=== PATIENT | female | born 1990 | race Caucasian/White ===

== ENCOUNTER → 2017-08-23 17:42 | Outpatient (CLI) | payer OTHER, SELFPAY | PROVIDERS: Visit Provider Obstetrics & Gynecology | DX: R30.0 Dysuria (principal) | CPT/HCPCS: 87086; 87088 ==

== ENCOUNTER → 2017-09-30 13:59 | Outpatient (CLI) | payer OTHER, SELFPAY ==
[2017-09-30 16:11] LABS: Group B Strep DNA By PCR Negative (Negative); Internal Control PASS; Probe Check PASS; Specimen Processing Control PASS
== END ==
PROVIDERS: Nurse Practitioner Women's Health; Visit Provider Obstetrics & Gynecology
DX: Z34.90 Encounter for supervision of normal pregnancy, unspecified, unspecified trimester (principal)
CPT/HCPCS: 87081; 87653

== ENCOUNTER 2017-10-22 12:10 | Inpatient (IN) | payer OTHER, SELFPAY ==
[2017-10-22] MEDS: Lactated Ringers 1,000 ML 50 ML IV (12:34)
[2017-10-22 12:35] VITALS: BMI 29.7
[2017-10-22 12:42] LABS: Hematocrit 36.5 % (37-47); Hemoglobin 12.5 g/dl (12.0-15.0); Mean Corp Hgb Conc 34.2 g/gl (32-36); Mean Corpuscular Hgb 30.5 pg (27.0-32.0); White Blood Count 15.2 K/mm3 (4.4-11.0)
[2017-10-22 12:43] LABS: Mean Platelet Vol. 11.5 fl (6.2-12.0); Platelet Count 270 K/mm3 (150-450); RBC Distribution Width CV 14.4 % (11.6-14.6); RBC Distribution Width SD 45.6 fl (35.1-43.9)
[2017-10-22 12:48] LABS: Scan Indicated on CBC? Y/N NO
[2017-10-22] MEDS: Ondansetron 4 MG/2 ML Vial IV (15:59)
[2017-10-22] MEDS: Oxytocin 30 units/NS 500 ml 30 UNITS/500 ML IV.SOLN 334 UNITS IV (17:50)
--- NOTE | 2017-10-22 18:08 | HP.PCM_ITS ---
- Problem List (1) Active labor at term Status: Acute (2) Supervision of normal Status: Acute Qualifiers: Comment: PRR DEWEY 10/27/17 girl Maricel Harry History Date of Admission: 10/22/17 Final DEWEY: 10/27/17 Gestational age: 39 Weeks and 2 Days History of this : 26 yo @ 39w2d presents IAL 4-5 cm Pertinent Past Medical History: Past Surgical History (Last Reviewed 10/22/17 @ 12:04 by Debbie Hoffman) History of wisdom tooth extraction, class II edentulism (Acute) Previous back surgery (Acute) ankle surgery (Acute) Mom's Labs & Results 10/22/17 10/22/17 12:30 12:30 WBC 15.2 H RBC 4.10 L Hgb 12.5 Hct 36.5 L MCV 89.0 MCH 30.5 MCHC 34.2 RDW 14.4 RDW Differential 45.6 H Plt Count 270 MPV 11.5 Blood Type A POSITIVE Antibody Screen NEGATIVE Course Did the patient receive Yes care? Labs Blood Type: A RH: POSITIVE RPR/VDRL/Syphilis Nonreactive Rubella status Immune HbSAg Negative Date Done: 04/09/17 Chlamydia Negative Gonorrhea Negative HIV/AIDS Non-Reactive Group B Strep: Negative Current Obstetrical History Gestational Diabetes No Incompetent Cervix No Infertility No IUGR No Macrosomia No Hypertension/Pre-eclampsia No Placenta Previa/Abruption No PTL/PROM No Uterine anomaly No Oligohydramnios No Polyhydramnios No Multiple gestation No Past Medical History Asthma Yes: childhood Diabetes No Hypertension No Heart disease No Mitral valve prolapse No Neurologic/Seizure disorder/ No Migraines Kidney disease No Liver disease No Varicosities No Clotting disorders/Hx of DVT No Thyroid Dysfunction No Other medical diseases No Psychiatric disorders No Major trauma No Abnormal PAP smear No Sleep apnea No Mammogram in the last 2 years No Enter DETAILS of medical left leg broken age 4 history Medications Taken During Dose/Freq.: [phenergan] 12.5 mg q6h prn Last Date/Time of Medication 22 weeks Taken: [phenergan] Social History Marital Status: Alleged father Harry [place] Hx Smoking No Smoking Status Never smoker Allergies codeine Adverse Reaction (Mild, Verified 10/22/17 13:34) Unknown nausea/vomiting oxycodone [From Percocet] Adverse Reaction (Mild, Verified 10/22/17 13:34) Unknown nausea/vomiting Current Medications Acetaminophen (Tylenol) 325 - 650 mg PO Q4H PRN PRN PRN Reason: PAIN OR FEVER >100.4F Al Hydroxide/Mg Hydroxide (Mylanta Ii) 15 - 30 ml PO Q4H PRN PRN PRN Reason: INDIGESTION Citric Acid/Sodium Citrate (Bicitra) 30 ml PO UD PRN Lactated Ringer's () 1,000 mls @ 50 mls/hr IV .Q20H MYRNA Last Admin: 10/22/17 12:34 Dose: 50 mls/hr Nalbuphine HCl (Nubain) 5 - 10 mg IV Q3H PRN PRN PRN Reason: PAIN (4-1010) Ondansetron HCl (Zofran) 4 mg IV Q8H PRN PRN PRN Reason: NAUSEA Last Admin: 10/22/17 15:59 Dose: 4 mg Promethazine HCl (Phenergan Iv) 6.25 - 12.5 mg IV Q4H PRN PRN; Protocol PRN Reason: IF NAUSEA PERSISTS Sodium Chloride () 5 - 15 ml IV UD [facility] Last Admin: 10/22/17 13:59 Dose: Not Given Smoking Status: Never smoker Alcohol: None Drug Use: none Number of Fetus(es): 1 - fht 140s Review of Systems Constitutional: Denies: Chills, Fever, Weight Change HEENT: Denies: Head Aches, Sinus Congestion, Sinus Drainage Cardiovascular: Denies: Chest Pain, Palpitations Respiratory: Denies: Cough, Shortness of breath at rest, Sputum production Gastrointestinal: Reports: Abdominal Pain, Nausea. Denies: Vomiting Genitourinary: Denies: Dysuria Gynecological: Reports: Vaginal bleeding, Vaginal discharge Musculoskeletal: Denies: Joint Pain, Joint Tenderness Skin: Denies: Rash, Wounds Neurological: Denies: Numbness, Tingling, Focal weakness Psychiatric: Denies: Anxiety, Depression, Homicidal Ideations, Suicidal Ideations Hematologic/ Lymphatic: Denies: Easy Bruising, Easy Bleeding Physical Exam General: Alert Cardiovascular: Regular rate Lungs: Normal air movement Abdomen: Soft, Non Tender, Gravid Extremities:: No edema Estimated gestational size: Appropriate for gestational size Presentation: Cephalic Cervix Dilation (cm): 4.5 Station: -2 Effacement (%): 70 Assessment/Plan Active and Suspected Problems (Last Reviewed 10/22/17 @ 12:04 by Debbie Hoffman) Active labor at term (Acute) 26 yo @ 39w2d presents IAL exp management
--- NOTE | 2017-10-22 18:09 | PCM.OB.VAG ---
- Problem List (1) Active labor at term Status: Acute (2) Supervision of normal Status: Acute Qualifiers: Comment: PRR DEWEY 10/27/17 girl Brennannlee Harry Vaginal Delivery Maternal Presentation: Active Labor 39w2d presents IAL Amniotic Membrane Rupture Type: Artificial Amniotic Fluid Description: Clear Final DEWEY: 10/27/17 Gestational age: 39 Weeks and 2 Days Date of Procedure: 10/22/17 Pre-Operative Diagnosis: ial Post-Operative Diagnosis: same Surgery/ Procedure Performed: Spontaneous Vaginal Delivery Type of Anesthesia: None Description of Procedure: Patient began pushing and delivered the head in the DAMIEN presentation. The head was delivered atraumatically and a loose nuchal cord ?1 was identified and easily reduced over the infant's head. The anterior and posterior shoulders delivered without complication followed by the rest of the infant and the was placed on the maternal abdomen. Delayed cord clamping was employed for approximately 60 seconds. Cord was clamped and cut and gentle traction was applied to the cord and the placenta delivered spontaneously immediately following it was noted to be intact with three-vessel cord. The perineum and vagina were inspected and noted to have a 1st degree perineal laceration that was repaired in the usual fashion. EBL was 200 cc. Patient and tolerated delivery well. Presentation: NAS Placental Delivery Description: Spontaneous Placenta Disposition: [facility] Cord Vessel Description: 3 Vessels Cord Entanglement: Around neck x 1, loose Estimated Blood Loss: 200 A gender: Female Episiotomy Description: None Laceration: Perineal Extension/lac, 1st degree Medications given after delivery: IV Pitocin Complications: None
[2017-10-22] MEDS: Oxytocin 30 units/NS 500 ml 30 UNITS/500 ML IV.SOLN 167 UNITS IV (18:20)
[2017-10-22] MEDS: 0.9% Saline Lock 10 ML Syringe IV (19:20)
[2017-10-22 23:45] VITALS: BP 117/69; PULSE 81; RESP 18; TEMP 37.3; O2SAT 98
[2017-10-22] MEDS: Naproxen 250 MG Tablet PO (23:49)
[2017-10-23 03:20] VITALS: BP 125/74; PULSE 92; RESP 18; TEMP 36.8; O2SAT 96
--- NOTE | 2017-10-23 08:16 | PCM.PN.OB ---
Patient Problems: Active and Suspected Problems (Last Reviewed 10/22/17 @ 12:04 by Debbie Hoffman) Active labor at term (Acute) Subjective: Doing well. Denies SOB, CP, NV. - Physical Exam General: Alert, Oriented x3 Abdomen: Soft, Non Tender, - - FF below U Vital Signs Temp Pulse Resp BP Pulse Ox 98.3 F 92 18 125/74 H 96 10/23/17 03:20 10/23/17 03:20 10/23/17 03:20 10/23/17 03:20 10/23/17 03:20 Oxygen Delivery Method Room Air Weight: 201 lb 11.567 oz Body Mass Index (BMI) 29.7 Intake and Output for Last 24 Hours 10/21/17 10/22/17 10/23/17 23:59 23:59 23:59 Output Total 400 / 400 Balance -400 / -400 Laboratory Tests Past 24 Hrs 10/22/17 10/22/17 12:30 12:30 WBC 15.2 H RBC 4.10 L Hgb 12.5 Hct 36.5 L MCV 89.0 MCH 30.5 MCHC 34.2 RDW 14.4 RDW Differential 45.6 H Plt Count 270 MPV 11.5 Blood Type A POSITIVE Antibody Screen NEGATIVE Medical Necessity - Tobacco Use Smoking Status: Never smoker Assessment/Plan Active and Suspected Problems (Last Reviewed 10/22/17 @ 12:04 by Debbie Hoffman) Active labor at term (Acute) PPD #1 Routine pp care. . Rh positive. Rubella immune.
[2017-10-23 08:50] VITALS: BP 120/70; PULSE 90; RESP 16; TEMP 37.1; O2SAT 97
[2017-10-23 12:55] VITALS: BP 128/84; PULSE 95; RESP 18; TEMP 36.8; O2SAT 97
[2017-10-23 16:40] VITALS: BP 114/78; PULSE 70; RESP 18; TEMP 37.1; O2SAT 95
[2017-10-23 19:50] VITALS: BP 114/77; PULSE 84; RESP 16; TEMP 37.1
[2017-10-23] MEDS: Senna/Docusate Sodium 1 Tablet PO (22:47)
[2017-10-24 01:45] VITALS: BP 114/68; PULSE 73; RESP 16; TEMP 36.5
--- NOTE | 2017-10-24 07:40 | PCM.PN.OB ---
Patient Problems: Active and Suspected Problems (Last Reviewed 10/22/17 @ 12:04 by Debbie Hoffman) Active labor at term (Acute) Subjective: Denies SOB, CP, NV. Pain controlled without meds. No issues with urination. - Physical Exam General: Alert, Oriented x3 Skin: - - FF below U. Normal lochia Vital Signs Temp Pulse Resp BP Pulse Ox 97.7 F L 73 16 114/68 95 10/24/17 01:45 10/24/17 01:45 10/24/17 01:45 10/24/17 01:45 10/23/17 16:40 Oxygen Delivery Method Room Air Weight: 201 lb 11.567 oz Body Mass Index (BMI) 29.7 Intake and Output for Last 24 Hours 10/22/17 10/23/17 10/24/17 23:59 23:59 23:59 Output Total 400 / 400 Balance -400 / -400 Medical Necessity - Tobacco Use Smoking Status: Never smoker Assessment/Plan Active and Suspected Problems (Last Reviewed 10/22/17 @ 12:04 by Debbie Hoffman) Active labor at term (Acute) PP #2 Doing well. Routine PP care. . Wants Rx micronor-start at 4 week pp. Rh positive. DC today.
--- NOTE | 2017-10-24 07:48 | PN.OBGYN_ITS ---
Patient Problems: Active and Suspected Problems (Last Reviewed 10/22/17 @ 12:04 by Debbie Hoffman) Active labor at term (Acute) Subjective: Denies SOB, CP, NV. Pain controlled without meds. No issues with urination. - Physical Exam General: Alert, Oriented x3 Skin: - - FF below U. Normal lochia Vital Signs Temp Pulse Resp BP Pulse Ox 97.7 F L 73 16 114/68 95 10/24/17 01:45 10/24/17 01:45 10/24/17 01:45 10/24/17 01:45 10/23/17 16:40 Oxygen Delivery Method Room Air Weight: 201 lb 11.567 oz Body Mass Index (BMI) 29.7 Intake and Output for Last 24 Hours 10/22/17 10/23/17 10/24/17 23:59 23:59 23:59 Output Total 400 / 400 Balance -400 / -400 Medical Necessity - Tobacco Use Smoking Status: Never smoker Assessment/Plan Active and Suspected Problems (Last Reviewed 10/22/17 @ 12:04 by Debbie Hoffman) Active labor at term (Acute) PP #2 Doing well. Routine PP care. . Wants Rx micronor- start at 4 week pp. Rh positive. DC today.
[2017-10-24 08:00] VITALS: BP 116/75; PULSE 73; RESP 16; TEMP 37
--- NOTE | 2017-10-24 08:07 | PCM.DC ---
- Discharge Diagnoses Current Active Problems: Current Active and Chronic Problems (Last Reviewed 10/22/17 @ 12:04 by Debbie Hoffman) Active labor at term (Acute) Allergies/Adverse Reactions: Allergies codeine Adverse Reaction (Mild, Verified 10/22/17 13:34) Unknown nausea/vomiting oxycodone [From Percocet] Adverse Reaction (Mild, Verified 10/22/17 13:34) Unknown nausea/vomiting Medications to take at Discharge vitamin,calcium,zdpkdilj-gdkx-etaia acid tablet 1 tab PO QDAY 07/11/17 Norethindrone [Edith] 0.35 mg PO DAILY #28 tab 10/24/17 The following prescriptions were given: Norethindrone [Edith] 0.35 mg PO DAILY #28 tab Orders to be completed after discharge: Electric breast pump Location: None Selected Primary Care Physician: Care Physician,No Primary [Primary Care Provider] -
--- NOTE | 2017-10-24 08:09 | DCINST_ITS ---
Discharge Diet: No Restrictions Discharge Activity: Return to Normal Activity, May not drive while taking narcotic pain medications., May Shower May resume sexual activity in: 4-6 weeks Additional Activity Instructions:: Nothing in the vagina for 4-6 weeks. You may return to work/school in 6 weeks. Call your doctor if your incision/area has: Continuous Slow Oozing, Sudden Increased Bleeding, Increased Pain/ Swelling, Increased Redness, Foul Smelling Discharge Additional Instructions: If you experience any of the following, contact your healthcare provider. * Bleeding that soaks a pad every hour for 2 hours * Fever 100.4 or higher * Unrelieved incision or abdominal pain * Swelling, redness, discharge or bleeding from your incision or episiotomy site * Your incision begins to separate * Problems urinating (including inability to urinate or burning while urinating) . * Visual changes * Severe headache * Flu-like symptoms * Pain or redness in one of both of your breasts * Pain, warmth, tenderness or swelling in your legs, especially the calf area * Frequent nausea and vomiting * Symptoms of depression or anxiety If you experience any of the following, call 911 or go to the nearest Emergency Room. * Chest pain * Problems breathing * Seizure activity * Partial or complete paralysis of a body part, slurred speech, weakness or drooping of the face, or a sudden inability to walk or hold your balance Allergies/Adverse Reactions: Allergies codeine Adverse Reaction (Mild, Verified 10/22/17 13:34) Unknown nausea/vomiting oxycodone [From Percocet] Adverse Reaction (Mild, Verified 10/22/17 13:34) Unknown nausea/vomiting Medications to take at Discharge vitamin,calcium,yrrnuhfm-jsxo-gfeya acid tablet 1 tab PO QDAY 07/11/17 Norethindrone [Edith] 0.35 mg PO DAILY #28 tab 10/24/17 The following prescriptions were given: Norethindrone [Edith] 0.35 mg PO DAILY #28 tab Orders to be completed after discharge: Electric breast pump Location: None Selected When: Call to make an appointment with your doctor in 6 weeks. If you had elevated Blood Pressure or 4th degree laceration you will need to be seen in 2 weeks. Primary Care Physician: Care Physician,No Primary [Primary Care Provider] -
[2017-10-24] MEDS: Senna/Docusate Sodium 1 Tablet PO (08:54)
== END 2017-10-24 11:00 | disposition home or self-care (01) | DRG 775 ==
PROVIDERS: Admitting Provider Obstetrics & Gynecology; Visit Provider Obstetrics & Gynecology
DX: O69.81X0 Labor and delivery complicated by cord around neck, without compression, not applicable or unspecified (principal); Z37.0 Single live birth; O70.0 First degree perineal laceration during delivery
CPT/HCPCS: 59050; 85027; 86850; 86900; 99218; J7120; A4216; G0378; J2405

== ENCOUNTER → 2017-12-05 11:17 | Outpatient (CLI) | payer OTHER, SELFPAY ==
[2017-12-05 12:47] LABS: Absolute Lymphocyte Count 1.59 X10^3/ul (0.83-4.51); Absolute Neutrophil Count 3.6 X10^3/uL (2.0-7.7); Basophil# 0.01 X10^3/uL; Basophil% 0.2 % (0-1); Eosinophil# 0.04 X10^3/uL; Eosinophils% 0.7 % (0-5); Hematocrit 37.5 % (37-47); Hemoglobin 11.9 g/dl (12.0-15.0); Lymphocyte # 1.59 X10^3/ul (4.0); Mean Corp Hgb Conc 31.7 g/gl (32-36); Mean Corpuscular Volume 88.2 fL (81-99); Monocyte# 0.41 X10^3/uL; Monocyte% 7.2 % (0-10); Neutrophil # 3.61 X10^3/uL (2.7-7.7); Neutrophil % 63.7 % (47-70); Platelet Count 299 K/mm3 (150-450); RBC Distribution Width CV 13.9 % (11.6-14.6); RBC Distribution Width SD 45.1 fl (35.1-43.9); Red Blood Count 4.25 M/mm3 (4.2-5.4); White Blood Count 5.7 K/mm3 (4.4-11.0)
[2017-12-05 12:51] LABS: POSITIVE COUNT NO; POSITIVE DIFFERENTIAL NO; POSITIVE MORPHOLOGY NO
[2017-12-05 13:16] LABS: Thyroid Stim Hormone (TSH) 1.76 uIU/mL (0.358-3.74)
[2017-12-05 13:18] LABS: hCG Titer Quant., Serum < 1 mIU/mL (<9 non-preg)
== END ==
PROVIDERS: Visit Provider Obstetrics & Gynecology
DX: N93.9 Abnormal uterine and vaginal bleeding, unspecified (principal)
CPT/HCPCS: 36415; 84443; 84702; 85025

== ENCOUNTER → 2018-08-18 18:18 | Outpatient (CLI) | payer OTHER, SELFPAY ==
[2018-08-18 17:01] VITALS: BMI 25.0
[2018-08-18 21:05] LABS: Chlamydia Trachomatis by PCR Negative (Negative); Neisserai gonorrhoeae by PCR Negative (Negative); Probe Check PASS; Sample Adequacy Control PASS; Specimen Processing Control PASS
[2018-08-21 13:29] LABS: HPV Reflexed? NOT INDICATED
== END ==
PROVIDERS: Referring Provider Obstetrics & Gynecology; Visit Provider Obstetrics & Gynecology
DX: Z34.90 Encounter for supervision of normal pregnancy, unspecified, unspecified trimester (principal); Z12.4 Encounter for screening for malignant neoplasm of cervix
CPT/HCPCS: 87086; 87088; 87491; 87591; 87624; 88175; G0145

== ENCOUNTER → 2018-08-28 11:15 | Outpatient (CLI) | payer OTHER, SELFPAY ==
[2018-08-22 10:40] VITALS: BMI 25.0
[2018-08-28 11:51] LABS: Absolute Lymphocyte Count 1.51 X10^3/ul (0.83-4.51); Absolute Neutrophil Count 4.6 X10^3/uL (2.0-7.7); Basophil# 0.01 X10^3/uL; Basophil% 0.1 % (0-1); Eosinophil# 0.02 X10^3/uL; Eosinophils% 0.3 % (0-5); Hematocrit 39.7 % (37-47); Hemoglobin 13.2 g/dl (12.0-15.0); Lymphocyte # 1.51 X10^3/ul (4.0); Lymphocyte % 21.8 % (19-41); Mean Corp Hgb Conc 33.2 g/gl (32-36); Mean Corpuscular Hgb 29.5 pg (27.0-32.0); Mean Corpuscular Volume 88.8 fL (81-99); Mean Platelet Vol. 10.3 fl (6.2-12.0); Monocyte# 0.81 X10^3/uL; Monocyte% 11.7 % (0-10); Neutrophil # 4.57 X10^3/uL (2.7-7.7); Platelet Count 273 K/mm3 (150-450); RBC Distribution Width CV 12.9 % (11.6-14.6); RBC Distribution Width SD 41.6 fl (35.1-43.9); Red Blood Count 4.47 M/mm3 (4.2-5.4); White Blood Count 6.9 K/mm3 (4.4-11.0)
[2018-08-28 11:55] LABS: POSITIVE COUNT NO; POSITIVE DIFFERENTIAL NO; POSITIVE MORPHOLOGY NO
[2018-08-28 14:13] LABS: HIV - WCH Non-Reactive (Nonreactive); Rubella IgG 154.7 IU/mL
[2018-08-28 22:04] LABS: Rapid Plasmin Reagin (RPR) NONREACTIVE (NONREACTIVE)
[2018-08-29 18:45] LABS: HEPATITIS B SURFACE AG Negative (Negative)
== END ==
PROVIDERS: Referring Provider Obstetrics & Gynecology; Visit Provider Obstetrics & Gynecology
DX: Z34.90 Encounter for supervision of normal pregnancy, unspecified, unspecified trimester (principal)
CPT/HCPCS: 36415; 85025; 86592; 86703; 86762; 86850; 86900; 87340

== ENCOUNTER → 2018-11-04 | Outpatient (CLI) | payer OTHER, SELFPAY ==
[2018-10-17 09:00] VITALS: BMI 25.0
--- NOTE | 2018-11-04 07:30 | US_ITS ---
STUDY: SECOND AND THIRD TRIMESTER OBSTETRICAL ULTRASOUND REASON FOR EXAM: Female, 27 years old. Anatomy screening. LMP: June 12, 2018 TECHNIQUE: Transabdominal TECHNICAL QUALITY: Adequate. PRIOR ULTRASOUND: None. FINDINGS: There is a single intrauterine fetus. The fetus is in a variable presentation during the course of the exam. There is demonstrated cardiac activity with a heart rate of 142 bpm. There is a subjectively normal amniotic fluid volume. The placenta is posterior in location and is not low lying. There are Grade 0 placental changes. Note is made of an approximately 1.15 cm placental venous chaparro. The cervix measures 4.3 in length. BIOMETRY: BPD: 4.66 cm: 20 weeks, 1 days HC: 17.63 cm: 20 weeks, 1 days AC: 16.37 cm: 21 weeks, 4 days FL: 3.58 cm: 21 weeks, 3 days CI: 77% FL/BPD: 77% FL/AC: 22% HC/AC: 1.08 age by current US: 20 weeks, 6 days. DEWEY by current US: March 19, 2019.. Estimated weight: 407 grams, +/- 60 grams, 72 %. Age by LMP: 20 weeks, 5 days. DEWEY by LMP: March 18, 2019. ANATOMY: Cranium: Normal lateral ventricles. Normal choroid plexus. Normal cerebellum. Normal cisterna magna. Normal face, nose and lips. Chest: Normal 4-chamber heart. Abdomen/Pelvis: Normal diaphragm. Normal stomach. Normal abdominal wall. Normal cord insertion. Normal 3 vessel cord. Normal kidneys. Normal bladder. Spine: Normal cervical spine. Normal thoracic spine. Normal lumbar spine. Normal sacrum. Extremities: Normal bilateral upper extremities. Normal bilateral lower extremities. US/OB Anatomy Scan IMPRESSION: Viable, cardoso, variable presentation intrauterine . Please see text above. Electronically Signed: Jhony Summers MD at 7:36 EDT , Service support ,
== END | disposition home or self-care (01) ==
LOC: OPUS 07:29
PROVIDERS: Referring Provider Obstetrics & Gynecology; Visit Provider Obstetrics & Gynecology
DX: Z34.90 Encounter for supervision of normal pregnancy, unspecified, unspecified trimester (principal)
CPT/HCPCS: 76805

== ENCOUNTER → 2018-12-23 | Outpatient (CLI) | payer OTHER, SELFPAY ==
[2018-12-09 08:20] VITALS: BMI 27.4
[2018-12-23 11:32] LABS: Absolute Lymphocyte Count 1.91 X10^3/ul (0.83-4.51); Basophil# 0.01 X10^3/uL; Basophil% 0.1 % (0-1); Eosinophil# 0.06 X10^3/uL; Eosinophils% 0.6 % (0-5); Hematocrit 36.6 % (37-47); Hemoglobin 12.2 g/dl (12.0-15.0); Lymphocyte # 1.91 X10^3/ul (4.0); Lymphocyte % 19.4 % (19-41); Mean Corp Hgb Conc 33.3 g/gl (32-36); Mean Corpuscular Hgb 29.9 pg (27.0-32.0); Mean Corpuscular Volume 89.7 fL (81-99); Mean Platelet Vol. 10.4 fl (6.2-12.0); Monocyte# 0.81 X10^3/uL; Monocyte% 8.2 % (0-10); Neutrophil # 7.03 X10^3/uL (2.7-7.7); Neutrophil % 71.4 % (47-70); POSITIVE COUNT NO; POSITIVE DIFFERENTIAL NO; POSITIVE MORPHOLOGY NO; Platelet Count 271 K/mm3 (150-450); RBC Distribution Width CV 13.8 % (11.6-14.6); RBC Distribution Width SD 44.9 fl (35.1-43.9); Red Blood Count 4.08 M/mm3 (4.2-5.4); White Blood Count 9.9 K/mm3 (4.4-11.0)
[2018-12-23 11:51] LABS: Glucose Challenge Gest 1H 50g 102 mg/dL (70-140)
== END | disposition home or self-care (01) ==
LOC: LAB 10:19
PROVIDERS: Referring Provider Obstetrics & Gynecology; Visit Provider Obstetrics & Gynecology
DX: Z34.90 Encounter for supervision of normal pregnancy, unspecified, unspecified trimester (principal)
CPT/HCPCS: 36415; 82950; 85025

== ENCOUNTER → 2019-02-13 | Outpatient (CLI) | payer OTHER, SELFPAY ==
[2019-02-02 09:33] VITALS: BMI 27.4
--- NOTE | 2019-02-13 10:22 | US_ITS ---
STUDY: SECOND AND THIRD TRIMESTER OBSTETRICAL ULTRASOUND - LIMITED REASON FOR EXAM: Female, 28 years old. Routine survey. LMP: June 12, 2018. PRIOR ULTRASOUND: Comparison is made with prior study dated November 04, 2018. TECHNIQUE: Transabdominal TECHNICAL QUALITY: Adequate. FINDINGS: There is a single intrauterine fetus. The fetus is in a cephalic presentation. There is demonstrated cardiac activity with a heart rate of 132 bpm. There is a normal amniotic fluid volume. The largest amniotic fluid pocket measures 5.9 cm. The amniotic fluid index (LETICIA) is 19.2 cm. The placenta is 1 There are Grade 1 placental changes. The cervix measures 4 cm in length. BIOMETRY: BPD: 9.11 cm: 37 weeks, 0 days HC: 32.66 cm: 37 weeks, 1 days AC: 31.74 cm: 35 weeks, 5 days FL: 6.93 cm: 35 weeks, 4 days Age by LMP: 35 weeks, 1 days. DEWEY by LMP: March 19, 2019. age by prior US: 35 weeks, 2 days. DEWEY by prior US: March 18, 2019. age by current US: 36 weeks, 3 days. DEWEY by current US: March 10, 2019. Estimated weight: 2803 grams, +/- 409 grams, 70 percentile. US/OB Limited With Biometrics IMPRESSION: Single live intrauterine gestation with a mean gestational age of 35 weeks and 2 days. The measurements obtained today fall within the normal expected range. Electronically Signed: Niranjan Yi, at 14:14 EDT , Service support ,
== END | disposition home or self-care (01) ==
LOC: OPUS 10:21
PROVIDERS: Referring Provider Obstetrics & Gynecology; Visit Provider Obstetrics & Gynecology
DX: Z34.90 Encounter for supervision of normal pregnancy, unspecified, unspecified trimester (principal)
CPT/HCPCS: 76816

== ENCOUNTER → 2019-02-23 | Outpatient (CLI) | payer OTHER, SELFPAY ==
[2019-02-23 11:32] VITALS: BMI 27.4
== END | disposition home or self-care (01) ==
LOC: LABSPEC 12:06
PROVIDERS: Referring Provider Obstetrics & Gynecology; Visit Provider Obstetrics & Gynecology
DX: Z34.90 Encounter for supervision of normal pregnancy, unspecified, unspecified trimester (principal); Z3A.36 36 weeks gestation of pregnancy
CPT/HCPCS: 87081

== ENCOUNTER 2019-03-20 05:30 | Inpatient (IN) | payer OTHER, SELFPAY ==
[2019-03-18 11:28] VITALS: BMI 30.7
[2019-03-20] MEDS: Lactated Ringers 1,000 ML 50 ML IV (06:02)
[2019-03-20 06:08] VITALS: BMI 30.8
[2019-03-20 06:40] LABS: Absolute Lymphocyte Count 2.54 X10^3/uL (0.83-4.51); Absolute Neutrophil Count 9.3 X10^3/uL (2.0-7.7); Basophil# 0.03 X10^3/uL; Basophil% 0.2 % (0-1); Eosinophil# 0.05 X10^3/uL; Eosinophils% 0.4 % (0-5); Hematocrit 37.6 % (37-47); Hemoglobin 12.3 g/dL (12.0-15.0); Lymphocyte # 2.54 X10^3/ul (4.0); Lymphocyte % 19.2 % (19-41); Mean Corp Hgb Conc 32.7 g/dL (32-36); Mean Corpuscular Hgb 28.8 pg (27.0-32.0); Mean Corpuscular Volume 88.1 fL (81-99); Mean Platelet Vol. 11.9 fl (6.2-12.0); Monocyte% 9.8 % (0-10); NRBC Flagged by Analyzer 0 % (0-5); Neutrophil # 9.25 X10^3/uL (2.7-7.7); Neutrophil % 69.9 % (47-70); Platelet Count 244 K/mm3 (150-450); RBC Distribution Width CV 14.2 % (11.6-14.6); RBC Distribution Width SD 44.9 fl (35.1-43.9); Red Blood Count 4.27 M/mm3 (4.2-5.4); White Blood Count 13.2 K/mm3 (4.4-11.0)
[2019-03-20] MEDS: Ondansetron 4 MG/2 ML Vial IV (07:10)
--- NOTE | 2019-03-20 07:31 | PCM.HP.OB ---
- Problem List (1) Status: Acute Qualifiers: Weeks of gestation: 37 weeks Qualified Code(s): Z3A.37 - 37 weeks gestation of Comment: genetic, NTD and carrier screening declined. nl anatomy. (2) Supervision of normal Status: Acute Qualifiers: Normal : other normal Trimester: third trimester Qualified Code(s): Z34.83 - Encounter for supervision of other normal , third trimester Comment: PRR Dewey 03/19/19 girl PC Maricel Dima History Date of Admission: 10/22/17 Final DEWEY: 03/19/19 Gestational age: 40 Weeks and 2 Days History of this : This is a 28 year-old, at 40 weeks gestational age presents in active labor. Patient has had regular contractions for the last several hours denies any loss of fluid or vaginal bleeding. Admits good movement.. Surgical History: Surgical History (Last Reviewed 03/18/19 @ 11:28 by Shayla Burkett) History of ankle surgery Z98.890 History of wisdom tooth extraction, class II edentulism K08.492 Previous back surgery Z98.890 Allergies codeine Adverse Reaction (Mild, Verified 03/18/19 11:28) Unknown nausea/vomiting oxycodone [From Percocet] Adverse Reaction (Mild, Verified 03/18/19 11:28) Unknown nausea/vomiting Home Medications: Home Medications vitamin,calcium,mylfqmcn-ewin-dguuh acid tablet 1 tab PO QDAY 07/11/17 Ranitidine HCl [Acid Medical Radiation Dosimetrist] 150 mg PO BID 03/20/19 Smoking Status: Never smoker Alcohol: None Number of Fetus(es): 1 NST - FHR Rate Baby A Baseline: 130 Variability:: Moderate Accelerations:: 15 x 15 Decelerations:: None NST Reactive:: Yes FHR Category:: Category I Uterine Activity:: Q. 3 to 4 minutes History Past Pregnancies: Past Pregnancies Previous term vaginal delivery uncomplicated Labs: Mom's Labs & Results 03/20/19 03/20/19 06:02 06:02 WBC 13.2 H RBC 4.27 Hgb 12.3 Hct 37.6 MCV 88.1 MCH 28.8 MCHC 32.7 RDW Std Deviation 44.9 H RDW Coeff of Salena 14.2 Plt Count 244 MPV 11.9 Immature Gran % (Auto) 0.500 Neut % (Auto) 69.9 Lymph % (Auto) 19.2 Johnson % (Auto) 9.8 Eos % (Auto) 0.4 Baso % (Auto) 0.2 Absolute Neuts (auto) 9.3 H Absolute Lymphs (auto) 2.54 Nucleated RBC % 0 Blood Type A POSITIVE Antibody Screen NEGATIVE Course Did the patient receive Yes care? Labs Blood Type: A RH: POSITIVE RPR/VDRL/Syphilis Nonreactive Rubella status Immune HbSAg Negative Date Done: 08/28/18 Chlamydia Negative Gonorrhea Negative HIV/AIDS Not done Group B Strep: Negative Current Obstetrical History Gestational Diabetes No Incompetent Cervix No Infertility No IUGR No Macrosomia No Hypertension/Pre-eclampsia No Placenta Previa/Abruption No PTL/PROM No Uterine anomaly No Oligohydramnios No Polyhydramnios No Multiple gestation No Past Medical History Asthma Yes Diabetes No Hypertension No Heart disease No Mitral valve prolapse No Neurologic/Seizure disorder/ No Migraines Kidney disease No Liver disease No Varicosities No Clotting disorders/Hx of DVT No Thyroid Dysfunction No Other medical diseases No Psychiatric disorders No Major trauma No Abnormal PAP smear No Sleep apnea No Mammogram in the last 2 years No Social History Marital Status: Alleged father dima cobb Hx Smoking No Smoking Status Never smoker Expected Infant Delivery Method: Spontaneous Vaginal Review of Systems Constitutional: Denies: Fever, Malaise Eyes: Denies: Blurred vision, Vision Change HEENT: Denies: Head Aches, Visual Changes Cardiovascular: Denies: Chest Pain, Palpitations Respiratory: Denies: Cough, Shortness of Breath, Wheezing Gastrointestinal: Denies: Abdominal Pain, Diarrhea, Nausea, Vomiting Genitourinary: Denies: Dysuria, Hematuria Musculoskeletal: Denies: Joint Pain, Muscle pain Skin: Denies: Lesions, Rash Neurological: Denies: Blurred vision, Focal weakness, Headaches Psychiatric: Denies: Anxiety, Depression Endocrine: Denies: Heat/ Cold Intolerance Hematologic/ Lymphatic: Denies: Easy Bruising, Easy Bleeding Physical Exam General: Alert, Cooperative, No apparent distress HEENT: Atraumatic, Normocephalic. Negative for: Thyromegaly, Lymphadenopathy Cardiovascular: Regular rate Lungs: Normal air movement Abdomen: Soft, Non Tender, Gravid Neurological: Deep Tendon Reflexes 2+/4 and Symmetrical, Neuro grossly intact. Negative for: Clonus CLAIMS ADJUSTER CROP: Normal external genitalia. Negative for: Vulvar lesions Estimated gestational size: Appropriate for gestational size Presentation: Cephalic Assessment/Plan All Active Problems (Last Reviewed 03/18/19 @ 11:28 by Shayla Burkett) (Acute) Supervision of normal (Acute) Active labor at term (Resolved) Supervision of normal (Resolved) This is a 28 year-old, G 2P1, at 40 weeks gestational age and is in active labor Patient prefers minimal intervention declines epidural GBS negative
[2019-03-20] MEDS: Oxytocin 30 units/NS 500 ml 30 UNITS/500 ML IV.SOLN 334 UNITS IV (10:51)
--- NOTE | 2019-03-20 10:56 | OP.PCM_ITS ---
Problem List (1) Status: Acute Qualifiers: Weeks of gestation: 37 weeks Qualified Code(s): Z3A.37 - 37 weeks gestation of Comment: genetic, NTD and carrier screening declined. nl anatomy. (2) Supervision of normal Status: Acute Qualifiers: Normal : other normal Trimester: third trimester Qualified Code(s): Z34.83 - Encounter for supervision of other normal , third trimester Comment: PRR Dewey 03/19/19 girl PC Maricel Harry (3) Vaginal delivery Status: Acute (4) Active labor at term Status: Acute Vaginal Delivery Maternal Presentation: Active Labor 28-year-old G2, P1 at 40 weeks 1 day presents in active labor Amniotic Membrane Rupture Type: Artificial Amniotic Fluid Description: Clear Final DEWEY: 03/19/19 Gestational age: 40 Weeks and 2 Days Date of Procedure: 03/20/19 Pre-Operative Diagnosis: In active labor Post-Operative Diagnosis: Same Surgery/ Procedure Performed: Spontaneous Vaginal Delivery Type of Anesthesia: Epidural Description of Procedure: Patient began pushing and delivered the head in the NAS presentation. The head was delivered atraumatically . The anterior and posterior shoulders delivered without complication followed by the rest of the and the was placed on the maternal abdomen. Delayed cord clamping was employed for approximately 60 seconds. Cord was clamped and cut and gentle traction was applied to the cord and the placenta delivered spontaneously immediately following it was noted to be intact with three-vessel cord. The perineum and vagina were inspected and noted to have no laceration. Patient and infant tolerated delivery well. Presentation: NAS Placental Delivery Description: Spontaneous Placenta Disposition: [facility] Cord Vessel Description: 3 Vessels Cord Entanglement: None Estimated Blood Loss: nurse note Infant A gender: Female Episiotomy Description: None Laceration: None Medications given after delivery: IV Pitocin Complications: None Multi Select Codes - Urinary/Genital Urinary/Genital CPT Codes: 58601 Vaginal Delivery [facility]
[2019-03-20] MEDS: Naproxen 250 MG Tablet 500 MG PO ×2 (11:10→23:04)
[2019-03-20] MEDS: Methylergonovine 0.2 MG/ML Ampul IM (11:40)
[2019-03-20 15:44] VITALS: BP 120/60; PULSE 89; RESP 16; TEMP 36.7; O2SAT 99
[2019-03-20 20:00] VITALS: BP 111/58; PULSE 80; RESP 16; TEMP 36.4
[2019-03-20 23:15] VITALS: BP 117/72; PULSE 80; RESP 14; TEMP 36.7
--- NOTE | 2019-03-21 01:49 | DCINST_ITS ---
Discharge Diet: No Restrictions Discharge Activity: Return to Normal Activity, May not drive while taking narcotic pain medications., May Shower May resume sexual activity in: 4-6 weeks Call your doctor if your incision/area has: Continuous Slow Oozing, Sudden Increased Bleeding, Increased Pain/ Swelling, Increased Redness, Foul Smelling Discharge Additional Instructions: If you experience any of the following, contact your healthcare provider. * Bleeding that soaks a pad every hour for 2 hours * Fever 100.4 or higher * Unrelieved incision or abdominal pain * Swelling, redness, discharge or bleeding from your incision or episiotomy site * Your incision begins to separate * Problems urinating (including inability to urinate or burning while urinating). * Visual changes * Severe headache * Flu-like symptoms * Pain or redness in one of both of your breasts * Pain, warmth, tenderness or swelling in your legs, especially the calf area * Frequent nausea and vomiting * Symptoms of depression or anxiety If you experience any of the following, call 911 or go to the nearest Emergency Room. * Chest pain * Problems breathing * Seizure activity * Partial or complete paralysis of a body part, slurred speech, weakness or drooping of the face, or a sudden inability to walk or hold your balance Allergies/Adverse Reactions: Allergies codeine Adverse Reaction (Mild, Verified 03/18/19 11:28) Unknown nausea/vomiting oxycodone [From Percocet] Adverse Reaction (Mild, Verified 03/18/19 11:28) Unknown nausea/vomiting Medications to take at Discharge vitamin,calcium,nxiszndj-ypbc-btbjr acid tablet 1 tab PO QDAY 07/11/17 Ranitidine HCl [Acid Windchill Administrator] 150 mg PO BID 03/20/19 Please Follow Up With: Tia Arredondo MD - [phone] When: Call to make an appointment with your doctor in 6 weeks. If you had elevated Blood pressure or 4th degree laceration you will need to be seen in 2 weeks. Primary Care Physician: Care Physician,No Primary [Primary Care Provider] - Test Results: Test results from this visit will be discussed in further detail at your follow- up appointment, if applicable.
--- NOTE | 2019-03-21 01:49 | PCM.DCVAG ---
Discharge Diet: No Restrictions Discharge Activity: Return to Normal Activity, May not drive while taking narcotic pain medications., May Shower May resume sexual activity in: 4-6 weeks Call your doctor if your incision/area has: Continuous Slow Oozing, Sudden Increased Bleeding, Increased Pain/ Swelling, Increased Redness, Foul Smelling Discharge Additional Instructions: If you experience any of the following, contact your healthcare provider. Bleeding that soaks a pad every hour for 2 hours Fever 100.4 or higher Unrelieved incision or abdominal pain Swelling, redness, discharge or bleeding from your incision or episiotomy site Your incision begins to separate Problems urinating (including inability to urinate or burning while urinating). Visual changes Severe headache Flu-like symptoms Pain or redness in one of both of your breasts Pain, warmth, tenderness or swelling in your legs, especially the calf area Frequent nausea and vomiting Symptoms of depression or anxiety If you experience any of the following, call 911 or go to the nearest Emergency Room. Chest pain Problems breathing Seizure activity Partial or complete paralysis of a body part, slurred speech, weakness or drooping of the face, or a sudden inability to walk or hold your balance Allergies/Adverse Reactions: Allergies codeine Adverse Reaction (Mild, Verified 03/18/19 11:28) Unknown nausea/vomiting oxycodone [From Percocet] Adverse Reaction (Mild, Verified 03/18/19 11:28) Unknown nausea/vomiting Medications to take at Discharge vitamin,calcium,ulzctnxw-yucd-qagjk acid tablet 1 tab PO QDAY 07/11/17 Ranitidine HCl [Acid Clinical Case Manager] 150 mg PO BID 03/20/19 Please Follow Up With: Tia Arredondo MD - [phone] When: Call to make an appointment with your doctor in 6 weeks. If you had elevated Blood pressure or 4th degree laceration you will need to be seen in 2 weeks. Primary Care Physician: Care Physician,No Primary [Primary Care Provider] - Test Results: Test results from this visit will be discussed in further detail at your follow-up appointment, if applicable.
[2019-03-21 04:00] VITALS: BP 109/62; PULSE 75; RESP 16; TEMP 36.1
[2019-03-21 08:35] VITALS: BP 123/70; PULSE 69; RESP 16; TEMP 36.2; O2SAT 97
--- NOTE | 2019-03-21 09:31 | PCM.PN.OB ---
Patient Problems: Active and Suspected Problems (Last Reviewed 03/18/19 @ 11:28 by Shayla Burkett) Vaginal delivery (Acute) Active labor at term (Acute) Subjective: doing well no complaints pain controlled no CP SOB N V ambulating well tolerating po lochia moderate, going well - Physical Exam Vital Signs Temp Pulse Resp BP Pulse Ox 97.1 F L 69 16 123/70 H 97 03/21/19 08:35 03/21/19 08:35 03/21/19 08:35 03/21/19 08:35 03/21/19 08:35 Oxygen Delivery Method Room Air Weight: 202 lb 9.677 oz Body Mass Index (BMI) 30.8 Intake and Output for Last 24 Hours 03/19/19 03/20/19 03/21/19 23:59 23:59 23:59 Intake Total 730.0 / 730.0 Output Total 1275 / 1275 Balance -545.0 / -545.0 Medical Necessity - Tobacco Use Smoking Status: Never smoker Assessment/Plan All Active Problems (Last Reviewed 03/18/19 @ 11:28 by Shayla Burkett) Vaginal delivery (Acute) Active labor at term (Acute) (Acute) Supervision of normal (Acute) Active labor at term (Resolved) Supervision of normal (Resolved) s/p PPD # 1 1. routine post delivery care 2. breast feeding- support given 3. rh positive 4. rubella immune
[2019-03-21 14:00] VITALS: BP 119/74; PULSE 80; TEMP 36.4; O2SAT 98
== END 2019-03-21 17:10 | disposition home or self-care (01) | DRG 807 ==
PROVIDERS: Admitting Provider Obstetrics & Gynecology; Referring Provider Obstetrics & Gynecology; Visit Provider Obstetrics & Gynecology
DX: O80 Encounter for full-term uncomplicated delivery (principal); Z37.0 Single live birth; Z3A.40 40 weeks gestation of pregnancy
CPT/HCPCS: 59025; 59050; 85025; 86850; 86900; 86901; 99218; J7120; G0378; J2405

== ENCOUNTER 2019-03-29 04:22 | Emergency (ER) | payer OTHER, SELFPAY ==
[2019-03-29 04:24] VITALS: BP 116/91; PULSE 127; RESP 16; TEMP 36.5; O2SAT 98; BMI 28.3
--- NOTE | 2019-03-29 04:39 | ED.VIS.GEN ---
History of Present Illness Chief Complaint: Vag Bleeding Narrative: This patient is a 28-year-old female who presents with heavy vaginal bleeding. She is 9 days . She is G2, P2. She did go into spontaneous labor at term. She had a vaginal delivery. Afterwards it sounds like she had uterine atony and hemorrhage. She was treated with Pitocin and a another medication that was given as an injection. She has been having some cramping since then but nothing that she thought was abnormal. When she woke this morning she had heavy bleeding and passed a large clot. She describes this as golf ball diameter but several inches long. Past Medical History - Allergies and Home Meds Allergies/Adverse Reactions: Allergies codeine Adverse Reaction (Mild, Verified 03/29/19 04:24) Unknown nausea/vomiting oxycodone [From Percocet] Adverse Reaction (Mild, Verified 03/29/19 04:24) Unknown nausea/vomiting Primary Care Physician: Care Physician,No Primary [Primary Care Provider] - Past Medical History: - - Exercise-induced asthma Smoking Status: Never smoker Review of Systems All systems negative except as indicated Genitourinary: Reports: - - Vaginal bleeding Physical Exam Vital Signs/Narrative: Vital Signs Temp Pulse Resp BP Pulse Ox 03/29/19 04:24 97.7 F L 127 H 16 116/91 H 98 Inital Vital Signs reviewed: Yes General: Well nourished, Well developed Head: Normocephalic Eyes: EOMI ENT: Moist mucous membranes Neck: Supple Cardiovascular: - - Heart is regular tachycardia Respiratory: No distress, CTA bilaterally Abdomen: Soft Skin: Normal color Neurological: Alert Psychological: Normal affect Diagnostic/Tx/Re-eval Laboratory Tests 03/29/19 03/29/19 03/29/19 Range/Units 04:35 04:35 04:35 WBC 8.8 (4.4-11.0) K/mm3 RBC 4.67 (4.2-5.4) M/mm3 Hgb 13.5 (12.0-15.0) g/dL Hct 42.2 (37-47) % MCV 90.4 (81-99) fL MCH 28.9 (27.0-32.0) pg MCHC 32.0 (32-36) g/dL RDW Std Deviation 47.1 H (35.1-43.9) fl RDW Coeff of [place] 14.2 (11.6-14.6) % Plt Count 340 (150-450) K/mm3 MPV 10.2 (6.2-12.0) fl Immature Gran % (Auto) 0.200 (0.0-0.9) % Neut % (Auto) 43.3 L (47-70) % Lymph % (Auto) 44.3 H (19-41) % [place] % (Auto) 10.8 H (0-10) % Eos % (Auto) 1.1 (0-5) % Baso % (Auto) 0.3 (0-1) % Absolute Neuts (auto) 3.8 (2.0-7.7) X10^3/uL Absolute Lymphs (auto) 3.91 (0.83-4.51) X10^3/uL Nucleated RBC % 0 (0-5) % PT 12.9 (11.7-14.9) SECONDS INR 1.0 Sodium 143 (136-145) mmol/L Potassium 3.6 (3.5-5.1) mmol/L Chloride 111 H (98-107) mmol/L Carbon Dioxide 23.0 (21.0-32.0) mmol/L Anion Gap 9 (5-15) BUN 10 (7-18) mg/dL Creatinine 0.86 (0.55-1.02) mg/dL Estim Creat Clear Calc 100.00 ml/min Est GFR (MDRD) Af Amer 102 (>60) mL/min Est GFR (MDRD) Non-Af 84 (>60) mL/min BUN/Creatinine Ratio 11.6 (10-20) RATIO Glucose 96 (74-106) mg/dL Calcium 8.7 (8.5-10.1) mg/dL - Medical Decision Making IV fluids and laboratory studies were ordered. Initially pelvic ultrasound was ordered. However at the time of my pelvic exam while she was getting change she had a large gush of blood with multiple very large clots. On my exam she does have heavy bleeding and is unable to really visualize much due to multiple clots in the vault and ongoing bleeding. Therefore I immediately called obstetrics and gynecology. I spoke to Dr. Arredondo who asked that we give Methergine and Cytotec. She saw the patient here in the emergency department and was able to evacuate some clot but was still able to feel some clot the uterus. At the time of this dictation patient is going to have a pelvic ultrasound which obstetrics we will follow-up on to see if she needs any further intervention such as D&C. Pelvic ultrasound was reviewed by obstetrics. She believes that there is a clot but that the patient will likely not need further intervention. She asked that we ambulate the patient after her Pitocin infusion is completed and as long as her bleeding is not severe she can be discharged to follow-up as an outpatient and also asked that we prescribe Cytotec for the next 24 hours. Patient will be signed out to the oncoming emergency physician to ambulate after infusion is complete and reevaluate. ED Disposition - Plan for ED Patient: Disposition: [facility] Unit Diagnosis: hemorrhage Prescriptions: Misoprostol [Cytotec] 200 mcg PO 4X/DAY #4 tab Prescription Printed Referrals: Care Physician,No Primary [Primary Care Provider] - Additional Instructions: You were seen today for heavy vaginal bleeding after a vaginal . You were seen in the emergency department by her display screen fabricator. Medications were given to control the bleeding. You were given a prescription for further medications for the next 24 hours. If your bleeding becomes severe again or you develop any new or worsening symptoms including but not limited to chest pain shortness of breath dizziness or lightheadedness you should return to the emergency department or otherwise be reevaluated. Otherwise follow-up as an outpatient with your display screen fabricator.
[2019-03-29 04:50] LABS: Absolute Lymphocyte Count 3.91 X10^3/uL (0.83-4.51); Absolute Neutrophil Count 3.8 X10^3/uL (2.0-7.7); Basophil# 0.03 X10^3/uL; Basophil% 0.3 % (0-1); Eosinophils% 1.1 % (0-5); Hematocrit 42.2 % (37-47); Hemoglobin 13.5 g/dL (12.0-15.0); Lymphocyte # 3.91 X10^3/ul (4.0); Lymphocyte % 44.3 % (19-41); Mean Corpuscular Hgb 28.9 pg (27.0-32.0); Mean Corpuscular Volume 90.4 fL (81-99); Mean Platelet Vol. 10.2 fl (6.2-12.0); Monocyte# 0.95 X10^3/uL; Monocyte% 10.8 % (0-10); NRBC Flagged by Analyzer 0 % (0-5); Neutrophil # 3.82 X10^3/uL (2.7-7.7); Neutrophil % 43.3 % (47-70); Platelet Count 340 K/mm3 (150-450); RBC Distribution Width CV 14.2 % (11.6-14.6); RBC Distribution Width SD 47.1 fl (35.1-43.9); Red Blood Count 4.67 M/mm3 (4.2-5.4); White Blood Count 8.8 K/mm3 (4.4-11.0)
[2019-03-29 04:59] LABS: Prothrombin Time (Protime)PT. 12.9 SECONDS (11.7-14.9)
[2019-03-29 05:06] LABS: Anion Gap 9 (5-15); BUN 10 mg/dL (7-18); BUN/Creat Ratio 11.6 RATIO (10-20); Calcium,Total 8.7 mg/dL (8.5-10.1); Chloride 111 mmol/L (98-107); Creatinine, Serum 0.86 mg/dL (0.55-1.02); EST Glomerular Filtration Rate 84 mL/min (>60); Est Glom Filt Rate - Afr Amer 102 mL/min (>60); Glucose 96 mg/dL (74-106); Potassium 3.6 mmol/L (3.5-5.1); Sodium Level 143 mmol/L (136-145)
[2019-03-29] MEDS: 0.9% Normal Saline 1,000 ML 999 ML IV ×2 (05:07→05:39)
[2019-03-29] MEDS: miSOPROStol 200 MCG Tablet 1000 MCG PO (05:10)
[2019-03-29] MEDS: Methylergonovine 0.2 MG/ML Ampul IM (05:11)
[2019-03-29 05:14] VITALS: BP 107/79; PULSE 85; RESP 16; O2SAT 99
--- NOTE | 2019-03-29 05:25 | US_ITS ---
STUDY: ULTRASOUND TRANSVAGINAL CLINICAL: Female, 28 years old. Vaginal bleeding TECHNIQUE: Transvaginal COMPARISON: None. FINDINGS: Normal uterine size measuring 14 x 7.8 x 8.6 cm in maximal craniocaudal dimension. There are no myometrial masses. There is markedly increased endometrial thickness measuring 38.7 mm. The endometrium appears heterogeneous suggesting retained products of conception. Normal uterine cervix. The ovaries could not be visualized. US/Pelvic (Non ) IMPRESSION: Moderate thickening and heterogeneous appearance of the endometrium suggesting retained products of conception. Electronically Signed: Mauri Franklin, at 7:28 EDT Tel , Service support ,
[2019-03-29] MEDS: Oxytocin 30 units/NS 500 ml 30 UNITS/500 ML IV.SOLN 167 UNITS IV (05:36)
[2019-03-29] MEDS: Ondansetron 4 MG/2 ML Vial IV (05:37)
[2019-03-29] MEDS: Morphine 4 MG/ML Syringe IV (05:37)
[2019-03-29 05:41] VITALS: BP 88/73; PULSE 80; RESP 16; O2SAT 96
[2019-03-29 05:42] VITALS: BP 102/68; PULSE 86; RESP 16; O2SAT 99
[2019-03-29 07:05] VITALS: BP 84/72; PULSE 90; RESP 16; O2SAT 96
[2019-03-29] MEDS: Ketorolac 30 MG/ML Syringe IV (07:12)
[2019-03-29 09:07] VITALS: BP 107/47; PULSE 85; RESP 18; O2SAT 98
--- NOTE | 2019-03-29 09:07 | ED.RN ---
PT AMBULATED WITHOUT O2 OR ASSISTIVE DEVICE. PT TOLERATED WELL AND DENIES DIZZINESS, SOB, OR WEAKNESS. BP WNL UPON RETURN TO BED. PER PHONE CONVERSATION BETWEEN DR. SEPULVEDA AND DR. TREVIZO, PT TO BE DC HOME WITH MEDICATION AND INSTRUCTED TO RETURN TO ED IF BLEEDING BECOMES SEVERE AGAIN OR NEW ISSUES ARISE. PT CONVEYS UNDERSTANDING OF DC INSTRUCTIONS.
== END 2019-03-29 09:38 | disposition home or self-care (01) ==
PROVIDERS: Emergency Provider Emergency Medicine
DX: O72.2 Delayed and secondary postpartum hemorrhage (principal)
CPT/HCPCS: 76856; 80048; 85025; 85610; 86850; 86900; 86901; 96361; 96365; 96366; 96372; 96375; 99282; J7030; A4216; J2405

== ENCOUNTER → 2019-04-06 16:27 | Outpatient (CLI) | payer OTHER, SELFPAY ==
--- NOTE | 2019-04-06 | EMB_PTH ---
PATIENT: ZEE HERNANDEZ LOC: [facility] U#:[id number] AGE/SX: 34/F ROOM: RE04/06/[address]: Dr. Tia Arredondo MD : 1990 BED: DIS: SPEC #: [id number] RECD: 04/06/19 16:07 STATUS: BOB SANDIE #: [id number] ABDULKADIR: 04/06/19 00:[address]: Tia Arredondo DEPT: SURGICAL PATHOLOGY RECD BY: Igor Lund ENTERED: 04/07/19 09:15 SP TYPE: ENDOM BX/C JAYCEE DR: No Primary Care Phys Tissues: Endometrium, NOS Procedures: Surgery Specimen Level IV HEADER OPERATION: Endometrial biopsy PRE-OP DIAGNOSIS: bleeding TISSUE SUBMITTED: Endometrial lining MICROSCOPIC DIAGNOSIS Endometrial biopsy: Scant superficial fragment of benign endometrial tissue, decidual tissue and numerous blood clots. See comment. ANGELA:michelle 04/07/19 COMMENT Placental tissue is not identified in the submitted specimen. The specimen predominantly consists of blood clots. The results are reported to Dr. Arredondo's office on 04/07/19 at 10:20 a.m. MICROSCOPIC DESCRIPTION Slides are reviewed. GROSS DESCRIPTION Received is one container labeled with the patient's name and not further designated. The specimen consists of multiple fragments of hemorrhagic soft tissue mixed with blood clot that in aggregate measure 7.5 x 3 x 0.3 cm. The entire specimen is submitted in three cassettes. / SJ:rg 04/06/19 TC:5 CPT: 60467
[2019-04-06 15:00] VITALS: BMI 28.3
== END ==
PROVIDERS: Referring Provider Obstetrics & Gynecology; Visit Provider Obstetrics & Gynecology
DX: O72.2 Delayed and secondary postpartum hemorrhage (principal)
CPT/HCPCS: 88305

== ENCOUNTER 2019-04-07 18:05 | Day surgery (SDC) | payer OTHER, SELFPAY ==
[2019-04-06 15:00] VITALS: BMI 28.3
[2019-04-07] VITALS (7 sets, daily range): BP systolic 112–162; BP diastolic 67–98; PULSE 84–119; RESP 16–18; TEMP 36.8–37.5; O2SAT 96–100; BMI 27.9
[2019-04-07] MEDS: 0.9% Normal Saline 1,000 ML 125 ML IV (18:30)
[2019-04-07 18:47] LABS: Absolute Lymphocyte Count 2.95 X10^3/uL (0.83-4.51); Absolute Neutrophil Count 3.3 X10^3/uL (2.0-7.7); Basophil# 0.02 X10^3/uL; Basophil% 0.3 % (0-1); Eosinophil# 0.07 X10^3/uL; Hematocrit 31.8 % (37-47); Hemoglobin 10.2 g/dL (12.0-15.0); Lymphocyte # 2.95 X10^3/ul (4.0); Lymphocyte % 42.7 % (19-41); Mean Corp Hgb Conc 32.1 g/dL (32-36); Mean Corpuscular Hgb 28.7 pg (27.0-32.0); Mean Corpuscular Volume 89.6 fL (81-99); Monocyte# 0.59 X10^3/uL; Monocyte% 8.5 % (0-10); NRBC Flagged by Analyzer 0 % (0-5); Neutrophil # 3.27 X10^3/uL (2.7-7.7); Neutrophil % 47.4 % (47-70); Platelet Count 446 K/mm3 (150-450); RBC Distribution Width CV 14.2 % (11.6-14.6); RBC Distribution Width SD 46.8 fl (35.1-43.9); Red Blood Count 3.55 M/mm3 (4.2-5.4); White Blood Count 6.9 K/mm3 (4.4-11.0)
--- NOTE | 2019-04-07 20:45 | POC_PTH ---
PATIENT: ZEE HERNANDEZ [place] [facility] [place][id number] AGE/SX: 28/F ROOM: RE04/07/[address]: Dr. Tia Arredondo MD : 1990 BED: DIS: 04/07/2019 SPEC #: [id number] RECD: 04/08/19 08:12 STATUS: BOB SANDIE #: [id number] ABDULKADIR: 04/07/19 20:[address]: Tia Arredondo DEPT: SURGICAL PATHOLOGY RECD BY: Ellis Fuller ENTERED: 04/08/19 09:20 SP TYPE: PROD CONC OTHR DR: No Primary Care Phys Tissues: Product of conception, NOS Procedures: Surgery Specimen Level IV HEADER OPERATION: Dilation and curettage PRE-OP DIAGNOSIS: Retained contents of conception TISSUE SUBMITTED: Possible products of conception MICROSCOPIC DIAGNOSIS Possible products of conception: Fragments of inflamed endometrium and myometrium with focal decidual changes and changes consistent with placental site nodule. Fragments of benign endocervical mucosa and blood clots. See comment. ANGELA:michelle 04/09/19 COMMENT Placental tissue is not identified. Please make reference to previous specimen ([id number]) endometrial biopsy with diagnosis of scant superficial fragment of benign endometrial tissue, decidual tissue and numerous blood clots. This case has been reviewed in consultation with Dr. Garrison who concurs with the above diagnosis. MICROSCOPIC DESCRIPTION Slides are reviewed. GROSS DESCRIPTION Received in fixative is one container labeled with the patient's name and designated possible products of conception. The specimen consists of multiple fragments of blood clots mixed with hemorrhagic soft tissue that in aggregate measure 6 x 6 x 2 cm. Placental tissue is not identified. County Tax Assessor tissue is submitted in three cassettes. / ANGELA:michelle 04/08/19 TC:5 CPT: 35602
--- NOTE | 2019-04-07 21:01 | PCM.HP.OB ---
- Problem List (1) Irregular bleeding Status: Acute History Date of Admission: 10/22/17 History of this : This is a 28 year-old, 2 weeks after uncomplicated. she has had irregular bleeding- had an EMB in the office yesterday and us that showed a 2-3 cm lining filled with clot, and biopsy that didn't have any POC present. she is still having irregular persistent bleeding no fevers. Surgical History: Surgical History (Last Reviewed 04/06/19 @ 15:00 by Shayla Burkett) History of ankle surgery Z98.890 History of wisdom tooth extraction, class II edentulism K08.492 Previous back surgery Z98.890 Allergies codeine Adverse Reaction (Mild, Verified 04/07/19 18:06) Unknown nausea/vomiting oxycodone [From Percocet] Adverse Reaction (Mild, Verified 04/07/19 18:06) Unknown nausea/vomiting Home Medications: Home Medications vitamin,calcium,xbdihrst-xwzm-otyci acid tablet 1 tab PO QDAY 07/11/17 Smoking Status: Never smoker History Past Pregnancies: Past Pregnancies Delivery Date Name GA/Weeks Outcome Route Weight Infant Gender Labor Length Anesthesia Delivery Location Provider FOB Review of Systems Constitutional: Denies: Fever, Malaise Eyes: Denies: Blurred vision, Vision Change HEENT: Denies: Head Aches, Visual Changes Cardiovascular: Denies: Chest Pain, Palpitations Respiratory: Denies: Cough, Shortness of Breath, Wheezing Gastrointestinal: Denies: Abdominal Pain, Diarrhea, Nausea, Vomiting Genitourinary: Denies: Dysuria, Hematuria Gynecological: Reports: Vaginal bleeding Musculoskeletal: Denies: Joint Pain, Muscle pain Skin: Denies: Lesions, Rash Neurological: Denies: Blurred vision, Focal weakness, Headaches Psychiatric: Denies: Anxiety, Depression Endocrine: Denies: Heat/ Cold Intolerance Hematologic/ Lymphatic: Denies: Easy Bruising, Easy Bleeding Physical Exam Vitals: Vital Signs Temp Pulse Resp BP Pulse Ox 98.2 F 96 18 162/98 H 100 04/07/19 18:31 04/07/19 18:31 04/07/19 18:31 04/07/19 18:31 04/07/19 18:31 General: Alert, Cooperative, No apparent distress HEENT: Atraumatic, Normocephalic. Negative for: Thyromegaly, Lymphadenopathy Cardiovascular: Regular rate Lungs: Normal air movement Abdomen: Soft, Non Tender Neurological: Deep Tendon Reflexes 2+/4 and Symmetrical, Neuro grossly intact. Negative for: Clonus ELECTRICIAN APPRENTICE: Normal external genitalia. Negative for: Vulvar lesions Assessment/Plan All Active Problems (Last Reviewed 04/06/19 @ 15:00 by Shayla Burkett) Vaginal delivery (Acute) Active labor at term (Acute) Irregular bleeding (Acute) (Acute) Supervision of normal (Acute) Active labor at term (Resolved) Supervision of normal (Resolved) This is a 28 year-old, with irregula rbleeding recommend suction d and c for persistent bleeding.
[2019-04-07] MEDS: Cefazolin 2 GM in 0.9% Normal Saline 100 ML IV (21:02)
--- NOTE | 2019-04-07 21:05 | PCM.OPRPT ---
Problem List (1) Irregular bleeding Status: Acute Report of Operation Date of Procedure: 04/07/19 Pre-Operative Diagnosis: irregular bleeding Post-Operative Diagnosis: same Surgery/Procedure Performed:: suction d and c Description of Surgical Findings:: 10 cm uterus Type of Anesthesia:: MAC Special Medications: ancef toradol Specimen's removed: emc Drains: none Estimated Blood Loss (mL): 75 Fluids Replaced: crystalloid Description of Procedure: Patient was taken to the operating room and placed under MAC anesthesia. She was prepped and draped in the normal sterile fashion the dorsal lithotomy position. Bladder was drained of clear urine and anterior lip of the cervix was grasped and the uterus sounded to 10 cm. Cervix was progressively dilated to allow passage of a 10mm suction curette. Progressive passes were made removing lining and retained blood clots and possible retained products of conception. Sharp curettage confirmed complete removal. Pitocin and Cytotec were given. All instruments were removed from the vagina and excellent hemostasis was noted and the patient was taken to recovery in stable condition. Grafts/Implants Used: none - Complications none - Admit VTE 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 VTE Present on Admission: No Multi Select Codes - Urinary/Genital Urinary/Genital CPT Codes: 95487 Hysteroscopy, diagnostic, Other Procedure See Report - [id number] d and c
[2019-04-07] MEDS: miSOPROStol 200 MCG Tablet (21:15)
--- NOTE | 2019-04-07 21:21 | DCINST_ITS ---
Discharge Diet: No Restrictions Discharge Activity: Return to Normal Activity, May Shower, May Take a Tub Bath Allergies/Adverse Reactions: Allergies codeine Adverse Reaction (Mild, Verified 04/07/19 18:06) Unknown nausea/vomiting oxycodone [From Percocet] Adverse Reaction (Mild, Verified 04/07/19 18:06) Unknown nausea/vomiting Medications to take at Discharge vitamin,calcium,tbcrtdfq-udhv-rhbbq acid tablet 1 tab PO QDAY 07/11/17 Primary Care Physician: Care Physician,No Primary [Primary Care Provider] - Test Results: Test results from this visit will be discussed in further detail at your follow- up appointment, if applicable. Please Follow Up With: Tia Arredondo MD - [phone]
== END 2019-04-07 22:35 | disposition home or self-care (01) ==
LOC: ED 20:44 → SDC 20:45 → AC 20:46
PROVIDERS: Emergency Provider Obstetrics & Gynecology; Visit Provider Obstetrics & Gynecology
PROC: (CPT 58120; principal; 2019-04-07 20:45)
DX: O72.2 Delayed and secondary postpartum hemorrhage (principal)
CPT/HCPCS: 00940; 58120; 85025; 86850; 86900; 86901; 88305; 99284; J7030; J7120; J2405

== ENCOUNTER → 2020-01-29 15:50 | Outpatient (CLI) | payer OTHER, SELFPAY ==
[2019-05-04 09:33] VITALS: BMI 27.9
--- NOTE | 2020-01-29 16:00 | MRI_ITS ---
STUDY: MRI LUMBAR SPINE WITH AND WITHOUT CONTRAST REASON FOR EXAM: Female, 29 years old. Herniated disc, H/O PRIOR SX, NUMBNESS AND BURNING DOWN LEGS X 3 MONTHS TECHNIQUE: Standardized fat and water weighted pulse sequences were obtained in the sagittal and axial planes. DOTAREM 13 CC was administered for the contrast portion of the examination. COMPARISON: None FINDINGS: No fracture line or acute marrow edema or compression deformity. Normal lumbar lordosis. There is no substantial scoliosis. Normal conus medullaris that terminates at the T12-L1 level. L1-2: Normal endplates. Normal disc height, hydration and morphology. Normal bilateral facet joints. Normal central canal and bilateral lateral recesses. Normal bilateral intervertebral neural foramina. L2-3: Normal endplates. Normal disc height, hydration and morphology. Normal bilateral facet joints. Normal central canal and bilateral lateral recesses. Normal bilateral intervertebral neural foramina. L3-4: Normal endplates. Normal disc height, hydration and morphology. Normal bilateral facet joints. Normal central canal and bilateral lateral recesses. Normal bilateral intervertebral neural foramina. L4-5: Normal endplates. Mild disc space narrowing and diffuse disc desiccation noted. No posterior disc herniation or bulging. Normal bilateral facet joints. Normal central canal and bilateral lateral recesses. Normal bilateral intervertebral neural foramina. L5-S1: Moderate endplate degenerative signal is present. Mild to moderate disc space narrowing is present resulting in the diffuse disc spur complex. A superimposed right paracentral moderate-sized disc extrusion is present measuring 1.31 cm in the craniocaudal dimension. Right lateral recess stenosis with compression of descending nerve root is present. Mild central canal stenosis is also present. The left lateral recess is normal. Normal bilateral facet joints. Normal bilateral intervertebral neural foramina. Normal visualized sacral ala. Normal visualized paraspinous soft tissue structures. Mild reactive enhancement of the degenerative changes in the endplates of L5-S1 noted. Otherwise no focal or suspicious enhancement of the only structures or soft tissues. MRI/Spine Lumbar W/WO Contrast IMPRESSION: 1. Degenerative disc disease at L5-S1 with the right paracentral prominent disc extrusion causing right lateral recess stenosis with nerve root compression and mild central canal stenosis Electronically Signed: Jose Morgan MD at 17:55 EDT , Service support ,
== END ==
DX: M51.26 Other intervertebral disc displacement, lumbar region (principal)
CPT/HCPCS: 72158; A9575

== ENCOUNTER 2020-04-18 11:10 | Day surgery (SDC) | payer OTHER, SELFPAY ==
[2019-05-04 09:33] VITALS: BMI 27.9
[2020-04-18] VITALS (7 sets, daily range): BP systolic 104–117; BP diastolic 59–83; PULSE 61–75; RESP 16; TEMP 36.2–36.8; O2SAT 97–100; BMI 22.6
[2020-04-18 11:39] LABS: Internal QC Validated? YES +Cl - CLEAR BKGD; Pregnancy, Urine Negative Negative
--- NOTE | 2020-04-18 12:00 | RAD_ITS ---
CLINICAL HISTORY: Female, 29 years old. Lower back pain PROCEDURE: EPIDUROGRAM - Caudal block FLUOROSCOPY TIME (if supplied): (0:18) minutes. 2 Images. RADIATION DOSAGE (If Supplied By Facility): CTDIvol = ( ) mGy, DLP = ( ) mGycm TECHNIQUE: Under fluoroscopic guidance using sterile technique and after infiltration of the skin and subcutis soft tissues with 10 mL lidocaine 1% a 22-gauge needle is introduced in the lumbar epidural space at L4-5, 1 mL of air injected in the epidural space to ensure needle position then a mixture containing 80 mg of Depo-Medrol mixed with 3 mL lidocaine 0.25% were injected in the lumbar epidural space. RAD/Fluor Guidance for Spine Inj IMPRESSION: Successful lumbar epidural steroid injection under fluoroscopic guidance. Electronically Signed: Mauri Franklin, at 12:47 EDT Tel , Service support ,
[2020-04-18] MEDS: Lactated Ringers 1,000 ML 100 ML IV (12:10)
[2020-04-18] MEDS: MethylPREDNISolone Acetate 80 MG/ML Vial (12:27)
[2020-04-18] MEDS: 0.9% Normal Saline (Pres. free 10 ML Vial (12:28)
[2020-04-18] MEDS: Bupivacaine 0.25% 30 ML Vial (12:28)
--- NOTE | 2020-04-18 17:17 | OP.PCM_ITS ---
Report of Operation Date of Procedure: 04/18/20 Description of Surgical Findings:: PREOPERATIVE DIAGNOSIS: Lumbosacral radiculopathy, lumbosacral degenerative disc disease, lumbosacral spinal stenosis POSTOPERATIVE DIAGNOSIS: Lumbosacral radiculopathy, lumbosacral degenerative disc disease, lumbosacral spinal stenosis PROCEDURE PERFORMED: Diagnostic/therapeutic caudal epidural steroid injection. ANESTHESIA: MAC. BLOOD LOSS: Minimal. COMPLICATIONS: None. DESCRIPTION OF PROCEDURE: History and physical of today was reviewed. Risks and benefits of the procedure were explained. The patient understood and agreed to proceed. Informed consent was obtained. IV inserted per routine protocol. The patient was taken to the operating room and placed in the prone position with a pillow positioned underneath the abdomen. The lower back and tailbone area was prepped and draped in a sterile fashion using iodine x3. Under fluoroscopy guidance on a lateral view, the caudal space was identified. The skin and subcutaneous tissue was anesthetized with approximately 3 mL of 1% lidocaine using a 25-gauge regular needle. Under direct visualization with fluoroscopy, using a 22-gauge 3-1/2-inch spinal needle, the needle was advanced via the skin through the sacral hiatus. The tip of the needle was passed through the sacrococcygeal ligament and advanced to approximately S4 area. After negative aspiration of blood or CSF, a total of 3 mL of contrast was injected to confirm correct placement of the needle as well as cephalad spread. The spread was followed to approximately L5 area. After confirmation on AP as well as lateral view and repeated negative aspiration, a total of 15 mL of preservative-free 0.125% Marcaine with 80 mg of Depo-Medrol was injected easily. The needle was then removed intact. The patient experienced no sign or symptoms of intrathecal or intravascular injection. The patient experienced no paresthesia. The procedure was completed without any apparent difficulty or any complications. The patient appeared to tolerate it well. ASSESSMENT AND PLAN: This is a 29-year-old female with lumbosacral radiculopathy, lumbosacral degene rative disc disease, lumbosacral spinal stenosis status post diagnostic/therapeutic caudal epidural steroid injection, patient will continue her current medications, patient will follow approximately 2 weeks for reevaluation.
== END 2020-04-18 13:31 | disposition home or self-care (01) ==
LOC: SDC 11:12 → AC 11:26
PROVIDERS: Anesthesiology; Referring Provider Anesthesiology Pain Medicine; Visit Provider Anesthesiology Pain Medicine
PROC: 3E0S3BZ Introduction of Anesthetic Agent into Epidural Space, Percutaneous Approach (ICD-10-PCS; CPT 62282; principal; 2020-04-18 12:35)
DX: M51.17 Intervertebral disc disorders with radiculopathy, lumbosacral region (principal); M47.27 Other spondylosis with radiculopathy, lumbosacral region; M48.07 Spinal stenosis, lumbosacral region; J45.909 Unspecified asthma, uncomplicated; F32.9 Major depressive disorder, single episode, unspecified; Z79.899 Other long term (current) drug therapy
CPT/HCPCS: 01992; 62323; 64483; 77003; 81025; J7120; J3490

== ENCOUNTER 2020-05-16 07:36 | Day surgery (SDC) | payer OTHER, SELFPAY ==
[2020-04-18 11:33] VITALS: BMI 22.6
[2020-05-16] VITALS (7 sets, daily range): BP systolic 102–119; BP diastolic 61–83; PULSE 66–88; RESP 16–18; TEMP 36.4–37; O2SAT 96–100; BMI 21.9
[2020-05-16] MEDS: Lactated Ringers 1,000 ML 100 ML IV (08:22)
--- NOTE | 2020-05-16 09:20 | RAD_ITS ---
PROCEDURE: Right L4 S1 steroid injection. DATE OF EXAMINATION: 05/16/2020 INDICATION: Female, 29 years old. Chronic back pain. FLUOROSCOPY TIME (if supplied): (14.9 seconds) minutes/seconds. 3 intraoperative images were obtained. Intraoperative imaging provided for right L4-S1 transforaminal steroid injection. RAD/Lumbar Spine 2 or 3 Views IMPRESSION: Intraoperative imaging provided for right L4-S1 transforaminal steroid injection. Electronically Signed: Niranjan Yi, at 12:45 EST , Service support ,
[2020-05-16] MEDS: MethylPREDNISolone Acetate 40 MG/ML Vial IM (09:33)
[2020-05-16] MEDS: Bupivacaine 0.25% 30 ML Vial (09:33)
--- NOTE | 2020-05-16 15:07 | OP.PCM_ITS ---
Report of Operation Date of Procedure: 05/16/20 Description of Surgical Findings:: PREOPERATIVE DIAGNOSIS: Lumbosacral radiculopathy, lumbosacral degenerative disc disease, lumbosacral spinal stenosis POSTOPERATIVE DIAGNOSIS: Lumbosacral radiculopathy, lumbosacral degenerative disc disease, lumbosacral spinal stenosis PROCEDURE PERFORMED: right sided lumbar transforaminal epidural steroid in jection, L4-5 and L5-S1. ANESTHESIA: MAC BLOOD LOSS: Minimal COMPLICATIONS: None DESCRIPTION OF PROCEDURE: History and physical of today was reviewed. Risks and benefits of the procedure were explained. The patient understood and agreed to proceed. Informed consent was obtained. IV inserted per routine protocol. The patient was taken to the operating room and placed in the prone position with a pillow positioned underneath the abdomen. The right side of the lower back was prepped and draped in a sterile fashion using iodine x3. Under fluoroscopy guidance on oblique view, the L4 through S1 vertebral bodies were visualized. The skin and subcutaneous tissue was anesthetized with approximately 5 mL of 1% lidocaine using a 25-gauge regular needle. Under direct visualization with fluoroscopy at approximately 35-degree angle, starting on the right L4, ending on the right L5, using a 22-gauge 3-inch spinal needle, the needle was advanced via the skin. The tip of the needle was maneuvered and directed towards the inferior and medial gutter of the transverse process at the superiormost aspect of the neural foramen. Once the tip of the needle was at the vicinity of the foramen, after negative aspiration for blood or CSF, a total of 1 mL of contrast was injected in divided doses between both levels to confirm correct placement of the needle as well as medial spread. The confirmation was obtained on AP as well as lateral view. After repeated negative aspiration and confirmation on AP as well as lateral view, a total of 6 mL of preservative-free 0.25% Marcaine with 80 mg of Depo-Medrol was injected in divided doses between both levels. The needles were then removed intact. The patient experienced no sign or symptoms of intrathecal or intravascular injection. The patient experienced no paresthesia. The procedure was completed without any apparent difficulty or any complications. The patient appeared to tolerate it well. Assessment and plan : This is a 29-year-old female with lumbosacral radiculopathy, lumbosacral degenerative disc disease, lumbosacral spinal stenosis status post right-sided lumbar transforaminal epidural steroid injection L4-5, L5-S1, patient will continue her current medications, patient will follow in approximately 2 weeks for reevaluation
== END 2020-05-16 10:21 | disposition home or self-care (01) ==
LOC: SDC 07:36 → AC 07:37
PROVIDERS: Referring Provider Anesthesiology Pain Medicine; Visit Provider Anesthesiology Pain Medicine
PROC: 3E0S3BZ Introduction of Anesthetic Agent into Epidural Space, Percutaneous Approach (ICD-10-PCS; CPT 64483; principal; 2020-05-16 09:05)
DX: M51.17 Intervertebral disc disorders with radiculopathy, lumbosacral region (principal); M48.07 Spinal stenosis, lumbosacral region; M47.817 Spondylosis without myelopathy or radiculopathy, lumbosacral region; M51.26 Other intervertebral disc displacement, lumbar region; G89.29 Other chronic pain; J45.909 Unspecified asthma, uncomplicated; Z79.899 Other long term (current) drug therapy
CPT/HCPCS: 01935; 64483; 64484; 72100; J7120

== ENCOUNTER → 2020-09-02 | Outpatient (CLI) | payer OTHER, SELFPAY ==
[2020-06-16 08:18] VITALS: BMI 23.3
== END | disposition home or self-care (01) ==
LOC: LABSPEC 09-15 11:46
PROVIDERS: Referring Provider Nurse Practitioner; Visit Provider Nurse Practitioner
DX: Z11.59 Encounter for screening for other viral diseases (principal)
CPT/HCPCS: 87635; C9803; U0005; U0003

== ENCOUNTER → 2020-09-05 12:30 | Outpatient (CLI) | payer OTHER, SELFPAY ==
[2020-06-16 08:18] VITALS: BMI 23.3
== END ==
PROVIDERS: Referring Provider Nurse Practitioner; Visit Provider Nurse Practitioner
DX: Z11.59 Encounter for screening for other viral diseases (principal)
CPT/HCPCS: 87635; C9803; U0005; U0003

== ENCOUNTER 2020-11-03 08:30 | Outpatient (RCR) | payer OTHER, SELFPAY ==
[2020-06-16 08:18] VITALS: BMI 23.3
--- NOTE | 2020-10-13 09:13 | HP.PTEVAL ---
Patient's Visit Information ZEE HERNANDEZ is a 29 year old F referred to Physical Therapy by LAMAR Latham with a diagnosis of Revision of R L5/S1 laminectomies and microdisectomy DOS: 09/12/20. Date of Evaluation: 10/13/20 Physical Therapist: Jairo Valerio DPT - Visit Plan Frequency: 2-3x /Week Duration: 4-6 Weeks Plan: Start with netural spine core stability, progress as tolerated. Advance ROM as tolerated. Stretch B HS and hip flexors. Progress walking progression. - Subjective Pt. is here today for her initial evaluation with diagnosis of revision of L5/S1 unilaeral laminectomy with R L5/S revision microdiscectomy, revision of R L5/S1 partial facetectomy and foraminotomies. DOS: 09/12/20. Pt. arrives wearing her brace as prescribed. She reports no pain currently. She works in [employer] at [employer], working 12 hours shifting x3 days per week. She does have to do a lot of patient lifting at work as well. She is currently off work, but is hopeful to return when she goes back to doctor. No N/T in either LE. Pt. has been sleeping okay without issues and has started walking more. Pt. is hopeful to get back to all recreational activities and work activities without limitations. - Pain Lumbar spine Pain Intensity (Out of 10): 0 Pain Intensity Range: 0, 1 R LE Pain Intensity (Out of 10): 0 Pain Intensity Range: 0, 1 - Objective POSTURE: Pt. has good posture in stance. PT. has normal/equal iliac crest hieghts. Pt. has normal lumbar lordosis. PALPATION: Pt. has normal healing incision. Pt. has trightness in B erector spinea, but no pain. NEURO: Normal sensation of BLEs. Pt. has normal DTR of B achilles and patellar tendons. ROM: Lumbar spine: flexion min loss, ext min/mod loss, SB min loss B, did not test rotation. No over pressures tested. Pt. has tight B HS and hip flexors. MMT: RLE: 5/5 throughout knee/ankle; hip- flexion 4/5, abd 4/5, ext 4/5. LLE: 5/5 throughout knee/ankle; hip- flexion 4/5, abd 4/5, ext 4/5. Core strength poor+. GAIT: Pt. has normal gait pattern without increase in symptoms. Pt. has good erect posture and tolerating walking well. STAIRS: Normal pattern, 1 HR used. - Goals Goal 1:: LTG: Pt. to be I with HEP. Goal Time Frame: 4-6 Weeks Goal 2:: LTG: Pt. to have increased core strength to fair+. Goal Time Frame: 4-6 Weeks Goal 3:: LTG: Pt. to have restored lumbar ROM without increase in symptoms. Goal Time Frame: 4-6 Weeks Goal 4:: LTG: Pt. to be consistent with progressive walking program. Goal Time Frame: 4-6 Weeks Goal 5:: LTG: Pt. to have increased BLE strength increased to 5/5 throughout. Goal Time Frame: 4-6 Weeks Goal 6:: LTG: pt. to resume all work and recreational activities without limitations. Goal Time Frame: 8-12 Weeks - Rehabilitation Potential Physical Therapy Diagnosis: Pt. has signs and symptoms consistent with revision of L5/S1 unilaeral laminectomy with R L5/S revision microdiscectomy, revision of R L5/S1 partial facetectomy and foraminotomies. Pt. has subsequent lumbar hypomobility, BLE and core weakness and difficulty with work/recreational activities. Pt. would benefit from PT to address the above limitations. Rehabilitation Potential: Excellent - Anticipated Interventions Patient/Client Instruction: Educate patient on: Condition, Plan of Care, Risk Factors, Benefits of Fitness Program For the Purpose of:: To facilitate caregiver knowledge, To improve self management, To prevent re-injury, To improve ability to perform tasks related to life management, To improve tolerance to ADL's Therapeutic Exercise to Include: Strength training, Power training, Postural training, Flexibilty training, Passive ROM, Active ROM, Dynamic Lumbar Stabilization For the Purpose of:: To decrease pain, To decrease swelling/inflammation, To increase ROM, To improve nutrient delivery to tissue, To increase oxygenation perfusion, To improve muscle performance and motor function, To decrease level of supervision to perform tasks, To improve ability of physical actions for home/community/work/leisure, To improve gait and locomotor functions, To improve health of tissue, To decrease soft tissue restriction, To increase flexibility/ROM IF ES: Yes Cryotherapy (ice pack, ice massage): Yes For the Purpose of:: To decrease pain, To decrease swelling/inflammation, To increase ROM, To improve nutrient delivery to tissue Thank you for the opportunity to evaluate your patient. For Medicare and Medicare HMO plans, please review the plan of care and approve it. It will need to be FAXED BACK to us at [phone] for Medicare purposes. For Medicare only, by signing this I certify the plan of care. Please let me know if there are questions or concerns regarding this plan of care. Physician Signature: Date:
--- NOTE | 2020-11-03 11:17 | HP.PTDCSUM ---
It has been my pleasure to treat ZEE HERNANDEZ referred by LAMAR Latham, with the diagnosis of Revision of R L5/S1 laminectomies and microdisectomy DOS: 09/12/20 for a total of 5 visit(s). Discharge Date: 11/03/20 Please see the following information for a summary of their discharge status. Subjective: Pt. reports no pain. She did work yesterday without issues. No N/T. I feel great. Lumbar spine Pain Intensity (Out of 10): 0 R LE Pain Intensity (Out of 10): 0 % Improvement: 95 Objective/Function: Pt. has close to full ROM of lumbar without increase in symptoms. Pt. has good activation of TA and is able to maintain well with fair core strength. Pt. has 5/5 strength throughout BLEs. SHe did present good lifting mechanics with light wt's today to allow for increased stability/safety with work activities. She is back to work without increase in symptoms. She does have some lifting restrictions for the next few weeks. She is out of her brace without symptoms. I talked to her about continued core strengthening. Pt. consents with slow progression of resistance as long as she can maintain proper core stability. She is to focus on more plank like exercises rather than intense core flexion exercises. Goal 1:: LTG: Pt. to be I with HEP. Goal Progress: Goal Met Goal 2:: LTG: Pt. to have increased core strength to fair+. Goal Progress: Goal Met Goal 3:: LTG: Pt. to have restored lumbar ROM without increase in symptoms. Goal Progress: Goal Met Goal 4:: LTG: Pt. to be consistent with progressive walking program. Goal Progress: Goal Met Goal 5:: LTG: Pt. to have increased BLE strength increased to 5/5 throughout. Goal Progress: Goal Met Goal 6:: LTG: pt. to resume all work and recreational activities without limitations. Goal Progress: Progressing Plan: Pt. will be DC to HEP at this point in time. Discharge Comments: Pt. was treated with core strengthening exercises without issues. Pt. is now back to work with good tolerance without increase in symptoms. Pt. is able to demonstrate proper lifting mechanics. Pt. has demonstrated improved core stability and improved ROM. I urged to patient to continue with core strengthening exercises progressing in complexity and resistance, but to take it slow with her progress. Pt. consents. If there are questions or concerns regarding this patient's physical therapy, please feel free to call me at [phone]. Thank you for the referral of this patient. Sincerely, HANG MathewsT
== END 2020-11-03 19:00 | disposition home or self-care (01) ==
LOC: PT 08:30
PROVIDERS: PCP Family Medicine; Referring Provider Nurse Practitioner Acute Care; Visit Provider Nurse Practitioner Acute Care
DX: M51.36 Other intervertebral disc degeneration, lumbar region (principal)
CPT/HCPCS: 97110; 97161; 97164

== ENCOUNTER 2021-08-11 14:31 | Outpatient (CLI) | payer OTHER, SELFPAY ==
[2021-08-15 20:54] LABS: HPV Reflexed? NOT INDICATED
== END 2021-08-11 23:59 | disposition home or self-care (01) ==
LOC: LABSPEC 09-28 14:31
PROVIDERS: PCP Family Medicine; Visit Provider Obstetrics & Gynecology
DX: Z12.4 Encounter for screening for malignant neoplasm of cervix (principal)
CPT/HCPCS: 88175; G0145

== ENCOUNTER 2021-10-16 09:26 | Outpatient (CLI) | payer OTHER, SELFPAY ==
[2021-10-16] MEDS: 0.9% NaCl Peripheral Flush Adult/Peds IV (09:33)
[2021-10-16 09:47] VITALS: BP 115/61; PULSE 75; RESP 12; TEMP 36.6; O2SAT 100; BMI 24.9
[2021-10-16] MEDS: Dextrose 5%-Lactated Ringers 1,000 ML 999 ML IV (09:47)
[2021-10-16] MEDS: Ondansetron 4 MG/2 ML Vial IV (09:56)
[2021-10-16 11:04] VITALS: BP 114/55; PULSE 73; RESP 16
== END 2021-10-16 23:59 | disposition home or self-care (01) ==
LOC: MEDOUTP 09:26
PROVIDERS: PCP Family Medicine; Referring Provider Obstetrics & Gynecology; Visit Provider Obstetrics & Gynecology
DX: E86.0 Dehydration (principal)
CPT/HCPCS: 96374; 96361; A4216; J2405

== ENCOUNTER 2021-10-20 13:13 | Outpatient (CLI) | payer OTHER, SELFPAY ==
[2021-10-20] MEDS: Dextrose 5%-Lactated Ringers 1,000 ML 999 ML IV (13:35)
[2021-10-20 13:53] VITALS: BP 110/65; PULSE 78; RESP 16; TEMP 36.5; O2SAT 100; BMI 24.7
[2021-10-20] MEDS: Ondansetron 4 MG/2 ML Vial IV (13:57)
[2021-10-20 14:57] VITALS: BP 107/64; PULSE 85; RESP 18; O2SAT 99
== END 2021-10-20 23:59 | disposition home or self-care (01) ==
LOC: RAD 13:14
PROVIDERS: PCP Family Medicine; Referring Provider Obstetrics & Gynecology; Visit Provider Obstetrics & Gynecology
DX: E86.0 Dehydration (principal)
CPT/HCPCS: 96361; 96374; J2405

== ENCOUNTER 2021-10-26 11:04 | Outpatient (CLI) | payer OTHER, SELFPAY ==
[2021-10-26 11:29] LABS: Amphetamine Urine VISTA NEGATIVE (<1000 ng/mL); Barbiturate Urine VISTA NEGATIVE (< 200 ng/mL); Benzodiazepine Urine VISTA NEGATIVE (< 200 ng/mL); Cocaine Urine VISTA NEGATIVE (< 300 ng/mL); Ecstacy Urine VISTA NEGATIVE (< 500 ng/mL); Methadone Urine VISTA NEGATIVE (< 300 ng/mL); PCP Urine VISTA NEGATIVE (< 25 ng/mL); THC Urine VISTA NEGATIVE (< 50 ng/mL); Vista UDS pH Range 6
[2021-10-27 22:07] LABS: Chlamydia By Nucleic Acid AMP Negative (Negative)
[2021-10-27 22:40] LABS: Gonococcus By Nucleic Acid AMP Negative (Negative)
== END 2021-10-26 23:59 | disposition home or self-care (01) ==
PROVIDERS: PCP Family Medicine; Visit Provider Obstetrics & Gynecology
DX: Z34.90 Encounter for supervision of normal pregnancy, unspecified, unspecified trimester (principal)
CPT/HCPCS: 80307; 87086; 87491; 87591

== ENCOUNTER 2021-10-30 10:44 | Outpatient (CLI) | payer OTHER, SELFPAY ==
[2021-10-30 11:12] LABS: Absolute Lymphocyte Count 1.78 X10^3/uL (0.83-4.51); Basophil# 0.02 X10^3/uL; Basophil% 0.2 % (0-1); Eosinophil# 0.03 X10^3/uL; Eosinophils% 0.4 % (0-5); Hemoglobin 12.8 g/dL (12.0-15.0); Lymphocyte # 1.78 X10^3/ul (0.83-4.51); Lymphocyte % 20.8 % (19-41); Mean Corp Hgb Conc 33.7 g/dL (32-36); Mean Corpuscular Hgb 29.2 pg (27.0-32.0); Mean Corpuscular Volume 86.6 fL (81-99); Monocyte% 8.2 % (0-10); NRBC Flagged by Analyzer 0 % (0-5); Neutrophil # 6.03 X10^3/uL (2.7-7.7); Neutrophil % 70.3 % (47-70); Platelet Count 299 K/mm3 (150-450); RBC Distribution Width CV 12.7 % (11.6-14.6); RBC Distribution Width SD 40.2 fl (35.1-43.9); Red Blood Count 4.39 M/mm3 (4.2-5.4); White Blood Count 8.6 K/mm3 (4.4-11.0)
[2021-10-30 12:12] LABS: HIV - WCH Non-Reactive (Nonreactive); Hepatitis B Surface Antigen Non-Reactive (Nonreactive); Hepatitis C Antibody Non-Reactive (Nonreactive); Rubella IgG Reactive (Nonreactive); Syphilis Antibodies Non-reactive
== END 2021-10-30 23:59 | disposition home or self-care (01) ==
LOC: LAB 10:45
PROVIDERS: PCP Family Medicine; Referring Provider Obstetrics & Gynecology; Visit Provider Obstetrics & Gynecology
DX: Z34.90 Encounter for supervision of normal pregnancy, unspecified, unspecified trimester (principal)
CPT/HCPCS: 36415; 85025; 86703; 86762; 86780; 86803; 86850; 86900; 86901; 87340

== ENCOUNTER → 2021-11-13 | Outpatient (CLI) | payer OTHER, SELFPAY ==
--- NOTE | 2021-11-13 10:30 | US_ITS ---
STUDY: FIRST TRIMESTER OBSTETRICAL ULTRASOUND REASON FOR EXAM: Female, 30 years old well being LMP: 08/25/2021. TECHNIQUE: Transvaginal TECHNICAL QUALITY: Adequate. PRIOR ULTRASOUND: None. FINDINGS: There is visualization of a single gestational sac in a normal intrauterine position. The mean sac diameter (MSD) measures 5.24 cm, indicating an estimated gestational age (EGA) of 11 weeks, 0 days. The gestational sac shape is within normal limits. There is a visualized yolk sac. The yolk sac measures 6.3 mm. The placenta is non-visualized. There is visualization of a live embryo. The crown-rump length (CRL) measures 5.34 cm, indicating an estimated gestational age (EGA) of 11 weeks, 6 days. There is demonstrated cardiac activity with a heart rate of 168 bpm. The estimated gestation age (EGA) by LMP is 11 weeks, 3 days. The estimated date of delivery (DEWEY) by LMP is 06/01/2022. The estimated gestation age (EGA) by US is 11 weeks, 3 days. The estimated date of delivery (DEWEY) by US is 06/01/2022. The uterus measures 12.1 cm x 9.8 cm x 7.5 cm. There is no demonstrated uterine fibroid. The cervix is closed. The ovaries were not visualized. There is no fluid in the cul de sac. US/Transvaginal w/Preg US IMPRESSION: Single live uterine gestation with mean gestational age of 11 weeks and 3 days. Electronically Signed: Niranjan Yi MD at 11:55 EDT ,
== END | disposition home or self-care (01) ==
LOC: OPUS 10:29 → US 10:32
PROVIDERS: PCP Family Medicine; Visit Provider Obstetrics & Gynecology
DX: Z34.90 Encounter for supervision of normal pregnancy, unspecified, unspecified trimester (principal)
CPT/HCPCS: 76817

== ENCOUNTER 2021-11-14 17:06 | Emergency (ER) | payer OTHER, SELFPAY ==
[2021-11-14 17:07] VITALS: BP 146/90; PULSE 107; RESP 19; TEMP 36.7; O2SAT 99; BMI 25.8
--- NOTE | 2021-11-14 17:35 | US_ITS ---
STUDY: FIRST TRIMESTER OBSTETRICAL ULTRASOUND REASON FOR EXAM: Female, 30 years old vag bleeding and LMP: 08/25/2021 TECHNIQUE: Axial and sagittal ultrasound images of the pelvis were obtained transabdominally. TECHNICAL QUALITY: Adequate. PRIOR ULTRASOUND: None. FINDINGS: The uterus measures 11.5 x 9.2 x 7.2 cm. There is a single live intrauterine with heart rate of 167 bpm. [place]-rump length measures 5.29 cm, corresponding to sonographic gestational age of approximately 11 weeks and 5 days. DEWEY is on 06/03/2022 Amniotic fluid volume is grossly unremarkable. There is a 1.6 x 0.7 cm subchorionic hemorrhage adjacent to the gestational sac. The right ovary measures 2.3 x 1.8 x 1.4 center and the left ovary measures 3.3 x 2.4 x 2.1 cm. No focal ovarian lesion is identified on either side. Blood flow to the ovaries was documented. There is no adnexal mass. No free fluid is seen in the pelvis. US/Init OB < 14Wks US IMPRESSION: Single live IUP with gestational age of approximately 11 reason 5 days. FHR: 167 bpm. Small subchorionic hemorrhage. Unremarkable ovaries. No adnexal mass. Note: This study was not performed for anatomy survey. Electronically Signed: Zurdo Ramirez MD at 18:37 EDT ,
--- NOTE | 2021-11-14 17:37 | EDS_ITS ---
HPI HPI - Female History of Present Illness Chief Complaint: Vag Bld, Preg Informant: patient Pain Pain: Positive for Pelvic Pain Quality: Positive for Cramping Maximum Severity: Mild Bleeding Issue: Positive for Vaginal bleeding; Negative for Passing clots and Passing tissue Current Severity: Mild Maximum Severity: Mild Associated Symptoms Associated Symptoms: Negative for Dysuria, Frequency and Urgency Test: Positive Sexually: Positive for Active P: 2 Ab: 0 Narrative Narrative: 30-year-old female G3, P2 Ab 0. Currently about [address] Tia Arredondo of [facility]. Has had some spotting and small blood. Yesterday had dark blood and mild cramping and today some mild bright red blood. No obvious tissue. No dysuria. No fever. She had a ultrasound that was unremarkable yesterday. She denies any other complaints. Prior similar symptoms: Yes Recent Illness/Hospitalization: No PFSH PFSH Home Medications buspirone 5 mg tablet 10 mg PO BID tab 10/09/21 [History Last Taken Unknown] prenat.vits,ronak,ila-[id number] 1 tab PO DAILY 10/09/21 [History Last Taken Unknown] ondansetron HCl 4 mg tablet 4 mg PO Q4H #60 tab 10/20/21 [Rx Last Taken Unknown] Allergy/AdvReac Type Severity Reaction Status Date / Time codeine AdvReac Mild Unknown Verified 11/14/21 17:09 oxycodone [From Percocet] AdvReac Mild Unknown Verified 11/14/21 17:09 Family History Father Hypertension Grandmother No problems noted. 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 Review of Systems ROS Unobtainable: Denies due to encephalopathy Constitutional Constitutional ED: Denies fever(s) Eyes Eyes: Denies change in vision ENT ENT ED: Denies ear pain Cardiovascular Cardiovascular: Denies chest pain Respiratory/Chest Respiratory/Chest: Denies dyspnea Gastrointestinal Gastrointestinal: Denies abdominal pain, diarrhea, nausea or vomiting Genitourinary Genitourinary ED: Denies dysuria or hematuria Musculoskeletal Musculoskeletal: Denies myalgias Integumentary Denies rash Neurologic Neurologic: Denies headache(s) Psychiatric Psychiatric: Denies depression Endocrine Endocrinology: Denies polyuria Hematologic/Lymphatic Hematologic/Lymphatic: Denies easy bruising Allergic/Immunologic Allergic/Immunologic ED: Denies urticaria EXAM Physical Exam Narrative Exam Narrative: 30-year-old female Ab0. Vital signs stable. Exam normal. Abdomen nontender. Const Vital Signs: 11/14/21 17:07 Temperature 98.1 F Temperature Source Temporal Pulse Rate 107 H Respiratory Rate 19 H Blood Pressure 146/90 H Blood Pressure Mean 108 Pulse Ox 99 Oxygen Delivery Method Room Air Positive well nourished and well developed; Negative for obese, cachectic, contractures or unkempt General Appearance ED: well developed and NAD; Negative for unkempt, cachectic, contractures or pallor Nutritional Appearance: Negative for cachectic or obese HEENT Reports moist mucous membranes Negative for trauma or tenderness Eyes PERRL and EOMs intact bilaterally Neck no lymphadenopathy, supple and no JVD Thyroid: Negative for tender Chest Wall inspection of chest normal and palpation of chest normal Resp normal respiratory effort and clear to auscultation bilaterally Auscultation: Negative for rales, rhonchi or wheezes Cardio regular rate, regular rhythm, S1 normal heart sound, no murmurs and no JVD GI normal to inspection, nondistended, normoactive bowel sounds, soft to palpation, non-tender, non-distended and no masses Auscultation: normoactive bowel sounds Palpation: Negative for tender, guarding or rigid Back/Spine no CVA tenderness Extremity normal to inspection and full ROM General Extremety ED: Negative for edema or tenderness General Extremity: Negative for edema Neuro oriented x3 Sensorium / Orientation: alert, oriented to person, oriented to place and oriented to time Motor Exam: strength 5/5 throughout Psych mental status grossly normal Appearance: Negative for unkempt Mood & Affect: Negative for depressed or tearful Skin no rashes or lesions noted and no wounds General Skin Exam: Negative for jaundice or pallor MDM MDM MDM Narrative Medical decision making narrative: 30-year-old with Ab0 with vaginal bleeding ultrasound being obtained. Her blood type is Rh+. Ultrasound shows a single live any uterine at 11 weeks and 5 days. heart beat of 167. Gestational age of 11 weeks and 5 days. And due date 06/03/2022. Repeat exam she is doing well at 6:45 PM discharge to home. Radiography Diagnostic Testing: Clinical Impression(s) from Imaging Studies Obstetrics Ultrasound 11/14/21 17:35 IMPRESSION: Single live IUP with gestational age of approximately 11 reason 5 days. FHR: 167 bpm. Small subchorionic hemorrhage. Unremarkable ovaries. No adnexal mass. Note: This study was not performed for anatomy survey. Electronically Signed: Zurdo Ramirez MD at 18:37 EDT , Discharge Plan Triage Chief Complaint: Vag Bld, Preg ED Provider: Stephan Simons Dx/Rx/DC Orders Clinical Impression: , Vaginal bleeding, Threatened miscarriage Instructions: ED Possible Miscarriage ... Prescriptions: No Action buspirone 5 mg tablet 10 mg PO BID RF: 0 prenat.vits,ronak,aud-[id number]-qexrq Tablet 1 tab PO DAILY RF: 0 ondansetron HCl 4 mg tablet 4 mg PO Q4H Qty: 60 RF: 3 Primary Care Provider: Debbie Simons Referrals: Debbie Simons MD [Primary Care Provider] - Activity Restrictions/Additional Instructions: Call and follow-up with your [facility]. Anytime you have bleeding you are there is a risk of a threatened miscarriage. At this time there is nothing to do differently. Tylenol for any pain. Disposition Disposition: Home, Self Care
== END 2021-11-14 19:01 | disposition home or self-care (01) ==
PROVIDERS: Emergency Provider Emergency Medicine; PCP Family Medicine; Visit Provider Emergency Medicine
DX: O20.0 Threatened abortion (principal); Z3A.12 12 weeks gestation of pregnancy
CPT/HCPCS: 76801; 99282

== ENCOUNTER → 2022-01-09 | Outpatient (CLI) | payer OTHER, SELFPAY ==
--- NOTE | 2022-01-09 11:44 | US_ITS ---
STUDY: SECOND AND THIRD TRIMESTER OBSTETRICAL ULTRASOUND REASON FOR EXAM: Female, 31 years old anatomy LMP: 08/19/2021. TECHNIQUE: Transabdominal and Transvaginal TECHNICAL QUALITY: Adequate. PRIOR ULTRASOUND: Comparison is made with prior study 11/14/2021. FINDINGS: There is a single intrauterine fetus. The fetus is in a breech presentation. There is demonstrated cardiac activity with a heart rate of 148 bpm. There is a normal amniotic fluid volume. The largest amniotic fluid pocket measures 5.5 cm x 4.4 cm. The amniotic fluid index (LETICIA) is within normal limits cm. The placenta is anterior and low lying but not previa in location. There is a 5.8 cm x 3.3 cm x 1.2 cm anechoic area within the inferior aspect of the placenta suggestive of a small placental chaparro. There are Grade 0 placental changes. The cervix measures 3.7 cm in length. The bilateral adnexal regions are normal. BIOMETRY: BPD: 4.38 cm: 19 weeks, 1 days HC: 16.35 cm: 19 weeks, 0 days AC: 14.55 cm: 19 weeks, 6 days FL: 3.05 cm: 19 weeks, 3 days CI: 76% FL/BPD: 70% FL/HC: FL/AC: 21% HC/AC: 1.12 age by current US: 19 weeks, 1 days. DEWEY by current US: 06/04/2022. Estimated weight: 304 grams, +/- 406 grams, 80 %. age by prior US: 19 weeks, 2 days. DEWEY by prior US: 06/03/2022. Age by LMP: 19 weeks, 0 days. DEWEY by LMP: 06/05/2022. ANATOMY: Gender: Indeterminant Cranium: Normal lateral ventricles. Normal choroid plexus. Normal cerebellum. Normal cisterna magna. Normal face, nose and lips. Chest: Normal 4-chamber heart. Abdomen/Pelvis: Normal diaphragm. Normal stomach. Normal abdominal wall. Normal cord insertion. Normal 3 vessel cord. Normal kidneys. Normal bladder. Spine: Normal cervical spine. Normal thoracic spine. Normal lumbar spine. Normal sacrum. Extremities: Normal bilateral upper extremities. Normal bilateral lower extremities. IMPRESSION: Single live uterine gestation with mean gestational age of 19 weeks and 2 days. The measurements are obtained today fail with the normal expected range. Anterior low-lying placenta. Placental chaparro. Electronically Signed: Niranjan Yi MD at 10:09 EDT , STUDY: FIRST TRIMESTER OBSTETRICAL ULTRASOUND REASON FOR EXAM: Female, 31 years old . Cervical length measurement. LMP: 08/19/2021 TECHNIQUE: Transvaginal TECHNICAL QUALITY: Adequate. PRIOR ULTRASOUND: None. FINDINGS: Cervical length measures 3.7 cm. US/OB Anatomy Scan IMPRESSION: Cervical length measures 3.7 cm. Electronically Signed: Niranjan Yi MD at 10:09 EDT ,
== END | disposition home or self-care (01) ==
LOC: OPUS 11:42 → US 11:44
PROVIDERS: PCP Family Medicine; Referring Provider Obstetrics & Gynecology; Visit Provider Obstetrics & Gynecology
DX: Z34.90 Encounter for supervision of normal pregnancy, unspecified, unspecified trimester (principal)
CPT/HCPCS: 76805; 76817

== ENCOUNTER → 2022-01-12 | Outpatient (CLI) | payer OTHER, SELFPAY ==
[2022-01-12 11:12] LABS: Absolute Lymphocyte Count 1.71 X10^3/uL (0.83-4.51); Absolute Neutrophil Count 6.9 X10^3/uL (2.0-7.7); Basophil# 0.01 X10^3/uL; Basophil% 0.1 % (0-1); Eosinophil# 0.04 X10^3/uL; Eosinophils% 0.4 % (0-5); Hematocrit 34.5 % (37-47); Hemoglobin 11.5 g/dL (12.0-15.0); Lymphocyte # 1.71 X10^3/ul (0.83-4.51); Lymphocyte % 18.2 % (19-41); Mean Corp Hgb Conc 33.3 g/dL (32-36); Mean Corpuscular Hgb 29.9 pg (27.0-32.0); Mean Corpuscular Volume 89.8 fL (81-99); Mean Platelet Vol. 10.2 fl (6.2-12.0); Monocyte# 0.74 X10^3/uL; Monocyte% 7.9 % (0-10); NRBC Flagged by Analyzer 0 % (0-5); Neutrophil # 6.85 X10^3/uL (2.7-7.7); Platelet Count 296 K/mm3 (150-450); RBC Distribution Width CV 13.8 % (11.6-14.6); RBC Distribution Width SD 44.7 fl (35.1-43.9); Red Blood Count 3.84 M/mm3 (4.2-5.4); White Blood Count 9.4 K/mm3 (4.4-11.0)
[2022-01-12 11:54] LABS: Anion Gap 4 (5-15); BUN 6 mg/dL (7-18); BUN/Creat Ratio 11.8 RATIO (10-20); Calcium,Total 8.6 mg/dL (8.5-10.1); Chloride 108 mmol/L (98-107); Creatinine, Serum 0.51 mg/dL (0.55-1.02); EST Glomerular Filtration Rate 152 mL/min (>60); Est Glom Filt Rate - Afr Amer 184 mL/min (>60); Glucose 75 mg/dL (74-106); Magnesium 1.8 mg/dL (1.6-2.6); Potassium 3.4 mmol/L (3.5-5.1); Sodium Level 138 mmol/L (136-145); Thyroid Stim Hormone (TSH) 2.64 uIU/mL (0.358-3.74)
== END | disposition home or self-care (01) ==
LOC: LAB 10:46
PROVIDERS: PCP Family Medicine; Visit Provider Internal Medicine Cardiovascular Disease
DX: R00.2 Palpitations (principal); R00.0 Tachycardia, unspecified
CPT/HCPCS: 36415; 80048; 83735; 84443; 85025

== ENCOUNTER → 2022-01-16 | Outpatient (CLI) | payer OTHER, SELFPAY ==
--- NOTE | 2022-01-16 09:50 | ECHOD_ITS ---
Reason For Study: ARRYTHMIA Procedure This was a 2D Doppler, Color Flow transthoracic echocardiogram. Exam performed in department. Left Ventricle Normal LV size. Left ventricular systolic function is normal. The estimated ejection fraction is 60 %. Normal diastology for age. No regional wall motion abnormalities noted. Right Ventricle Normal RV size. Normal systolic function. Atria Normal left atrium. Normal right atrium. Mitral Valve Normal mitral valve. Tricuspid Valve Normal tricuspid valve. Aortic Valve Normal aortic valve. Pulmonic Valve Normal pulmonic valve. Great Vessels Normal aortic root. The pulmonary artery is normal size. Normal inferior vena cava. Pericardium/Pleural No pericardial effusion. MMode/2D Measurements & Calculations LVIDd: 4.5 cm IVSd: 0.92 cm Ao root diam: 2.7 cm LVIDs: 3.1 cm LVPWd: 1.0 cm RVDd: 2.9 cm FS: 30.7 % LAV(MOD-sp4): 49.0 ml LVAd ap2: 32.4 cm2 SV(MOD-sp2): 63.2 ml LVLd ap2: 8.2 cm EDV(MOD-sp2): 106.7 ml EDV(sp2-el): 108.8 ml LVAs ap2: 19.1 cm2 LVLs ap2: 7.1 cm ESV(MOD-sp2): 43.5 ml ESV(sp2-el): 43.8 ml EF(MOD-sp2): 59.2 % LA A4 area: 17.7 cm2 LA dimension(2D): 3.5 cm RA A4 area: 13.5 cm2 Doppler Measurements & Calculations MV E max ag: 97.4 cm/sec Lat Peak E' Ag: 16.1 cm/sec Med Peak E' Ag: 12.1 cm/sec MV A max ag: 84.5 cm/sec E/E' lat: 6.0 E/E' med: 8.0 MV E/A: 1.2 Ao V2 max: 173.3 cm/sec LV V1 max: 143.7 cm/sec PA V2 max: 126.2 cm/sec Ao max P.0 mmHg LV V1 max P.3 mmHg ECHO/Echo Complete Interpretation Summary Normal LV size. Left ventricular systolic function is normal. The estimated ejection fraction is 60 %. Normal diastology for age. Structurally normal valves. Ordering Physician: Ry Dale Performed By: Isis Villasenor RCS
== END | disposition home or self-care (01) ==
PROVIDERS: PCP Family Medicine; Visit Provider Internal Medicine Cardiovascular Disease
DX: R00.2 Palpitations (principal); R00.0 Tachycardia, unspecified
CPT/HCPCS: 93306

== ENCOUNTER → 2022-02-28 | Outpatient (CLI) | payer OTHER, SELFPAY ==
[2022-02-28 08:45] LABS: Absolute Neutrophil Count 7.1 X10^3/uL (2.0-7.7); Basophil# 0.02 X10^3/uL; Basophil% 0.2 % (0-1); Eosinophil# 0.08 X10^3/uL; Eosinophils% 0.8 % (0-5); Hemoglobin 11.2 g/dL (12.0-15.0); Lymphocyte % 22.2 % (19-41); Mean Corp Hgb Conc 32.9 g/dL (32-36); Mean Corpuscular Hgb 30.1 pg (27.0-32.0); Mean Corpuscular Volume 91.4 fL (81-99); Mean Platelet Vol. 10.3 fl (6.2-12.0); Monocyte# 0.79 X10^3/uL; Monocyte% 7.6 % (0-10); NRBC Flagged by Analyzer 0 % (0-5); Neutrophil # 7.12 X10^3/uL (2.7-7.7); Neutrophil % 68.6 % (47-70); Platelet Count 276 K/mm3 (150-450); RBC Distribution Width CV 13.4 % (11.6-14.6); RBC Distribution Width SD 45.3 fl (35.1-43.9); Red Blood Count 3.72 M/mm3 (4.2-5.4); White Blood Count 10.4 K/mm3 (4.4-11.0)
[2022-02-28 08:58] LABS: Glucose Challenge Gest 1H 50g 124 mg/dL (70-140)
== END | disposition home or self-care (01) ==
LOC: LAB 08:12
PROVIDERS: PCP Family Medicine; Visit Provider Obstetrics & Gynecology
DX: Z34.90 Encounter for supervision of normal pregnancy, unspecified, unspecified trimester (principal)
CPT/HCPCS: 36415; 82950; 85025

== ENCOUNTER → 2022-03-15 | Outpatient (CLI) | payer OTHER, SELFPAY ==
--- NOTE | 2022-03-15 09:37 | US_ITS ---
STUDY: SECOND AND THIRD TRIMESTER OBSTETRICAL ULTRASOUND - LIMITED REASON FOR EXAM: Female, 31 years old follow up placenta placement -- 28 weeks LMP: 08/29/2021 PRIOR ULTRASOUND: Comparison is made with prior study dated 01/09/2022 TECHNIQUE: Transabdominal and Transvaginal TECHNICAL QUALITY: Adequate. FINDINGS: There is a single intrauterine fetus. The fetus is in a transverse lie with the head on the maternal right side. There is demonstrated cardiac activity with a heart rate of 121 bpm. The placenta is anterior and low lying but not previa in location. The tip of the placenta is at 1.5 sinus from the cervical os. There are Grade 1 placental changes. The cervix measures 3.7 cm in length. BIOMETRY: Age by LMP: 28 weeks, 2 days. DEWEY by LMP: 06/05/2022. US/OB Limited (No Biometrics) IMPRESSION: Anterior low-lying placenta. The tip of the placenta is at 1.5 cm proximal to the cervical os. Electronically Signed: Niranjan Yi MD at 11:11 EDT ,
== END | disposition home or self-care (01) ==
LOC: US 09:36
PROVIDERS: PCP Family Medicine; Referring Provider Obstetrics & Gynecology; Visit Provider Obstetrics & Gynecology
DX: O44.43 Low lying placenta NOS or without hemorrhage, third trimester (principal); Z3A.28 28 weeks gestation of pregnancy
CPT/HCPCS: 76815

== ENCOUNTER → 2022-04-13 | Outpatient (CLI) | payer OTHER, SELFPAY ==
--- NOTE | 2022-04-13 08:33 | US_ITS ---
STUDY: SECOND AND THIRD TRIMESTER OBSTETRICAL ULTRASOUND REASON FOR EXAM: Female, 31 years old growth and placenta follow up LMP: 08/29/2021 TECHNIQUE: Transabdominal and Transvaginal TECHNICAL QUALITY: Adequate. PRIOR ULTRASOUND: None. FINDINGS: There is a single intrauterine fetus. The fetus is in a breech presentation. There is demonstrated cardiac activity with a heart rate of 132 bpm. There is a normal amniotic fluid volume. The largest amniotic fluid pocket measures 7.8 cm. The amniotic fluid index (LETICIA) is 21.5 cm. The placenta is anterior in location and is not low lying. The tip of the placenta is a 2.3 cm proximal to the cervical os. There are Grade 2 placental changes. The cervix measures 4.3 cm in length. The adnexal regions are not visualized. BIOMETRY: BPD: 8.4 cm: 33 weeks, 6 days HC: 31.1 cm: 34 weeks, 6 days AC: 30.7 cm: 34 weeks, 5 days FL: 6.1 cm: 31 weeks, 6 days CI: 77% FL/BPD: 73% FL/HC: FL/AC: 20% HC/AC: 1.01 age by current US: 34 weeks, 1 days. DEWEY by current US: 05/24/2022. Estimated weight: 2284 grams, +/- 343 grams, 81 %. age by prior US: 32 weeks, 5 days. DEWEY by prior US: 06/03/2022. Age by LMP: 34 weeks, 1 days. DEWEY by LMP: 05/24/2022. US/OB Limited With Biometrics IMPRESSION: Single live uterine gestation with a mean gestational age of 32 weeks and 5 days. The measurements obtained today following the normal expected range. Anterior placenta. No evidence of placenta previa or low-lying placenta. Electronically Signed: Niranjan Yi MD at 12:40 EDT ,
== END | disposition home or self-care (01) ==
LOC: OPUS 08:25
PROVIDERS: PCP Family Medicine; Visit Provider Obstetrics & Gynecology
DX: O44.43 Low lying placenta NOS or without hemorrhage, third trimester (principal); O43.103 Malformation of placenta, unspecified, third trimester; Z3A.34 34 weeks gestation of pregnancy
CPT/HCPCS: 76816; 76817

== ENCOUNTER → 2022-05-10 | Outpatient (CLI) | payer OTHER, SELFPAY ==
[2022-05-10 11:37] LABS: Absolute Lymphocyte Count 1.71 X10^3/uL (0.83-4.51); Absolute Neutrophil Count 7.8 X10^3/uL (2.0-7.7); Basophil# 0.02 X10^3/uL; Basophil% 0.2 % (0-1); Eosinophil# 0.04 X10^3/uL; Eosinophils% 0.4 % (0-5); Hemoglobin 11.1 g/dL (12.0-15.0); Lymphocyte # 1.71 X10^3/ul (0.83-4.51); Lymphocyte % 15.9 % (19-41); Mean Corp Hgb Conc 32.6 g/dL (32-36); Mean Corpuscular Hgb 27.7 pg (27.0-32.0); Mean Corpuscular Volume 84.8 fL (81-99); Mean Platelet Vol. 10.9 fl (6.2-12.0); Monocyte# 0.97 X10^3/uL; NRBC Flagged by Analyzer 0 % (0-5); Neutrophil # 7.83 X10^3/uL (2.7-7.7); Neutrophil % 72.9 % (47-70); Platelet Count 274 K/mm3 (150-450); RBC Distribution Width CV 14.6 % (11.6-14.6); RBC Distribution Width SD 44.8 fl (35.1-43.9); Red Blood Count 4.01 M/mm3 (4.2-5.4); White Blood Count 10.7 K/mm3 (4.4-11.0)
[2022-05-10 12:05] LABS: ALB/GLOB Ratio 0.6 RATIO (0.9-2.4); AST(SGOT) 17 U/L (15-37); Alanine Aminotransfer ALT/SGPT 16 U/L (13-56); Albumin, Serum 2.6 g/dL (3.2-5.0); Alkaline Phosphatase 217 U/L (45-117); Anion Gap 4 (5-15); BUN 7 mg/dL (7-18); BUN/Creat Ratio 12.5 RATIO (10-20); Calcium,Total 8.6 mg/dL (8.5-10.1); Chloride 108 mmol/L (98-107); Creatinine, Serum 0.56 mg/dL (0.55-1.02); EST Glomerular Filtration Rate 135 mL/min (>60); Est Glom Filt Rate - Afr Amer 164 mL/min (>60); Globulin 4.2 g/dL (2.2-4.2); Glucose 80 mg/dL (74-106); Potassium 3.7 mmol/L (3.5-5.1); Protein, Total 6.8 g/dL (6.4-8.2); Sodium Level 138 mmol/L (136-145)
== END | disposition home or self-care (01) ==
PROVIDERS: PCP Family Medicine; Referring Provider Nurse Practitioner Women's Health; Visit Provider Nurse Practitioner Women's Health
DX: O26.86 Pruritic urticarial papules and plaques of pregnancy (PUPPP) (principal); Z3A.00 Weeks of gestation of pregnancy not specified
CPT/HCPCS: 36415; 80053; 85025; 87081

== ENCOUNTER 2022-05-14 19:05 | Outpatient (CLI) | payer OTHER, SELFPAY ==
[2022-05-14 19:39] VITALS: BP 123/77; PULSE 83
[2022-05-14 19:40] VITALS: BMI 31.8
--- NOTE | 2022-05-14 19:52 | OB.TRI.PN ---
Progress Notes Progress Note: Patient presents for triage evaluation secondary to 12/20 bpp FHT: 130 Moderate variability reactive no decelerations category I tracing [place]: no rgular Contractions Assessment and plan: abnormal testing, now 02/21 overall reassuring Reactive NST, reassuring maternal and status patient discharged to home to follow-up as scheduled. See problem list details for additional plan information. Charges/Coding Procedures Urinary/Genital [id number]: 27641-36 non-stress test Interp Assessment & Plan (1) Abnormal test: COMMENT: 02/21 bpp 05/14 off for breathing. kick counts fu as scheduled, await bile acids. nl cbc cmp
--- NOTE | 2022-05-16 18:49 | OB.TRI.HP_ITS ---
HPI - General HPI Narrative ZEE HERNANDEZ, is a 31 F who presents to L&D for NST following 12/20 BPP. Maternal Data Information DEWEY Calculator Estimated Delivery Date Method Current WG Current Estimate 06/05/22 LMP (Certain) 37w 1d Other Estimates 06/01/22 Ultrasound #1 37w 5d [facility] Medical History Asthma, exercise induced Femur fracture, left Fracture of L4 vertebra Home Medications prenat.vits,ronak,ubh-axeu-prchb 1 tab PO DAILY 10/09/21 [History Last Taken 05/13/22] ursodiol 300 mg capsule 300 mg PO BID #60 caps 05/10/22 [Rx Last Taken 05/14/22 08:00] Allergy/AdvReac Type Severity Reaction Status Date / Time codeine AdvReac Mild Unknown Verified 05/14/22 19:44 oxycodone [From Percocet] AdvReac Mild Unknown Verified 05/14/22 19:44 Family History Father Hypertension Hyperlipidemia Grandfather Cancer skin Surgical History History of ankle surgery History of dilatation and curettage (2018) History of lumbar laminectomy (09/12/21) History of wisdom tooth extraction, class II edentulism Hx of lumbar discectomy (2009) Social History adopted: No household members: spouse and children number of children: 2 current occupational status: employed 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 Problem list reviewed and updated with the most current plan of care details and appropriate orders placed. Relevant counseling for the gestational age provided. Continue routine care and follow up unless otherwise noted in visit notes/problem list details OB Flowsheet Initial Weight: 170 lb Date -?-?-?-?-?-?-?-?-?-?-?-?- EGA Weight BP Urine Prot -?-?-?-?-?-?-?-?-?-?-?-?- Glucose FHR FuHt Pres Dilation -?-?-?-?-?-?-?-?-?-?-?-?- Effaced St Visit Note 10/26/21 -?-?-?-?-?-?-?-?-?-?-?-?- 8w 2d 170 lb 6 oz (+6 oz) 132/82 -?-?-?-?-?-?-?-?-?-?-?-?- 166 -?-?-?-?-?-?-?-?-?-?-?-?- SM- CRL 2 cm con s with LMP 11/15/21 -?-?-?-?-?-?-?-?-?-?-?-?- 11w 1d 171 lb (+16 oz) 112/82 Negative -?-?-?-?-?-?-?-?-?-?-?-?- Negative 157 -?-?-?-?-?-?-?-?-?-?-?-?- JV- pt in ER las t night for bleeding. has a small subchorionic hem. rpt ultrasound today looks reassuring. no cervical dialtion, only old blood in vagina 11/23/21 -?-?-?-?-?-?-?-?-?-?-?-?- 12w 2d 171 lb 8 oz (+1 lb 8 oz) 120/80 Negative -?-?-?-?-?-?-?-?-?-?-?-?- Negative 157 -?-?-?-?-?-?-?-?-?-?-?-?- JV- still bleedi ng some, subchorionic measures 1.7 cm but also there is an adjacent structure measuring about the same but within the placenta. this could be a chaparro. 12/08/21 -?-?-?-?-?-?-?-?-?-?-?-?- 14w 3d 175 lb 4 oz (+5 lb 4 oz) 102/82 Negative -?-?-?-?-?-?--?-?-?-?-?-?- Negative 147 -?-?-?-?-?-?-?-?-?-?-?-?- JV- continue pel yisel rest until anatomy scan. This is scheduled with [facility]. 01/03/22 -?-?-?-?-?--?-?-?-?-?-?-?- 18w 1d 180 lb (+10 lb) 114/78 Negative -?-?-?-?-?-?-?-?-?-?-?-?- Negative 154 -?-?-?-?-?-?-?-?-?-?-?-?- JV- no lof, vagi nal bleeding, or cramping. JV- no lof, vaginal bleeding , or cramping. she has moments where heart rate up to 170's. pt also works in [employer] and thinks she has a previa. will know more on Saturday official scan and pelvic rest in the meantime. sending to cardiology to work up tachycardia 02/02/22 -?-?-?-?-?-?-?-?-?-?-?-?- 22w 3d 187 lb (+17 lb) 106/70 Negative -?-?-?-?-?-?-?-?-?-?-?-?- Negative 150 23 -?-?-?-?-?-?-?-?-?-?-?-?- SM- no vb lof go od fm no regular ctx 02/28/22 -?-?-?-?-?-?-?-?-?-?-?-?- 26w 1d 193 lb 8 oz (+23 lb 8 oz) 132/80 Negative -?-?-?-?-?-?-?-?-?-?-?-?- Negative 144 26 -?-?-?-?-?-?-?-?-?-?-?-?- -No VB, LOF. G ood FM. 28 wk labs, [facility]. 03/15 to check placenta 03/15/22 -?-?-?-?-?-?-?-?-?-?-?-?- 28w 2d 197 lb (+27 lb) 96/62 -?-?-?-?-?-?-?-?-?-?-?-?- 140 29 -?-?-?-?-?-?-?-?-?-?-?-?- SM- no vb lof go od fm no regular ctx 03/30/22 -?-?-?-?-?--?-?-?-?-?-?-?- 30w 3d 201 lb (+31 lb) 123/77 Negative -?-?-?-?-?-?-?-?-?-?-?-?- Negative 140 30 -?-?-?-?-?-?-?-?-?-?-?-?- SM- no vb lof go od fm no regular ctx 04/13/22 -?-?-?-?-?-?-?-?-?-?-?-?- 32w 3d 204 lb (+34 lb) 114/77 -?-?-?-?-?-?-?-?-?-?-?-?- 145 32 [place] -?-?-?-?-?-?-?-?-?-?-?-?- SM- no vb lof go od fm no reuglar ctx placenta moved 04/24/22 -?-?-?-?-?-?-?-?-?-?-?-?- 34w 0d 206 lb (+36 lb) 116/82 Negative -?-?-?-?-?-?-?-?-?-?-?-?- Negative 138 34 -?-?-?-?-?-?-?-?-?-?-?-?- LC-no vb,lof,ctx . +FM. denies concerns. 05/02/22 -?-?-?-?-?-?-?-?-?-?-?-?- 35w 1d 178 lb 8 oz (+8 lb 8 oz) 118/80 Negative -?-?-?-?-?-?-?-?-?-?-?-?- Negative 144 Cephalic -?-?-?-?-?-?-?-?-?-?-?-?- LC- pt seen for itching. small red rash on abdomen, c/w PUPP. to start with topical antihistamine. +FM, no lof,vb,ctx. 05/10/22 -?-?-?-?-?-?-?-?-?-?-?-?- 36w 2d 208 lb 6 oz (+38 lb 6 oz) 124/80 Negative -?-?-?-?-?-?-?-?-?-?-?-?- Negative 154 36 Cephalic 1 -?-?-?-?-?-?-?-?-?-?-?-?- 30 -3 MH-No VB, LOF. Good FM -No VB, LOF. Good FM. Catrachito h on abdomen resolved with benadry. Itching persists now on bottom of feel. Labs ordered. GBS. Growth US ordered 10/31/22 -?-?-?-?-?-?-?-?-?-?-?-?- 36w 6d 211 lb (+41 lb) 112/74 Negative -?-?-?-?-?-?-?-?-?-?-?-?- Negative 135 37 Cephalic 1 -?-?-?-?-?-?-?-?-?-?-?-?- SM- no vb lof go od fm no regualr ctx NST FHR Rate Baby A Baseline: 120 Variability:: Moderate Accelerations:: 15 x 15 Decelerations:: None NST Reactive:: Yes FHR Category:: Category I Assessment & Plan (1) Abnormal test: COMMENT: 02/21 bpp 05/14 off for breathing. kick counts fu as scheduled, await bile acids. nl cbc cmp (2) Pruritus of : COMMENT: arms, abdomen, feet:labs ordered; Rx ursodial (3) PUPP (pruritic urticarial papules and plaques of ): COMMENT: rash resolved. Itching persists. (4) Supervision of normal : QUALIFIERS: Qualified Code(s): Z34.02 - Encounter for supervision of normal first , second trimester COMMENT: PRR DEWEY: 06/05/22 surprise PC:Myrna Connelly. Harry (5) : QUALIFIERS: Weeks of gestation: 36 weeks Qualified Code(s): Z 3A.36 - 36 weeks gestation of COMMENT: GBS neg, genetic, NTD and carrier screening declined. anatomy reviewed, nl growth (6) Anxiety: COMMENT: D/C'd buspar, counseling encouraged. been on zoloft, effexor, and lexapro in the past. PLAN: Plan Patient presents for triage evaluation secondary to [12/20 BPP -2 for breathing ] FHT: [120] Moderate variability reactive no decelerations category I tracing [place]: [no] Contractions Assessment and plan: Reactive NST, reassuring maternal and status patient discharged to home to follow-up [in office]. See problem list details for additional plan information. Charges/Coding Multi Select Codes Urinary/Genital Urinary/Genital CPT Codes: 59354-98 non-stress test Interp
--- NOTE | 2022-05-16 18:49 | OB.TRI.NOTE ---
HPI - General HPI Narrative ZEE HERNANDEZ, is a 31 F who presents to L&D for NST following 12/20 BPP. Maternal Data Information DEWEY Calculator Estimated Delivery Date Method Current WG Current Estimate 06/05/22 LMP (Certain) 37w 1d Other Estimates 06/01/22 Ultrasound #1 37w 5d [facility] Medical History Asthma, exercise induced Femur fracture, left Fracture of L4 vertebra Home Medications prenat.vits,ronak,ytr-vzok-brgob 1 tab PO DAILY 10/09/21 [History Last Taken 05/13/22] ursodiol 300 mg capsule 300 mg PO BID #60 caps 05/10/22 [Rx Last Taken 05/14/22 08:00] Allergy/AdvReac Type Severity Reaction Status Date / Time codeine AdvReac Mild Unknown Verified 05/14/22 19:44 oxycodone [From Percocet] AdvReac Mild Unknown Verified 05/14/22 19:44 Family History Father Hypertension Hyperlipidemia Grandfather Cancer skin Surgical History History of ankle surgery History of dilatation and curettage (2018) History of lumbar laminectomy (09/12/21) History of wisdom tooth extraction, class II edentulism Hx of lumbar discectomy (2009) Social History adopted: No household members: spouse and children number of children: 2 current occupational status: employed 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 Problem list reviewed and updated with the most current plan of care details and appropriate orders placed. Relevant counseling for the gestational age provided. Continue routine care and follow up unless otherwise noted in visit notes/problem list details OB Flowsheet Initial Weight: 170 lb Date <del>?</del> EGA Weight BP Urine Prot <del>?</del> Glucose FHR FuHt Pres Dilation <del>?</del> Effaced St Visit Note 10/26/21 <del>?</del> 8w 2d 170 lb 6 oz (+6 oz) 132/82 <del>?</del> 166 <del>?</del> SM- CRL 2 cm cons with LMP 11/15/21 <del>?</del> 11w 1d 171 lb (+16 oz) 112/82 Negative <del>?</del> Negative 157 <del>?</del> JV- pt in ER last night for bleeding. has a small subchorionic hem. rpt ultrasound today looks reassuring. no cervical dialtion, only old blood in vagina 11/23/21 <del>?</del> 12w 2d 171 lb 8 oz (+1 lb 8 oz) 120/80 Negative <del>?</del> Negative 157 <del>?</del> JV- still bleeding some, subchorionic measures 1.7 cm but also there is an adjacent structure measuring about the same but within the placenta. this could be a chaparro. 12/08/21 <del>?</del> 14w 3d 175 lb 4 oz (+5 lb 4 oz) 102/82 Negative <del>?</del> Negative 147 <del>?</del> JV- continue pelvic rest until anatomy scan. This is scheduled with [facility]. 01/03/22 <del>?</del> 18w 1d 180 lb (+10 lb) 114/78 Negative <del>?</del> Negative 154 <del>?</del> JV- no lof, vaginal bleeding, or cramping. JV- no lof, vaginal bleeding, or cramping. she has moments where heart rate up to 170's. pt also works in [place] and thinks she has a previa. will know more on Saturday official scan and pelvic rest in the meantime. sending to cardiology to work up tachycardia 02/02/22 <del>?</del> 22w 3d 187 lb (+17 lb) 106/70 Negative <del>?</del> Negative 150 23 <del>?</del> SM- no vb lof good fm no regular ctx 02/28/22 <del>?</del> 26w 1d 193 lb 8 oz (+23 lb 8 oz) 132/80 Negative <del>?</del> Negative 144 26 <del>?</del> MH-No VB, LOF. Good FM. 28 wk labs, larc. 03/15 to check placenta 03/15/22 <del>?</del> 28w 2d 197 lb (+27 lb) 96/62 <del>?</del> 140 29 <del>?</del> SM- no vb lof good fm no regular ctx 03/30/22 <del>?</del> 30w 3d 201 lb (+31 lb) 123/77 Negative <del>?</del> Negative 140 30 <del>?</del> SM- no vb lof good fm no regular ctx 04/13/22 <del>?</del> 32w 3d 204 lb (+34 lb) 114/77 <del>?</del> 145 32 Breech <del>?</del> SM- no vb lof good fm no reuglar ctx placenta moved 04/24/22 <del>?</del> 34w 0d 206 lb (+36 lb) 116/82 Negative <del>?</del> Negative 138 34 <del>?</del> LC-no vb,lof,ctx. +FM. denies concerns. 05/02/22 <del>?</del> 35w 1d 178 lb 8 oz (+8 lb 8 oz) 118/80 Negative <del>?</del> Negative 144 Cephalic <del>?</del> LC- pt seen for itching. small red rash on abdomen, c/w PUPP. to start with topical antihistamine. +FM, no lof,vb,ctx. 05/10/22 <del>?</del> 36w 2d 208 lb 6 oz (+38 lb 6 oz) 124/80 Negative <del>?</del> Negative 154 36 Cephalic 1 <del>?</del> 30 -3 -No VB, LOF. Good FM -No VB, LOF. Good FM. Rash on abdomen resolved with benadry. Itching persists now on bottom of feel. Labs ordered. GBS. Growth US ordered 05/14/22 <del>?</del> 36w 6d 211 lb (+41 lb) 112/74 Negative <del>?</del> Negative 135 37 Cephalic 1 <del>?</del> SM- no vb lof good fm no regualr ctx NST FHR Rate Baby A Baseline: 120 Variability:: Moderate Accelerations:: 15 x 15 Decelerations:: None NST Reactive:: Yes FHR Category:: Category I Assessment & Plan (1) Abnormal test: COMMENT: 02/21 bpp 05/14 off for breathing. kick counts fu as scheduled, await bile acids. nl cbc cmp (2) Pruritus of : COMMENT: arms, abdomen, feet:labs ordered; Rx ursodial (3) PUPP (pruritic urticarial papules and plaques of ): COMMENT: rash resolved. Itching persists. (4) Supervision of normal : QUALIFIERS: Qualified Code(s): Z34.02 - Encounter for supervision of normal first , second trimester COMMENT: PRR DEWEY: 06/05/22 surprise PC:Myrna Connelly. Harry (5) : QUALIFIERS: Weeks of gestation: 36 weeks Qualified Code(s): Z3A.36 - 36 weeks gestation of COMMENT: GBS neg, genetic, NTD and carrier screening declined. anatomy reviewed, nl growth (6) Anxiety: COMMENT: D/C'd buspar, counseling encouraged. been on zoloft, effexor, and lexapro in the past. PLAN: Plan Patient presents for triage evaluation secondary to [12/20 BPP -2 for breathing ] FHT: [120] Moderate variability reactive no decelerations category I tracing [place]: [no] Contractions Assessment and plan: Reactive NST, reassuring maternal and status patient discharged to home to follow-up [in office]. See problem list details for additional plan information. Charges/Coding Multi Select Codes Urinary/Genital Urinary/Genital CPT Codes: 39553-20 non-stress test Interp
== END 2022-05-14 20:02 | disposition home or self-care (01) ==
LOC: WPOUT 19:14 → WP 19:15
PROVIDERS: PCP Family Medicine; Visit Provider Registered Nurse
DX: O26.899 Other specified pregnancy related conditions, unspecified trimester (principal)
CPT/HCPCS: 59025; 59050; 99218; G0378

== ENCOUNTER → 2022-05-14 | Outpatient (CLI) | payer OTHER, SELFPAY ==
[2022-05-14 11:45] LABS: Absolute Lymphocyte Count 1.56 X10^3/uL (0.83-4.51); Absolute Neutrophil Count 6.4 X10^3/uL (2.0-7.7); Basophil# 0.01 X10^3/uL; Basophil% 0.1 % (0-1); Eosinophil# 0.03 X10^3/uL; Eosinophils% 0.3 % (0-5); Hematocrit 32.9 % (37-47); Hemoglobin 10.8 g/dL (12.0-15.0); Lymphocyte # 1.56 X10^3/ul (0.83-4.51); Lymphocyte % 17.6 % (19-41); Mean Corp Hgb Conc 32.8 g/dL (32-36); Mean Corpuscular Hgb 27.6 pg (27.0-32.0); Mean Corpuscular Volume 83.9 fL (81-99); Mean Platelet Vol. 11.6 fl (6.2-12.0); Monocyte# 0.78 X10^3/uL; Monocyte% 8.8 % (0-10); NRBC Flagged by Analyzer 0 % (0-5); Neutrophil % 72.2 % (47-70); Platelet Count 285 K/mm3 (150-450); RBC Distribution Width CV 14.7 % (11.6-14.6); RBC Distribution Width SD 44.8 fl (35.1-43.9); Red Blood Count 3.92 M/mm3 (4.2-5.4); White Blood Count 8.9 K/mm3 (4.4-11.0)
[2022-05-14 12:10] LABS: ALB/GLOB Ratio 0.6 RATIO (0.9-2.4); AST(SGOT) 21 U/L (15-37); Alanine Aminotransfer ALT/SGPT 17 U/L (13-56); Albumin, Serum 2.6 g/dL (3.2-5.0); Alkaline Phosphatase 223 U/L (45-117); Anion Gap 9 (5-15); BUN 8 mg/dL (7-18); BUN/Creat Ratio 14.4 RATIO (10-20); Calcium,Total 8.6 mg/dL (8.5-10.1); Chloride 106 mmol/L (98-107); Creatinine, Serum 0.56 mg/dL (0.55-1.02); EST Glomerular Filtration Rate 137 mL/min (>60); Est Glom Filt Rate - Afr Amer 166 mL/min (>60); Glucose 103 mg/dL (74-106); Potassium 3.3 mmol/L (3.5-5.1); Protein, Total 6.6 g/dL (6.4-8.2); Sodium Level 137 mmol/L (136-145)
--- NOTE | 2022-05-14 17:09 | US_ITS ---
EXAM: US BPP HISTORY: prurtitus FINDINGS: A single live intrauterine is identified in cephalic presentation. heart rate is 127 bpm. Amniotic fluid index is within normal limits at 13.5 cm. The grade 3 placenta is anterior. Breathing - 0 Movement - 2 Tone - 2 Fluid - 2 US/Biophysical Prof W/O Non Stres IMPRESSION: Biophysical profile score of 6 out of 8. Absent breathing. Electronically Signed: Marcelo Archuleta MD at 4:27 EDT ,
--- NOTE | 2022-05-14 17:09 | US_ITS ---
STUDY: SECOND AND THIRD TRIMESTER OBSTETRICAL ULTRASOUND - LIMITED REASON FOR EXAM: Female, 31 years old growth LMP: PRIOR ULTRASOUND: None. TECHNIQUE: Transabdominal TECHNICAL QUALITY: Adequate. FINDINGS: There is a single intrauterine fetus. The fetus is in a cephalic presentation. There is demonstrated cardiac activity with a heart rate of (133 bpm. There is a normal amniotic fluid volume. The largest amniotic fluid pocket measures .2 cm. The amniotic fluid index (LETICIA) is 13.7 cm. The placenta is anterior and not low-lying There are Grade 3 placental changes. The cervix was not well visualized. BIOMETRY: BPD: 8.63 cm: 34 weeks, 6 days HC: 34.33 cm s: 39 weeks, 4 days AC: 35.52 cm: 39 weeks, 3 days FL: 7.12 cm: 36 weeks, 3 days Age by LMP: 36 weeks, 6 days. DEWEY by LMP: 06/05/2022. age by current US: 37 weeks, 4 days. DEWEY by current US: 05/31/2022. Estimated weight: 3363 grams, +/- 504 grams, 82 percentile. US/OB Limited With Biometrics IMPRESSION: Viable intrauterine gestation approximately 37-38 weeks gestational age. Electronically Signed: Rigoberto Crespo MD at 20:53 EDT ,
== END | disposition home or self-care (01) ==
PROVIDERS: PCP Family Medicine; Referring Provider Obstetrics & Gynecology; Visit Provider Obstetrics & Gynecology
DX: O43.103 Malformation of placenta, unspecified, third trimester (principal); O99.713 Diseases of the skin and subcutaneous tissue complicating pregnancy, third trimester; L29.9 Pruritus, unspecified; Z3A.37 37 weeks gestation of pregnancy
CPT/HCPCS: 76816; 76819; 80053; 85025

== ENCOUNTER → 2022-05-30 | Outpatient (CLI) | payer OTHER, SELFPAY ==
--- NOTE | 2022-05-30 10:09 | US_ITS ---
STUDY: SECOND AND THIRD TRIMESTER OBSTETRICAL ULTRASOUND REASON FOR EXAM: Female, 31 years old growth LMP: 08/29/2021. TECHNIQUE: Transabdominal TECHNICAL QUALITY: Adequate. PRIOR ULTRASOUND: Comparison is made with prior study dated 05/14/2022. FINDINGS: There is a single intrauterine fetus. The fetus is in a cephalic presentation. There is demonstrated cardiac activity with a heart rate of 132 bpm. There is a normal amniotic fluid volume. The largest amniotic fluid pocket measures 2.6 x 2.6 cm. The amniotic fluid index (LETICIA) is 7.1 cm. The placenta is anterior in location and is not low lying. There are Grade 3 placental changes. . The adnexal regions are not visualized. BIOMETRY: BPD: 9.11 cm: 37 weeks, 0 days HC: 34.12 cm: 39 weeks, 2 days AC: 37.15 cm: 41 weeks, 1 days FL: 7.39 cm: 36 weeks, 6 days CI: 78% FL/BPD: 81% FL/HC: FL/AC: 20% HC/AC: 0.92 age by current US: 38 weeks, 4 days. DEWEY by current US: 06/09/2020. Estimated weight: 3858 grams, +/- 579 grams, 81 %. age by prior US: 39 weeks, 6 days. DEWEY by prior US: 05/31/2022. Age by LMP: 39 weeks, 1 days. DEWEY by LMP: 06/05/2022. US/OB Limited With Biometrics IMPRESSION: Single live intrauterine gestation with a mean gestational age of 39 weeks and 6 days. The measurements obtained today fall within the normal expected range. Electronically Signed: Niranjan Yi MD at 11:36 EST ,
== END | disposition home or self-care (01) ==
LOC: OPUS 10:08
PROVIDERS: PCP Family Medicine; Visit Provider Obstetrics & Gynecology
DX: O36.5990 Maternal care for other known or suspected poor fetal growth, unspecified trimester, not applicable or unspecified (principal); Z3A.39 39 weeks gestation of pregnancy
CPT/HCPCS: 76816

== ENCOUNTER 2022-06-06 11:00 | Inpatient (IN) | payer OTHER, SELFPAY ==
[2022-06-06] VITALS (15 sets, daily range): BP systolic 101–126; BP diastolic 57–75; PULSE 75–111; TEMP 36.2–37.2; O2SAT 98–99; BMI 32.1
[2022-06-06 12:25] LABS: Absolute Lymphocyte Count 1.88 X10^3/uL (0.83-4.51); Absolute Neutrophil Count 7.6 X10^3/uL (2.0-7.7); Basophil# 0.05 X10^3/uL; Basophil% 0.5 % (0-1); Eosinophil# 0.02 X10^3/uL; Eosinophils% 0.2 % (0-5); Hematocrit 34.9 % (37-47); Lymphocyte # 1.88 X10^3/ul (0.83-4.51); Lymphocyte % 17.4 % (19-41); Mean Corp Hgb Conc 31.5 g/dL (32-36); Mean Corpuscular Hgb 26.6 pg (27.0-32.0); Mean Corpuscular Volume 84.5 fL (81-99); Mean Platelet Vol. 10.7 fl (6.2-12.0); Monocyte% 9.3 % (0-10); NRBC Flagged by Analyzer 0.3 % (0-5); Neutrophil # 7.63 X10^3/uL (2.7-7.7); Neutrophil % 70.5 % (47-70); Platelet Count 263 K/mm3 (150-450); RBC Distribution Width CV 16.5 % (11.6-14.6); RBC Distribution Width SD 50.7 fl (35.1-43.9); Red Blood Count 4.13 M/mm3 (4.2-5.4); White Blood Count 10.8 K/mm3 (4.4-11.0)
--- NOTE | 2022-06-06 12:43 | HP.PCM.OB_ITS ---
HPI - General General Date of Admission: 06/06/22 HPI Narrative ZEE HERNANDEZ, is a 31 F who presents to L&D for IOL postdates following borderline low LETICIA. was complicated by PUPPs and anxiety Maternal Data Information DEWEY Calculator Estimated Delivery Date Method Current WG Current Estimate 06/05/22 LMP (Certain) 40w 1d Other Estimates 06/01/22 Ultrasound #1 40w 5d Final DEWEY Source: US >20 weeks [facility] Medical History Asthma, exercise induced Femur fracture, left Fracture of L4 vertebra Subchorionic bleed Home Medications prenat.vits,ronak,bsp-usts-tbedt 1 tab PO DAILY 10/09/21 [History Last Taken 05/13/22] Allergy/AdvReac Type Severity Reaction Status Date / Time codeine AdvReac Mild Unknown Verified 06/06/22 08:57 oxycodone [From Percocet] AdvReac Mild Unknown Verified 06/06/22 08:57 Family History Father Hypertension Hyperlipidemia Grandfather Cancer skin Surgical History History of ankle surgery History of dilatation and curettage (2018) History of lumbar laminectomy (09/12/21) History of wisdom tooth extraction, class II edentulism Hx of lumbar discectomy (2009) Social History adopted: No household members: spouse and children number of children: 2 current occupational status: employed 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 Problem list reviewed and updated with the most current plan of care details and appropriate orders placed. Relevant counseling for the gestational age provided. Continue routine care and follow up unless otherwise noted in visit notes/problem list details OB Flowsheet Initial Weight: 170 lb Date -?-?-?-?-?-?-?-?-?-?-?-?- EGA Weight BP Urine Prot -?-?-?-?-?-?-?-?-?-?-?-?- Glucose FHR FuHt Pres Dilation -?-?-?-?-?-?-?-?-?-?-?-?- Effaced St Visit Note 10/26/21 -?-?-?-?-?-?-?-?-?-?-?-?- 8w 2d 170 lb 6 oz (+6 oz) 132/82 -?-?-?-?-?-?-?-?-?-?-?-?- 166 -?-?-?-?-?-?-?-?-?-?-?-?- SM- CRL 2 cm con s with LMP 11/15/21 -?-?-?-?-?-?-?-?-?-?-?-?- 11w 1d 171 lb (+16 oz) 112/82 Negative -?-?-?-?-?-?-?-?-?-?-?-?- Negative 157 -?-?-?-?-?-?-?-?-?-?-?-?- JV- pt in ER las t night for bleeding. has a small subchorionic hem. rpt ultrasound today looks reassuring. no cervical dialtion, only old blood in v agina 11/23/21 -?-?-?-?-?-?-?-?-?-?-?-?- 12w 2d 171 lb 8 oz (+1 lb 8 oz) 120/80 Negative -?-?-?-?-?-?-?-?-?-?-?-?- Negative 157 -?-?-?-?-?-?-?-?-?-?-?-?- JV- still bleedi ng some, subchorionic measures 1.7 cm but also there is an adjacent structure measuring about the same but within the placenta. this could be a chaparro. 12/08/21 -?-?-?-?-?-?-?-?-?-?-?-?- 14w 3d 175 lb 4 oz (+5 lb 4 oz) 102/82 Negative -?-?-?-?-?-?-?-?-?-?-?-?- Negative 147 -?-?-?-?-?-?-?-?-?-?-?-?- JV- continue pel yisel rest until anatomy scan. This is scheduled with [facility]. 01/03/22 -?-?-?-?-?-?-?-?-?-?-?-?- 18w 1d 180 lb (+10 lb) 114/78 Negative -?-?-?-?-?-?-?-?-?-?-?-?- Negative 154 -?-?-?-?-?-?-?-?-?-?-?-?- JV- no lof, vagi nal bleeding, or cramping. JV- no lof, vaginal bleeding , or cramping. she has moments where heart rate up to 170's. pt also works in [employer] and thinks she has a previa. will know more on Saturday official scan and pelvic rest in the meantime. sending to cardiology to work up tachycardia 02/02/22 -?-?-?-?-?-?-?-?-?-?-?-?- 22w 3d 187 lb (+17 lb) 106/70 Negative -?-?-?-?-?-?-?-?-?-?-?-?- Negative 150 23 -?-?-?-?-?-?-?-?-?-?-?-?- SM- no vb lof go od fm no regular ctx 02/28/22 -?-?-?-?-?-?-?-?-?-?-?--?- 26w 1d 193 lb 8 oz (+23 lb 8 oz) 132/80 Negative -?-?-?-?-?-?-?-?-?-?-?-?- Negative 144 26 -?-?-?-?-?-?-?-?-?-?-?-?- MH-No VB, LOF. G ood FM. 28 wk labs, [facility], [place]. 03/15 to check placenta 03/15/22 -?-?-?-?-?-?-?-?-?-?-?-?- 28w 2d 197 lb (+27 lb) 96/62 -?-?-?-?-?-?-?-?-?-?-?-?- 140 29 -?-?-?-?-?-?-?-?-?-?-?-?- SM- no vb lof go od fm no regular ctx 03/30/22 -?-?-?-?-?-?-?-?-?-?-?-?- 30w 3d 201 lb (+31 lb) 123/77 Negative -?-?-?-?-?-?-?-?-?-?-?-?- Negative 140 30 -?-?-?-?-?-?-?-?-?-?-?-?- SM- no vb lof go od fm no regular ctx 04/13/22 -?-?-?-?-?-?-?-?-?-?-?-?- 32w 3d 204 lb (+34 lb) 114/77 -?-?-?-?-?-?-?-?-?-?-?-?- 145 32 Breech -?-?-?-?-?-?-?-?-?-?-?-?- SM- no vb lof go od fm no reuglar ctx placenta moved 04/24/22 -?-?-?-?-?-?-?-?-?-?-?-?- 34w 0d 206 lb (+36 lb) 116/82 Negative -?-?-?-?-?-?-?-?-?-?-?-?- Negative 138 34 -?-?-?-?-?-?-?-?-?-?-?-?- LC-no vb,lof,ctx . +FM. denies concerns. 05/02/22 -?-?-?-?-?-?-?-?-?-?-?-?- 35w 1d 178 lb 8 oz (+8 lb 8 oz) 118/80 Negative -?-?-?-?-?-?-?-?-?-?-?-?- Negative 144 Cephalic -?-?-?-?-?-?-?-?-?-?-?-?- LC- pt seen for itching. small red rash on abdomen, c/w PUPP. to start with topical antihistamine. +FM, no lof,vb,ctx. 05/10/22 -?-?-?-?-?-?-?-?-?-?-?--?- 36w 2d 208 lb 6 oz (+38 lb 6 oz) 124/80 Negative -?-?-?-?-?-?-?-?-?-?-?-?- Negative 154 36 Cephalic 1 -?-?-?-?-?-?-?-?-?--?-?-?- 30 -3 MH-No VB, LOF. Good FM -No VB, LOF. Good FM. Catrachito h on abdomen resolved with benadry. Itching persists now on bottom of feel. Labs ordered. GBS. Growth US ordered 05/14/22 -?-?-?-?-?-?-?-?-?-?-?-?- 36w 6d 211 lb (+41 lb) 112/74 Negative -?-?-?-?-?-?-?-?-?-?-?-?- Negative 135 37 Cephalic 1 -?-?-?-?-?-?-?-?-?-?-?-?- SM- no vb lof go od fm no regualr ctx 05/18/22 -?-?-?-?-?-?-?-?-?-?-?-?- 37w 3d 210 lb (+40 lb) 110/70 Negative -?-?-?-?-?-?-?-?-?-?-?-?- Negative 120 -?-?-?-?-?-?-?-?-?-?-?-?- JV- pt presents for dec FM. NST is reactive. 05/21/22 -?-?-?-?-?-?-?-?-?-?-?-?- 37w 6d 210 lb (+40 lb) 122/81 -?-?-?-?-?-?-?-?-?-?-?-?- 126 38 Cephalic 1 -?-?-?-?-?-?-?-?-?-?-?-?- 30 -3 LC- no lof ,vb,ctx. good FM. denies concerns. comfort techniques reviewed for lower back discomforts. 05/30/22 -?-?-?-?-?-?-?-?-?-?-?-?- 39w 1d 210 lb 6 oz (+40 lb 6 oz) 118/78 Trace -?-?-?-?-?-?-?-?-?-?-?-?- Negative 134 35 Cephalic 1 -?-?-?-?-?-?-?-?-?-?-?-?- 30 -2 JV- no lof , vaginal bleeding, or dec fm. measuring small. ordering growth scan and fluid check for today. 06/06/22 -?-?-?-?-?-?-?-?-?-?-?-?- 40w 1d 212 lb 8 oz (+42 lb 8 oz) 123/74 -?-?-?-?-?-?-?-?-?-?-?-?- 130 37 Cephalic 3 -?-?-?-?-?-?-?-?-?-?-?-?- 60 -2 LC- no lof ,vb,ctx. good fm. scanned in office by Dr. Restrepo. LETICIA=5. recommendation of IOL. will present to L&D this morning. L&D notified. 06/06/22 -?-?-?-?-?-?-?-?-?-?-?-?- 40w 1d 211 lb 3.245 oz (+41 lb 3.245 oz) 113/68 113/68 -?-?-?-?-?-?-?-?-?-?-?-?- -?-?-?-?-?-?-?-?-?-?-?-?- NST FHR Rate Baby A Baseline: 125 Variability:: Moderate Accelerations:: 15 x 15 Decelerations:: None NST Reactive:: Yes FHR Category:: Category I Uterine Activity:: [id number], irreg. ROS Cardiovascular Cardiovascular: Denies abdominal pain, chest pain, diaphoresis, dyspnea, edema or fatigue Respiratory/Chest Respiratory/Chest: Denies change in mental status, chest congestion, chest tightness, cough, shortness of breath at rest, shortness of breath with exertion, breast mass, breast pain, breast skin changes, breast swelling, change in breast shape or nipple discharge Gastrointestinal Gastrointestinal: Denies diarrhea, hemorrhoids, nausea, vomiting or weight changes Genitourinary Genitourinary: Denies abdominal discomfort, burning urination, change in libido, change in urinary stream, contractions, difficulty urinating, dysuria, movement, low back pain, urinary frequency, urinary hesitancy, urinary incontinence or urinary urgency Musculoskeletal Musculoskeletal: Reports none Integumentary Integumentary: Reports none Neurologic Neurologic: Reports none Psychiatric Psychiatric: Reports none Endocrine Endocrinology: Reports none Hematologic/Lymphatic Hematologic/Lymphatic: Reports none Allergic/Immunologic Allergic/Immunologic: Reports none Vital Signs Vital Signs Vital Signs: 06/06/22 11:18 06/06/22 11:18 06/06/22 11:39 Temperature Temperature Source Temporal Pulse Rate 97 Blood Pressure 113/68 BP Systolic 113 BP Diastolic 68 Pulse Ox 06/06/22 11:39 06/06/22 11:39 06/06/22 11:39 Temperature Temperature Source Pulse Rate 100 Blood Pressure 113/68 BP Systolic 113 BP Diastolic 68 Pulse Ox 98 06/06/22 11:39 Temperature 98.2 F Temperature Source Pulse Rate Blood Pressure BP Systolic BP Diastolic Pulse Ox Weight Weight: 211 lb 3.245 oz Body Mass Index (BMI) 32.1 Labs Labs Labs: Blood Type A POSITIVE Antibody Screen NEGATIVE Hct 34.9 % (37-47) L Hgb 11.0 g/dL (12.0-15.0) L Obstetrics US Syphilis Total Ab Non-reactive VZV IgG Antibody 1290 index (Immune >165) Rubella IgG Antibody Reactive (Nonreactive) Hep Bs Antigen Non-Reactive (Nonreactive) Chlamydia DNA (SAL) Negative (Negative) Neisseria gonorrhoeae DNA (SAL) Negative (Negative) HIV 1&2 Antibody Non-Reactive (Nonreactive) Glucose 1 Hr 50 gm 124 mg/dL (70-140) Group B Strep DNA Negative (Negative) Rhogam given: No Miscellaneous Test Assessment & Plan (1) Encounter for induction of labor: COMMENT: routine admission orders pitocin per protocol AROM PRN PLAN: Patient presents at 40+1, borderline oligohydramnios in office for IOL Pain management: [plans epidural]. GBS negative Management of any complications: none I have reviewed the [facility] and made any clinically relevant updates. (2) Supervision of normal : QUALIFIERS: Qualified Code(s): Z34.02 - Encounter for supervision of normal first , second trimester COMMENT: PRR DEWEY: 06/05/22 surprise PC:Myrna Connelly. Harry (3) : QUALIFIERS: Weeks of gestation: 39 weeks Qualified Code(s): Z3A.39 - 39 weeks gestation of COMMENT: GBS neg, genetic, NTD and carrier screening declined. anatomy reviewed, nl growth, 05/30 nl growth, EFW 3858gms,+/- 579gms. LETICIA borderline. IOL scheduled 06/06 (4) Anxiety: COMMENT: D/C'd buspar, counseling encouraged. been on zoloft, effexor, and lexapro in the past. (5) Small for dates fetus: PLAN: Plan Dr. Vera aware of admission and agrees with POC
--- NOTE | 2022-06-06 12:43 | PCM.HP.OB ---
HPI - General General Date of Admission: 06/06/22 HPI Narrative ZEE HERNANDEZ, is a 31 F who presents to L&D for IOL postdates following borderline low LETICIA. was complicated by PUPPs and anxiety Maternal Data Information DEWEY Calculator Estimated Delivery Date Method Current WG Current Estimate 06/05/22 LMP (Certain) 40w 1d Other Estimates 06/01/22 Ultrasound #1 40w 5d Final DEWEY Source: US >20 weeks [facility] Medical History Asthma, exercise induced Femur fracture, left Fracture of L4 vertebra Subchorionic bleed Home Medications prenat.vits,ronak,xog-dhkm-nibgz 1 tab PO DAILY 10/09/21 [History Last Taken 05/13/22] Allergy/AdvReac Type Severity Reaction Status Date / Time codeine AdvReac Mild Unknown Verified 06/06/22 08:57 oxycodone [From Percocet] AdvReac Mild Unknown Verified 06/06/22 08:57 Family History Father Hypertension Hyperlipidemia Grandfather Cancer skin Surgical History History of ankle surgery History of dilatation and curettage (2018) History of lumbar laminectomy (09/12/21) History of wisdom tooth extraction, class II edentulism Hx of lumbar discectomy (2009) Social History adopted: No household members: spouse and children number of children: 2 current occupational status: employed 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 Date Name GA/Weeks Outcome Route Bth Weight Infant Gen Labor Lgth Anesthesia Del Locatn Provider FOB 10/22/17 Maricel 39 live - full term 6 pounds 3oz Female none [employer] [facility] Ivan 03/20/19 Myrna 40 live - full term 7.3 Female none [employer] [facility] Delivery Date: 03/20/19 Last Updated by: Antonieta Ann [employer]ER, [employer]-C 9 days pp had hemorrhage/D&C Visit Details Expected Delivery Route/Plan Labor Preferences- CB/BF classes: no labor support person: Harry labor intervention preferences: [] pain management options preferred: limited intervention cut cord/dad catch: yes : yes PP control planned: discussed BS vs vasectomy discussed possible routes of delivery and associated risks: [] special requests: [] Plans Covid status: discussed Flu vaccine: discussed, given Tdap vaccine: given Rhogam: na LARC form signed: yes movement and labor precautions reviewed. Problem list reviewed and updated with the most current plan of care details and appropriate orders placed. Relevant counseling for the gestational age provided. Continue routine care and follow up unless otherwise noted in visit notes/problem list details OB Flowsheet Initial Weight: 170 lb Date <del>?</del> EGA Weight BP Urine Prot <del>?</del> Glucose FHR FuHt Pres Dilation <del>?</del> Effaced St Visit Note 10/26/21 <del>?</del> 8w 2d 170 lb 6 oz (+6 oz) 132/82 <del>?</del> 166 <del>?</del> SM- CRL 2 cm cons with LMP 11/15/21 <del>?</del> 11w 1d 171 lb (+16 oz) 112/82 Negative <del>?</del> Negative 157 <del>?</del> JV- pt in ER last night for bleeding. has a small subchorionic hem. rpt ultrasound today looks reassuring. no cervical dialtion, only old blood in vagina 11/23/21 <del>?</del> 12w 2d 171 lb 8 oz (+1 lb 8 oz) 120/80 Negative <del>?</del> Negative 157 <del>?</del> JV- still bleeding some, subchorionic measures 1.7 cm but also there is an adjacent structure measuring about the same but within the placenta. this could be a chaparro. 12/08/21 <del>?</del> 14w 3d 175 lb 4 oz (+5 lb 4 oz) 102/82 Negative <del>?</del> Negative 147 <del>?</del> JV- continue pelvic rest until anatomy scan. This is scheduled with [facility]. 01/03/22 <del>?</del> 18w 1d 180 lb (+10 lb) 114/78 Negative <del>?</del> Negative 154 <del>?</del> JV- no lof, vaginal bleeding, or cramping. JV- no lof, vaginal bleeding, or cramping. she has moments where heart rate up to 170's. pt also works in [place] and thinks she has a previa. will know more on Saturday official scan and pelvic rest in the meantime. sending to cardiology to work up tachycardia 02/02/22 <del>?</del> 22w 3d 187 lb (+17 lb) 106/70 Negative <del>?</del> Negative 150 23 <del>?</del> SM- no vb lof good fm no regular ctx 02/28/22 <del>?</del> 26w 1d 193 lb 8 oz (+23 lb 8 oz) 132/80 Negative <del>?</del> Negative 144 26 <del>?</del> MH-No VB, LOF. Good FM. 28 wk labs, larc. US 03/15 to check placenta 03/15/22 <del>?</del> 28w 2d 197 lb (+27 lb) 96/62 <del>?</del> 140 29 <del>?</del> SM- no vb lof good fm no regular ctx 03/30/22 <del>?</del> 30w 3d 201 lb (+31 lb) 123/77 Negative <del>?</del> Negative 140 30 <del>?</del> SM- no vb lof good fm no regular ctx 04/13/22 <del>?</del> 32w 3d 204 lb (+34 lb) 114/77 <del>?</del> 145 32 Breech <del>?</del> SM- no vb lof good fm no reuglar ctx placenta moved 04/24/22 <del>?</del> 34w 0d 206 lb (+36 lb) 116/82 Negative <del>?</del> Negative 138 34 <del>?</del> LC-no vb,lof,ctx. +FM. denies concerns. 05/02/22 <del>?</del> 35w 1d 178 lb 8 oz (+8 lb 8 oz) 118/80 Negative <del>?</del> Negative 144 Cephalic <del>?</del> LC- pt seen for itching. small red rash on abdomen, c/w PUPP. to start with topical antihistamine. +FM, no lof,vb,ctx. 05/10/22 <del>?</del> 36w 2d 208 lb 6 oz (+38 lb 6 oz) 124/80 Negative <del>?</del> Negative 154 36 Cephalic 1 <del>?</del> 30 MH-No VB, LOF. Good FM MH-No VB, LOF. Good FM. Rash on abdomen resolved with benadry. Itching persists now on bottom of feel. Labs ordered. GBS. Growth US ordered 05/14/22 <del>?</del> 36w 6d 211 lb (+41 lb) 112/74 Negative <del>?</del> Negative 135 37 Cephalic 1 <del>?</del> SM- no vb lof good fm no regualr ctx 05/18/22 <del>?</del> 37w 3d 210 lb (+40 lb) 110/70 Negative <del>?</del> Negative 120 <del>?</del> JV- pt presents for dec FM. NST is reactive. 05/21/22 <del>?</del> 37w 6d 210 lb (+40 lb) 122/81 <del>?</del> 126 38 Cephalic 1 <del>?</del> LC- no lof,vb,ctx. good FM. denies concerns. comfort techniques reviewed for lower back discomforts. 05/30/22 <del>?</del> 39w 1d 210 lb 6 oz (+40 lb 6 oz) 118/78 Trace <del>?</del> Negative 134 35 Cephalic 1 <del>?</del> 30 -2 JV- no lof, vaginal bleeding, or dec fm. measuring small. ordering growth scan and fluid check for today. 06/06/22 <del>?</del> 40w 1d 212 lb 8 oz (+42 lb 8 oz) 123/74 <del>?</del> 130 37 Cephalic 3 <del>?</del> 60 -2 LC- no lof,vb,ctx. good fm. scanned in office by Dr. Restrepo. LETICIA=5. recommendation of IOL. will present to L&D this morning. L&D notified. 06/06/22 <del>?</del> 40w 1d 211 lb 3.245 oz (+41 lb 3.245 oz) 113/68 113/68 <del>?</del> <del>?</del> NST FHR Rate Baby A Baseline: 125 Variability:: Moderate Accelerations:: 15 x 15 Decelerations:: None NST Reactive:: Yes FHR Category:: Category I Uterine Activity:: [id number], irreg. ROS Cardiovascular Cardiovascular: Denies abdominal pain, chest pain, diaphoresis, dyspnea, edema or fatigue Respiratory/Chest Respiratory/Chest: Denies change in mental status, chest congestion, chest tightness, cough, shortness of breath at rest, shortness of breath with exertion, breast mass, breast pain, breast skin changes, breast swelling, change in breast shape or nipple discharge Gastrointestinal Gastrointestinal: Denies diarrhea, hemorrhoids, nausea, vomiting or weight changes Genitourinary Genitourinary: Denies abdominal discomfort, burning urination, change in libido, change in urinary stream, contractions, difficulty urinating, dysuria, movement, low back pain, urinary frequency, urinary hesitancy, urinary incontinence or urinary urgency Musculoskeletal Musculoskeletal: Reports none Integumentary Integumentary: Reports none Neurologic Neurologic: Reports none Psychiatric Psychiatric: Reports none Endocrine Endocrinology: Reports none Hematologic/Lymphatic Hematologic/Lymphatic: Reports none Allergic/Immunologic Allergic/Immunologic: Reports none Vital Signs Vital Signs Vital Signs: 06/06/22 11:18 06/06/22 11:18 06/06/22 11:39 Temperature Temperature Source Temporal Pulse Rate 97 Blood Pressure 113/68 BP Systolic 113 BP Diastolic 68 Pulse Ox 06/06/22 11:39 06/06/22 11:39 06/06/22 11:39 Temperature Temperature Source Pulse Rate 100 Blood Pressure 113/68 BP Systolic 113 BP Diastolic 68 Pulse Ox 98 06/06/22 11:39 Temperature 98.2 F Temperature Source Pulse Rate Blood Pressure BP Systolic BP Diastolic Pulse Ox Weight Weight: 211 lb 3.245 oz Body Mass Index (BMI) 32.1 Labs Labs Labs: Blood Type A POSITIVE Antibody Screen NEGATIVE Hct 34.9 % (37-47) L Hgb 11.0 g/dL (12.0-15.0) L Obstetrics US Syphilis Total Ab Non-reactive VZV IgG Antibody 1290 index (Immune >165) Rubella IgG Antibody Reactive (Nonreactive) Hep Bs Antigen Non-Reactive (Nonreactive) Chlamydia DNA (SAL) Negative (Negative) Neisseria gonorrhoeae DNA (SAL) Negative (Negative) HIV 1&2 Antibody Non-Reactive (Nonreactive) Glucose 1 Hr 50 gm 124 mg/dL (70-140) Group B Strep DNA Negative (Negative) Rhogam given: No Miscellaneous Test Assessment & Plan (1) Encounter for induction of labor: COMMENT: routine admission orders pitocin per protocol AROM PRN PLAN: Patient presents at 40+1, borderline oligohydramnios in office for IOL Pain management: [plans epidural]. GBS negative Management of any complications: none I have reviewed the [facility] and made any clinically relevant updates. (2) Supervision of normal : QUALIFIERS: Qualified Code(s): Z34.02 - Encounter for supervision of normal first , second trimester COMMENT: PRR DEWEY: 06/05/22 surprise PC:Myrna Connelly. Harry (3) : QUALIFIERS: Weeks of gestation: 39 weeks Qualified Code(s): Z3A.39 - 39 weeks gestation of COMMENT: GBS neg, genetic, NTD and carrier screening declined. anatomy reviewed, nl growth, 05/30 nl growth, EFW 3858gms,+/- 579gms. LETICIA borderline. IOL scheduled 06/06 (4) Anxiety: COMMENT: D/C'd buspar, counseling encouraged. been on zoloft, effexor, and lexapro in the past. (5) Small for dates fetus: PLAN: Plan Dr. Vera aware of admission and agrees with POC
[2022-06-06] MEDS: Oxytocin 15 Units/NS 250ml 15 UNITS/250 ML IV.SOLN 2 UNITS IV (14:09)
[2022-06-06] MEDS: Lactated Ringers 1,000 ML 50 ML IV (14:09)
--- NOTE | 2022-06-06 17:10 | PN.OBGYN_ITS ---
Objective Data Objective Data Vital Signs: Vital Signs Temp Pulse BP Pulse Ox 97.8 F 78 121/64 H 98 06/06/22 15:55 06/06/22 15:54 06/06/22 15:54 06/06/22 13:50 Weight: 211 lb 3.245 oz Body Mass Index (BMI) 32.1 Intake & Output: Intake and Output for Last 24 Hours 06/04/22 06/05/22 06/06/22 23:59 23:59 23:59 Intake Total 1.1 / 1.1 Balance 1.1 / 1.1 Lab / Micro Data Result Diagrams: 06/06/22 12:00 Labs: Laboratory Results - last 24 hr 06/06/22 12:00: WBC 10.8, RBC 4.13 L, Hgb 11.0 L, Hct 34.9 L, MCV 84.5, MCH 26.6 L, MCHC 31.5 L, RDW Std Deviation 50.7 H, RDW Coeff of Salena 16.5 H, Plt Count 263, MPV 10.7, Immature Gran % (Auto) 2.100 H, Neut % (Auto) 70.5 H, Lymph % (Auto) 17.4 L, [place] % (Auto) 9.3, Eos % (Auto) 0.2, Baso % (Auto) 0.5, Absolute Neuts (auto) 7.6, Absolute Lymphs (auto) 1.88, Nucleated RBC % 0.3 06/06/22 12:00: Blood Type A POSITIVE, Antibody Screen NEGATIVE Assessment & Plan (1) Encounter for induction of labor: COMMENT: routine admission orders pitocin per protocol AROM PRN (2) Supervision of normal : QUALIFIERS: Qualified Code(s): Z34.02 - Encounter for supervision of normal first , second trimester COMMENT: PRR DEWEY: 06/05/22 surprise PC:Myrna Connelly. Harry (3) : QUALIFIERS: Weeks of gestation: 39 weeks Qualified Code(s): Z3A.39 - 39 weeks gestation of COMMENT: GBS neg, genetic, NTD and carrier screening declined. anatomy reviewed, nl growth, 05/30 nl growth, EFW 3858gms,+/- 579gms. LETICIA borderline. IOL scheduled 06/06 (4) Anxiety: COMMENT: D/C'd buspar, counseling encouraged. been on zoloft, effexor, and lexapro in the past. (5) Small for dates affecting management of mother: COMMENT: normal growth scan PLAN: Plan Junie is a 31 yo at 40+1 IOL for oligo. SVE 4/60/-2 pitocin at 8mu plans to go without epidural. current tracin FHT: [+] Moderate variability reactive no decelerations category I tracing [place]: q4 minutes Contractions, mild/mod to palpation reviewed tracing abnormalities since last note: x1 decel, cat 1 since. A/P: 31yo at 40+1 for IOL maternal and status reassuring plan: continue to increase pitocin per protocol recheck SVE in 4 hours and PRN
--- NOTE | 2022-06-06 21:41 | PCM.PN.OB ---
Objective Data Objective Data Vital Signs: Vital Signs Temp Pulse BP Pulse Ox 98.9 F 81 117/69 99 06/06/22 21:13 06/06/22 21:13 06/06/22 21:13 06/06/22 19:21 Weight: 211 lb 3.245 oz Body Mass Index (BMI) 32.1 Intake & Output: Intake and Output for Last 24 Hours 06/04/22 06/05/22 06/06/22 23:59 23:59 23:59 Intake Total 63.96 / 63.96 Balance 63.96 / 63.96 Lab / Micro Data Result Diagrams: 06/06/22 12:00 Labs: Laboratory Results - last 24 hr 06/06/22 12:00: WBC 10.8, RBC 4.13 L, Hgb 11.0 L, Hct 34.9 L, MCV 84.5, MCH 26.6 L, MCHC 31.5 L, RDW Std Deviation 50.7 H, RDW Coeff of Salena 16.5 H, Plt Count 263, MPV 10.7, Immature Gran % (Auto) 2.100 H, Neut % (Auto) 70.5 H, Lymph % (Auto) 17.4 L, [place] % (Auto) 9.3, Eos % (Auto) 0.2, Baso % (Auto) 0.5, Absolute Neuts (auto) 7.6, Absolute Lymphs (auto) 1.88, Nucleated RBC % 0.3 06/06/22 12:00: Blood Type A POSITIVE, Antibody Screen NEGATIVE NST FHR Rate Baby A Baseline: 140 Variability:: Moderate Accelerations:: 15 x 15 Decelerations:: None NST Reactive:: Yes FHR Category:: Category I Uterine Activity:: q3, mild/mod to palpation Assessment & Plan (1) Encounter for induction of labor: COMMENT: routine admission orders pitocin per protocol AROM PRN (2) Supervision of normal : QUALIFIERS: Qualified Code(s): Z34.02 - Encounter for supervision of normal first , second trimester COMMENT: PRR DEWEY: 06/05/22 surprise PC:Myrna Connelly. Harry (3) : QUALIFIERS: Weeks of gestation: 39 weeks Qualified Code(s): Z3A.39 - 39 weeks gestation of COMMENT: GBS neg, genetic, NTD and carrier screening declined. anatomy reviewed, nl growth, 05/30 nl growth, EFW 3858gms,+/- 579gms. LETICIA borderline. IOL scheduled 06/06 (4) Anxiety: COMMENT: D/C'd buspar, counseling encouraged. been on zoloft, effexor, and lexapro in the past. PLAN: Plan 31yo at 40.1 IOL for oligo, pitocin at 12mu. feeling tightening, not uncomfortable current tracing: FHT: [Moderate variability reactive no decelerations category I tracing [place]: q2-4min Contractions mild/mod to palp SVE: 5/60/-2 more midline, soft reviewed tracing abnormalities since last note: loss of tracing tile picker. overall reassuring, moderate variability. AROM'd for scant fluid, small amount of blood A/P: continue to advance pitocin per protocol encourage frequent repositioning comfort techniques
[2022-06-07] VITALS (17 sets, daily range): BP systolic 101–129; BP diastolic 64–77; PULSE 73–130; RESP 14–16; TEMP 36.1–37; O2SAT 97–98
[2022-06-07] MEDS: LACTATED RINGERS 500 ML 999 ML IV (00:18)
[2022-06-07] MEDS: Methylergonovine 0.2 MG/ML Ampul IM (00:34)
[2022-06-07] MEDS: Oxytocin 15 Units/NS 250ml 15 UNITS/250 ML IV.SOLN 999 UNITS IV (00:46)
[2022-06-07] MEDS: fentaNYL 100 MCG/2 ML Ampul IV ×2 (01:03→01:22)
[2022-06-07] MEDS: Ondansetron 4 MG/2 ML Vial IV (01:09)
[2022-06-07] MEDS: Oxytocin 15 Units/NS 250ml 15 UNITS/250 ML IV.SOLN 83 UNITS IV (01:30)
[2022-06-07] MEDS: Cefazolin 2 GM in 0.9% Normal Saline 100 ML IV (01:40)
--- NOTE | 2022-06-07 01:41 | EX.PCM.OBRPT ---
Maternal Data Information DEWEY Calculator Estimated Delivery Date Method Current WG Current Estimate 06/05/22 LMP (Certain) 40w 2d Other Estimates 06/01/22 Ultrasound #1 40w 6d Vaginal Delivery Maternal Presentation Maternal Presentation: Medically Indicated Induction Type of Induction: Pitocin Operative Information Date of Procedure: 06/07/22 Pre-Operative Diagnosis: IOL Post-Operative Diagnosis: Surgery / Procedure Performed: Spontaneous Vaginal Delivery Type of Anesthesia: None Estimated Blood Loss: 1400 Time of Delivery: 00:31 Findings Description of Procedure: Patient began pushing and delivered the head in the DAMIEN presentation. The head was delivered atraumatically. The anterior and posterior shoulders delivered without complication followed by the rest of the and the infant was placed on the maternal abdomen. Delayed cord clamping was employed. brisk vaginal bleeding was noted, Pitocin increased, Methergine provided. Cord was clamped and cut and gentle traction was applied to the cord. at 30minutes, placenta still retained, Dr. Vera called for manual extraction see note. The perineum and vagina were inspected and noted to have no laceration. EBL was 1400. pt tachycardiac following placenta removal. BP stable. Presentation: Vertex Amniotic Membrane Rupture Type: Artificial Amniotic Fluid Description: Clear Placental Delivery Description: Manual Removal (by Dr. Vera) Placenta Disposition: Routine to Lab Cord Vessel Description: 3 Vessels Cord Entanglement: None Infant A Gender: Female (1 minute): 8 (5 minute): 9 Delayed Cord Clamping: Yes Post Vaginal Delivery Medications Given After Delivery: IV Pitocin and IM Methergin Episiotomy Description: None Laceration: None
--- NOTE | 2022-06-07 01:41 | PCM.OP.BLANK ---
Problems Associated Problem List Diagnoses (1) Retained placenta: Operative Report Date of Procedure: 06/07/22 Pre-operative diagnosis: retained placenta and hemorrhage Post-operative diagnosis: retained placenta and hemorrhage Surgeon: Dr. Leonora Vera DO procedure: uterine curettage EBL: total EBL from delivery and after procedure was 1400cc Details: The patient was laying in bed with baby on chest and had some mild bleeding with umbilical cord dangling from vagina. After sterile attire was achieved, A gloved hand was used to unroof the edges of the placenta manually and the placenta was grasped and pulled out. Internal massage was performed. Next manual examination was performed and there was still as small amount of placental tissue felt at the lower anterior uterine segment. Using a banjo curettage, the uterus and lower segment/cervix was scraped and some scan tissue with endometrial tissue were removed. Four swipes with the Curette were performed until a gritty texture was noted. Next, a bedside ultrasound was performed showing a bright white stripe from the fundus to the cervix. At this point it was believed that all products of conception were removed and the bleeding stopped to a slow normal trickle. Procedures Urinary/Genital [id number]: [id number] Curettage,
--- NOTE | 2022-06-07 02:04 | DCINST_ITS ---
Discharge Instructions Diet Discharge Diet: No restrictions Activity Discharge Activity: May Not Drive and May Shower May resume sexual activity in: 6 weeks (after visit) Weight Bearing Status: Full weight bearing Dressing / Incision Call your doctor if your incision/area has: Sudden Increased Bleeding, Increased Pain/ Swelling and Foul Smelling Discharge Call your doctor if you observe: Fever of 101 or Higher, Numbness or Tingling, Change in Color, Inability to urinate, Inability to have a bowel movement, Using more than 1 pad per hour, Shortness of breath, Dizziness, Fainting spells, Chest pain, Calf discomfort and Uncontrolled pain Follow Up Care Please Follow Up With: Kellie Garcia CNM When: 6 weeks , please call office to make an appointment. Congratulations on the of your baby! Test Results: Test results from this visit will be discussed in further detail at your follow- up appointment, if applicable. Discharge Plan Admission Admit Date/Time: 06/06/22 11:00 Attending Provider: Kellie Garcia Primary Care Provider: Debbie Simons Discharge Orders/Prescriptions Prescriptions: No Action prenat.vits,ronak,ucn-siei-mzdix Tablet 1 tab PO DAILY Referrals / Follow Up: Debbie Simons MD [Primary Care Provider] -
[2022-06-07 02:17] LABS: Absolute Lymphocyte Count 1.48 X10^3/uL (0.83-4.51); Absolute Neutrophil Count 15.1 X10^3/uL (2.0-7.7); Basophil# 0.03 X10^3/uL; Basophil% 0.2 % (0-1); Hematocrit 33.4 % (37-47); Hemoglobin 10.3 g/dL (12.0-15.0); Lymphocyte # 1.48 X10^3/ul (0.83-4.51); Lymphocyte % 8.3 % (19-41); Mean Corp Hgb Conc 30.8 g/dL (32-36); Mean Corpuscular Hgb 26.5 pg (27.0-32.0); Mean Corpuscular Volume 86.1 fL (81-99); Mean Platelet Vol. 11.4 fl (6.2-12.0); Monocyte# 1.11 X10^3/uL; Monocyte% 6.2 % (0-10); NRBC Flagged by Analyzer 0 % (0-5); Neutrophil # 15.06 X10^3/uL (2.7-7.7); Neutrophil % 84.5 % (47-70); Platelet Count 263 K/mm3 (150-450); RBC Distribution Width CV 16.6 % (11.6-14.6); RBC Distribution Width SD 51.3 fl (35.1-43.9); Red Blood Count 3.88 M/mm3 (4.2-5.4); White Blood Count 17.8 K/mm3 (4.4-11.0)
[2022-06-07 05:47] LABS: Hematocrit 31.5 % (37-47); Hemoglobin 9.9 g/dL (12.0-15.0); Mean Corp Hgb Conc 31.4 g/dL (32-36); Mean Corpuscular Hgb 26.5 pg (27.0-32.0); Mean Corpuscular Volume 84.5 fL (81-99); Mean Platelet Vol. 10.6 fl (6.2-12.0); Platelet Count 263 K/mm3 (150-450); RBC Distribution Width CV 16.5 % (11.6-14.6); Red Blood Count 3.73 M/mm3 (4.2-5.4); White Blood Count 20.9 K/mm3 (4.4-11.0)
--- NOTE | 2022-06-07 09:55 | PCM.PN.OB ---
Subjective Subjective Pt is laying in bed comfortably. She reports some chest pressure when she stands up to use the restroom and some shortness of breath. Vital signs are stable with temp 97.0, bp 129/76 standing, pulse 88 bpm, and 02 saturation 98% on room air. Vitals were explained to patient and she states that this happened to her after her last delivery also. Objective Data Objective Data Vital Signs: Vital Signs Temp Pulse Resp BP Pulse Ox O2 Del Method 97.0 F L 88 14 129/76 H 98 Room Air 06/07/22 08:20 06/07/22 08:20 06/07/22 08:20 06/07/22 08:20 06/07/22 08:20 06/07/22 08:20 Oxygen Delivery Method Room Air Weight: 211 lb 3.245 oz Body Mass Index (BMI) 32.1 Intake & Output: Intake and Output for Last 24 Hours 06/05/22 06/06/22 06/07/22 23:59 23:59 23:59 Intake Total 97.33 / 97.33 1549.90 / 1549.90 Balance 97.33 / 97.33 1549.90 / 1549.90 Lab / Micro Data Result Diagrams: 06/07/22 05:40 Labs: Laboratory Results - last 24 hr 06/06/22 12:00: WBC 10.8, RBC 4.13 L, Hgb 11.0 L, Hct 34.9 L, MCV 84.5, MCH 26.6 L, MCHC 31.5 L, RDW Std Deviation 50.7 H, RDW Coeff of Salena 16.5 H, Plt Count 263, MPV 10.7, Immature Gran % (Auto) 2.100 H, Neut % (Auto) 70.5 H, Lymph % (Auto) 17.4 L, [place] % (Auto) 9.3, Eos % (Auto) 0.2, Baso % (Auto) 0.5, Absolute Neuts (auto) 7.6, Absolute Lymphs (auto) 1.88, Nucleated RBC % 0.3 06/06/22 12:00: Blood Type A POSITIVE, Antibody Screen NEGATIVE 06/07/22 01:50: WBC 17.8 H, RBC 3.88 L, Hgb 10.3 L, Hct 33.4 L, MCV 86.1, MCH 26.5 L, MCHC 30.8 L, RDW Std Deviation 51.3 H, RDW Coeff of [place] 16.6 H, Plt Count 263, MPV 11.4, Immature Gran % (Auto) 0.800, Neut % (Auto) 84.5 H, Lymph % (Auto) 8.3 L, [place] % (Auto) 6.2, Eos % (Auto) 0.0, Baso % (Auto) 0.2, Absolute Neuts (auto) 15.1 H, Absolute Lymphs (auto) 1.48, Nucleated RBC % 0 06/07/22 05:40: WBC 20.9 H, RBC 3.73 L, Hgb 9.9 L, Hct 31.5 L, MCV 84.5, MCH 26.5 L, MCHC 31.4 L, RDW Std Deviation 51.0 H, RDW Coeff of [place]ena 16.5 H, Plt Count 263, MPV 10.6 ROS Constitutional Constitutional: Denies chills, fatigue, fever(s), poor appetite or weakness Eyes Eyes: Denies blurry vision, change in vision, seeing flashes or spots in vision ENT HEENT: Denies dizziness, headache(s), loss taste/smell or sore throat Cardiovascular Cardiovascular: Denies chest pain, dizziness, dyspnea, irregular heart rhythm, palpitations or rapid heart rate Respiratory/Chest Respiratory/Chest: Denies chest tightness, cough, dyspnea or breast pain Gastrointestinal Gastrointestinal: Denies abdominal pain, constipation or vomiting Genitourinary Genitourinary: Denies dysuria or flank pain Musculoskeletal Musculoskeletal: Denies difficulty walking, joint pain, limited range of motion or numbness Neurologic Neurologic: Denies abnormal movements, abnormal speech, dizziness, numbness, seizure-like activity or syncope Psychiatric Psychiatric: Denies anxiety, behavioral changes, change in appetite, confusion, depression or suicidal thoughts Physical Exam Const alert, oriented x3 and no apparent distress General Appearance: cooperative and comfortable Resp normal respiratory effort Cardio regular rate GI normal to inspection, nondistended, normoactive bowel sounds GI Narrative: uterus is firm below umbilicus Palpation: soft Back/Spine no CVA tenderness and thoraco-lumbar ROM normal Extremity normal to inspection, no clubbing, cyanosis or edema, no calf tenderness and no pedal edema Psych mental status grossly normal, thought process normal, cooperative, affect normal, speech normal, activity/motor behavior normal, denies homicidal ideation and denies suicidal ideation Assessment & Plan (1) Retained placenta: (2) Status post vaginal delivery: COMMENT: TYLER boy 06/07/22- PLAN: hemorrhage but stable. if continues to have complaints of chest pressure and SOB will order CTA. vitals are stable however and physically looks well.
[2022-06-07] MEDS: Naproxen 500 MG Tablet PO (20:24)
[2022-06-07] MEDS: Hydrocortisone 2.5% Crm 1 APPLIC TOPICAL (21:18)
[2022-06-08 00:38] VITALS: BP 99/55; PULSE 74; RESP 16; TEMP 36.7; O2SAT 96
[2022-06-08 00:39] VITALS: PULSE 70; O2SAT 96
[2022-06-08 00:40] VITALS: BP 99/55; PULSE 78
[2022-06-08 04:42] VITALS: BP 98/53; PULSE 74; RESP 15; TEMP 36.7; O2SAT 96
[2022-06-08 04:44] VITALS: BP 98/53; PULSE 74
[2022-06-08] MEDS: Naproxen 500 MG Tablet PO (04:57)
[2022-06-08 08:23] VITALS: BP 110/63; PULSE 71; RESP 16; TEMP 36.2
--- NOTE | 2022-06-08 09:59 | DS.PCM_ITS ---
Providers Date of Admission: 06/06/22 Primary Care Physician: Dr. Debbie Simons MD Reason For Visit: VAGINAL DELIVERY Diagnosis Discharge Diagnosis (1) Retained placenta: Status: Acute Code(s): O73.0 - Retained placenta without hemorrhage (2) Status post vaginal delivery: Status: Acute Plan: hemorrhage but stable. if continues to have complaints of chest pressure and SOB will order CTA. vitals are stable however and physically looks well. Medications at Discharge Home Medications prenat.vits,ronak,zji-kibp-dhcjb 1 tab PO DAILY 10/09/21 Hospital Course Procedures - (Vaginal delivery and bedside curettage ) Summary of Care Provided Minutes Spent on Discharge: 15 Hospital Course: The patient was admitted to L&D for IOL due to oligohydramnios at term. She delivered a viable infant on the dentures lab technician of 06/07/22. She had a hemorrhage that was quickly resolved. She was found to be stable on ppd #1 and discharged to home. Physical Exam Const alert, oriented x3 and no apparent distress General Appearance: cooperative and comfortable Resp normal respiratory effort Cardio regular rate GI normal to inspection, nondistended, normoactive bowel sounds GI Narrative: uterus is firm below umbilicus Palpation: soft Back/Spine no CVA tenderness and thoraco-lumbar ROM normal Extremity normal to inspection, no clubbing, cyanosis or edema, no calf tenderness and no pedal edema Psych mental status grossly normal, thought process normal, cooperative, affect normal, speech normal, activity/motor behavior normal, denies homicidal ideation and denies suicidal ideation Weight / BMI Weight Weight: 211 lb 3.245 oz Body Mass Index (BMI) 32.1 ABG / Lab / Microbiology Data Result Diagrams: 06/07/22 05:40 D/C Instructions Discharge Diet: No restrictions May resume sexual activity in: 6 weeks (after visit) Weight Bearing Status: Full weight bearing Call your doctor if your incision/area has: Sudden Increased Bleeding, Increased Pain/ Swelling and Foul Smelling Discharge Call your doctor if you observe: Fever of 101 or Higher, Numbness or Tingling, Change in Color, Inability to urinate, Inability to have a bowel movement, Using more than 1 pad per hour, Shortness of breath, Dizziness, Fainting spells, Chest pain, Calf discomfort and Uncontrolled pain Please Follow Up With: Kellie Garcia CNM When: 6 weeks , please call office to make an appointment. Congratulations on the of your baby! Meaningful Use Info Meaningful Use Diagnoses (Choose all that apply): None applicable Discharge Plan Admission Admit Date/Time: 06/06/22 11:00 Primary Reason for Your Visit: vaginal delivery Attending Provider: Kellie Garcia Primary Care Provider: Debbie Simons Discharge Orders/Prescriptions Prescriptions: No Action prenat.vits,ronak,mqs-frmg-lnzfx Tablet 1 tab PO DAILY Referrals / Follow Up: Debbie Simons MD [Primary Care Provider] - Disposition Disposition (needs filled in before D/C Order can be placed): Home, Self Care
== END 2022-06-08 10:55 | disposition home or self-care (01) | DRG 806 ==
PROVIDERS: Obstetrics & Gynecology; Admitting Provider Registered Nurse; PCP Family Medicine; Visit Provider Registered Nurse
DX: O48.0 Post-term pregnancy (principal); Z37.0 Single live birth; O41.03X0 Oligohydramnios, third trimester, not applicable or unspecified; O72.1 Other immediate postpartum hemorrhage; O99.344 Other mental disorders complicating childbirth; O36.5930 Maternal care for other known or suspected poor fetal growth, third trimester, not applicable or unspecified; F41.9 Anxiety disorder, unspecified; Z3A.40 40 weeks gestation of pregnancy
CPT/HCPCS: 59025; 59050; 85025; 85027; 86850; 86900; 86901; 99218; J7120; G0378; J2405

== ENCOUNTER 2022-06-14 21:20 | Day surgery (SDC) | payer OTHER, SELFPAY ==
[2022-06-14 21:21] VITALS: BP 150/87; PULSE 118; RESP 18; TEMP 38.1; O2SAT 98; BMI 28.8
--- NOTE | 2022-06-14 22:01 | EX.ED.DYSGE1 ---
HPI History of Present Illness Chief Complaint: Abn Labs Narrative Narrative: 31-year-old female here with concern for abnormal labs. Status post vaginal delivery approximately 7 days ago. Patient states prior to arrival she had severe crampy lower abdominal pain. She notes ongoing vaginal bleeding states she lost approximately 1.4 L of blood and qualified for hemorrhage. Required no blood transfusions. Stated she had retained products of conception her last . She is a G3, P3. Denies any vaginal discharge does note fever denies any cough or other infectious symptoms. Old chart reviewed: Last hemoglobin level 8.9 downtrending from eleven 1 week ago [facility] Medical History Asthma, exercise induced Femur fracture, left Fracture of L4 vertebra Subchorionic bleed Home Medications prenat.vits,ronak,gsl-bvef-ipjhx 1 tab PO DAILY 10/09/21 [History Last Taken 05/13/22] ferrous gluconate 324 mg (37.5 mg iron) tablet 324 mg PO DAILY #30 tabs 06/08/22 [Rx Last Taken Unknown] Allergy/AdvReac Type Severity Reaction Status Date / Time codeine AdvReac Mild Unknown Verified 06/14/22 21:21 oxycodone [From Percocet] AdvReac Mild Unknown Verified 06/14/22 21:21 Family History Father Hypertension Hyperlipidemia Grandfather Cancer skin Surgical History History of ankle surgery History of dilatation and curettage (2018) History of lumbar laminectomy (09/12/21) History of wisdom tooth extraction, class II edentulism Hx of lumbar discectomy (2009) Social History adopted: No household members: spouse and children number of children: 2 current occupational status: employed 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 pets and animals: Yes pets and animals: dog(s) Smoking Status: Never smoker alcohol intake: never details: none with substance use type: does not use caffeine: No what type of physical activity do you participate in: none seatbelt use: always do you feel safe at home: Yes additional social history: [employer] Patient works at [employer] Radiology ROS ROS ED ROS Narrative Constitutional: Endorses fever, fatigue HEENT: Denies sore throat Neck: Denies neck pain Cardiovascular: Denies chest pain, syncope Respiratory: Denies shortness of breath GI: Endorses abdominal pain, denies nausea or vomiting : Endorses vaginal bleeding Musculoskeletal: Denies muscle or joint pain Neurologic: Denies numbness weakness or loss of sensation Skin denies rash EXAM Physical Exam Narrative Exam Narrative: Nursing triage notes reviewed, Vital signs reviewed Constitutional: please see mdm HENT: MMM Eyes: Pupils equal round and reactive to light, Extraocular muscles intact Neck: No stridor, no JVD, full neck ROM Lungs: Clear to auscultation, No wheezing or rales. No increased work of breathing, no conversational dyspnea, no accessory muscle use, no nasal flaring. No respiratory distress noted Heart: fast rate, regular rhythm, No murmurs, No rubs and No gallops, 2+ distal pulses (radial, femoral, posterior tibial) in all extremities Abdomen: Soft, mild lower abdominal tenderness but no rigidity, rebound or guarding, no obvious peritoneal signs, no palpable pulsatile abdominal masses, no auscultated abdominal bruit : No CVAT Extremities: No edema Neuro: No focal neurological deficits, cranial nerves II through XII intact, 5/5 strength in all extremities. Intact sensation to light touch in all extremities, 2+ reflexes bilateral patella dens. Normal gait. No ataxia. Skin: No rash or lesions noted Const Vital Signs: 06/14/22 21:21 06/15/22 00:21 06/15/22 00:21 Temperature 100.6 F H 98.4 F 98.4 F Temperature Source Temporal Temporal Temporal Pulse Rate 118 H 92 94 Pulse Strength Respiratory Rate 18 17 16 Respiratory Pattern Blood Pressure 150/87 H 132/74 H 132/74 H Blood Pressure Mean 108 93 93 Blood Pressure Source Blood Pressure Position Blood Pressure Location Baseline BP Pulse Ox 98 98 99 Oxygen Delivery Method Room Air Room Air Room Air 06/15/22 01:08 06/15/22 01:08 06/15/22 01:17 Temperature 97.2 F L 98.4 F 98.6 F Temperature Source Temporal Temporal Temporal Pulse Rate 72 88 84 Pulse Strength Respiratory Rate 16 17 17 Respiratory Pattern Blood Pressure 118/80 118/80 118/82 H Blood Pressure Mean 92 92 94 Blood Pressure Source Monitor Blood Pressure Position Semi-Fowlers Blood Pressure Location Left Arm Baseline BP Pulse Ox 99 99 99 Oxygen Delivery Method Room Air Room Air Room Air 06/15/22 02:26 06/15/22 02:26 Temperature 98.6 F Temperature Source Temporal Pulse Rate 109 H Pulse Strength Normal (2+) Respiratory Rate 16 Respiratory Pattern Normal Blood Pressure 107/69 Blood Pressure Mean 81 Blood Pressure Source Monitor Blood Pressure Position Semi-Fowlers Blood Pressure Location Left Arm Baseline BP 118/82 Pulse Ox 96 Oxygen Delivery Method Room Air MDM MDM MDM Narrative Medical decision making narrative: 31-year-old female here with lower abdominal pain concern for severe anemia after hemorrhage 7 days after vaginal delivery. She was initially tachycardic and febrile she appeared pale and uncomfortable but nontoxic-appearing. She is in no acute distress. Abdominal exam was not consistent with an acute surgical process. Concern for retained products of conception, anemia, other infectious etiologies including UTI, pneumonia and COVID. Obtained a broad lab and imaging work-up including blood cultures. Consulted RESEARCH TEST ENGINE EVALUATOR. The patient's lab and imaging studies were remarkable for worsening anemia, retained products of conception. Did consult RESEARCH TEST ENGINE EVALUATOR who recommended OR for emergent D&C. Lab Data Attestation: I reviewed the patient's lab results. Lab results narrative: CBC without leukocytosis, noted severe anemia (continuing to drop significantly by almost 1 g/dL) no thrombocytopenia. Lactate is wnl indicating no end-organ hypoperfusion and/or hypoxia. UA with evidence of mild inflammation no obvious UTI The patient is Rh+ no need for RhoGAM Labs: Laboratory Results - last 24 hr 06/14/22 06/14/22 06/14/22 18:55 22:00 22:00 WBC 7.8 RBC 3.05 L Hgb 8.1 L Hct 26.3 L MCV 86.2 MCH 26.6 L MCHC 30.8 L RDW Std Deviation 53.3 H RDW Coeff of [place] 17.2 H Plt Count 423 MPV 9.8 Immature Gran % (Auto) 0.600 Neut % (Auto) 76.0 H Lymph % (Auto) 14.8 L [place] % (Auto) 8.2 Eos % (Auto) 0.1 Baso % (Auto) 0.3 Absolute Neuts (auto) 5.9 Absolute Lymphs (auto) 1.15 Nucleated RBC % 0.3 Lactic Acid HCG, Quant Urine Color Urine Clarity Urine pH Ur Specific [place] Urine Protein Urine Glucose (UA) Urine Ketones Urine Occult Blood Urine Nitrite Urine Bilirubin Urine Urobilinogen Ur Leukocyte Esterase Blood Type Cancelled Cancelled Antibody Screen Cancelled 06/14/22 06/14/22 06/14/22 22:00 22:45 23:31 WBC RBC Hgb Hct MCV MCH MCHC RDW Std Deviation RDW Coeff of [place] Plt Count MPV Immature Gran % (Auto) Neut % (Auto) Lymph % (Auto) [place] % (Auto) Eos % (Auto) Baso % (Auto) Absolute Neuts (auto) Absolute Lymphs (auto) Nucleated RBC % Lactic Acid 0.6 HCG, Quant 30 H Urine Color Yellow Urine Clarity Clear Urine pH 7.0 Ur Specific [place] 1.015 Urine Protein 15 H Urine Glucose (UA) Normal Urine Ketones 5 H Urine Occult Blood 150 H Urine Nitrite Negative Urine Bilirubin Negative Urine Urobilinogen Normal Ur Leukocyte Esterase 25 H Blood Type Antibody Screen 06/15/22 06/15/22 00:30 02:32 WBC 5.4 RBC 2.87 L Hgb 7.5 L Hct 25.0 L MCV 87.1 MCH 26.1 L MCHC 30.0 L RDW Std Deviation 54.2 H RDW Coeff of [place] 17.2 H Plt Count 377 MPV 9.2 Immature Gran % (Auto) 0.400 Neut % (Auto) 66.0 Lymph % (Auto) 25.3 [place] % (Auto) 8.1 Eos % (Auto) 0.0 Baso % (Auto) 0.2 Absolute Neuts (auto) 3.6 Absolute Lymphs (auto) 1.37 Nucleated RBC % 0.4 Lactic Acid HCG, Quant Urine Color Urine Clarity Urine pH Ur Specific [place] Urine Protein Urine Glucose (UA) Urine Ketones Urine Occult Blood Urine Nitrite Urine Bilirubin Urine Urobilinogen Ur Leukocyte Esterase Blood Type A POSITIVE Antibody Screen NEGATIVE Radiography Chest X-Ray - ED: Read by ED Physician Diagnostic Testing: Clinical Impression(s) from Imaging Studies Pelvis Ultrasound 06/14/22 22:29 IMPRESSION: Retained products of conception most prominent in the lower uterine segment and cervix. Electronically Signed: Wei Basilio MD at 23:42 EST Reading Location ID and State: On license of [facility] / [place] Tel , Service support , Chest X-Ray 06/14/22 22:45 IMPRESSION: Negative chest radiograph. Electronically Signed: Wei Basilio MD at 23:27 EST Reading Location ID and State: [address] [place] [address] Tel , Service support , I have personally reviewed the patient's chest x-ray. Chest x-ray is unremarkable for pulmonary edema, pneumothorax, pneumonia or focal cardiopulmonary abnormality. OB ultrasound shows retained products of conception Treatment and Re-Evaluation Narrative: Patient remained hemodynamically stable, tachycardia resolved, fever resolved. She is appropriate for operating readmission under Dr. Arredondo. Discharge Plan Dx/Rx/DC Orders Clinical Impression: Retained products of conception, Fever, Anemia, hemorrhage Disposition Disposition: Acute Care Hospital [facility] Discharge Date/Time: 06/15/22 01:21
--- NOTE | 2022-06-14 22:29 | US_ITS ---
STUDY: ULTRASOUND TRANSVAGINAL CLINICAL: Female, 31 years old. 7 days with bleeding and fever. TECHNIQUE: Transvaginal COMPARISON: Obstetrical ultrasound 05/30/2022. FINDINGS: Uterus 13.5 x 9.8 x 7.4 cm, midline and anteverted. No myometrial masses are evident. The endometrial cavity is thickened, 3.8 cm, and distended with fluid particularly in the lower uterine segment, with nodular echogenic material and some vascularity. This extends into the cervical canal. Neither ovary is visible. Bowel gas partially obscures the adnexa. No free fluid or mass is evident in the pelvis. US/Pelvic (Non ) IMPRESSION: Retained products of conception most prominent in the lower uterine segment and cervix. Electronically Signed: Wei Basilio MD at 23:42 EST Reading Location ID and State: [facility] / [place] Tel , Service support ,
[2022-06-14 22:40] LABS: Color, Urine Yellow (Yellow); Glucose, Dipstick Normal (Normal); Ketone-Dipstick 5 mg/dl (Negative); Leukocyte Esterase-Dipstick 25 /ul (Negative); Nitrite-Dipstick Negative (Negative); Occult Blood-Urine 150 /ul (Negative); Protein-Dipstick 15 mg/dl (Negative); Specific Gravity, Urine 1.015 (1.002-1.030); Urine Bilirubin Dipstick Negative (Negative); Urine Clarity Clear (Clear); Urine Urobilinogen Normal (Normal)
--- NOTE | 2022-06-14 22:45 | RAD_ITS ---
STUDY: X-RAY CHEST REASON FOR EXAM: Female, 31 years old. Fever. TECHNIQUE: PA and lateral COMPARISON: None. FINDINGS: LUNGS: No apparent pneumothorax, pneumonia, pleural effusion, or edema. MEDIASTINUM, SHELLEY: Cardiac silhouette, shelley and mediastinal contours are within normal limits. BONES: No acute osseous abnormality. UPPER ABDOMEN: No evidence of free air under the diaphragm. RAD/Chest PA and Lateral IMPRESSION: Negative chest radiograph. Electronically Signed: Wei Basilio MD at 23:27 EST Reading Location ID and State: [facility] / [place] Tel , Service support ,
[2022-06-14] MEDS: 0.9% Normal Saline 1,000 ML 1000 ML IV (22:51)
[2022-06-14] MEDS: Acetaminophen 500 MG Tablet PO (23:21)
[2022-06-14 23:29] LABS: Lactic Acid 0.6 mmol/L (0.4-1.9)
[2022-06-14 23:31] LABS: Absolute Lymphocyte Count 1.15 X10^3/uL (0.83-4.51); Absolute Neutrophil Count 5.9 X10^3/uL (2.0-7.7); Basophil# 0.02 X10^3/uL; Basophil% 0.3 % (0-1); Eosinophil# 0.01 X10^3/uL; Eosinophils% 0.1 % (0-5); Hematocrit 26.3 % (37-47); Hemoglobin 8.1 g/dL (12.0-15.0); Lymphocyte # 1.15 X10^3/ul (0.83-4.51); Lymphocyte % 14.8 % (19-41); Mean Corp Hgb Conc 30.8 g/dL (32-36); Mean Corpuscular Hgb 26.6 pg (27.0-32.0); Mean Corpuscular Volume 86.2 fL (81-99); Mean Platelet Vol. 9.8 fl (6.2-12.0); Monocyte# 0.64 X10^3/uL; Monocyte% 8.2 % (0-10); NRBC Flagged by Analyzer 0.3 % (0-5); Neutrophil # 5.91 X10^3/uL (2.7-7.7); Platelet Count 423 K/mm3 (150-450); RBC Distribution Width CV 17.2 % (11.6-14.6); RBC Distribution Width SD 53.3 fl (35.1-43.9); Red Blood Count 3.05 M/mm3 (4.2-5.4); White Blood Count 7.8 K/mm3 (4.4-11.0)
[2022-06-15] VITALS (22 sets, daily range): BP systolic 107–133; BP diastolic 66–93; PULSE 72–122; RESP 16–17; TEMP 36.2–37; O2SAT 96–99; BMI 28.8
--- NOTE | 2022-06-15 | POC_PTH ---
PATIENT: ZEE HERNANDEZ LOC: [facility]#:[id number] AGE/SX: 31/F ROOM: RE06/15/[address]: Dr. Tia Arredondo MD : 1990 BED: DIS: 06/15/2022 SPEC #: [id number] RECD: 06/15/22 08:00 STATUS: BOB SANDIE #: [id number] ABDULKADIR: 06/15/22 00:[address]: Tia Arredondo DEPT: SURGICAL PATHOLOGY RECD BY: Nima Deng ENTERED: 06/15/22 09:00 SP TYPE: PROD CONC OTHR DR: Dr. Debbie Simons MD Tissues: Product of conception, NOS Procedures: Surgery Specimen Level IV HEADER OPERATION: D & C PRE-OP DIAGNOSIS: Retained products of conception most prominent in lower uterine segment TISSUE SUBMITTED: Products of conception MICROSCOPIC DIAGNOSIS Endometrium, curettage: Decidualized tissue with acute and chronic inflammation and fibrinopurulent material consistent with retained products of conception. AM:michelle 06/18/2022 MICROSCOPIC DESCRIPTION Slides are reviewed. GROSS DESCRIPTION Received in fixative is one container labeled with the patient's name and designated products of conception. The specimen consists of multiple irregular fragments of red-simmons soft tissue that in aggregate measure 10 x 7 x 1 cm. parts are not grossly recognized. Dragline Operator Helper portions are submitted in six cassette. / AM:michelle 06/15/2022 TC:2 CPT: 21670
[2022-06-15 00:23] LABS: hCG Titer Quant., Serum 30 mIU/mL (1-3)
[2022-06-15] MEDS: Lactated Ringers 1,000 ML 75 ML IV (01:34)
[2022-06-15] MEDS: miSOPROStol 200 MCG Tablet (02:08)
--- NOTE | 2022-06-15 02:17 | PCM.HP.OB ---
HPI - General HPI Narrative ZEE HERNANDEZ, is a 31 F who presents with elevated temp, uterine tenderness and anemia, suspected retained POC on ultrasound and endometritis. [facility] Medical History Asthma, exercise induced Femur fracture, left Fracture of L4 vertebra Subchorionic bleed Home Medications prenat.vits,ronak,kmz-gals-annot 1 tab PO DAILY 10/09/21 [History Last Taken 05/13/22] ferrous gluconate 324 mg (37.5 mg iron) tablet 324 mg PO DAILY #30 tabs 06/08/22 [Rx Last Taken Unknown] Allergy/AdvReac Type Severity Reaction Status Date / Time codeine AdvReac Mild Unknown Verified 06/14/22 21:21 oxycodone [From Percocet] AdvReac Mild Unknown Verified 06/14/22 21:21 Family History Father Hypertension Hyperlipidemia Grandfather Cancer skin Surgical History History of ankle surgery History of dilatation and curettage (2018) History of lumbar laminectomy (09/12/21) History of wisdom tooth extraction, class II edentulism Hx of lumbar discectomy (2009) Social History adopted: No household members: spouse and children number of children: 2 current occupational status: employed 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 Date Name GA/Weeks Outcome Route Bth Weight Infant Gen Labor Lgth Anesthesia Del Locatn Provider FOB 10/22/17 Brynlee 39 live - full term 6 pounds 3oz Female none [employer] [facility] Ivan 03/20/19 Myrna 40 live - full term 7.3 Female none [employer] [facility] 06/07/22 Linwood 41 live - full term Female [employer] Kellie Garcia Delivery Date: 03/20/19 Last Updated by: Antonieta Ann CHANNELER INSOLE, CHANNELER INSOLE-C 9 days pp had hemorrhage/D&C Delivery Date: 06/07/22 Last Updated by: Debbie Hoffman hemorrhage, manual extraction of placenta ROS Constitutional Constitutional: Reports systems reviewed and no addt'l complaints, except as documented; Denies as per HPI, change in weight, fatigue, fever(s), malaise, weakness or other Eyes Eyes: Reports systems reviewed and no addt'l complaints, except as documented; Denies as per HPI, change in vision or other ENT HEENT: Reports systems reviewed and no addt'l complaints, except as documented Respiratory/Chest Respiratory/Chest: Reports systems reviewed and no addt'l complaints, except as documented Gastrointestinal Gastrointestinal: Reports systems reviewed and no addt'l complaints, except as documented and as per HPI Genitourinary Genitourinary: Reports as per HPI Musculoskeletal Musculoskeletal: Reports systems reviewed and no addt'l complaints, except as documented Neurologic Neurologic: Reports systems reviewed and no addt'l complaints, except as documented Psychiatric Psychiatric: Reports systems reviewed and no addt'l complaints, except as documented Endocrine Endocrinology: Reports systems reviewed and no addt'l complaints, except as documented Hematologic/Lymphatic Hematologic/Lymphatic: Reports systems reviewed and no addt'l complaints, except as documented Vital Signs Vital Signs Vital Signs: 06/14/22 21:21 06/15/22 00:21 06/15/22 00:21 Temperature 100.6 F H 98.4 F 98.4 F Temperature Source Temporal Temporal Temporal Pulse Rate 118 H 92 94 Respiratory Rate 18 17 16 Blood Pressure 150/87 H 132/74 H 132/74 H Blood Pressure Mean 108 93 93 Blood Pressure Source Blood Pressure Position Blood Pressure Location Pulse Ox 98 98 99 Oxygen Delivery Method Room Air Room Air Room Air 06/15/22 01:08 06/15/22 01:08 06/15/22 01:17 Temperature 97.2 F L 98.4 F 98.6 F Temperature Source Temporal Temporal Temporal Pulse Rate 72 88 84 Respiratory Rate 16 17 17 Blood Pressure 118/80 118/80 118/82 H Blood Pressure Mean 92 92 94 Blood Pressure Source Monitor Blood Pressure Position Semi-Fowlers Blood Pressure Location Left Arm Pulse Ox 99 99 99 Oxygen Delivery Method Room Air Room Air Room Air Weight Weight: 190 lb Body Mass Index (BMI) 28.8 Physical Exam Const alert, oriented x3 and no apparent distress HEENT normocephalic Head and Scalp: atraumatic Eyes EOMs intact bilaterally and conjunctivae normal Neck full ROM, no lymphadenopathy, supple and thyroid normal General: trachea midline Lymph Lymphatic: no lymphadenopathy noted Resp normal respiratory effort, no retractions, no use of accessory muscles and clear to auscultation bilaterally Cardio regular rhythm GI normal to inspection, nondistended, normoactive bowel sounds, soft to palpation, non-distended and no masses Inspection: Negative for abdominal distention Back/Spine no CVA tenderness Extremity normal to inspection Skin no rashes or lesions noted Psych mental status grossly normal Labs Labs Labs: Blood Type A POSITIVE Antibody Screen NEGATIVE Hct 26.3 % (37-47) L Hgb 8.1 g/dL (12.0-15.0) L Obstetrics US Syphilis Total Ab Non-reactive VZV IgG Antibody 1290 index (Immune >165) Rubella IgG Antibody Reactive (Nonreactive) Hep Bs Antigen Non-Reactive (Nonreactive) Chlamydia DNA (SAL) Negative (Negative) Neisseria gonorrhoeae DNA (SAL) Negative (Negative) HIV 1&2 Antibody Non-Reactive (Nonreactive) Glucose 1 Hr 50 gm 124 mg/dL (70-140) Group B Strep DNA Negative (Negative) Rhogam given: No Miscellaneous Test Assessment & Plan (1) hemorrhage: (2) Retained products of conception: COMMENT: plan d and c (3) endometritis: COMMENT: WBC not elevated but had one elevated temp. clinically stable. admit for d and c and give IV antibiotics, monitor in recovery for possible admission versus OP management PLAN: Plan see a/p comments
--- NOTE | 2022-06-15 02:21 | OP.PCM_ITS ---
Problems Associated Problem List Diagnoses (1) endometritis: (2) Retained products of conception: (3) Anemia: (4) hemorrhage: Report of Operation Date of Procedure: 06/15/22 Pre-Operative Diagnosis: see problem list Post-Operative Diagnosis: same Surgery/Procedure Performed:: Suction dilation and curettage Description of Surgical Findings:: retained products endometritis mellowing machine operator: None Type of Anesthesia: Local MAC Special Medications: none Specimen's removed: POC Drains: none Estimated Blood Loss (mL): 50 Fluids Replaced: crystalloid Description of Procedure: Patient was taken to the operating room and placed under MAC local anesthesia. She was prepped and draped in the normal sterile fashion the dorsal lithotomy position. Bladder was drained of clear urine and anterior lip of the cervix was grasped and the uterus sounded to 14. Cervix was already 1cm dilated and so a 12mm suction curette was used. Progressive passes were made removing the retained products of conception without complication. Sharp curettage confirmed complete removal of the retained products. All instruments were removed from the vagina and excellent hemostasis was noted and the patient was taken to recovery in stable condition. cytotec given rectally, minimal bleeding noted Grafts/Implants Used: none Complications none Admit VTE 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 VTE Present on Admission: No VTE Mechan Device Prophylaxis: SCD's Procedures Urinary/Genital [id number]: [id number] Curettage,
--- NOTE | 2022-06-15 02:24 | DCINST_ITS ---
Discharge Instructions Procedure D&C Diet Discharge Diet: No restrictions Activity Discharge Activity: Return to Normal Activity, May Shower and May Take a Tub Bath (after 4 week) May resume sexual activity in: 4-6 weeks Weight Bearing Status: Weight bearing as tolerated Lifting Restrictions: none Dressing / Incision Call your doctor if you observe: Fever of 101 or Higher, Using more than 1 pad per hour, Shortness of breath and Uncontrolled pain Follow Up Care Please Follow Up With: Tia Arredondo MD When: Call [phone] to schedule appointment. Test Results: Test results from this visit will be discussed in further detail at your follow- up appointment, if applicable. Discharge Plan Admission Attending Provider: Tia Arredondo Primary Care Provider: Debbie Simons Discharge Orders/Prescriptions Prescriptions: No Action prenat.vits,ronak,mtm-mjos-hmukm Tablet 1 tab PO DAILY ferrous gluconate 324 mg (37.5 mg iron) tablet 324 mg PO DAILY Qty: 30 2RF Referrals / Follow Up: Debbie Simons MD [Primary Care Provider] -
[2022-06-15 02:39] LABS: Absolute Lymphocyte Count 1.37 X10^3/uL (0.83-4.51); Absolute Neutrophil Count 3.6 X10^3/uL (2.0-7.7); Basophil# 0.01 X10^3/uL; Basophil% 0.2 % (0-1); Hemoglobin 7.5 g/dL (12.0-15.0); Lymphocyte # 1.37 X10^3/ul (0.83-4.51); Lymphocyte % 25.3 % (19-41); Mean Corpuscular Hgb 26.1 pg (27.0-32.0); Mean Corpuscular Volume 87.1 fL (81-99); Mean Platelet Vol. 9.2 fl (6.2-12.0); Monocyte# 0.44 X10^3/uL; Monocyte% 8.1 % (0-10); NRBC Flagged by Analyzer 0.4 % (0-5); Neutrophil # 3.58 X10^3/uL (2.7-7.7); Platelet Count 377 K/mm3 (150-450); RBC Distribution Width CV 17.2 % (11.6-14.6); RBC Distribution Width SD 54.2 fl (35.1-43.9); Red Blood Count 2.87 M/mm3 (4.2-5.4); White Blood Count 5.4 K/mm3 (4.4-11.0)
[2022-06-15] MEDS: 0.9% Normal Saline 1,000 ML 15 ML IV (03:30)
== END 2022-06-15 04:39 | disposition home or self-care (01) ==
LOC: ED 06-15 01:07 → AC 06-15 01:12
PROVIDERS: Emergency Provider Emergency Medicine; PCP Family Medicine; Visit Provider Obstetrics & Gynecology
PROC: (CPT 58120; principal; 2022-06-15 01:15)
DX: O72.2 Delayed and secondary postpartum hemorrhage (principal); O90.81 Anemia of the puerperium
CPT/HCPCS: 59160; 00940; 71046; 76856; 81002; 83605; 84702; 85025; 86850; 86900; 86901; 87040; 87428; 88305; 99283; J1756; J7030; A4216; J2405

== ENCOUNTER → 2022-06-14 | Outpatient (CLI) | payer OTHER, SELFPAY ==
[2022-06-14 19:02] LABS: Absolute Lymphocyte Count 1.36 X10^3/uL (0.83-4.51); Absolute Neutrophil Count 7.4 X10^3/uL (2.0-7.7); Basophil# 0.03 X10^3/uL; Basophil% 0.3 % (0-1); Eosinophil# 0.01 X10^3/uL; Eosinophils% 0.1 % (0-5); Hematocrit 29.2 % (37-47); Hemoglobin 8.9 g/dL (12.0-15.0); Lymphocyte # 1.36 X10^3/ul (0.83-4.51); Lymphocyte % 14.3 % (19-41); Mean Corp Hgb Conc 30.5 g/dL (32-36); Mean Corpuscular Hgb 26.6 pg (27.0-32.0); Mean Corpuscular Volume 87.2 fL (81-99); Mean Platelet Vol. 9.2 fl (6.2-12.0); Monocyte# 0.67 X10^3/uL; NRBC Flagged by Analyzer 0 % (0-5); Neutrophil % 77.7 % (47-70); Platelet Count 461 K/mm3 (150-450); RBC Distribution Width CV 17.3 % (11.6-14.6); RBC Distribution Width SD 53.7 fl (35.1-43.9); Red Blood Count 3.35 M/mm3 (4.2-5.4); White Blood Count 9.5 K/mm3 (4.4-11.0)
== END | disposition home or self-care (01) ==
LOC: LAB 18:51
PROVIDERS: PCP Family Medicine; Visit Provider Obstetrics & Gynecology
DX: O73.0 Retained placenta without hemorrhage (principal)
CPT/HCPCS: 85025

== ENCOUNTER → 2023-04-18 | Outpatient (CLI) | payer OTHER, SELFPAY ==
[2023-04-18 14:23] LABS: Absolute Lymphocyte Count 2.24 X10^3/uL (0.83-4.51); Absolute Neutrophil Count 4.5 X10^3/uL (2.0-7.7); Basophil# 0.02 X10^3/uL; Basophil% 0.3 % (0-1); Eosinophil# 0.05 X10^3/uL; Eosinophils% 0.7 % (0-5); Hematocrit 38.5 % (37-47); Hemoglobin 12.5 g/dL (12.0-15.0); Lymphocyte # 2.24 X10^3/ul (0.83-4.51); Lymphocyte % 30.4 % (19-41); Mean Corp Hgb Conc 32.5 g/dL (32-36); Mean Corpuscular Hgb 29.2 pg (27.0-32.0); Mean Platelet Vol. 10.4 fl (6.2-12.0); Monocyte# 0.56 X10^3/uL; Monocyte% 7.6 % (0-10); NRBC Flagged by Analyzer 0 % (0-5); Neutrophil # 4.47 X10^3/uL (2.7-7.7); Neutrophil % 60.7 % (47-70); Platelet Count 287 K/mm3 (150-450); RBC Distribution Width CV 13.3 % (11.6-14.6); RBC Distribution Width SD 43.9 fl (35.1-43.9); Red Blood Count 4.28 M/mm3 (4.2-5.4); White Blood Count 7.4 K/mm3 (4.4-11.0)
[2023-04-18 14:45] LABS: Thyroid Stim Hormone (TSH) 1.57 uIU/mL (0.358-3.74)
--- NOTE | 2023-04-18 16:50 | US_ITS ---
STUDY: ULTRASOUND OF THE FEMALE PELVIS - COMPLETE REASON FOR EXAM: Female, 32 years old. BLEEDING-POST COITAL AND HEAVY MENSES LMP: Unknown. TECHNIQUE: Transabdominal and Transvaginal TECHNICAL QUALITY: Adequate. COMPARISON: June 14, 2022 FINDINGS: The uterus is anteverted and is in a midline position. The uterus measures 7.9 x 6.0 x 4.1 cm. There is a Nabothian cyst of the cervix. The endometrium measures 9 mm in thickness, and is hyperechoic. There is no demonstrated endometrial mass. There are small calcifications of the endometrium There is no demonstrated myometrial mass. I.U.D. - The patient does not have an I.U.D. The right ovary is visualized. The right ovary measures 3.3 x 2.0 x 1.7 cm. There is no right ovarian cyst or ovarian mass. There is no visualized right adnexal mass or complex lesion. There is normal arterial and normal venous vascularity. The left ovary is visualized transabdominally. The left ovary measures 3.4 x 3.0 x 2.1 cm. There is 2.6 cm cyst. There is no visualized left adnexal mass or complex lesion. There is normal arterial and normal venous vascularity. There is no fluid in the cul-de-sac. The pre void volume of the bladder was 60 ml. US/Pelvic w/ Transvaginal IMPRESSION: Left ovarian cyst. Electronically Signed: Holden Rogers MD at 20:55 EDT ,
== END | disposition home or self-care (01) ==
LOC: US 12:59
PROVIDERS: PCP Family Medicine; Referring Provider Obstetrics & Gynecology; Visit Provider Obstetrics & Gynecology
DX: N92.0 Excessive and frequent menstruation with regular cycle (principal)
CPT/HCPCS: 76830; 76856; 84443; 85025

== ENCOUNTER → 2023-08-07 | Outpatient (CLI) | payer OTHER, SELFPAY ==
--- NOTE | 2023-08-07 09:21 | US_ITS ---
STUDY: ULTRASOUND BREAST - RIGHT REASON FOR EXAM: Female, 32 years old. Right-sided breast pain and palpable lump. TECHNIQUE: Axial and longitudinal images of the RIGHT breast were performed with a high resolution ultrasound transducer. # OF IMAGES: 29 COMPARISON: None. FINDINGS: RIGHT Breast: The inferior medial aspect of the right breast was examined with ultrasound. The palpable lump corresponds to a 7.1 mm x 4.4 mm heterogeneous nodule just deep to the underlying subcutaneous tissue. A tract is seen heading towards the superficial aspect of the breast/skin. This most likely represents a sebaceous cyst. US/Breast Limited Unilateral IMPRESSION: The palpable lump in the inferior medial aspect of the right breast most likely corresponds to a sebaceous cyst. ASSESSMENT CATEGORY: BIRADS Category 2: Benign. A letter regarding these results will be sent to the patient by the facility within 30 days. Electronically Signed: Niranjan Yi MD at 15:34 EST ,
== END | disposition home or self-care (01) ==
LOC: OPBI 09:21
PROVIDERS: PCP Family Medicine; Referring Provider Advanced Practice Midwife; Visit Provider Advanced Practice Midwife
DX: N64.4 Mastodynia (principal)
CPT/HCPCS: 76642

== ENCOUNTER → 2023-08-12 | Outpatient (CLI) | payer OTHER, SELFPAY ==
--- OUTSIDE RECORDS SUMMARY | 2023-08-12 07:49 | XMS RPT_ITS | CCD ---
Author Name Unknown Address [address] [place] [address] Organization [facility] Care Team Providers Care Mercury Washer Name Role Phone Tia Arredondo MD Unavailable [phone] Shayla Burkett Unavailable Unavailable Tia Arredondo MD Unavailable [phone] Eddie Bejarano DO Unavailable REFERRING, SELF Referring Unavailable NO, PHYSICIAN Primary Care Unavailable PERI RASHEED Attending Unavail able No, Physician Primary Care Provider Unavailabl e Yonas Hunter A Primary Care Provider Unavail able Jeremiah Balderrama A Primary Care Provider Pcp, No Primary Care Provider Unavailabl e Pcp, No Primary Care Provider Unavailabl e Allergies Allergy Classification Reported Allergen(s) Allergy Type Date of Onset Reaction(s) Facility (19 sources) acetaminophen / oxyCODONE drug allergy 7 [facility] (19 sources) codeine drug allergy [facility] (1 source) Codeine Drug Allergy 2 nausea [facility] Work Phone: (1 source) Codeine Drug Allergy 2 Vomiting [facility] Medications Completed/Discontinued Medications Medication Drug Class(es) Dates Sig (Normalized) Sig (Original) Norethindrone (1 source) Start: 06-09-2012 NORETHINDRONE TABS 1 tablet daily NORETHINDRONE TABS [id number] Milagro Kumari LPN VIT-FE FUMARATE-FA (10 sources) Start: 03-22-2017 VITAMINS 28-0.8 MG TABS VIT-FE FUMARATE-FA [id number] Shayla Burkett Problems Active Problems Problem Classification Problem Date Documented Date Episodic/Chronic Residual codes; unclassified (1 source) History of operative procedure on lumbar spinal structure; Translations: [History of lumbar surgery] Episodic Spondylosis; intervertebral disc disorders; other back problems (3 sources) Other intervertebral disc degeneration, lumbar region; Translations: [Degeneration of lumbar intervertebral disc] Onset: 11-05-2012 02-09-2020 Chronic Spondylosis; intervertebral disc disorders; other back problems (2 sources) Radiculopathy, site unspecified; Translations: [Low back pain] Onset: 02-01-2009 02-01-2009 Episodic Unclassified (2 sources) No current problems or disability 03-15-2017 Unclassified (1 source) 20 weeks gestation of ; Translations: [20 weeks gestation of ] Onset: 03-22-2017 06-14-2017 Past or Other Problems Problem Classification Problem Date Documented Da te Episodic/Chronic Other injuries and conditions due to external causes (1 source) Sprain of spinal ligament; Translations: [Sprain of unspecified site of back] Onset: 02-01-2009 02-01-2009 Episodic Other and delivery including normal (20 sources) Normal ; Translations: [Gestation period, 8 weeks] Onset: 03-22-2017 03-22-2017 Episodic Other skin disorders (1 source) Acne; Translations: [Acne] Onset: 07-06-2010 07-06-2010 Episodic Unclassified (6 sources) 16 weeks gestation of ; Translations: [16 weeks gestation of ] Onset: 03-22-2017 05-17-2017 Unclassified (1 source) Problem Urinary tract infections (11 sources) Acute urinary tract infection; Translations: [Urinary tract infection, site not specified] Onset: 04-12-2017 04-12-2017 Episodic Results Test Name Value Interpretation Reference Range Facil ity Vital Signs Date Time Vital Sign Value Performing Clinician Facility 06-14-2017 08:38-0500 BMI (Body Mass Index) 25.1 kg/m2 Tia Arredondo MD [facility] 06-14-2017 08:38-0500 BP Diastolic 72 mm[Hg] Tia Arredondo MD [facility] 06-14-2017 08:38-0500 BP Systolic 114 mm[Hg] T[facility] 06-14-2017 08:38-0500 Weight 77.11 kg Tia Arredondo MD [facility] 05-17-2017 10:53-0400 BMI (Body Mass Index) 24.13 kg/m2 Tia Arredondo MD [facility] 05-17-2017 10:53-0400 Body Temperature 97.9 [degF] Tia Arredondo MD [facility] 05-17-2017 10:53-0400 BP Diastolic 65 mm[Hg] Tia Arredondo MD [facility] 05-17-2017 10:53-0400 BP Systolic 102 mm[Hg] Tia Arredondo MD [facility] 05-17-2017 10:53-0400 Pulse (Heart Rate) 92 /min Tia Arredondo MD [facility] 05-17-2017 10:53-0400 Respiratory Rate 16 /min Tia Arredondo MD [facility] 05-17-2017 10:53-0400 Weight 74.12 kg Tia Arredondo MD [facility] 04-18-2017 05:59-0400 BMI (Body Mass Index) 23.21 kg/m2 Tia Arredondo MD [facility] 04-18-2017 05:59-0400 Body Temperature 97.2 [degF] Tia Arredondo MD [facility] 04-18-2017 05:59-0400 BP Diastolic 72 mm[Hg] Tia Arredondo MD [facility] 04-18-2017 05:59-0400 BP Systolic 115 mm[Hg] Tia Arredondo MD [facility] 04-18-2017 05:59-0400 Pulse (Heart Rate) 98 /min Tia Arredondo MD [facility] 04-18-2017 05:59-0400 Respiratory Rate 16 /min Tia Arredondo MD [facility] 04-18-2017 05:59-0400 Weight 71.31 kg Tia Arredondo MD [facility] 03-22-2017 07:51-0400 BMI (Body Mass Index) 22.47 kg/m2 Tia Arredondo MD [facility] 03-22-2017 07:51-0400 Body Temperature 96.5 [degF] Tia Arredondo MD [facility] 03-22-2017 07:51-0400 Body Temperature 96.49 [degF] Tia Arredondo MD [facility] 03-22-2017 07:51-0400 BP Diastolic 78 mm[Hg] Tia Arredondo MD [facility] 03-22-2017 07:51-0400 BP Systolic 134 mm[Hg] Tia Arredondo MD [facility] 03-22-2017 07:51-0400 Height 175.26 cm Tia Arredondo MD [facility] 03-22-2017 07:51-0400 Pulse (Heart Rate) 113 /min Tia Arredondo MD [facility] 03-22-2017 07:51-0400 Respiratory Rate 16 /min Tia Arredondo MD [facility] 03-22-2017 07:51-0400 Weight 69.04 kg Tia Arredondo [facility] NEGATED: Highlighted [id number] 08:58-0400 BMI (Body Mass Index) 22.28 kg/m2 Shayla Watkins AT [facility] Work Phone: NEGATED: Highlighted [id number] 08:58-0400 Body weight 66.23 kg Shayla Watkins AT [facility] Work Phone: NEGATED: Highlighted [id number] 08:58-0400 Body weight 66 kg Shayla Watkins AT [facility] Work Phone: NEGATED: Highlighted [id number] 08:58-0400 Height 172.72 cm Shayla Watkins AT [facility] Work Phone: NEGATED: Highlighted [id number] 08:58-0400 Height 173 cm Shayla Watkins AT [facility] Work Phone: Encounters Encounter Date Encounter Type Care Provider Facility Start: 08-29-2020 End: 08-29-2020 Patient encounter procedure SELF REFERRING [facility] Start: 08-29-2020 End: 08-29-2020 Office outpatient new 20 minutes Peri Rasheed Work Phone: [facility] Procedures Date Procedure Procedure Detail Performing Clinician Start: 02-09-2020 End: 02-16-2020 Blood pressure screening not performed - reason not given Eddie Arzate Bejarano DO Work Phone: Start: 02-09-2020 End: 02-16-2020 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 of current medications Eddie Arzate Bejarano DO Work Phone: Start: 02-09-2020 End: 02-16-2020 Pain assessment documented as positive - follow-up documented Eddie Arzate Bejarano DO Work Phone: Start: 02-09-2020 End: 02-10-2020 Radex spine lumbosacral minimum 4 views Eddie Bejarano DO Work Phone: Start: 02-09-2020 End: 02-16-2020 Tobacco non-user Eddie Arzate Bejarano DO Work Phone: Start: 06-14-2017 End: 06-14-2017 Routine OB Visit (Global) Tia Arredondo MD Work Phone: Start: 06-14-2017 End: 06-14-2017 Routine OB Visit (Global) Tia Arredondo MD Work Phone: Start: 05-17-2017 End: 05-17-2017 Routine OB Visit (Global) Tia Arredondo MD Work Phone: Start: 05-17-2017 End: 05-17-2017 Routine OB Visit (Global) Tia Arredondo MD Work Phone: Start: 04-19-2017 End: 04-19-2017 Routine OB Visit (Global) Tia Arredondo MD Work Phone: Start: 04-19-2017 End: 04-19-2017 Routine OB Visit (Global) Tia Arredondo MD Work Phone: Start: 04-12-2017 End: 04-12-2017 Urnls dip stick/tablet rgnt non-auto w/o micrscp Tia Arredondo MD Work Phone: Start: 04-12-2017 End: 04-12-2017 Urinalysis Tia Arzate Start: 04-12-2017 End: 04-12-2017 Urinalysis nonauto w/o scope Tia Arredondo MD Work Phone: Start: 03-22-2017 End: 04-15-2017 *CBC with Differential Tia guzman MD Work Phone: Start: 03-22-2017 End: 04-15-2017 *HEBSAG - Hep B Surface Antigen 6510 Tia Arredondo MD Work Phone: Start: 03-22-2017 End: 04-15-2017 *HIV antibody Tia Arredondo MD Work Phone: Start: 03-22-2017 End: 04-15-2017 Reagin Ab [Presence] in Serum by RPR Tia Arredondo MD Work Phone: Start: 03-22-2017 End: 03-22-2017 Routine OB Visit (Global) Tia Arredondo MD Work Phone: Start: 03-22-2017 End: 04-15-2017 Rubella virus Ab [Units/volume] in Serum Tia Arredondo MD Work Phone: Start: 03-22-2017 End: 03-22-2017 Urinalysis Tia Arzate Start: 03-22-2017 End: 04-15-2017 *CBC with Differential Tia guzman MD Work Phone: Start: 03-22-2017 End: 04-15-2017 *HEBSAG - Hep B Surface Antigen 6510 Tia Arredondo MD Work Phone: Start: 03-22-2017 End: 04-15-2017 *HIV antibody Tia Arredondo MD Work Phone: Start: 03-22-2017 End: 04-15-2017 Reagin antibody presence Tia esparza MD Work Phone: Start: 03-22-2017 End: 03-22-2017 Routine OB Visit (Global) Tia Arredondo MD Work Phone: Start: 03-22-2017 End: 04-15-2017 Rubella virus Ab [Units/volume] in Serum Tia Arredondo MD Work Phone: Start: 08-01-2009 CONVERTED SURGICAL PATHOLOGY [facility] Work Phone: NEGATED: Highlighted rowStart: 02-09-2020 End: 02-09-2020 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 of current medications Shayla Watkins AT Plan of Treatment Date Care Activity Detail Author Start: 01-05-2029 Tetanus vaccination Tetanus: Every 10yrs [facility] Start: 03-15-2020 Influenza vaccination INFLUENZA (#1) [facility] Start: 03-15-2020 Influenza vaccination given Sequential Influenza Vaccine (#1) [facility] Start: 08-27-2017 PAP TESTING PAP TESTING [facility] Start: 07-11-2017 End: 07-11-2017 [facility] Start: 06-14-2017 End: 06-14-2017 [facility]oint[facility] Start: 05-17-2017 End: 05-17-2017 [facility]ointment [facility] Start: 04-19-2017 End: 04-19-2017 [facility]ointment [facility]oint[facility] Start: 04-18-2017 End: 04-18-2017 [facility]ointment [facility] Start: 04-12-2017 End: 04-12-2017 *CUUID - Urine ALIREZA Culture - Identificatn *CUUID - Urine ALIREZA Culture - Identificatn [facility] Start: 04-12-2017 End: 04-12-2017 Urine culture, bacteria *CUUR - Culture, Urine ([place] Count) [facility] Start: 04-12-2017 End: 04-12-2017 *CUUID - Urine ALIREZA Culture - Identificatn *CUUID - Urine ALIREZA Culture - Identificatn [facility] Start: 04-12-2017 End: 04-12-2017 Urine culture, bacteria *CUUR - Culture, Urine ([place] Count) [facility] Start: 03-22-2017 End: 04-09-2017 *CBC with Differential *CBC with Differential [facility] Start: 03-22-2017 End: 03-22-2017 *GC/Chlamydia *GC/Chlamydia [facility] Start: 03-22-2017 End: 04-10-2017 *HEBSAG - Hep B Surface Antigen 6510 *HEBSAG - Hep B Surface Antigen 6510 [facility] Start: 03-22-2017 End: 04-10-2017 *HIV antibody *HIV antibody [facility] Start: 03-22-2017 End: 03-22-2017 *TS Type and Screen *TS Type and Screen [facility] Start: 03-22-2017 End: 04-12-2017 Reagin antibody presence *RPR [facility] Start: 03-22-2017 End: 04-10-2017 Rubella virus Ab [Units/volume] in Serum *Rubella Screen [facility] Start: 03-22-2017 End: 03-22-2017 Urine culture, bacteria *CUUR - Culture, Urine ([place] Count) [facility] Start: 03-22-2017 End: 03-22-2017 Us preg uterus after 1st trimest 07/15 gestation US OB, >14 weeks [facility] Start: 03-22-2017 End: 03-22-2017 Appointment Appointment [facility] Start: 03-22-2017 End: 04-09-2017 *CBC with Differential *CBC with Differential [facility] Start: 03-22-2017 End: 03-22-2017 *GC/Chlamydia *GC/Chlamydia [facility] Start: 03-22-2017 End: 04-10-2017 *HEBSAG - Hep B Surface Antigen 6510 *HEBSAG - Hep B Surface Antigen 6510 [facility] Start: 03-22-2017 End: 04-10-2017 *HIV antibody *HIV antibody [facility] Start: 03-22-2017 End: 03-22-2017 *TS Type and Screen *TS Type and Screen [facility] Start: 03-22-2017 End: 03-22-2017 Ob us >/= 14 wks, sngl fetus US OB, >14 weeks [facility] Start: 03-22-2017 End: 04-12-2017 Reagin antibody presence *RPR [facility] Start: 03-22-2017 End: 04-10-2017 Rubella virus Ab [Units/volume] in Serum *Rubella Screen [facility] Start: 03-22-2017 End: 03-22-2017 Urine culture, bacteria *CUUR - Culture, Urine ([place] Count) [facility] Start: 01-19-2016 Urine microalbumin profile DTAP,TDAP,TD (7 - Td) [facility] Start: 2010 Hepatitis C antibody, confirmatory test Hepatitis C Screening [facility] Start: 2010 HEPATITIS C SCREENING HEPATITIS C SCREENING [facility] Start: 2010 HIV SCREENING HIV SCREENING [facility] Start: 12-30-2007 HIV screening HIV Screening [facility] Start: 2004 Adolescent depression screening assessment Depression Screening (PHQ9) [facility] Start: 12-30-1995 History and physical examination, annual for health maintenance Wellness Visit [facility] Start: 1992 Screening for malignant neoplasm of cervix Pap Smear [facility] Immunizations Immunization Date Immunization Notes Care Provider Rebecca haines 12-31-2006 Meningococcal, MCV4, unspecified conjugate formulation(groups A, C, Y and W-135) [facility] 01-18-2006 tetanus toxoid, redu erica diphtheria toxoid, and acellular pertussis vaccine, adsorbed [facility] 12-22-2004 measles, mumps and r ubella virus vaccine [facility] 08-03-2003 hepatitis B vaccine, pediatric or pediatric/adolescent dosage [facility] 11-17-1997 diphtheria, tetanus toxoids and acellular pertussis vaccine [facility] 11-17-1997 hepatitis B vaccine, pediatric or pediatric/adolescent dosage [facility] 11-17-1997 trivalent poliovirus vaccine, live, oral [facility] 07-15-1997 Chicken Pox (disease) [facility] 01-22-1995 diphtheria, tetanus toxoids and pertussis vaccine [facility] 01-22-1995 haemophilus influenz ae type b vaccine, HbOC conjugate [facility] 03-29-1994 measles, mumps and r ubella virus vaccine [facility] 03-29-1994 trivalent poliovirus vaccine, live, oral [facility] 08-03-1993 diphtheria, tetanus toxoids and pertussis vaccine [facility] 08-03-1993 haemophilus influenz ae type b vaccine, HbOC conjugate [facility] 06-01-1993 diphtheria, tetanus toxoids and pertussis vaccine [facility] 06-01-1993 haemophilus influenz ae type b vaccine, HbOC conjugate [facility] 06-01-1993 trivalent poliovirus vaccine, live, oral [facility] 03-30-1993 diphtheria, tetanus toxoids and pertussis vaccine [facility] 03-30-1993 haemophilus influenz ae type b vaccine, HbOC conjugate [facility] 03-30-1993 hepatitis B vaccine, pediatric or pediatric/adolescent dosage [facility] 03-30-1993 trivalent poliovirus vaccine, live, oral [facility] 1992 hepatitis B vaccine, pediatric or pediatric/adolescent dosage [facility] Payers Date Payer Category Payer Private Health Insurance [id number] 2019 Private Health Insurance AET[employer] A ETNA CHOICE POS/POSII/PREMIER CARE/PREMIER CARE PLUS [id number] 2019-Present [id number] 2005 Private Health Insurance [id number] [place] [id number] 2005-2011 [facility] [id number] 1992 Unknown [id number] Social History Date Type Detail Facility Start: 02-16-2020 End: 02-16-2020 Assertion Unknown if ever smoked [facility] Work Phone: Sex Assigned At Not on file [facility] Exposure to SARS-CoV-2 (event) Not sure [facility] Start: 11-26-2006 Tobacco smoking status NHIS Never smoker [facility] Start: 11-26-2006 Alcohol intake Not Asked Dewayne arzate [facility] NEGATED: Highlighted rowStart: 02-09-2020 End: 02-09-2020 Employment detail Employment detail [facility] Work Phone: Chief Complaint Chief Complaint Description Start Date lower back pain Preliminary chief co mplaint data, not yet signed by the author as of Instructions Instruction Description Start Date Completed Advance Directives Documents on File Type Date Recorded 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 Family History There may be information available, but it has not been provided by the sender.No Family History Records Found History of Present Illness There may be information available, but it has not been provided by the sender. * Peri Rasheed MD - 08/29/2020 12:56 PM EST See Dictation. documented in this encounter Summary Purpose History of Past Illness Problem Noted Date Resolved Date Pain in Joint, Lower Leg 12/12/2006 007 Additional Source Comments Reason for Visit (unrecogniz ed section and content) Reason Comments Back Pain Status Reason Specialty Diagnoses / Procedures Referred By Contact Referred To Contact Closed Neurosurgery Diagnoses Low back pain, unspecified back pain laterality, unspecified chronicity, unspecified whether sciatica present Referring, MD Justin [address] [place] [address] Peri Rasheed MD [address] [facility] [address] [place] [address] INFORMATION SOURCE (unrecogn ized section and content) Source Comments (unrecognize d section and content) In the event this informatio n is protected by the Federal Confidentiality of Alcohol and Drug Abuse Patient Records regulations: The Federal rules restrict any use of the information to criminally investigate or prosecute any alcohol or drug abuse patient.[facility] FOR RECORDS PERTAINING TO PATIENTS WHO ARE OR HAVE BEEN ENROLLED IN A CHEMICAL DEPENDENCY/SUBSTANCEABUSE PROGRAM, SOME INFORMATION MAY BE OMITTED. This clinical summary was aggregated from multiple sources. Caution should be exercised in using it in the provision of clinical care. This summary normalizes information from multiple sources, and as a consequence, information in this document may materially change the coding, format and clinical context of patient data. In addition, data may be omitted in some cases. CLINICAL DECISIONS SHOULD BE BASED ON THE PRIMARY CLINICAL RECORDS. [facility] [employer] [facility]. provides no warranty or guarantee of the accuracy or completeness of information in this document.
[2023-08-12 16:59] LABS: Cholesterol 187 mg/dL (200); High Density Lipoprotein 60 mg/dL; Triglycerides 57 mg/dL; Very Low Density Lipoprotein 11 mg/dL (5-40)
== END | disposition home or self-care (01) ==
LOC: LAB 07:31
PROVIDERS: PCP Family Medicine; Referring Provider Family Medicine; Visit Provider Family Medicine
DX: Z00.00 Encounter for general adult medical examination without abnormal findings (principal)
CPT/HCPCS: 80061

== ENCOUNTER → 2024-10-23 | Outpatient (CLI) | payer OTHER, SELFPAY | END | disposition home or self-care (01) | PROVIDERS: PCP Family Medicine; Visit Provider Family Medicine | DX: N91.2 Amenorrhea, unspecified (principal) | CPT/HCPCS: 84443 ==

== ENCOUNTER → 2025-06-21 | Outpatient (CLI) | payer OTHER, SELFPAY ==
[2025-06-21 12:14] LABS: Hematocrit 36.6 % (37-47); Hemoglobin 12.2 g/dL (12.0-15.0); Immature Granulocytes Count 0.020 X10^3/uL (0.0-0.0); Mean Corp Hgb Conc 33.3 g/dL (32-36); Mean Corpuscular Volume 89.1 fL (81-99); Mean Platelet Vol. 10.5 fl (6.2-12.0); NRBC Flagged by Analyzer 0 % (0-5); Platelet Count 276 K/mm3 (150-450); RBC Distribution Width CV 12.8 % (11.6-14.6); RBC Distribution Width SD 41.7 fl (35.1-43.9); Red Blood Count 4.11 M/mm3 (4.2-5.4); White Blood Count 7.6 K/mm3 (4.4-11.0)
--- OUTSIDE RECORDS SUMMARY | 2025-06-21 12:14 | XMS RPT_ITS | CCD ---
Author Organization [facility] Care Team Providers Care Sighter Name Role Phone Tia Arredondo MD Unavailable [phone] Shayla Burkett Unavailable Unavailable Tia Arredondo MD Unavailable [phone] Eddie Bejarano DO Unavailable REFERRING, SELF Referring Unavailable NO, PHYSICIAN Primary Care Unavailable PERI RASHEED Attending Unavail able No, Physician Primary Care Provider Unavailabl e Yonas Hunter Primary Care Provider Unavail able Jeremiah Balderrama Primary Care Provider Pcp, No Primary Care Provider Unavailabl e Pcp, No Primary Care Provider Unavailabl e Dr. Debbie Simons Primary Care Provider Dr. Debbie Simons Referring Provider [phone] MATEUS Man-Jemal Craig Attending Provider Dr. Tia Arredondo Attending Provider [phone] CHERYL Wilson Attending Provider Marissa IGNACIO, SOLID GLASS ROD DOWEL MACHINE OPERATOR-C Antonieta Attending Provider Dr. Debbie Simons Primary Care Provider Dr. Debbie Simons Referring Provider Dr. Leonora Vera Attending Provider Dr. Debbie Simons Primary Care Provider [phone] Debbie Simons Referring Provider [phone] Dr. Tia Arredondo Attending Provider [phone] Suri Burkett Attending Provider Unavailable Dr. Ry Dale Attending Provider Dr. Debbie Simons Primary Care Provider [phone] Dr. Debbie Simons Referring Provider Dr. iTa Arredondo Attending Provider [phone] Marissa SOLID GLASS ROD DOWEL MACHINE OPERATOR, SOLID GLASS ROD DOWEL MACHINE OPERATOR-C Antonieta Attending Provider [phone] Dr. Debbie Simons Primary Care Provider [phone] Debbie Simons Referring Provider Dr. Leonora Vera Attending Provider [phone] Dr. Debbie Simons Primary Care Provider [phone] Debbie Simons Referring Provider Dr. Leonora Vera Attending Provider [phone] Dr. Debbie Simons Primary Care Provider [phone] Ry Dale Attending Provider [phone] Debbie Simons Referring Provider SEGUN Garcia Attending Provider SEGUN Garcia Other Provider Dr. Debbie Simons Primary Care Provider [phone] Dr. Leonora Vera Attending Provider [phone] Dr. Debbie Simons Primary Care Provider [phone] Debbie Simons Referring Provider Marissa SOLID GLASS ROD DOWEL MACHINE OPERATOR, LAMAR Fung Attending Provider [phone] Dr. Tia Arredondo Attending Provider [phone] SEGUN Garcia Attending Provider SEGUN Garcia Other Provider Dr. Leonora Vera Attending Provider SEGUN Garciasay Admit Provider Dr. Domingo Gabriel Emergency Provider Dr. Tia Arredondo Other Provider [phone] Dr. Debbie Simons Primary Care Provider Dr. Debbie Simons Referring Provider Marissa SOLID GLASS ROD DOWEL MACHINE OPERATOR, LAMAR Fung Attending Provider [phone] Dr. Debbie Simons Primary Care Provider [phone] Dr. Debbie Simons Referring Provider Marissa IGNACIO, LAMAR Fung Attending Provider [phone] SEGUN Gregorio Attending Provider [phone] Leonora Burrell Attending Unavailable [facility] Primary Care Unavailable Sal Lindquist Attending Unavailable [facility] Primary Care Unavailable Leonora Burrell Attending Unavailable [facility] Primary Care Unavailable Leonora Burrell Attending [facility] Unavailable Sal Lindquist Attending Unavailable [facility] Debbie Primary Care Unavailable [facility] Primary Care Unavailable Leonora Burrell Attending Unavailable [facility] Attending Unavailable [facility] Primary Care Unavailable Allergies Allergy Classification Reported Allergen(s) Allergy Type Date of Onset Reaction(s) Facility (19 sources) acetaminophen / oxyCODONE drug allergy 7 [facility] (19 sources) codeine drug allergy 7 [facility] (1 source) Codeine Drug Allergy 2 nausea [facility] Work Phone: (20 sources) Codeine Drug Allergy 2 Vomiting [facility] (20 sources) oxyCODONE Drug Allergy 2 Unknown [facility] (1 source) Codeine Drug Allergy 5 [facility] (1 source) oxyCODONE Drug Allergy 5 [facility] Medications Current Medications Medication Drug Class(es) Dates Sig (Normalized) Sig (Original) Prenat.Vits,Bruno,Min -Iron-Folic (20 sources) Start: 10-09-2021 take 1 tablet by mouth once daily Prenat.Vits,Bruno,Mi v-Muku-Jzymx Active 1 TABLET PO DAILY October 09, 2021 12:50pm Start: 10-09-2021 take 1 tablet by jasbir th once daily Prenat.Vits,Bruno,Gnr-Iutv-Pnzrd Active 1 TABLET PO DAILY October 08, 2021 11:00pm Start: 10-09-2021 take 1 tablet by jasbir th once daily Prenat.Vits,Bruno,Upq-Pgaw-Eejug Active 1 TABLET PO DAILY October 09, 2021 12:00am ursodiol 300 mg oral capsule (4 sources) Bile Acid Start: 05-10-2022 take 300 mg by mouth twice daily Ursodiol Active 300 MG PO TWICE A DAY 60 May 09, 2022 11:00pm Completed/Discontinued Medications Medication Drug Class(es) Dates Sig (Normalized) Sig (Original) busPIRone hydrochloride 5 mg oral tablet (20 sources) Start: 10-09-2021 End: 02-28-2022 take 10 mg by mouth twice daily Buspirone Discontinued 10 MG PO TWICE A DAY October 09, 2021 11:50am February 28, 2022 7:43am Start: 08-11-2021 End: 10-09-2021 take 5 mg by mouth twice daily Buspirone Discontinued 5 MG PO TWICE A DAY 60 August 11, 2021 12:00am October 09, 2021 11:50am clindamycin 300 mg oral capsule (2 sources) Lincosamide Antibacterial Start: 04-25-2023 End: 05-02-2023 take 300 mg by mouth twice daily Clindamycin Hcl Discontinued 300 MG PO TWICE A DAY 14 April 24, 2023 11:00pm May 01, 2023 11:04pm Desogestrel-Ethiny l Estradiol (20 sources) Progestin, Estrogen Start: 04-21-2021 End: 08-11-2021 Desogestrel-Ethiny l Estradiol (Apri) 0.15-0.03 mg tablet Discontinued 1 TABLET PO daily April 21, 2021 12:46pm August 11, 2021 11:13am Start: 04-21-2021 End: 08-11-2021 Desogestrel-Ethinyl Estradio l (Apri) 0.15-0.03 mg tablet Discontinued 1 TABLET PO daily April 20, 2021 11:00pm August 11, 2021 10:13am Start: 04-21-2021 End: 08-11-2021 Desogestrel-Ethinyl Estradio l (Apri) 0.15-0.03 mg tablet Discontinued 1 TABLET PO daily April 21, 2021 12:00am August 11, 2021 11:13am doxycycline monohydrate 100 mg oral capsule (2 sources) Tetracycline-class Drug Start: 04-24-2023 End: 04-25-2023 take 100 mg by mouth twice daily Doxycycline Monohydrate Discontinued 100 MG PO TWICE A DAY April 23, 2023 11:00pm April 25, 2023 2:40pm escitalopram 10 mg oral tablet (20 sources) Serotonin Reuptake Inhibitor Start: 08-11-2021 End: 08-11-2021 take 1 tablet by mouth once daily Escitalopram Oxalate (Lexapro) 10 mg tablet Discontinued 10 MG PO DAILY August 11, 2021 12:00am August 11, 2021 10:29am ferrous gluconate 324 mg oral tablet (5 sources) Start: 06-08-2022 End: 04-24-2023 take 324 mg by mouth once daily Ferrous Gluconate Discontinued 324 MG PO DAILY June 08, 2022 12:00am April 24, 2023 9:35am fluconazole 100 mg oral tablet (2 sources) Azole Antifungal Start: 12-19-2022 End: 04-24-2023 take 4 tablets by mouth once daily, then take 1 tablet by mouth twice daily Fluconazole (Diflucan) 100 mg tablet Discontinued 100 MG PO DAILY December 18, 2022 11:00pm April 24, 2023 9:35am take 400mg today followed by 100mg twice a day. continue to take 1 week after breast pain has resolved. metoclopramide 10 mg oral tablet (20 sources) Dopamine-2 Receptor Antagonist Start: 09-19-2018 End: 02-02-2019 take 1 tablet by mouth every six hours Metoclopramide Hcl (Reglan) 10 mg tablet Discontinued 10 MG PO EVERY 6 HOURS 30 September 19, 2018 12:00am February 02, 2019 8:10am miSOPROStol 0.2 mg oral tablet (20 sources) Prostaglandin E1 Analog Start: 03-29-2019 End: 04-06-2019 take 200 ug by mouth four times daily Misoprostol Discontinued 200 MCG PO 4 TIMES DAILY 4 March 28, 2019 11:00pm April 06, 2019 1:59pm norethindrone 0.35 mg oral tablet (20 sources) Start: 07-18-2022 End: 04-24-2023 take 1 tablet by mouth once daily Norethindrone (Contraceptive) (Ortho Micronor) 0.35 mg tablet Discontinued 0.35 MG PO DAILY 84 July 18, 2022 9:19am April 24, 2023 9:35am Start: 05-04-2019 End: 08-11-2021 Norethindrone (Contraceptive ) Discontinued 0.35 MG PO AT BEDTIME 84 September 05, 2020 1:04pm August 11, 2021 10:13am start day 1 of menstrual cycle Start: 10-24-2017 End: 08-18-2018 take 0.35 mg by mouth once daily Norethindrone (Contraceptive) Discontinued 0.35 MG PO DAILY 84 February 19, 2018 10:07am August 18, 2018 3:51pm Start: 06-09-2012 NORETHINDRONE TABS 1 tablet daily NORETHINDRONE TABS [id number] Milagro Kumari LPN ondansetron 4 mg oral tablet (20 sources) Serotonin-3 Receptor Antagonist Start: 10-20-2021 End: 02-02-2022 take 4 mg by mouth every four hours Ondansetron Hcl Discontinued 4 MG PO Q4H 60 October 19, 2021 11:00pm February 02, 2022 7:59am Start: 08-11-2018 End: 08-18-2018 Ondansetron Hcl (Zofran) 4 m g tablet Discontinued 4 MG PO 2 to 3 times per day 60 August 11, 2018 12:00am August 18, 2018 3:51pm VIT-FE FUMARATE-FA (10 sources) Start: 03-22-2017 VITAM INS 28-0.8 MG TABS VIT-FE FUMARATE-FA [id number] Shayla Beaver Brukett Start: 03-22-2017 VITAM INS 28-0.8 MG TABS VIT-FE FUMARATE-FA [id number] Shayla Beaver Burkett VIT-FE FUMARATE-FA (8 sources) Start: 03-22-2017 VITAM INS 28-0.8 MG TABS VIT-FE FUMARATE-FA [id number] Shayla Beaver Burkett Start: 03-22-2017 VITAM INS 28-0.8 MG TABS VIT-FE FUMARATE-FA [id number] Shayla Beaver Burkett VIT-FE FUMARATE-FA (1 source) Start: 03-22-2017 VITAM INS 28-0.8 MG TABS VIT-FE FUMARATE-FA [id number] Shayla Beaver Burkett promethazine hydrochloride 12.5 mg oral tablet (20 sources) Phenothiazine Start: 10-09-2021 End: 10-26-2021 take 12.5 mg by mouth every six hours Promethazine Discontinued 12.5 MG PO EVERY 6 HOURS 60 October 08, 2021 11:00pm October 26, 2021 8:41am Start: 07-24-2018 End: 08-18-2018 take 25 mg by mouth every six hours Promethazine Discontinued 25 MG PO EVERY 6 HOURS 30 July 24, 2018 12:00am August 18, 2018 3:51pm Start: 03-14-2017 take 1 tablet by jasbir every six hours as needed PROMETHAZINE HCL 12.5 MG TABS 1 po q 6 hours as needed PROMETHAZINE HCL [id number] Tia Arredondo MD raNITIdine 150 mg oral tablet (20 sources) Histamine-2 Receptor Antagonist Start: 12-09-2018 End: 03-20-2019 take 1 tablet by mouth twice daily Ranitidine Hcl (Zantac) 150 mg tablet Discontinued 150 MG PO TWICE A DAY 60 December 08, 2018 11:00pm March 20, 2019 5:15am sertraline 25 mg oral tablet (20 sources) Serotonin Reuptake Inhibitor Start: 07-18-2022 End: 04-24-2023 take 1 tablet by mouth once daily Sertraline (Zoloft) 25 mg tablet Discontinued 25 MG PO DAILY August 15, 2022 9:17am April 24, 2023 9:35am Start: 05-16-2020 End: 06-16-2020 take 150 mg by mouth at bedtime Sertraline Discontinue d 150 MG PO AT BEDTIME May 16, 2020 8:00am June 16, 2020 8:44am Start: 11-02-2019 End: 05-16-2020 take 1 tablet by mouth once daily Sertraline (Zoloft) 100 mg tablet Discontinued 100 MG PO DAILY February 04, 2020 7:35am May 16, 2020 7:56am Start: 05-04-2019 End: 11-02-2019 take 1 tablet by mouth once daily Sertraline (Zoloft) 50 mg tablet Discontinued 50 MG PO daily May 03, 2019 11:00pm November 02, 2019 9:44am 24 hr venlafaxine 75 mg extended release oral capsule (20 sources) Serotonin and Norepinephrine Reuptake Inhibitor Start: 06-16-2020 End: 08-11-2021 take 1 capsule by mouth once daily Venlafaxine (Effexor Xr) 75 mg capsule,extended release 24hr Discontinued 75 MG PO DAILY June 16, 2020 12:00am August 11, 2021 10:13am Problems Active Problems Problem Classification Problem Date Documented Date Episodic/Chronic Anxiety disorders (20 sources) Anxiety; Translations: [Anxiety disorder, unspecified] Onset: 02-04-2025 Chronic Cardiac dysrhythmias (20 sources) Palpitations; Translations: [Palpitations] Episodic Deficiency and other anemia (5 sources) Anemia; Translations: [Anemia, unspecified] 04-24-2023 Episodic Deficiency and other anemia (3 sources) Anemia, unspecified; Translations: [Anemia, unspecified] Episodic Fever of unknown origin (8 sources) Fever; Translations: [Fever, unspecified] Episodic Hemorrhage during ; abruptio placenta; placenta previa (20 sources) Threatened miscarriage; Translations: [Threatened ] Episodic Menstrual disorders (20 sources) Irregular periods; Translations: [Irregular menstruation, unspecified] Onset: 10-28-2024 04-24-2023 Chronic Nonmalignant breast conditions (2 sources) Breast lump; Translations: [Unspecified lump in unspecified breast] 08-06-2023 Episodic Other complications of ; puerperium affecting management of mother (20 sources) hemorrhage; Translations: [Other immediate hemorrhage] 03-30-2019 Episodic Other complications of ; puerperium affecting management of mother (6 sources) Retained placenta; Translations: [Retained placenta without hemorrhage] 06-15-2022 Episodic Other complications of ; puerperium affecting management of mother (4 sources) Retained placenta without hemorrhage; Translations: [Retained placenta without hemorrhage, unspecified as to episode of care or not applicable] Episodic Other complications of ; puerperium affecting management of mother (3 sources) Other immediate hemorrhage; Translations: [Other immediate hemorrhage, unspecified as to episode of care or not applicable] Episodic Other complications of ; puerperium affecting management of mother (4 sources) Puerperal endometritis; Translations: [Endometritis following delivery] 04-24-2023 Episodic Other complications of ; puerperium affecting management of mother (2 sources) Endometritis following delivery; Translations: [Puerperal endometritis, unspecified as to episode of care or not applicable] Episodic Other complications of (20 sources) Anxiety; Translations: [Other mental disorders complicating the puerperium] 08-11-2021 Episodic Other complications of (13 sources) Placental abnormality; Translations: [Malformation of placenta, unspecified, second trimester] Episodic Other complications of (20 sources) Malformation of placenta, unspecified, second trimester; Translations: [Other placental conditions, affecting management of mother, antepartum condition or complication] Episodic Other complications of (10 sources) Pruritus of ; Translations: [Diseases of the skin and subcutaneous tissue complicating , unspecified trimester] 06-15-2022 Episodic Other complications of (10 sources) data - finding; Translations: [Unspecified abnormal findings on screening of mother] 06-06-2022 Episodic Other complications of (8 sources) Pruritic urticarial papules and plaques of ; Translations: [Pruritic urticarial papules and plaques of (PUPPP)] Episodic Other complications of (20 sources) Pruritic urticarial papules and plaques of (PUPPP); Translations: [Other specified complications of , unspecified as to episode of care or not applicable] Episodic Other complications of (20 sources) Diseases of the skin and subcutaneous tissue complicating , unspecified trimester; Translations: [Other specified complications of , unspecified as to episode of care or not applicable] Episodic Other complications of (20 sources) Unspecified abnormal findings on screening of mother; Translations: [Abnormal finding on screening] Episodic Other complications of (7 sources) Poor growth affecting management; Translations: [Maternal care for other known or suspected poor growth, unspecified trimester, not applicable or unspecified] 06-15-2022 Episodic Other complications of (8 sources) Maternal care for other known or suspected poor growth, unspecified trimester, not applicable or unspecified; Translations: [Poor growth, affecting management of mother, unspecified as to episode of care or not applicable] Episodic Other complications of (2 sources) Anomaly of placenta; Translations: [Malformation of placenta, unspecified, second trimester] 06-06-2022 Episodic Other female genital disorders (18 sources) Vaginal bleeding; Translations: [Abnormal uterine and vaginal bleeding, unspecified] 11-22-2021 Chronic Other female genital disorders (1 source) Abnormal uterine and vaginal bleeding, unspecified; Translations: [Other specified noninflammatory disorders of vagina] Chronic Other female genital disorders (2 sources) Postcoital bleeding; Translations: [Postcoital and contact bleeding] 04-24-2023 Chronic Other female genital disorders (2 sources) Postcoital and contact bleeding; Translations: [Postcoital bleeding] 04-24-2023 Chronic Other female genital disorders (10 sources) History of past delivery; Translations: [Status post vaginal delivery] Episodic Other and delivery including normal (20 sources) Normal ; Translations: [Gestation period, 8 weeks] Onset: 03-22-2017 03-22-2017 Episodic Residual codes; unclassified (1 source) History of [...] of back] Onset: 02-01-2009 02-01-2009 Episodic Other skin disorders (1 source) Acne; Translations: [Acne] Onset: 07-06-2010 07-06-2010 Episodic Unclassified (6 sources) 16 weeks gestation of ; Translations: [16 weeks gestation of ] Onset: 03-22-2017 05-17-2017 Unclassified (1 source) Problem Unclassified (20 sources) Normal labor; Translations: [Active labor at term] 03-20-2019 Unclassified (11 sources) Small for gestational age fetus; Translations: [Small for gestational age fetus] Unclassified (8 sources) Retained products of conception; Translations: [Retained products of conception] Urinary tract infections (11 sources) Acute urinary tract infection; Translations: [Urinary tract infection, site not specified] Onset: 04-12-2017 04-12-2017 Episodic Results Test Name Value Interpretation Reference Range Facility MR/Denice 02-04-2025 MR/[place] [address] OFFICE VISIT Date of Service: 02/04/25 MR#: [id number] Acct: [id number] Name: ZEE SAN Rep #: [id number] : 1990 Provider: Dr. Sal Pal se, DO Age/Sex: 34/F Location: [facility] Status: Signed Intake Vital Signs 08/06/24 07:31 12/25/24 12:56 02/04/25 08:02 Height 5 ft 8 in 5 ft 8 in 5 ft 8 in BP Intake Visit Reasons: 6 M FU Allergies codeine Adverse Reaction (Mild, Verified 08/06/24 07:35) Unknown oxycodone (From Percocet) Adverse Reaction (Mild, Verified 08/06/24 07:35) Unknown [facility] Medical History PERFECTO (generalized anxiety disorder) endometritis hemorrhage Anemia Retained products of conception Subchorionic bleed Femur fracture, left Fracture of L4 vertebra Asthma, exercise induced Surgical History Status post vaginal delivery History of dilatation and curettage (2018) History of lumbar laminectomy (09/12/21) Hx of lumbar discectomy (2009) History of ankle surgery History of wisdom tooth extraction, class II edentulism Family History Father Hypertension Hyperlipidemia Grandfather Cancer skin Social History adopted: No household members: spouse and children number of children: 3 current occupational status: employed 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 Patient reports that things have been good. Feels like Wellbutrin is working well. Denies any significant side effects from medication. Is somewhat nervous about having a Crossfit competition tomorrow. Denies any weight gain or sleep changes. Denies SI/HI or AVH. Review of Systems Constitutional Denies: fever(s), chills, change in weight or fatigue Eyes Denies: change in vision or blurry vision Ears, Nose, Mouth, Throat Denies: throat pain, neck pain or change in hearing Cardiovascular Denies: chest pain, palpitations or dyspnea Respiratory Denies: dyspnea, cough or wheezing Gastrointestinal Denies: abdominal pain, nausea, vomiting, diarrhea or constipation Genitourinary Denies: dysuria or urinary frequency Musculoskeletal Denies: back pain, neck pain, joint pain or muscle weakness Integumentary/Breast Denies: rash or new lesions Neurological Denies: headache(s), dizziness or confusion Endocrine Denies: fatigue or excessive sweating Hematologic/Lymphatic Denies: easy bruising or easy bleeding Allergic/Immunologic Denies: wheezing Exam Mental Status Exam - Psych Appearance casually dressed and well kempt Attitude cooperative and engaged Activity/Motor Behavior appropriate eye contact and fidgeting Speech regular rate, regular volume and regular prosody Mood euythmic Affect anxious Thought Process linear, logical and coherent Thought Content no delusions and no hallucinations Suicidal Ideation none Homicidal Ideation none Attention intact Concentration intact Sensorium/Orientation awake, alert and oriented x3 Memory/Cognition impaired (Per pt. report.) Insight good Judgement good Exam Constitutional Documenting provider has reviewed patient's vital signs: yes Common normals: no acute distress, patient oriented x3 and alert General appearance: well developed Neuro Common normals: patient oriented x3 Sensorium/orientation: alert Gait (neuro): normal gait Assessment Plan Assessment Plan (1) PERFECTO (generalized anxiety disorder): Plan: - Continue Wellbutrin to 300 mg every day - advised of risks benefits and possible side effects Medications: Refilled bupropion HCl XL 300 mg PO QAM 90 tabs 1RF F41.9 - Anxiety disorder, unspecified Coding Level of Care Code Off vis,est,level 3 Diagnoses PERFECTO (generalized anxiety disorder) F41.1 02/04/25 1239 Date Sal Taveras Signature: Date (if applicable) CC: Normal [facility] MR/BMS.Denice 12-25-2024 MR/[place] [address] OFFICE VISIT Date of Service: 12/25/24 MR#: [id number] Acct: [id number] Name: SANZEEAmee BLACK Rep #: [id number] : 1990 Provider: [facility] Leonora doran Age/Sex: 33/F [place] [facility] [place]: Signed Intake Vital Signs 08/06/24 07:31 09/17/24 10:11 12/25/24 12:56 Height 5 ft 8 in 5 ft 8 in 5 ft 8 in Weight: 146 lb BMI 22.1 BP 122/78 H Blood Pressure Location Lt brachial Position Sitting Respiration 16 Pulse 81 Pulse Source Monitor BP Intake Visit Reasons: Follow up Allergies codeine Adverse Reaction (Mild, Verified 08/06/24 07:35) Unknown oxycodone (From Percocet) Adverse Reaction (Mild, Verified 08/06/24 07:35) Unknown [facility] Medical History PERFECTO (generalized anxiety disorder) endometritis hemorrhage Anemia Retained products of conception Subchorionic bleed Femur fracture, left Fracture of L4 vertebra Asthma, exercise induced Surgical History Status post vaginal delivery History of dilatation and curettage (2018) History of lumbar laminectomy (09/12/21) Hx of lumbar discectomy (2009) History of ankle surgery History of wisdom tooth extraction, class II edentulism Family History Father Hypertension Hyperlipidemia Grandfather Cancer skin Social History adopted: No household members: spouse and children number of children: 3 current occupational status: employed 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 She reported some overall reduction of anxiety attributing it to a change in work schedule. Zee identified work stressors and stressor related to interactions with her father and daughter who also experience anxious symptoms. Explored ways she is coping reinforcing efforts to remove herself from situations briefly and refocus. Taught and led Zee in squared breathing. Discussed how to implement it providing psychoeducation on breathing and anxiety. Encouraged verbalization of emotions while providing support. Discussed ways to support daughter including educating her on anxiety and encouraging breathing. Worked on worst case scenario thinking teaching CBT skill of identifying best, worst, and most realistic scenario. Practiced applying this to recent worst case scenario thinking. No SI. Future-oriented. Exam Mental Status Exam - Psych Appearance casually dressed and well kempt Attitude cooperative and engaged Activity/Motor Behavior appropriate eye contact and fidgeting Speech regular rate, regular volume and regular prosody Mood anxious Affect anxious Thought Process linear, logical and coherent Thought Content no delusions and no hallucinations Suicidal Ideation none Homicidal Ideation none Attention impaired (Per pt. report.) Concentration impaired (Per pt. report.) Sensorium/Orientation awake, alert and oriented x3 Memory/Cognition impaired (Per pt. report.) Insight good Judgement good Assessment Plan Assessment Plan (1) PERFECTO (generalized anxiety disorder): Plan: BH therapy using CBT, DBT, and ACT interventions to address thought patterns contributing to anxious symptoms and to teach coping skills. Psychiatric services to monitor anxious symptoms and medication effectiveness. Plan Goal 1 - Reduce overall frequency, intensity, and duration of anxiety so daily functioning is not impaired AEB pt.'s self-report. Objective 1 - Understand role that cognitive biases play in excessive worry and persistent anxious symptoms. Intervention 1 - Assist pt. in recognizing times of overestimating the probability of threats and underestimating or overlooking his ability to manage realistic demands. Intervention 2 - Assist pt. in analyzing his worries by examining potential biases such as the probability of the negative expectation occurring, the real consequences of it occurring, his abili ty to control the outcome, the worst possible outcome, and his ability to accept it. Objective 2 - Learn and implement calming skills to reduce overall anxiety and manage anxiety symptoms. Intevention 1 - Teach at least 3 calming relaxation skills and how to apply these to daily living. Visit Details (more content not included)... Normal [facility] Thyroid Stim Hormone (TSH)on 10-23-2024 TSH 1.840 uIU/mL Normal 0.300-4.200 [facility] Comment on above: Performed By: #### L [id number] #### [facility] [address] [place], [place], [id number] MR/Anthony 09-17-2024 MR/BMS. [facility] [address], [address] [place] [address] OFFICE VISIT Date of Service: 09/17/24 MR#: [id number] Acct: [id number] Name: ZEE SAN Rep #: [id number] : 1990 [facility] Age/Sex: 33/F [place] [facility]: Signed Intake Vital Signs 08/06/24 07:31 09/17/24 10:11 Height 5 ft 8 in 5 ft 8 in Weight: 146 lb BMI 22.1 BP 122/78 H Blood Pressure Location Lt brachial Position Sitting Respiration 16 Pulse 81 Pulse Source Monitor BP Intake Visit Reasons: EST CARE Allergies codeine Adverse Reaction (Mild, Verified 08/06/24 07:35) Unknown oxycodone (From Percocet) Adverse Reaction (Mild, Verified 08/06/24 07:35) Unknown [facility] Medical History PERFECTO (generalized anxiety disorder) endometritis hemorrhage Anemia Retained products of conception Subchorionic bleed Femur fracture, left Fracture of L4 vertebra Asthma, exercise induced Surgical History Status post vaginal delivery History of dilatation and curettage (2018) History of lumbar laminectomy (09/12/21) Hx of lumbar discectomy (2009) History of ankle surgery History of wisdom tooth extraction, class II edentulism Family History Father Hypertension Hyperlipidemia Grandfather Cancer skin Social History adopted: No household members: spouse and children number of children: 3 current occupational status: employed 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 She participates is psychiatric services through [facility] with Dr. Lindquist. Zee states that she is seeking counseling for anxious symptoms. She has not previously participated in counseling. She identifies starting treatment for anxiety with medication after first child and has struggled with anxious symptoms with each additional child. Zee was previously prescribed medication to treat anxious symptoms by her OB-OTOLARYNGOLOGY TEACHER and PCP. Sleep - not terrible; States her sleep has improved. Previously, would lie in bed and ruminate, struggle to fall asleep, and struggle to resume sleep when waking up during the night. Interests - Able to enjoy activities of interest to her including [employer]Fit 4x weekly, bowling, being outside, and swimming. Energy - fine; Able to be productive throughout the day. Guilt - Denies feelings of guilt, hopelessness, and worthlessness. Concentration - Reports historically having concentration difficulties especially in academic settings. Can focus on areas of interest but struggles to concentrate if she finds tasks or topics uninteresting. Has difficulty focusing when she reads or attempts to watch a movie. There are concerns of ADHD with one of her daughter. States she presented similarly at the same age. Father also displays the same symptoms. Has explored potential ADHD symptoms with Dr. Lindquist. Appetite -ok; Eats healthy. Met with a nutrition expert for about 1 year. Psychomotor - WNL Suicide - Denies any history of SI. Denies any family history of SI or suicide attempts. Memory - Has difficulty remembering what she reads. Easily remembers events. Depression - Denies any depressive symptoms. Anxiety - Rates her anxiety as a 6 or 7 on a scale of 1 to 10 with 10 being worst. Identifies the following as stressors that exacerbate her anxious symptoms: work; interactions with [id number]; and daughter's potential ADHD symptoms. Obsessions - clean freak; Experiences much anxiety with any clutter or objects being out of place. Compulsions - Will not go to sleep if anything is out of place and experiences irritability until everything is in place. Mandy - Denies PTSD - Denies any history of trauma. Psychosis - Denies all symptoms. Developmental History Developmental History: Family of origin - Zee is the younger of 2 children born to her parents who are . She has an older brother. Zee was born and raised in [place], [place]. She is close to her parents who help provide childcare for her children. Living Status - Zee lives with her and their 3 daughters ages 6, 5, and 2. Substance use history - Marielle (more content not included)... Normal [facility] MR/BMS.BPon 08-06-2024 MR/BMS.BP [facility] [address], [address] [place] [address] OFFICE VISIT Date of Service: 08/06/24 MR#: [id number] Acct: [id number] Name: ZEE SAN Rep #: [id number] : 1990 Provider: Dr. Sal Pal se, DO Age/Sex: 33/F [place] [facility]: Signed Intake Vital Signs 02/06/24 07:06 08/06/24 07:31 Height 5 ft 8 in 5 ft 8 in Weight: 146 lb BMI 22.1 BP 119/77 122/78 H Blood Pressure Location Rt brachial Lt brachial Position Sitting Sitting Respiration 16 Pulse 68 81 Pulse Source Monitor Monitor BP Intake Visit Reasons: Follow up Accompanied by: Self Allergies codeine Adverse Reaction (Mild, Verified 08/06/24 07:35) Unknown oxycodone (From Percocet) Adverse Reaction (Mild, Verified 08/06/24 07:35) Unknown Medications ???Medication ???Instructions ???Recorded ???Confirmed ???Type bupropion HCl 300 mg 24 hr tablet, 300 mg PO QAM #30 tabs 08/06/24 08/06/24 Rx extended release PFSH Medical History PERFECTO (generalized anxiety disorder) endometritis hemorrhage Anemia Retained products of conception Subchorionic bleed Femur fracture, left Fracture of L4 vertebra Asthma, exercise induced Surgical History Status post vaginal delivery History of dilatation and curettage (2018) History of lumbar laminectomy (09/12/21) Hx of lumbar discectomy (2009) History of ankle surgery History of wisdom tooth extraction, class II edentulism Family History Father Hypertension Hyperlipidemia Grandfather Cancer skin Social History adopted: No household members: spouse and children number of children: 3 current occupational status: employed 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 Reports that she tried hydroxyzine however it was too sedating, including even the half pill. Does find that she still gets frustrated and does let it get to a boiling point at times. Has been sleeping very well. Appetite has been stable. Denies SI HI or AVH. Review of Systems Constitutional Denies: fever(s), chills, change in weight or fatigue Eyes Denies: change in vision or blurry vision Ears, Nose, Mouth, Throat Denies: throat pain, neck pain or change in hearing Cardiovascular Denies: chest pain, palpitations or dyspnea Respiratory Denies: dyspnea, cough or wheezing Gastrointestinal Denies: abdominal pain, nausea, vomiting, diarrhea or constipation Genitourinary Denies: dysuria or urinary frequency Musculoskeletal Denies: back pain, neck pain, joint pain or muscle weakness Integumentary/Breast Denies: rash or new lesions Neurological Denies: headache(s), dizziness or confusion Endocrine Denies: fatigue or excessive sweating Hematologic/Lymphatic Denies: easy bruising or easy bleeding Allergic/Immunologic Denies: wheezing Exam Mental Status Exam - Psych Appearance casually dressed and no apparent distress Attitude cooperative and calm Activity/Motor Behavior MSE activity/motor behavior finding no adventitious movements Speech regular rate, regular volume and regular prosody Mood other (irritable) Affect congruent Thought Process linear, logical and coherent Thought Content no delusions and no hallucinations Suicidal Ideation none Homicidal Ideation none Attention intact Concentration intact Sensorium/Orientation awake, alert and oriented x3 Memory/Cognition other (appropriate for stated age) Insight good Judgement good Assessment Plan Assessment Plan (1) PERFECTO (generalized anxiety disorder): Plan: - We will increase Wellbutrin to 300 mg every day -We will stop hydroxyzine secondary to being oversedating - advised of risks benefits and possible side effects Medications: Changed From bupropion HCl XL (Wellbutrin XL) 150 mg PO QAM 90 tabs 1RF F41.9 - Anxiety disorder, unspecified To bupropion HCl XL 300 mg PO QAM 30 tabs 1RF F41.9 - Anxiety disorder, unspecified Discontinued hydroxyzine HCl Discontinued Reason: Order Completed 25 mg PO TID PRN 90 tabs 0RF anxiety F41.1 - Generalized anxiety disorder Coding Level of Care Code Off vis,est,level 4 (more content not included)... Normal [facility] Basophil percentageOrdered B y: Debbie Simons on 08-12-2023 Cholesterol [Mass/Vol] 187 mg/dL <200 [facility] Comment on above: <200 mg/dL Desirable 200-240 mg/dL Borderline >240 mg/dL High Risk Triglyceride [Mass/Vol] 57 mg/dL <199 [facility] Comment on above: The drugs N-Acetylcy steine and Metamizole may falsely depress this assay.Serum Triglycerides Reference Interval Normal <150 mg/dL Borderline high 150 - 199 mg/dL High 200 - 499 mg/dL Very High > or = 500 mg/dL High density lipoprotein (HD L) measurementOrdered By: Debbie Simons on 08-12-2023 Cholesterol in HDL (Body fld) [Mass/Vol] 60 mg/dL >40 [facility] Comment on above: The drugs N-Acetylcy steine and Metamizole may falsely depress this assay. Reference Range HDL <40 mg/dL Low HDL Cholesterol HDL >or= 60 mg/dL High HDL Cholesterol Low density lipoprotein (LDL ) cholesterol measurementOrdered By: Debbie Simons on 08-12-2023 Cholesterol in LDL (Body fld) [Moles/Vol] 116 mg/dL 0-130 [facility] Very low density lipoprotein (VLDL) cholesterol measurementOrdered By: Debbie Simons on 08-12-2023 Cholesterol in VLDL Calc [Moles/Vol] 11 mg/dL 5-40 [facility] Absolute lymphocyte countOrd ered By: Tia Arredondo on 04-18-2023 Lymphocytes Auto (Unsp spec) [#/Vol] 2.24 10*3/uL 0.83-4.51 [facility] Basophil percentageOrdered B y: Tia Arredondo on 04-18-2023 Basophils/100 WBC (Bld) 0.3 % 0-1 [facility] Eosinophils/100 WBC (Bld) 0.7 % 0-5 [facility] Neutrophils (Bld) [#/Vol] 4.5 10*3/uL 2.0-7.7 [facility] Neutrophils/100 WBC (Bld) 60.7 % 47-70 [facility] WBC (Bld) [#/Vol] 7.4 10*3/uL 4.4-11.0 [facility] Blood erythrocytes count (nu mber/volume)Ordered By: Tia Arredondo on 04-18-2023 RBC (Bld) [#/Vol] 4.28 10*6/uL 4.2-5.4 [facility] Blood hemoglobin measurement (mass/volume)Ordered By: Tia Arredondo on 04-18-2023 Hemoglobin (Bld) [Mass/Vol] 12.5 g/dL 12.0-15.0 [facility] Blood lymphocytes/100 leukoc ytesOrdered By: Tia Arredondo on 04-18-2023 Lymphocytes/100 WBC (Bld) 30.4 % 19-41 [facility] Blood monocytes/100 leukocyt esOrdered By: Tia Arredondo on 04-18-2023 Monocytes/100 WBC (Bld) 7.6 % 0-10 [facility] Blood platelet mean volumeOr dered By: Tia Arredondo on 04-18-2023 Platelet mean volume (Bld) [Entitic vol] 10.4 fL 6.2-12.0 [facility] Determination of erythrocyte mean corpuscular volume (MCV)Ordered By: Tia Arredondo on 04-18-2023 MCV (RBC) [Entitic vol] 90.0 fL 81-99 [facility] Hematocrit Auto (Bld) [Volum e fraction]Ordered By: Tia Arredondo on 04-18-2023 Hematocrit (Bld) [Volume fraction] 38.5 % 37-47 [facility] - Hematology and Cell countsOrdered By: Tia Arredondo on 04-18-2023 Erythrocyte distribution width (RBC) [Entitic vol] 43.9 fL 35.1-43.9 [facility] Erythrocyte distribution width (RBC) [Ratio] 13.3 % 11.6-14.6 [facility] Immature granulocytes/100 WBC (Bld) 0.300 % 0.0-0.9 [facility] Comment on above: IG% - Immature Granu locytes (promyelocytes, myelocytes and metamyelocytes) > 1% indicates that a LEFT SHIFT is Present. MCH (RBC) [Entitic mass] 29.2 pg 27.0-32.0 [facility] Nucleated RBC/100 WBC (Bld) [Ratio] 0 % 0-5 [facility] MCHC Auto (RBC) [Mass/Vol]Or dered By: Tia Arredondo on 04-18-2023 MCHC (RBC) [Mass/Vol] 32.5 g/dL 32-36 [facility] No Panel InformationOrdered By: Tia Arredondo on 04-18-2023 Thyroid Stimulating Hormone (TSH) 1.57 uIU/mL 0.358-3.74 [facility] Platelets bldOrdered By: Doyle Arredondo on 04-18-2023 Platelets (Bld) [#/Vol] 287 10*3/uL 150-450 [facility] Absolute lymphocyte counton 06-15-2022 Lymphocytes Auto (Unsp spec) [#/Vol] 1.37 10*3/uL 0.83-4.51 [facility] Work Phone: Basophil percentageon 2021 Basophils/100 WBC (Bld) 0.2 % 0-1 [facility] Work Phone: Eosinophils/100 WBC (Bld) 0.0 % 0-5 [facility] Work Phone: Neutrophils (Bld) [#/Vol] 3.6 10*3/uL 2.0-7.7 [facility] Work Phone: Neutrophils/100 WBC (Bld) 66.0 % 47-70 [facility] Work Phone: WBC (Bld) [#/Vol] 5.4 10*3/uL 4.4-11.0 [facility] Work Phone: Blood erythrocytes count (nu mber/volume)on 06-15-2022 RBC (Bld) [#/Vol] 2.87 10*6/uL 4.2-5.4 [facility] Work Phone: [phone] Blood hemoglobin measurement (mass/volume)on 06-15-2022 Hemoglobin (Bld) [Mass/Vol] 7.5 g/dL 12.0-15.0 [facility] Work Phone: [phone] Blood lymphocytes/100 leukoc yteson 06-15-2022 Lymphocytes/100 WBC (Bld) 25.3 % 19-41 [facility] Work Phone: [phone] Blood monocytes/100 leukocyt eson 06-15-2022 Monocytes/100 WBC (Bld) 8.1 % 0-10 [facility] Work Phone: [phone] Blood platelet mean volumeon 06-15-2022 Platelet mean volume (Bld) [Entitic vol] 9.2 fL 6.2-12.0 [facility] Work Phone: [phone] Determination of erythrocyte mean corpuscular volume (MCV)on 06-15-2022 MCV (RBC) [Entitic vol] 87.1 fL 81-99 [facility] Work Phone: [phone] Hematocrit Auto (Bld) [Volum e fraction]on 06-15-2022 Hematocrit (Bld) [Volume fraction] 25.0 % 37-47 [facility] Work Phone: Laboratory - Hematology and Cell countson 06-15-2022 Erythrocyte distribution width (RBC) [Entitic vol] 54.2 fL 35.1-43.9 [facility] Work Phone: [phone] Erythrocyte distribution width (RBC) [Ratio] 17.2 % 11.6-14.6 [facility] Work Phone: Immature granulocytes/100 WBC (Bld) 0.400 % 0.0-0.9 [facility] Work Phone: Comment on above: IG% - Immature Granu locytes (promyelocytes, myelocytes and metamyelocytes) > 1% indicates that a LEFT SHIFT is Present. MCH (RBC) [Entitic mass] 26.1 pg 27.0-32.0 [facility] Work Phone: Nucleated RBC/100 WBC (Bld) [Ratio] 0.4 % 0-5 [facility] Work Phone: MCHC Auto (RBC) [Mass/Vol]on 06-15-2022 MCHC (RBC) [Mass/Vol] 30.0 g/dL 32-36 [facility] Work Phone: Platelets bldon 06-15-2022 Platelets (Bld) [#/Vol] 377 10*3/uL 150-450 [facility] Work Phone: Absolute lymphocyte counton 06-14-2022 Lymphocytes Auto (Unsp spec) [#/Vol] 1.15 10*3/uL 0.83-4.51 [facility] Work Phone: Lymphocytes Auto (Unsp spec) [#/Vol] 1.36 10*3/uL 0.83-4.51 [facility] Work Phone: Basophil percentageon 2021 Lactate [Moles/Vol] 0.6 mmol/L 0.4-2.0 [facility] Work Phone: Neutrophils (Bld) [#/Vol] 5.9 10*3/uL 2.0-7.7 [facility] Work Phone: Neutrophils/100 WBC (Bld) 76.0 % 47-70 [facility] Work Phone: WBC (Bld) [#/Vol] 7.8 10*3/uL 4.4-11.0 [facility] Work Phone: Basophils/100 WBC (Bld) 0.3 % 0-1 [facility] Work Phone: Eosinophils/100 WBC (Bld) 0.1 % 0-5 [facility] Work Phone: Neutrophils (Bld) [#/Vol] 7.4 10*3/uL 2.0-7.7 [facility] Work Phone: [phone] Neutrophils/100 WBC (Bld) 77.7 % 47-70 [facility] Work Phone: WBC (Bld) [#/Vol] 9.5 10*3/uL 4.4-11.0 [facility] Work [phone] Bilirubin Test strip Ql (U)o n 06-14-2022 Bilirubin Ql (U) Negative Negative [facility] Work Phone: Blood erythrocytes count (nu mber/volume)on 06-14-2022 RBC (Bld) [#/Vol] 3.05 10*6/uL 4.2-5.4 [facility] Work Phone: RBC (Bld) [#/Vol] 3.35 10*6/uL 4.2-5.4 [facility] Work Phone: Blood hemoglobin measurement (mass/volume)on 06-14-2022 Hemoglobin (Bld) [Mass/Vol] 8.1 g/dL 12.0-15.0 [facility] Work Phone: Hemoglobin (Bld) [Mass/Vol] 8.9 g/dL 12.0-15.0 [facility] Work Phone: Blood lymphocytes/100 leukoc yteson 06-14-2022 Lymphocytes/100 WBC (Bld) 14.8 % 19-41 [facility] Work Phone: Lymphocytes/100 WBC (Bld) 14.3 % 19-41 [facility] Work Phone: Blood monocytes/100 leukocyt eson 06-14-2022 Monocytes/100 WBC (Bld) 8.2 % 0-10 [facility] Work Phone: Monocytes/100 WBC (Bld) 7.0 % 0-10 [facility] Work Phone: Blood platelet mean volumeon 06-14-2022 Platelet mean volume (Bld) [Entitic vol] 9.8 fL 6.2-12.0 [facility] Work Phone: [phone] Platelet mean volume (Bld) [Entitic vol] 9.2 fL 6.2-12.0 [facility] Work Phone: Determination of erythrocyte mean corpuscular volume (MCV)on 06-14-2022 MCV (RBC) [Entitic vol] 86.2 fL 81-99 [facility] Work Phone: [phone] MCV (RBC) [Entitic vol] 87.2 fL 81-99 [facility] Work Phone: [phone] Hematocrit Auto (Bld) [Volum e fraction]on 06-14-2022 Hematocrit (Bld) [Volume fraction] 26.3 % 37-47 [facility] Work Phone: [phone] Hematocrit (Bld) [Volume fraction] 29.2 % 37-47 [facility] Work Phone: [phone] Ketones Test strip Ql (U)on 06-14-2022 Ketones Ql (U) 5 mg/dl Negative [facility] Work Phone: Laboratory - Hematology and Cell countson 06-14-2022 Erythrocyte distribution width (RBC) [Entitic vol] 53.3 fL 35.1-43.9 [facility] Work Phone: [phone] Erythrocyte distribution width (RBC) [Ratio] 17.2 % 11.6-14.6 [facility] Work Phone: [phone] Nucleated RBC/100 WBC (Bld) [Ratio] 0.3 % 0-5 [facility] Work Phone: Erythrocyte distribution width (RBC) [Entitic vol] 53.7 fL 35.1-43.9 [facility] Work Phone: Erythrocyte distribution width (RBC) [Ratio] 17.3 % 11.6-14.6 [facility] Work Phone: Immature granulocytes/100 WBC (Bld) 0.600 % 0.0-0.9 [facility] Work Phone: Comment on above: IG% - Immature Granu locytes (promyelocytes, myelocytes and metamyelocytes) > 1% indicates that a LEFT SHIFT is Present. MCH (RBC) [Entitic mass] 26.6 pg 27.0-32.0 [facility] Work Phone: Nucleated RBC/100 WBC (Bld) [Ratio] 0 % 0-5 [facility] Work Phone: [phone] MCHC Auto (RBC) [Mass/Vol]on 06-14-2022 MCHC (RBC) [Mass/Vol] 30.8 g/dL [facility] Work Phone: [phone] MCHC (RBC) [Mass/Vol] 30.5 g/dL [facility] Work Phone: [phone] Nitrite Test strip Ql (U)on 06-14-2022 Nitrite Ql (U) Negative Negative [facility] Work Phone: Platelets bldon 06-14-2022 Platelets (Bld) [#/Vol] 423 10*3/uL 150-450 [facility] Work Phone: [phone] Platelets (Bld) [#/Vol] 461 10*3/uL 150-450 [facility] Work Phone: [phone] Protein Test strip Ql (U)on 06-14-2022 Protein Ql (U) 15 mg/dl Negative [facility] Work Phone: [phone] Serum or plasma choriogonado tropin detectionon 06-14-2022 HCG ( test) Ql 30 mIU/mL <4 [facility] Work Phone: [phone] Comment on above: hCG levels with Gest ational AgeGestational Age hCG mIU/mL (IU/L)0.2 - 1 week 5 - 501-2 weeks 50 - 5002-3 weeks 100 - 85845-7 weeks 500 - 467799-7 weeks 1000 - 314515-3 weeks 18434 - 100,0006-8 weeks 76996 - 200,0002-3 months 36289 - 100,000 Urine blood detectionon RBC Ql (U) 150 /ul Negative [facility] Work Phone: Urine clarityon 06-14-2022 Clarity (U) Clear Clear [facility] Work Phone: Urine color determinationon 06-14-2022 Color (U) Yellow Yellow [facility] Work Phone: Urine glucose detectionon Glucose Ql (U) Normal mg/dl Normal [facility] Work Phone: Urine leukocyte esterase det ection by dipstickon 06-14-2022 Leukocyte esterase Test strip Ql (U) 25 /ul Negative [facility] Work Phone: Urine pHon 06-14-2022 pH (U) 7.0 [pH] 5.0 - 8.0 [facility] Work Phone: Urine specific gravity measu rementon 06-14-2022 Specific gravity (U) [Rel density] 1.015 1.002-1.030 [facility] Work Phone: Urobilinogen Auto test strip Ql (U)on 06-14-2022 Urobilinogen Ql (U) Normal mg/dl Normal [facility] Work Phone: Absolute lymphocyte counton 06-07-2022 Lymphocytes Auto (Unsp spec) [#/Vol] 1.48 10*3/uL 0.83-4.51 [facility] Work Phone: Basophil percentageon 2021 WBC (Bld) [#/Vol] 20.9 10*3/uL 4.4-11.0 [facility] Work Phone: Basophils/100 WBC (Bld) 0.2 % 0-1 [facility] Work Phone: Eosinophils/100 WBC (Bld) 0.0 % 0-5 [facility] Work Phone: Neutrophils (Bld) [#/Vol] 15.1 10*3/uL 2.0-7.7 [facility] Work Phone: Neutrophils/100 WBC (Bld) 84.5 % 47-70 [facility] Work Phone: Blood erythrocytes count (nu mber/volume)on 06-07-2022 RBC (Bld) [#/Vol] 3.73 10*6/uL 4.2-5.4 [facility] Work Phone: Blood hemoglobin measurement (mass/volume)on 06-07-2022 Hemoglobin (Bld) [Mass/Vol] 9.9 g/dL 12.0-15.0 [facility] Work Phone: Blood lymphocytes/100 leukoc yteson 06-07-2022 Lymphocytes/100 WBC (Bld) 8.3 % 19-41 [facility] Work Phone: Blood monocytes/100 leukocyt eson 06-07-2022 Monocytes/100 WBC (Bld) 6.2 % 0-10 [facility] Work Phone: Blood platelet mean volumeon 06-07-2022 Platelet mean volume (Bld) [Entitic vol] 10.6 fL 6.2-12.0 [facility] Work Phone: Determination of erythrocyte mean corpuscular volume (MCV)on 06-07-2022 MCV (RBC) [Entitic vol] 84.5 fL 81-99 [facility] Work Phone: Hematocrit Auto (Bld) [Volum e fraction]on 06-07-2022 Hematocrit (Bld) [Volume fraction] 31.5 % 37-47 [facility] Work Phone: Laboratory - Hematology and Cell countson 06-07-2022 Erythrocyte distribution width (RBC) [Entitic vol] 51.0 fL 35.1-43.9 [facility] Work Phone: Erythrocyte distribution width (RBC) [Ratio] 16.5 % 11.6-14.6 [facility] Work Phone: MCH (RBC) [Entitic mass] 26.5 pg 27.0-32.0 [facility] Work Phone: Immature granulocytes/100 WBC (Bld) 0.800 % 0.0-0.9 [facility] Work Phone: Comment on above: IG% - Immature Granu locytes (promyelocytes, myelocytes and metamyelocytes) > 1% indicates that a LEFT SHIFT is Present. Nucleated RBC/100 WBC (Bld) [Ratio] 0 % 0-5 [facility] Work Phone: MCHC Auto (RBC) [Mass/Vol]on 06-07-2022 MCHC (RBC) [Mass/Vol] 31.4 g/dL 32-36 [facility] Work Phone: Platelets bldon 06-07-2022 Platelets (Bld) [#/Vol] 263 10*3/uL 150-450 [facility] Work Phone: Laboratory - Chemistry and C hemistry - challengeon 05-30-2022 Glucose Ql (U) Negative [facility] Work Phone: Laboratory - Urinalysison Protein Ql (U) Trace [facility] Work Phone: Laboratory - Chemistry and C hemistry - challengeon 05-18-2022 Glucose Ql (U) Negative [facility] Work Phone: Laboratory - Urinalysison Protein Ql (U) Negative [facility] Work Phone: Absolute lymphocyte counton 05-14-2022 Lymphocytes Auto (Unsp spec) [#/Vol] 1.56 10*3/uL 0.83-4.51 [facility] Work Phone: Basophil percentageon 2021 Basophils/100 WBC (Bld) 0.1 % 0-1 [facility] Work Phone: Bilirubin [Mass/Vol] 0.40 mg/dL 0.20-1.00 [facility] Work Phone: Comment on above: For patients on eltr ombopag therapy, use of [place] TBIL is not recommended. Chloride [Moles/Vol] 106 mmol/L 98-107 [facility] Work Phone: Eosinophils/100 WBC (Bld) 0.3 % 0-5 [facility] Work Phone: Glucose [Mass/Vol] 103 mg/dL 74-106 [facility] Work Phone: Comment on above: Fasting Glucose resu lt from 100 to 125 mg/dL suggests IMPAIRED HOMEOSTASIS per A.D.A. criteria. Neutrophils (Bld) [#/Vol] 6.4 10*3/uL 2.0-7.7 [facility] Work Phone: Neutrophils/100 WBC (Bld) 72.2 % 47-70 [facility] Work Phone: Potassium [Moles/Vol] 3.3 mmol/L 3.5-5.1 [facility] Work Phone: Protein [Mass/Vol] 6.6 g/dL 6.4-8.2 [facility] Work Phone: Sodium [Moles/Vol] 137 mmol/L 136-145 [facility] Work Phone: WBC (Bld) [#/Vol] 8.9 10*3/uL 4.4-11.0 [facility] Work Phone: Blood erythrocytes count (nu mber/volume)on 05-14-2022 RBC (Bld) [#/Vol] 3.92 10*6/uL 4.2-5.4 [facility] Work Phone: Blood hemoglobin measurement (mass/volume)on 05-14-2022 Hemoglobin (Bld) [Mass/Vol] 10.8 g/dL 12.0-15.0 [facility] Work Phone: Blood lymphocytes/100 leukoc yteson 05-14-2022 Lymphocytes/100 WBC (Bld) 17.6 % 19-41 [facility] Work Phone: Blood monocytes/100 leukocyt eson 05-14-2022 Monocytes/100 WBC (Bld) 8.8 % 0-10 [facility] Work Phone: Blood platelet mean volumeon 05-14-2022 Platelet mean volume (Bld) [Entitic vol] 11.6 fL 6.2-12.0 [facility] Work Phone: [phone] Determination of erythrocyte mean corpuscular volume (MCV)on 05-14-2022 MCV (RBC) [Entitic vol] 83.9 fL 81-99 [facility] Work Phone: [phone] Hematocrit Auto (Bld) [Volum e fraction]on 05-14-2022 Hematocrit (Bld) [Volume fraction] 32.9 % 37-47 [facility] Work Phone: Laboratory - Chemistry and C hemistry - challengeon 05-14-2022 ALP [Catalytic activity/Vol] 223 U/L 45-117 [facility] Work Phone: [phone] ALT [Catalytic activity/Vol] 17 U/L 13-56 [facility] Work Phone: [phone] CO2 [Moles/Vol] 22.0 mmol/L 21.0-32.0 [facility] Work Phone: [phone] Globulin (S) [Mass/Vol] 4.0 g/dL 2.2-4.2 [facility] Work Phone: [phone] Urea nitrogen/Creatinine [Mass ratio] 14.4 mg/mg 10-20 [facility] Work Phone: Glucose Ql (U) Negative [facility] Work Phone: [phone] Laboratory - Hematology and Cell countson 05-14-2022 Erythrocyte distribution width (RBC) [Entitic vol] 44.8 fL 35.1-43.9 [facility] Work Phone: [phone] Erythrocyte distribution width (RBC) [Ratio] 14.7 % 11.6-14.6 [facility] Work Phone: [phone] Immature granulocytes/100 WBC (Bld) 1.000 % 0.0-0.9 [facility] Work Phone: Comment on above: IG% - Immature Granu locytes (promyelocytes, myelocytes and metamyelocytes) > 1% indicates that a LEFT SHIFT is Present. MCH (RBC) [Entitic mass] 27.6 pg 27.0-32.0 [facility] Work Phone: Nucleated RBC/100 WBC (Bld) [Ratio] 0 % 0-5 [facility] Work Phone: Laboratory - Urinalysison Protein Ql (U) Negative [facility] Work Phone: [phone] MCHC Auto (RBC) [Mass/Vol]on 05-14-2022 MCHC (RBC) [Mass/Vol] 32.8 g/dL 32-36 [facility] Work Phone: No Panel Informationon 05-14 Estimated GFR (MDRD) Amer 166 mL/min >60 [facility] Work Phone: Comment on above: GFR Calc Estimated GFR (MDRD) Non-Af Amer 137 mL/min >60 [facility] Work Phone: Comment on above: Non- GFR Calc Platelets bldon 05-14-2022 Platelets (Bld) [#/Vol] 285 10*3/uL 150-450 [facility] Work Phone: [phone] Serum or plasma albumin al urement (mass/volume)on 05-14-2022 Albumin [Mass/Vol] 2.6 g/dL 3.2-5.0 [facility] Work Phone: [phone] Serum or plasma albumin/glob ulin mass ratioon 05-14-2022 Albumin/Globulin [Mass ratio] 0.6 {ratio} 0.9-2.4 [facility] Work Phone: [phone] Serum or plasma calcium al urement (mass/volume)on 05-14-2022 Calcium [Mass/Vol] 8.6 mg/dL 8.5-10.1 [facility] Work Phone: [phone] Serum or plasma creatinine m easurement (mass/volume)on 05-14-2022 Creatinine [Mass/Vol] 0.56 mg/dL 0.55-1.02 [facility] Work Phone: Comment on above: The validity of the calculated GFR & GFRAA in patients over 70 years has not been determined. Clinical correlation is essential. Serum or plasma urea nitroge n measurement (mass/volume)on 05-14-2022 Urea nitrogen [Mass/Vol] 8 mg/dL 7-18 [facility] Work Phone: Thin prep Papanicolaou smear with manual screeningon 05-14-2022 Thin prep Papanicolaou smear with manual screening 21 U/L 15-37 [facility] Work Phone: Thin prep Papanicolaou smear with manual screening 9 5-15 [facility] Work Phone: Absolute lymphocyte counton 05-10-2022 Lymphocytes Auto (Unsp spec) [#/Vol] 1.71 10*3/uL 0.83-4.51 [facility] Work Phone: Basophil percentageon 2021 Basophils/100 WBC (Bld) 0.2 % 0-1 [facility] Work Phone: Bilirubin [Mass/Vol] 0.20 mg/dL 0.20-1.00 [facility] Work Phone: Comment on above: For patients on eltr ombopag therapy, use of [place] TBIL is not recommended. Chloride [Moles/Vol] 108 mmol/L 98-107 [facility] Work Phone: Eosinophils/100 WBC (Bld) 0.4 % 0-5 [facility] Work Phone: Glucose [Mass/Vol] 80 mg/dL 74-106 [facility] Work Phone: Neutrophils (Bld) [#/Vol] 7.8 10*3/uL 2.0-7.7 [facility] Work Phone: Neutrophils/100 WBC (Bld) 72.9 % 47-70 [facility] Work Phone: Potassium [Moles/Vol] 3.7 mmol/L 3.5-5.1 [facility] Work Phone: Protein [Mass/Vol] 6.8 g/dL 6.4-8.2 [facility] Work Phone: Sodium [Moles/Vol] 138 mmol/L 136-145 [facility] Work Phone: WBC (Bld) [#/Vol] 10.7 10*3/uL 4.4-11.0 [facility] Work Phone: Blood erythrocytes count (nu mber/volume)on 05-10-2022 RBC (Bld) [#/Vol] 4.01 10*6/uL 4.2-5.4 [facility] Work Phone: Blood hemoglobin measurement (mass/volume)on 05-10-2022 Hemoglobin (Bld) [Mass/Vol] 11.1 g/dL 12.0-15.0 [facility] Work Phone: Blood lymphocytes/100 leukoc yteson 05-10-2022 Lymphocytes/100 WBC (Bld) 15.9 % 19-41 [facility] Work Phone: Blood monocytes/100 leukocyt eson 05-10-2022 Monocytes/100 WBC (Bld) 9.0 % 0-10 [facility] Work Phone: Blood platelet mean volumeon 05-10-2022 Platelet mean volume (Bld) [Entitic vol] 10.9 fL 6.2-12.0 [facility] Work Phone: Determination of erythrocyte mean corpuscular volume (MCV)on 05-10-2022 MCV (RBC) [Entitic vol] 84.8 fL 81-99 [facility] Work Phone: Hematocrit Auto (Bld) [Volum e fraction]on 05-10-2022 Hematocrit (Bld) [Volume fraction] 34.0 % 37-47 [facility] Work Phone: Laboratory - Chemistry and C hemistry - challengeon 05-10-2022 ALP [Catalytic activity/Vol] 217 U/L 45-117 [facility] Work Phone: [phone] ALT [Catalytic activity/Vol] 16 U/L 13-56 [facility] Work Phone: [phone] CO2 [Moles/Vol] 26.0 mmol/L 21.0-32.0 [facility] Work Phone: [phone] Globulin (S) [Mass/Vol] 4.2 g/dL 2.2-4.2 [facility] Work Phone: [phone] Urea nitrogen/Creatinine [Mass ratio] 12.5 mg/mg 10-20 [facility] Work Phone: [phone] Glucose Ql (U) Negative [facility] Work Phone: [phone] Laboratory - Hematology and Cell countson 05-10-2022 Erythrocyte distribution width (RBC) [Entitic vol] 44.8 fL 35.1-43.9 [facility] Work Phone: [phone] Erythrocyte distribution width (RBC) [Ratio] 14.6 % 11.6-14.6 [facility] Work Phone: [phone] Immature granulocytes/100 WBC (Bld) 1.600 % 0.0-0.9 [facility] Work Phone: [phone] Comment on above: IG% - Immature Granu locytes (promyelocytes, myelocytes and metamyelocytes) > 1% indicates that a LEFT SHIFT is Present. MCH (RBC) [Entitic mass] 27.7 pg 27.0-32.0 [facility] Work Phone: [phone] Nucleated RBC/100 WBC (Bld) [Ratio] 0 % 0-5 [facility] Work Phone: [phone] Laboratory - Urinalysison Protein Ql (U) Negative [facility] Work Phone: [phone] MCHC Auto (RBC) [Mass/Vol]on 05-10-2022 MCHC (RBC) [Mass/Vol] 32.6 g/dL 32-36 [facility] Work Phone: [phone] Panel Informationon 05-10 Estimated GFR (MDRD) Amer 164 mL/min >60 [facility] Work Phone: Comment on above: GFR Calc Estimated GFR (MDRD) Non-Af Amer 135 mL/min >60 [facility] Work Phone: Comment on above: Non- GFR Calc Miscellaneous Test See comment [facility] Work Phone: Comment on above: TEST RESULT LIMITSBi le Acids, Fractionated LCMSUrsodeoxycholic Acids <0.10 umol/LReference Range:All Ages: <1.9Cholic Acids 0.70 umol/LReference Range:All Ages: <2.2Chenodeoxycholic Acids 0.80 umol/LReference Range:All Ages: <5.8Deoxycholic Acids 0.50 umol/LReference Range:All Ages: <3.3Total Bile Acids 2.0 umol/LThis test was developed and its performance characteristicsdetermined by [employer]. It has not been cleared or approvedby the Food and Drug Administration.Reference Range:All Ages: <9.2 TESTING PERFORMED AT [facility]. ORIGINAL REPORT ON FILE IN LAB CONTAINS ADDITIONAL TEST SITE INFORMATION. ____ Platelets bldon 05-10-2022 Platelets (Bld) [#/Vol] 274 10*3/uL 150-450 [facility] Work Phone: Serum or plasma albumin al urement (mass/volume)on 05-10-2022 Albumin [Mass/Vol] 2.6 g/dL 3.2-5.0 [facility] Work Phone: [phone] Serum or plasma albumin/glob ulin mass ratioon 05-10-2022 Albumin/Globulin [Mass ratio] 0.6 {ratio} 0.9-2.4 [facility] Work Phone: Serum or plasma calcium al urement (mass/volume)on 05-10-2022 Calcium [Mass/Vol] 8.6 mg/dL 8.5-10.1 [facility] Work Phone: Serum or plasma creatinine m easurement (mass/volume)on 05-10-2022 Creatinine [Mass/Vol] 0.56 mg/dL 0.55-1.02 [facility] Work Phone: Comment on above: The validity of the calculated GFR & GFRAA in patients over 70 years has not been determined. Clinical correlation is essential. Serum or plasma urea nitroge n measurement (mass/volume)on 05-10-2022 Urea nitrogen [Mass/Vol] 7 mg/dL 7-18 [facility] Work Phone: Thin prep Papanicolaou smear with manual screeningon 05-10-2022 Thin prep Papanicolaou smear with manual screening 17 U/L 15-37 [facility] Work Phone: Thin prep Papanicolaou smear with manual screening 4 5-15 [facility] Work Phone: Laboratory - Chemistry and C hemistry - challengeon 05-02-2022 Glucose Ql (U) Negative [facility] Work Phone: Laboratory - Urinalysison Protein Ql (U) Negative [facility] Work Phone: Laboratory - Chemistry and C hemistry - challengeon 04-24-2022 Glucose Ql (U) Negative [facility] Work Phone: Laboratory - Urinalysison Protein Ql (U) Negative [facility] Work Phone: Laboratory - Chemistry and C hemistry - challengeon 03-30-2022 Glucose Ql (U) Negative [facility] Work Phone: Laboratory - Urinalysison Protein Ql (U) Negative [facility] Work Phone: Absolute lymphocyte counton 02-28-2022 Lymphocytes Auto (Unsp spec) [#/Vol] 2.30 10*3/uL 0.83-4.51 [facility] Work Phone: Basophil percentageon 2021 Basophils/100 WBC (Bld) 0.2 % 0-1 [facility] Work Phone: [phone] Eosinophils/100 WBC (Bld) 0.8 % 0-5 [facility] Work Phone: [phone] Neutrophils (Bld) [#/Vol] 7.1 10*3/uL 2.0-7.7 [facility] Work Phone: [phone] Neutrophils/100 WBC (Bld) 68.6 % 47-70 [facility] Work Phone: [phone] WBC (Bld) [#/Vol] 10.4 10*3/uL 4.4-11.0 [facility] Work Phone: [phone] Blood erythrocytes count (nu mber/volume)on 02-28-2022 RBC (Bld) [#/Vol] 3.72 10*6/uL 4.2-5.4 [facility] Work Phone: [phone] Blood hemoglobin measurement (mass/volume)on 02-28-2022 Hemoglobin (Bld) [Mass/Vol] 11.2 g/dL 12.0-15.0 [facility] Work Phone: [phone] Blood lymphocytes/100 leukoc yteson 02-28-2022 Lymphocytes/100 WBC (Bld) 22.2 % 19-41 [facility] Work Phone: [phone] Blood monocytes/100 leukocyt eson 02-28-2022 Monocytes/100 WBC (Bld) 7.6 % 0-10 [facility] Work Phone: Blood platelet mean volumeon 02-28-2022 Platelet mean volume (Bld) [Entitic vol] 10.3 fL 6.2-12.0 [facility] Work Phone: Determination of erythrocyte mean corpuscular volume (MCV)on 02-28-2022 MCV (RBC) [Entitic vol] 91.4 fL 81-99 [facility] Work Phone: [phone] Gestational diabetes screen 1-hour screen with 50g oral glucose loadon 02-28-2022 Glucose 1 Hr post 50 g glucose PO [Mass/Vol] 124 mg/dL 70-140 [facility] Work Phone: [phone] Hematocrit Auto (Bld) [Volum e fraction]on 02-28-2022 Hematocrit (Bld) [Volume fraction] 34.0 % 37-47 [facility] Work Phone: Laboratory - Chemistry and C hemistry - challengeon 02-28-2022 Glucose Ql (U) Negative [facility] Work Phone: [phone] Laboratory - Hematology and Cell countson 02-28-2022 Erythrocyte distribution width (RBC) [Entitic vol] 45.3 fL 35.1-43.9 [facility] Work Phone: [phone] Erythrocyte distribution width (RBC) [Ratio] 13.4 % 11.6-14.6 [facility] Work Phone: [phone] Immature granulocytes/100 WBC (Bld) 0.600 % 0.0-0.9 [facility] Work Phone: [phone] Comment on above: IG% - Immature Granu locytes (promyelocytes, myelocytes and metamyelocytes) > 1% indicates that a LEFT SHIFT is Present. MCH (RBC) [Entitic mass] 30.1 pg 27.0-32.0 [facility] Work Phone: [phone] Nucleated RBC/100 WBC (Bld) [Ratio] 0 % 0-5 [facility] Work Phone: [phone] Laboratory - Urinalysison Protein Ql (U) Negative [facility] Work Phone: [phone] MCHC Auto (RBC) [Mass/Vol]on 02-28-2022 MCHC (RBC) [Mass/Vol] 32.9 g/dL 32-36 [facility] Work Phone: [phone] Platelets bldon 02-28-2022 Platelets (Bld) [#/Vol] 276 10*3/uL 150-450 [facility] Work Phone: Laboratory - Chemistry and C hemistry - challengeon 02-02-2022 Glucose Ql (U) Negative [facility] Work Phone: Laboratory - Urinalysison Protein Ql (U) Negative [facility] Work Phone: Absolute lymphocyte counton 01-12-2022 Lymphocytes Auto (Unsp spec) [#/Vol] 1.71 10*3/uL 0.83-4.51 [facility] Work Phone: Basophil percentageon 2021 Basophils/100 WBC (Bld) 0.1 % 0-1 [facility] Work Phone: Chloride [Moles/Vol] 108 mmol/L 98-107 [facility] Work Phone: Eosinophils/100 WBC (Bld) 0.4 % 0-5 [facility] Work Phone: Glucose [Mass/Vol] 75 mg/dL 74-106 [facility] Work Phone: Neutrophils (Bld) [#/Vol] 6.9 10*3/uL 2.0-7.7 [facility] Work Phone: Neutrophils/100 WBC (Bld) 73.0 % 47-70 [facility] Work Phone: Potassium [Moles/Vol] 3.4 mmol/L 3.5-5.1 [facility] Work Phone: Sodium [Moles/Vol] 138 mmol/L 136-145 [facility] Work Phone: WBC (Bld) [#/Vol] 9.4 10*3/uL 4.4-11.0 [facility] Work Phone: Blood erythrocytes count (nu mber/volume)on 01-12-2022 RBC (Bld) [#/Vol] 3.84 10*6/uL 4.2-5.4 [facility] Work Phone: Blood hemoglobin measurement (mass/volume)on 01-12-2022 Hemoglobin (Bld) [Mass/Vol] 11.5 g/dL 12.0-15.0 [facility] Work Phone: Blood lymphocytes/100 leukoc yteson 01-12-2022 Lymphocytes/100 WBC (Bld) 18.2 % 19-41 [facility] Work Phone: Blood monocytes/100 leukocyt eson 01-12-2022 Monocytes/100 WBC (Bld) 7.9 % 0-10 [facility] Work Phone: Blood platelet mean volumeon 01-12-2022 Platelet mean volume (Bld) [Entitic vol] 10.2 fL 6.2-12.0 [facility] Work Phone: Determination of erythrocyte mean corpuscular volume (MCV)on 01-12-2022 MCV (RBC) [Entitic vol] 89.8 fL 81-99 [facility] Work Phone: Hematocrit Auto (Bld) [Volum e fraction]on 01-12-2022 Hematocrit (Bld) [Volume fraction] 34.5 % 37-47 [facility] Work Phone: Laboratory - Chemistry and C hemistry - challengeon 01-12-2022 CO2 [Moles/Vol] 26.0 mmol/L 21.0-32.0 [facility] Work Phone: Magnesium [Mass/Vol] 1.8 mg/dL 1.6-2.6 [facility] Work Phone: Urea nitrogen/Creatinine [Mass ratio] 11.8 mg/mg 10-20 [facility] Work Phone: Laboratory - Hematology and Cell countson 01-12-2022 Erythrocyte distribution width (RBC) [Entitic vol] 44.7 fL 35.1-43.9 [facility] Work Phone: [phone] Erythrocyte distribution width (RBC) [Ratio] 13.8 % 11.6-14.6 [facility] Work Phone: [phone] Immature granulocytes/100 WBC (Bld) 0.400 % 0.0-0.9 [facility] Work Phone: [phone] Comment on above: IG% - Immature Granu locytes (promyelocytes, myelocytes and metamyelocytes) > 1% indicates that a LEFT SHIFT is Present. MCH (RBC) [Entitic mass] 29.9 pg 27.0-32.0 [facility] Work Phone: [phone] Nucleated RBC/100 WBC (Bld) [Ratio] 0 % 0-5 [facility] Work Phone: [phone] MCHC Auto (RBC) [Mass/Vol]on 01-12-2022 MCHC (RBC) [Mass/Vol] 33.3 g/dL 32-36 [facility] Work Phone: No Panel Informationon 01-12 Estimated GFR (MDRD) Amer 184 mL/min >60 [facility] Work Phone: Comment on above: GFR Calc Estimated GFR (MDRD) Non-Af Amer 152 mL/min >60 [facility] Work Phone: Comment on above: Non- GFR Calc Thyroid Stimulating Hormone (TSH) 2.64 uIU/mL 0.358-3.74 [facility] Work Phone: Platelets bldon 01-12-2022 Platelets (Bld) [#/Vol] 296 10*3/uL 150-450 [facility] Work Phone: [phone] Serum or plasma calcium al urement (mass/volume)on 01-12-2022 Calcium [Mass/Vol] 8.6 mg/dL 8.5-10.1 [facility] Work Phone: [phone] Serum or plasma creatinine m easurement (mass/volume)on 01-12-2022 Creatinine [Mass/Vol] 0.51 mg/dL 0.55-1.02 [facility] Work Phone: [phone] Comment on above: The validity of the calculated GFR & GFRAA in patients over 70 years has not been determined. Clinical correlation is essential. Serum or plasma urea nitroge n measurement (mass/volume)on 01-12-2022 Urea nitrogen [Mass/Vol] 6 mg/dL 7-18 [facility] Work Phone: Thin prep Papanicolaou smear with manual screeningon 01-12-2022 Thin prep Papanicolaou smear with manual screening 4 5-15 [facility] Work Phone: Laboratory - Chemistry and C hemistry - challengeon 01-03-2022 Glucose Ql (U) Negative [facility] Work Phone: Laboratory - Urinalysison Protein Ql (U) Negative [facility] Work Phone: Laboratory - Chemistry and C hemistry - challengeon 12-08-2021 Glucose Ql (U) Negative [facility] Work Phone: Laboratory - Urinalysison Protein Ql (U) Negative [facility] Work Phone: Laboratory - Chemistry and C hemistry - challengeon 11-23-2021 Glucose Ql (U) Negative [facility] Work Phone: Laboratory - Urinalysison Protein Ql (U) Negative [facility] Work Phone: Laboratory - Chemistry and C hemistry - challengeon 11-15-2021 Glucose Ql (U) Negative [facility] Work Phone: Laboratory - Urinalysison Protein Ql (U) Negative [facility] Work Phone: Absolute lymphocyte counton 10-30-2021 Lymphocytes Auto (Unsp spec) [#/Vol] 1.78 10*3/uL 0.83-4.51 [facility] Work Phone: Basophil percentageon 2021 Basophils/100 WBC (Bld) 0.2 % 0-1 [facility] Work Phone: Eosinophils/100 WBC (Bld) 0.4 % 0-5 [facility] Work Phone: Neutrophils (Bld) [#/Vol] 6.0 10*3/uL 2.0-7.7 [facility] Work Phone: [phone] Neutrophils/100 WBC (Bld) 70.3 % 47-70 [facility] Work Phone: [phone] WBC (Bld) [#/Vol] 8.6 10*3/uL 4.4-11.0 [facility] Work Phone: [phone] Blood erythrocytes count (nu mber/volume)on 10-30-2021 RBC (Bld) [#/Vol] 4.39 10*6/uL 4.2-5.4 [facility] Work Phone: [phone] Blood hemoglobin measurement (mass/volume)on 10-30-2021 Hemoglobin (Bld) [Mass/Vol] 12.8 g/dL 12.0-15.0 [facility] Work Phone: [phone] Blood lymphocytes/100 leukoc yteson 10-30-2021 Lymphocytes/100 WBC (Bld) 20.8 % 19-41 [facility] Work Phone: [phone] Blood monocytes/100 leukocyt eson 10-30-2021 Monocytes/100 WBC (Bld) 8.2 % 0-10 [facility] Work Phone: [phone] Blood platelet mean volumeon 10-30-2021 Platelet mean volume (Bld) [Entitic vol] 10.0 fL 6.2-12.0 [facility] Work Phone: [phone] Determination of erythrocyte mean corpuscular volume (MCV)on 10-30-2021 MCV (RBC) [Entitic vol] 86.6 fL 81-99 [facility] Work Phone: [phone] HIV 1 and HIV-2 antibody ass ay with HIV-1 p24 antigen detectionon 10-30-2021 HIV 1+2 Ab+HIV1 p24 Ag IA Ql Non-Reactive Nonreactive [facility] Work Phone: [phone] Hematocrit Auto (Bld) [Volum e fraction]on 10-30-2021 Hematocrit (Bld) [Volume fraction] 38.0 % 37-47 [facility] Work Phone: [phone] Laboratory - Hematology and Cell countson 10-30-2021 Erythrocyte distribution width (RBC) [Entitic vol] 40.2 fL 35.1-43.9 [facility] Work Phone: [phone] Erythrocyte distribution width (RBC) [Ratio] 12.7 % 11.6-14.6 [facility] Work Phone: [phone] Immature granulocytes/100 WBC (Bld) 0.100 % 0.0-0.9 [facility] Work Phone: [phone] Comment on above: IG% - Immature Granu locytes (promyelocytes, myelocytes and metamyelocytes) > 1% indicates that a LEFT SHIFT is Present. MCH (RBC) [Entitic mass] 29.2 pg 27.0-32.0 [facility] Work Phone: [phone] Nucleated RBC/100 WBC (Bld) [Ratio] 0 % 0-5 [facility] Work Phone: [phone] MCHC Auto (RBC) [Mass/Vol]on 10-30-2021 MCHC (RBC) [Mass/Vol] 33.7 g/dL 32-36 [facility] Work Phone: [phone] No Panel Informationon 10-30 Hepatitis B Surface Antigen Non-Reactive Nonreactive [facility] Work Phone: [phone] Hepatitis C Antibody Non-Reactive Nonreactive W [facility] Work Phone: [phone] Comment on above: Non Reactive: < 0.8 Equivocal: >/= 0.8 to < 1.0 Reactive: >/= 1.0The CDC recommends that a reactive/equivocal HCV antibody result be followed up by the HCV Nucleic Acid Amplificationtest ([id number]) Rubella IgG Antibody Reactive Nonreactive [facility] Work Phone: [phone] Comment on above: Antibody Results Int erpretation of Immune Status Non Reactive Presumed Non-Immune Equivocal Equivocal Reactive Presumed Immune Platelets bldon 10-30-2021 Platelets (Bld) [#/Vol] 299 10*3/uL 150-450 [facility] Work Phone: Serum Treponema species anti body detectionon 10-30-2021 Treponema sp Ab Ql (S) Non-Reactive [facility] Work Phone: [phone] Chlamydia trachomatis rRNA d etection by probe and target amplification methodon 10-26-2021 C. trachomatis rRNA SAL+probe Ql (Unsp spec) Negative Negative [facility] Work Phone: Culture, urineon 10-26-2021 Bacteria identified Cx Nom (U) Culture exhibits no growth. [facility] Work Phone: Laboratory - Drug toxicology on 10-26-2021 Amphetamines Ql (U) Negative <1000 ng/mL [facility] Work Phone: [phone] Benzodiazepines Ql (U) Negative < 200 ng/mL [facility] Work Phone: Cannabinoids Screen Ql (U) Negative < 50 ng/mL [facility] Work Phone: Cocaine Ql (U) Negative < 300 ng/mL [facility] Work Phone: [phone] Opiates Ql (U) Negative < 300 ng/mL [facility] Work Phone: Laboratory - Microbiology an d Antimicrobial susceptibilityon 10-26-2021 N. gonorrhoeae DNA SAL+probe Ql (Unsp spec) Negative Negative [facility] Work Phone: Comment on above: Performed at: =[address] [id number] Director: Roberta Sow MD, Phone: [phone] No Panel Informationon 10-26 MDMA (Ecstasy) Screen Negative < 500 ng/mL [facility] Work Phone: [phone] Urine Barbiturates Screen Negative < 200 ng/mL [facility] Work Phone: [phone] Urine Drug Screen Comment [facility] Work Phone: Comment on above: CONFIRMATORY TESTING FOR ALL POSITIVE URINE DRUG SCREENRESULTS WILL ONLY BE SENT OUT UPON PHYSICIAN ORDER. VISTA Urine Drug Screen methods provide only preliminaryanalytical test results. A more specific alternate chemicalmethod must be used in order to obtain a confirmedanalytical result. Gas chromatography/mass spectrometery(GC/MS) is the preferred confirmatory method. Clinicalconsideration and professional judgement should be appliedto any drug of abuse test result, particularly whenpreliminary positive results are used. URINE TCA TESTING MUST BE ORDERED SEPARATELY. USE TESTMNEMONIC: [facility] Urine Methadone Screen Negative < 300 ng/mL [facility] Work Phone: Urine phencyclidine (PCP) de tectionon 10-26-2021 Phencyclidine Ql (U) Negative < 25 ng/mL [facility] Work Phone: Cervical or vagninal specime n microscopic examination by cytology stain (reported ason 08-11-2021 Cytology report Cyto stain Doc (Cvx/Vag) Comment [facility] Work Phone: Comment on above: The Pap smear is a s creening test designed to aid in thedetection of premalignant and malignant conditions of theuterine cervix. It is not a diagnostic procedure andshould not be used as the sole means of detecting cervicalcancer. Both false-positive and false-negative reports dooccur. Laboratory - Cytologyon 07-16 Winter [employer] Manager Cyto stain Nom (Cvx/Vag) [ID] Comment [facility] Work Phone: Comment on above: Karly Yepez, Cytot echnologist (ASCP) Laboratory - Miscellaneous t estson 08-11-2021 Service comment (Unsp spec) [Interp] Comment [facility] Work Phone: Comment on above: This liquid based Th inPrep(R) pap test was screened withthe use of an image guided system. Service comment (Unsp spec) [Interp] . [facility] Work Phone: [phone] No Panel Informationon 08-11 Human Papillomavirus Screen Comment [facility] Work Phone: Comment on above: The HPV DNA reflex c isaiah were not met with this specimenresult therefore, no HPV testing was performed.Performed at: [address] [id number] Director: Roberta Sow MD, Phone: [phone] Pathology report final diagnosis Narrative Comment [facility] Work Phone: Comment on above: NEGATIVE FOR INTRAEP ITHELIAL LESION OR MALIGNANCY. Laboratory - Microbiology an d Antimicrobial susceptibilityon 07-01-2021 SARS-CoV-2 (COVID-19) RNA SAL+probe Ql (Unsp spec) Detected [facility] Work Phone: No Panel Informationon 07-01 POC Nasal Swab Influenza A,B Not detected [facility] Work Phone: POC Nasal Swab RSV Not detected [facility] Work Phone: Clinical Summary: HMSPatient IDon 02-09-2020 OOP [facility] Work Phone: Clinical Summary: Outcome Keenan mmaryon 02-09-2020 Oswestry Pain Disability Index score 30 [facility] Work Phone: pain affects sex life (Oswestry Pain Disability Index) 1 [facility] Work Phone: pain affects sleeping (Oswestry Pain Disability Index) 2 [facility] Work Phone: pain affects social life (Oswestry Pain Disability Index) 0 [facility] Work Phone: pain intensity (Oswestry Pain Disability Index) 3 [facility] Work Phone: pain when traveling (Oswestry Pain Disability Index) 2 [facility] Work Phone: pain when walking (Oswestry Pain Disability Index) 1 [facility] Work Phone: pain while sitting (Oswestry Pain Disability Index) 2 [facility] Work Phone: pain while standing (Oswestry Pain Disability Index) 1 [facility] Work Phone: pain with lifting (Oswestry Pain Disability Index) 3 [facility] Work Phone: pain with personal care (Oswestry Pain Disability Index) 0 [facility] [place] [facility] Work Phone: diagnostic criteria for SLE #1 5 [facility] Work Phone: diagnostic criteria for SLE #10 3 [facility] Work Phone: diagnostic criteria for SLE #11 14 [facility] Work Phone: diagnostic criteria for SLE #12 19 [facility] Work Phone: diagnostic criteria for SLE #13 44.9 [facility] Work Phone: diagnostic criteria for SLE #14 62.5 [facility] Work Phone: diagnostic criteria for SLE #15 [phone] [facility] [place] [facility] Work Phone: diagnostic criteria for SLE #2 5 [facility] Work Phone: diagnostic criteria for SLE #3 5 [facility] Work Phone: diagnostic criteria for SLE #4 5 [facility] Work Phone: diagnostic criteria for SLE #5 5 [facility] Work Phone: diagnostic criteria for SLE #6 5 [facility] Work Phone: diagnostic criteria for SLE #7 4 [facility] Work Phone: diagnostic criteria for SLE #8 4 [facility] Work Phone: diagnostic criteria for SLE #9 5 [facility] Work Phone: Office Visit: New/Est - 1st visit with physician, Rm: 19on 02-09-2020 NEGATED: Highlighted rowMRI (magnetic resonance imaging) history of the lumbar spine on 01/29/2020 at [facility] Work Phone: Office Visit: OB Routineon 1 08-15-2016 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 of current medications (procedure) Done Invalid Interpretation Code [facility] Urine, glucose presence N Invalid Interpretation Code [facility] Urine, protein N Invalid Interpretation Code [facility] Office Visit: OB Routineon 1 07-17-2016 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 of current medications (procedure) Done Invalid Interpretation Code [facility] Urine, glucose presence N Invalid Interpretation Code [facility] Urine, protein N Invalid Interpretation Code [facility] Office Visit: OB Routineon 1 Albumin Ql (U) N Invalid Interpretation Code [facility] Glucose Test strip mass conc (U) N Invalid Interpretation Code [facility] Protein mass conc Done Invalid Interpretation Code [facility] Microbiology: Culture, Urine on 04-15-2017 CUUR Urine CultureCulture exhibits no growth. Invalid Interpretation Code [facility] GE use only - for LinkLogic import when terms are not otherwise specified Urine CultureCulture exhibits no growth. Invalid Interpretation Code [facility] Nurse Visit: UTIon 7 Albumin Ql (U) Negative [facility] Bilirubin Ql (U) Negative Invalid Interpretation Code [facility] blood in urine (hemoglobin) by dipstick Negative Invalid Interpretation Code [facility] Glucose Test strip mass conc (U) Negative [facility] Ketones mass conc (U) Negative Invalid Interpretation Code [facility] Nitrite Ql (U) Negative [facility] pH (U) 6.0 [pH] [facility] Tobacco smoking status NHIS Tobacco smoking status NHIS Invalid Interpretation Code [facility] Tobacco smoking status NHIS never smoker Invalid Interpretation Code [facility] Tobacco use HS never smoker Invalid Interpretation Code [facility] Urine, appearance cloudy Invalid Interpretation Code [facility] Urine, bilirubin presence Negative Invalid Interpretation Code [facility] Urine, color lt. yellow Invalid Interpretation Code [facility] Urine, glucose presence Negative Invalid Interpretation Code [facility] Urine, ketones presence Negative Invalid Interpretation Code [facility] Urine, leukocyte esterase presence Negative Invalid Interpretation Code [facility] Urine, nitrite presence Negative Invalid Interpretation Code [facility] Urine, pH 6.0 [pH] Invalid Interpretation Code [facility] Urine, protein Negative Invalid Interpretation Code [facility] Urine, urobilinogen presence Negative Invalid Interpretation Code [facility] Replaced Document: Rapid Jeremy smin Reagin (RPR)on 04-12-2017 Reagin Ab VDRL Qn (S) NONREACTIVE Invalid Interpretation Code NONREACTIVE [facility] Reagin antibody presence NONREACTIVE Invalid Interpretation Code NONREACTIVE [facility] Replaced Document: HIV Scree n 4TH GEN W/Confirmon 04-10-2017 GE use only - for LinkLogic import when terms are not otherwise specified Non Reactive Invalid Interpretation Code Non Reactive [facility] Replaced Document: Hepatitis B Surface Agon 04-10-2017 BSA (Body Surface Area) Negative Invalid Interpretation Code Negative [facility] HBV surface Ag Ql (S) Negative Invalid Interpretation Code Negative [facility] Replaced Document: Rubella I gGon 04-10-2017 Rubella IgG 182.8 [iU]/mL Invalid Interpretation Code [facility] rubella virus antibody, IgG 182.8 [iU]/mL Invalid Interpretation Code [facility] Replaced Document: CBC W/Dif f, Automatedon 04-09-2017 Absolute Neut 5.4 X10 3/UL Invalid Interpretation Code 2.0-7.7 [facility] Basophils/100 leukocytes 0.0 % Invalid Interpretation Code 0-1 [facility] Basophils/100 WBC (Bld) 0.0 % 0-1 [facility] Eosinophils/100 leukocytes 0.5 % Invalid Interpretation Code 0-5 [facility] Eosinophils/100 WBC (Bld) 0.5 % 0-5 [facility] Erythrocyte distribution width Auto Ratio (RBC) 43.1 fL Invalid Interpretation Code 35.1-43.9 [facility] Erythrocyte distribution width Ratio (RBC) 43.1 fL 35.1-43.9 [facility] Erythrocyte distribution width Ratio (RBC) 13.2 % 11.6-14.6 [facility] Erythrocytes (RBC) 4.30 10*6/uL Invalid Interpretation Code 4.2-5.4 [facility] Hematocrit (HCT) 38.5 % Invalid Interpretation Code 37-47 [facility] Hematocrit Volume Fraction (Bld) 38.5 % 37-47 [facility] Hemoglobin (HGB) 12.9 g/dL Invalid Interpretation Code 12.0-15.0 [facility] Immature granulocytes #/vol (Bld) 0.100 % Invalid Interpretation Code 0.0-0.9 [facility] immature granulocytes, percentage of total cells, blood 0.100 % Invalid Interpretation Code 0.0-0.9 [facility] Immature granulocytes/100 WBC (Bld) 0.100 % Invalid Interpretation Code 0.0-0.9 [facility] Lymphocytes 1.64 X10 3/UL Invalid Interpretation Code 0.83-4.51 [facility] Lymphocytes #/vol (Bld) 1.64 X10 3/UL 0.83-4.51 [facility] Lymphocytes/100 leukocytes 21.1 % Invalid Interpretation Code 19-41 [facility] Lymphocytes/100 WBC (Bld) 21.1 % 19-41 [facility] MCH 30.0 pg Invalid Interpretation Code 27.0-32.0 [facility] MCH Entitic mass (RBC) 30.0 pg 27.0-32.0 [facility] MCHC 33.5 G/GL Invalid Interpretation Code 32-36 [facility] MCHC mass conc (RBC) 33.5 G/GL 32-36 [place] [facility] MCV 89.5 fL Invalid Interpretation Code 81-99 [facility] MCV Entitic volume (RBC) 89.5 fL 81-99 [facility] Monocytes/100 leukocytes 8.4 % Invalid Interpretation Code 0-10 [facility] Monocytes/100 WBC (Bld) 8.4 % 0-10 [facility] neutrophil count, blood 5.4 X10 3/UL Invalid Interpretation Code 2.0-7.7 [facility] Neutrophils #/vol (Bld) 5.4 X10 3/UL 2.0-7.7 [facility] Neutrophils Auto #/vol (Bld) 5.4 X10 3/UL Invalid Interpretation Code 2.0-7.7 [facility] Neutrophils/100 leukocytes 69.9 % Invalid Interpretation Code 47-70 [facility] Neutrophils/100 WBC (Bld) 69.9 % 47-70 [facility] Platelet mean volume Entitic volume (Bld) 10.4 fL 6.2-12.0 [facility] Platelets 276 10*3/mm3 Invalid Interpretation Code 150-450 [facility] Platelets #/vol (Bld) 276 10*3/mm3 150-450 [facility] PMV by Chandan-[place] 10.4 fL Invalid Interpretation Code 6.2-12.0 [facility] RBC #/vol (Bld) 4.30 10*6/uL 4.2-5.4 [facility] RDW SD 43.1 fL Invalid Interpretation Code 35.1-43.9 [facility] RDW-CA 13.2 % Invalid Interpretation Code 11.6-14.6 [facility] red blood cell distribution width, size density 43.1 fL Invalid Interpretation Code 35.1-43.9 [facility] WBC #/vol (Bld) 7.8 10*3/uL 4.4-11.0 [facility] WBC (Leukocytes) 7.8 10*3/uL Invalid Interpretation Code 4.4-11.0 [facility] Microbiology: Culture, Urine on 03-24-2017 GE use only - for LinkLogic import when terms are not otherwise specified Urine CultureCulture exhibits no growth. Invalid Interpretation Code [facility] Lab Report: CT/NG [facility] BY PCR on 03-22-2017 Chlamydia trachomatis DNA [Presence] in Urine by Probe and target amplification method Negative Invalid Interpretation Code Negative [facility] Neisseria gonorrhoeae presence Negative Invalid Interpretation Code Negative [facility] Office Visit: OB Initialon 0 03-22-2017 Albumin Ql (U) Negative [facility] Bilirubin Ql (U) Negative [facility] blood in urine (hemoglobin) by dipstick Negative Invalid Interpretation Code [facility] 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 of current medications (procedure) Done Invalid Interpretation Code [facility] Fall risk assessment No Invalid Interpretation Code [facility] Glucose Test strip mass conc (U) Negative [facility] Herpes Simplex Virus Genital no Invalid Interpretation Code [facility] Ketones mass conc (U) Negative [facility] Nitrite Ql (U) Negative [facility] Protein mass conc Done [facility] Tobacco smoking status NHIS Never Invalid Interpretation Code [facility] Tobacco smoking status NHIS Never smoker [facility] Tobacco use [facility] Never smoker Invalid Interpretation Code [facility] Urine, appearance clear Invalid Interpretation Code [facility] Urine, bilirubin presence Negative Invalid Interpretation Code [facility] Urine, color lt. yellow Invalid Interpretation Code [facility] Urine, glucose presence Negative Invalid Interpretation Code [facility] Urine, ketones presence Negative Invalid Interpretation Code [facility] Urine, leukocyte esterase presence Negative Invalid Interpretation Code [facility] Urine, nitrite presence Negative Invalid Interpretation Code [facility] Urine, protein Negative Invalid Interpretation Code [facility] Urine, urobilinogen presence Negative Invalid Interpretation Code [facility] Office Visit: OB Initialon 0 08-15-2014 General categories [Interpretation] of Cervical or vaginal smear or scraping by Cyto stain Normal Invalid Interpretation Code [facility] Otheron 08-02-2009 CONVERTED CLINICAL HISTORY OPERATIVE PROCEDURE: Rt L4-5, L5-S1 microdiscectomy CLINICAL INFORMATION: Herniated disc [facility] CONVERTED FINAL DIAGNOSIS FINAL DIAGNOSIS: LUMBAR SPINE, EXCISION - DEGENERATING FIBROCARTILAGE. SPECIMEN: DISC [facility] CONVERTED GROSS DESCRIPTION GROSS DESCRIPTION: Disc rt L4-5, L5-S1 The specimen is received labeled disc. Received are portions of soft pink-simmons material measuring 5 x 5 x 3 cm in aggregate. A compliance representative sample is submitted in a single cassette. AP/SMS/lrs MICROSCOPIC DESCRIPTION: Slides reviewed. SDS/gpl [facility] CONVERTED ORDERING PROVIDER Ordering Provider: EDWIN SAN [facility] Thyroidon 08-02-2009 TSH Obdulio SEBASTIAN M.D., PATHOLOGIST (Electronic signature on file) Final Signed Out: 08/02/2009 14:45 [facility] Culture, urine Bacteria identified Cx Nom (U) Culture exhibits no growth. [facility] Work Phone: Influenza virus A and B and SARS-CoV-2 (COVID-19) Ag panel - Upper respiratory specim SARS-CoV-2 (COVID-19) RNA SAL+probe Ql (Resp) [facility] Work Phone: No Panel Information Group B Streptococcus Culture Group B Beta Streptococcus is not isolated. [facility] Work Phone: Vital Signs Date Time Vital Sign Value Performing Clinician Facility 08-06-2023 11:09-0500 Body height 172.[address] Debbie Simons Work Phone: [facility] 08-06-2023 11:08-0500 Body mass index (BMI) [Ratio] 26.1 kg/m2 Dr. Debbie Simons Work Phone: [facility] 08-06-2023 11:08-0500 Body weight 78.[address] Debbie Simons Work Phone: [facility] 08-06-2023 11:08-0500 Diastolic blood pressure 77 mm[Hg] Dr. Debbie Simons Work Phone: [facility] 08-06-2023 11:08-0500 Systolic blood pressure 119 mm[Hg] Dr. Debbie Simons Work Phone: [facility] 04-24-2023 10:32-0400 Body height 172.[address] Debbie Simons Work Phone: [facility] 04-24-2023 10:31-0400 Body mass index (BMI) [Ratio] 26.8 kg/m2 Dr. Debbie Simons Work Phone: [facility] 04-24-2023 10:31-0400 Body weight 79.[address] Debbie Simons Work Phone: [facility] 04-24-2023 10:31-0400 Diastolic blood pressure 72 mm[Hg] Dr. Debbie Simons Work Phone: [facility] 04-24-2023 10:31-0400 Systolic blood pressure 126 mm[Hg] Dr. eDbbie Simons Work Phone: [facility] 06-15-2022 04:30-0500 Body temperature 97.4 [degF] Dr. Debbie Simons Work Phone: [facility] Work Phone: 06-15-2022 04:30-0500 Diastolic blood pressure 66 mm[Hg] Dr. Debbie Simons Work Phone: [facility] Work Phone: 06-15-2022 04:30-0500 Heart rate 88 /min Dr. Debbie Simons Work Phone: [facility] Work Phone: 06-15-2022 04:30-0500 Respiratory rate 16 /min Dr. Debbie Simons Work Phone: [facility] Work Phone: 06-15-2022 04:30-0500 SaO2% (BldA) [Mass fraction] 98 % Dr. Debbie Simons Work Phone: [facility] Work Phone: 06-15-2022 04:30-0500 Systolic blood pressure 133 mm[Hg] Dr. Debbie Simons Work Phone: [facility] Work Phone: 06-15-2022 01:17-0500 Body height 172.[address] Debbie Simons Work Phone: [facility] Work Phone: 06-15-2022 01:17-0500 Body mass index (BMI) [Ratio] 28.8 kg/m2 Dr. Debbie Simons Work Phone: [facility] Work Phone: 06-15-2022 01:17-0500 Body temperature 98.6 [degF] Dr. Debbie Simons Work Phone: [facility] Work Phone: 06-15-2022 01:17-0500 Body weight 86.[address] Debbie Simons Work Phone: [facility] Work Phone: 06-15-2022 01:17-0500 Diastolic blood pressure 82 mm[Hg] Dr. Debbie Simons Work Phone: [facility] Work Phone: 06-15-2022 01:17-0500 Heart rate 84 /min Dr. Debbie Simons Work Phone: [facility] Work Phone: 06-15-2022 01:17-0500 Respiratory rate 17 /min Dr. Debbie Simons Work Phone: [facility] Work Phone: 06-15-2022 01:17-0500 SaO2% (BldA) [Mass fraction] 99 % Dr. Debbie Simons Work Phone: [facility] Work Phone: 06-15-2022 01:17-0500 Systolic blood pressure 118 mm[Hg] Dr. Debbie Simons Work Phone: [facility] Work Phone: 06-08-2022 08:23-0500 Body temperature 97.1 [degF] Dr. Debbie Simons Work Phone: [facility] Work Phone: 06-08-2022 08:23-0500 Diastolic blood pressure 63 mm[Hg] Dr. Debbie Simons Work Phone: [facility] Work Phone: 06-08-2022 08:23-0500 Heart rate 71 /min Dr. Debbie Simons Work Phone: [facility] Work Phone: 06-08-2022 08:23-0500 Respiratory rate 16 /min Dr. Debibe Simons Work Phone: [facility] Work Phone: 06-08-2022 08:23-0500 Systolic blood pressure 110 mm[Hg] Dr. Debbie Simons Work Phone: [facility] Work Phone: 06-08-2022 04:42-0500 SaO2% (BldA) [Mass fraction] 96 % Dr. Debbie Simons Work Phone: [facility] Work Phone: 06-06-2022 11:22-0500 Body height 172.[address] Debbie Simons Work Phone: [facility] Work Phone: 06-06-2022 11:22-0500 Body mass index (BMI) [Ratio] 32.1 kg/m2 Dr. Debbie Simons Work Phone: [facility] Work Phone: 06-06-2022 11:22-0500 Body weight 95.[address] Debbie Simons Work Phone: [facility] Work Phone: 06-06-2022 08:56-0500 Body mass index (BMI) [Ratio] 32.3 kg/m2 Dr. Debbie Simons Work Phone: [facility] Work Phone: 06-06-2022 08:56-0500 Body weight 96.[address] Debbie Simons Work Phone: [facility] Work Phone: 06-06-2022 08:56-0500 Diastolic blood pressure 74 mm[Hg] Dr. Debbie Simons Work Phone: [facility] Work Phone: 06-06-2022 08:56-0500 Systolic blood pressure 123 mm[Hg] Dr. Debbie Simons Work Phone: [facility] Work Phone: 05-30-2022 09:04-0500 Body height 172.[address] Debbie Simons Work Phone: [facility] Work Phone: 05-30-2022 09:03-0500 Body mass index (BMI) [Ratio] 31.9 kg/m2 Dr. Debbie Simons Work Phone: [facility] Work Phone: 05-30-2022 09:03-0500 Body weight 95.[address] Debbie Simons Work Phone: [facility] Work Phone: 05-30-2022 09:03-0500 Diastolic blood pressure 78 mm[Hg] Dr. Debbie Simons Work Phone: [facility] Work Phone: 05-30-2022 09:03-0500 Systolic blood pressure 118 mm[Hg] Dr. Debbie Simons Work Phone: [facility] Work Phone: 05-21-2022 09:01-0500 Body mass index (BMI) [Ratio] 31.9 kg/m2 Dr. Debbie Simons Work Phone: [facility] Work Phone: 05-21-2022 09:01-0500 Body weight 95.[address] Debbie Simons Work Phone: [facility] Work Phone: 05-21-2022 09:01-0500 Diastolic blood pressure 81 mm[Hg] Dr. Debbie Simons Work Phone: [facility] Work Phone: 05-21-2022 09:01-0500 Systolic blood pressure 122 mm[Hg] Dr. Debbie Simons Work Phone: [facility] Work Phone: 05-18-2022 10:50-0400 Diastolic blood pressure 70 mm[Hg] Dr. Debbie Simons Work Phone: [facility] Work Phone: 05-18-2022 10:50-0400 Systolic blood pressure 110 mm[Hg] Dr. Debbie Simons Work Phone: [facility] Work Phone: 05-18-2022 10:10-0400 Body height 172.[address] Debbie Simons Work Phone: [facility] Work Phone: 05-18-2022 10:10-0400 Body mass index (BMI) [Ratio] 31.9 kg/m2 Dr. Debbie Simons Work Phone: [facility] Work Phone: 05-18-2022 10:10-0400 Body weight 95.[address] Debbie Simons Work Phone: [facility] Work Phone: 05-14-2022 19:40-0400 Body height 172.[address] Debbie Simons Work Phone: [facility] Work Phone: 05-14-2022 19:40-0400 Body mass index (BMI) [Ratio] 31.8 kg/m2 Dr. Debbie Simons Work Phone: [facility] Work Phone: 05-14-2022 19:40-0400 Body weight 94.[address] Debbie Simons Work Phone: [facility] Work Phone: 05-14-2022 19:39-0400 Diastolic blood pressure 77 mm[Hg] Dr. Debbie Simons Work Phone: [facility] Work Phone: 05-14-2022 19:39-0400 Heart rate 83 /min Dr. Debbie Simons Work Phone: [facility] Work Phone: 05-14-2022 19:39-0400 Systolic blood pressure 123 mm[Hg] Dr. Debbie Simons Work Phone: [facility] Work Phone: 05-14-2022 09:11-0400 Body mass index (BMI) [Ratio] 32.1 kg/m2 Dr. Debbie Simons Work Phone: [facility] Work Phone: 05-14-2022 09:11-0400 Body weight 95.[address] Debbie Simons Work Phone: [facility] Work Phone: 05-14-2022 09:11-0400 Diastolic blood pressure 74 mm[Hg] Dr. Debbie Simons Work Phone: [facility] Work Phone: 05-14-2022 09:11-0400 Systolic blood pressure 112 mm[Hg] Dr. Debbie Simons Work Phone: [facility] Work Phone: 05-10-2022 10:56-0400 Diastolic blood pressure 80 mm[Hg] Dr. Debbie Simons Work Phone: [facility] Work Phone: 05-10-2022 10:56-0400 Systolic blood pressure 124 mm[Hg] Dr. Debbie Simons Work Phone: [facility] Work Phone: 05-10-2022 10:23-0400 Body mass index (BMI) [Ratio] 31.6 kg/m2 Dr. Debbie Simons Work Phone: [facility] Work Phone: 05-10-2022 10:23-0400 Body weight 94.[address] Debbie Simons Work Phone: [facility] Work Phone: 05-02-2022 10:26-0400 Body mass index (BMI) [Ratio] 27.1 kg/m2 Dr. Debbie Simons Work Phone: [facility] Work Phone: 05-02-2022 10:26-0400 Body weight 80.[address] Debbie Simons Work Phone: [facility] Work Phone: 05-02-2022 10:26-0400 Diastolic blood pressure 80 mm[Hg] Dr. Debbie Simons Work Phone: [facility] Work Phone: 05-02-2022 10:26-0400 Systolic blood pressure 118 mm[Hg] Dr. Debbie Simons Work Phone: [facility] Work Phone: 04-24-2022 08:12-0400 Body mass index (BMI) [Ratio] 31.3 kg/m2 Dr. Debbie Simons Work Phone: [facility] Work Phone: 04-24-2022 08:12-0400 Body weight 93.[address] Debbie Simons Work Phone: [facility] Work Phone: 04-24-2022 08:12-0400 Diastolic blood pressure 82 mm[Hg] Dr. Debbie Simons Work Phone: [facility] Work Phone: 04-24-2022 08:12-0400 Systolic blood pressure 116 mm[Hg] Dr. Debbie Simons Work Phone: [facility] Work Phone: 04-13-2022 09:31-0400 Body mass index (BMI) [Ratio] 31 kg/m2 Dr. Debbie Simons Work Phone: [facility] Work Phone: 04-13-2022 09:31-0400 Body weight 92.[address] Debbie Simons Work Phone: [facility] Work Phone: 04-13-2022 09:31-0400 Diastolic blood pressure 77 mm[Hg] Dr. Debbie Simons Work Phone: [facility] Work Phone: 04-13-2022 09:31-0400 Systolic blood pressure 114 mm[Hg] Dr. Debbie Simons Work Phone: [facility] Work Phone: 03-30-2022 09:22-0400 Body mass index (BMI) [Ratio] 31.4 kg/m2 Dr. Debbie Simons Work Phone: [facility] Work Phone: 03-30-2022 09:22-0400 Body weight 91.[address] Debbie Simons Work Phone: [facility] Work Phone: 03-30-2022 09:22-0400 Diastolic blood pressure 77 mm[Hg] Dr. Debbie Simons Work Phone: [facility] Work Phone: 03-30-2022 09:22-0400 Systolic blood pressure 123 mm[Hg] Dr. Debbie Simons Work Phone: [facility] Work Phone: 03-15-2022 10:27-0400 Body height 172.[address] Debbie Simons Work Phone: [facility] Work Phone: 03-15-2022 10:26-0400 Body mass index (BMI) [Ratio] 29.9 kg/m2 Dr. Debbie Simons Work Phone: [facility] Work Phone: 03-15-2022 10:26-0400 Body weight 89.[address] Debbie Simons Work Phone: [facility] Work Phone: 03-15-2022 10:26-0400 Diastolic blood pressure 62 mm[Hg] Dr. Debbie Simons Work Phone: [facility] Work Phone: 03-15-2022 10:26-0400 Systolic blood pressure 96 mm[Hg] Dr. Debbie Simons Work Phone: [facility] Work Phone: 02-28-2022 08:30-0400 Body height 172.[address] Debbie Simons Work Phone: [facility] Work Phone: 02-28-2022 08:30-0400 Body mass index (BMI) [Ratio] 29.4 kg/m2 Dr. Debbie Simons Work Phone: [facility] Work Phone: 02-28-2022 08:30-0400 Body weight 87.[address] Debbie Simons Work Phone: [facility] Work Phone: 02-28-2022 08:30-0400 Diastolic blood pressure 80 mm[Hg] Dr. Debbie Simons Work Phone: [facility] Work Phone: 02-28-2022 08:30-0400 Systolic blood pressure 132 mm[Hg] Dr. Debbie Simons Work Phone: [facility] Work Phone: 02-02-2022 08:59-0400 Body mass index (BMI) [Ratio] 28.4 kg/m2 Dr. Debbie Simons Work Phone: [facility] Work Phone: 02-02-2022 08:59-0400 Body weight 84.[address] Debbie Simons Work Phone: [facility] Work Phone: 02-02-2022 08:59-0400 Diastolic blood pressure 70 mm[Hg] Dr. Debbie Simons Work Phone: [facility] Work Phone: 02-02-2022 08:59-0400 Systolic blood pressure 106 mm[Hg] Dr. Debbie Simons Work Phone: [facility] Work Phone: 01-12-2022 08:22-0400 Body height 172.[address] Debbie Simons Work Phone: [facility] Work Phone: 01-12-2022 08:22-0400 Body mass index (BMI) [Ratio] 27.3 kg/m2 Dr. Debbie Simons Work Phone: [facility] Work Phone: 01-12-2022 08:22-0400 Body weight 81.[address] Debbie Simons Work Phone: [facility] Work Phone: 01-12-2022 08:22-0400 Diastolic blood pressure 73 mm[Hg] Dr. Debbie Simons Work Phone: [facility] Work Phone: 01-12-2022 08:22-0400 Heart rate 108 /min Dr. Debbie Simons Work Phone: [facility] Work Phone: 01-12-2022 08:22-0400 Respiratory rate 16 /min Dr. Debbie Simons Work Phone: [facility] Work Phone: 01-12-2022 08:22-0400 SaO2% (BldA) [Mass fraction] 99 % Dr. Debbie Simons Work Phone: [facility] Work Phone: 01-12-2022 08:22-0400 Systolic blood pressure 124 mm[Hg] Dr. Debbie Simons Work Phone: [facility] Work Phone: 01-03-2022 09:54-0400 Body height 172.[address] Debbie Simons Work Phone: [facility] Work Phone: 01-03-2022 09:54-0400 Body mass index (BMI) [Ratio] 27.3 kg/m2 Dr. Debbie Simons Work Phone: [facility] Work Phone: 01-03-2022 09:54-0400 Body weight 81.[address] Debbie Simons Work Phone: [facility] Work Phone: 01-03-2022 09:54-0400 Diastolic blood pressure 78 mm[Hg] Dr. Debbie Simons Work Phone: [facility] Work Phone: 01-03-2022 09:54-0400 Systolic blood pressure 114 mm[Hg] Dr. Debbie Simons Work Phone: [facility] Work Phone: 12-08-2021 13:29-0400 Body mass index (BMI) [Ratio] 26.6 kg/m2 Dr. Debbie Simons Work Phone: [facility] Work Phone: 12-08-2021 13:29-0400 Body weight 79.[address] Debbie Simons Work Phone: [facility] Work Phone: 12-08-2021 13:29-0400 Diastolic blood pressure 82 mm[Hg] Dr. Debbie Simons Work Phone: [facility] Work Phone: 12-08-2021 13:29-0400 Systolic blood pressure 102 mm[Hg] Dr. Debbie Simons Work Phone: [facility] Work Phone: 11-23-2021 09:54-0400 Body mass index (BMI) [Ratio] 26 kg/m2 Dr. Debbie Simons Work Phone: [facility] Work Phone: 11-23-2021 09:54-0400 Body weight 77.[address] Debbie Simons Work Phone: [facility] Work Phone: 11-23-2021 09:54-0400 Diastolic blood pressure 80 mm[Hg] Dr. Debbie Simons Work Phone: [facility] Work Phone: 11-23-2021 09:54-0400 Systolic blood pressure 120 mm[Hg] Dr. Debbie Simons Work Phone: [facility] Work Phone: 11-15-2021 11:05-0400 Body mass index (BMI) [Ratio] 25.9 kg/m2 Dr. Debbie Simons Work Phone: [facility] Work Phone: 11-15-2021 11:05-0400 Body weight 77.[address] Debbie Simons Work Phone: [facility] Work Phone: 11-15-2021 11:05-0400 Diastolic blood pressure 82 mm[Hg] Dr. Debbie Simons Work Phone: [facility] Work Phone: 11-15-2021 11:05-0400 Systolic blood pressure 112 mm[Hg] Dr. Debbie Simons Work Phone: [facility] Work Phone: 11-15-2021 11:05-0400 Body height 172.[address] Debbie Simons Work Phone: [facility] Work Phone: 11-15-2021 11:05-0400 Body mass index (BMI) [Ratio] 25.9 kg/m2 Dr. Debbie Simons Work Phone: [facility] Work Phone: 11-15-2021 11:05-0400 Body weight 77.[address] Debbie Simons Work Phone: [facility] Work Phone: 11-15-2021 11:05-0400 Diastolic blood pressure 82 mm[Hg] Dr. Debbie Simons Work Phone: [facility] Work Phone: 11-15-2021 11:05-0400 Systolic blood pressure 112 mm[Hg] Dr. Debbie Simons Work Phone: [facility] Work Phone: 11-14-2021 17:07-0400 Body height 172.[address] Debbie Simons Work Phone: [facility] Work Phone: 11-14-2021 17:07-0400 Body mass index (BMI) [Ratio] 25.8 kg/m2 Dr. Debbie Simons Work Phone: [facility] Work Phone: 11-14-2021 17:07-0400 Body temperature 98.1 [degF] Dr. Debbie Simons Work Phone: [facility] Work Phone: 11-14-2021 17:07-0400 Body weight 77.[address] Debbie Simons Work Phone: [facility] Work Phone: 11-14-2021 17:07-0400 Diastolic blood pressure 90 mm[Hg] Dr. Debbie Simons Work Phone: [facility] Work Phone: 11-14-2021 17:07-0400 Heart rate 107 /min Dr. Debbie Simons Work Phone: [facility] Work Phone: 11-14-2021 17:07-0400 Respiratory rate 19 /min Dr. Debbie Simons Work Phone: [facility] Work Phone: 11-14-2021 17:07-0400 SaO2% (BldA) [Mass fraction] 99 % Dr. Debbie Simons Work Phone: [facility] Work Phone: 11-14-2021 17:07-0400 Systolic blood pressure 146 mm[Hg] Dr. Debbie Simons Work Phone: [facility] Work Phone: 10-26-2021 09:32-0400 Body mass index (BMI) [Ratio] 25.9 kg/m2 Dr. Debbie Simons Work Phone: [facility] Work Phone: 10-26-2021 09:32-0400 Body weight 77.[address] Debbie Simons Work Phone: [facility] Work Phone: 10-26-2021 09:32-0400 Diastolic blood pressure 82 mm[Hg] Dr. Debbie Simons Work Phone: [facility] Work Phone: 10-26-2021 09:32-0400 Systolic blood pressure 132 mm[Hg] Dr. Debbie Simons Work Phone: [facility] Work Phone: 10-26-2021 09:32-0400 Body height 172.[address] Debbie Simons Work Phone: [facility] Work Phone: 10-26-2021 09:32-0400 Body mass index (BMI) [Ratio] 25.9 kg/m2 Dr. Debbie Simons Work Phone: [facility] Work Phone: 10-26-2021 09:32-0400 Body weight 77.[address] Debbie Simons Work Phone: [facility] Work Phone: 10-26-2021 09:32-0400 Diastolic blood pressure 82 mm[Hg] Dr. Debbie Simons Work Phone: [facility] Work Phone: 10-26-2021 09:32-0400 Systolic blood pressure 132 mm[Hg] Dr. Debbie Simons Work Phone: [facility] Work Phone: 10-20-2021 14:57-0400 Diastolic blood pressure 64 mm[Hg] Dr. Debbie Simons Work Phone: [facility] Work Phone: 10-20-2021 14:57-0400 Heart rate 85 /min Dr. Debbie Simons Work Phone: [facility] Work Phone: 10-20-2021 14:57-0400 Respiratory rate 18 /min Dr. Debbie Simons Work Phone: [facility] Work Phone: 10-20-2021 14:57-0400 SaO2% (BldA) [Mass fraction] 99 % Dr. Debbie Simons Work Phone: [facility] Work Phone: 10-20-2021 14:57-0400 Systolic blood pressure 107 mm[Hg] Dr. Debbie Simons Work Phone: [facility] Work Phone: 10-20-2021 13:53-0400 Body height 172.[address] Debbie Simons Work Phone: [facility] Work Phone: 10-20-2021 13:53-0400 Body mass index (BMI) [Ratio] 24.7 kg/m2 Dr. Debbie Simons Work Phone: [facility] Work Phone: 10-20-2021 13:53-0400 Body temperature 97.7 [degF] Dr. Debbie Simons Work Phone: [facility] Work Phone: 10-20-2021 13:53-0400 Body weight 73.[address] Debbie Simons Work Phone: [facility] Work Phone: 10-16-2021 11:04-0400 Diastolic blood pressure 55 mm[Hg] Dr. Debbie Simons Work Phone: [facility] Work Phone: 10-16-2021 11:04-0400 Heart rate 73 /min Dr. Debbie Simons Work Phone: [facility] Work Phone: 10-16-2021 11:04-0400 Respiratory rate 16 /min Dr. Debbie Simons Work Phone: [facility] Work Phone: 10-16-2021 11:04-0400 Systolic blood pressure 114 mm[Hg] Dr. Debbie Simons Work Phone: [facility] Work Phone: 10-16-2021 09:47-0400 Body mass index (BMI) [Ratio] 24.9 kg/m2 Dr. Debbie Simons Work Phone: [facility] Work Phone: 10-16-2021 09:47-0400 Body temperature 97.8 [degF] Dr. Debbie Simons Work Phone: [facility] Work Phone: 10-16-2021 09:47-0400 Body weight 74.[address] Debbie Simons Work Phone: [facility] Work Phone: 10-16-2021 09:47-0400 SaO2% (BldA) [Mass fraction] 100 % Dr. Debbie Simons Work Phone: [facility] Work Phone: 09-09-2021 07:09-0500 Body temperature 98.4 [degF] Dr. Debbie Simons Work Phone: [facility] Work Phone: 09-09-2021 07:09-0500 Diastolic blood pressure 78 mm[Hg] Dr. Debbie Simons Work Phone: [facility] Work Phone: 09-09-2021 07:09-0500 Heart rate 116 /min Dr. Debbie Simons Work Phone: [facility] Work Phone: 09-09-2021 07:09-0500 Respiratory rate 14 /min Dr. Debbie Simons Work Phone: [facility] Work Phone: 09-09-2021 07:09-0500 SaO2% (BldA) [Mass fraction] 99 % Dr. Debbie Simons Work Phone: [facility] Work Phone: 09-09-2021 07:09-0500 Systolic blood pressure 128 mm[Hg] Dr. Debbie Simons Work Phone: [facility] Work Phone: 08-11-2021 09:10-0500 Body mass index (BMI) [Ratio] 25.5 kg/m2 Dr. Debbie Simons Work Phone: [facility] Work Phone: 08-11-2021 09:10-0500 Body weight 76.[address] Debbie Simons Work Phone: [facility] Work Phone: 06-14-2017 08:38-0500 BMI (Body Mass Index) 25.1 kg/m2 Tia Arredondo MD [facility] 06-14-2017 08:38-0500 BP Diastolic 72 mm[Hg] Tia Arredondo MD [facility] 06-14-2017 08:38-0500 BP Systolic 114 mm[Hg] Tia Arredondo MD [facility] 06-14-2017 08:38-0500 Weight 77.11 kg Tia Arredondo MD [facility] 05-17-2017 10:53-0400 BMI (Body Mass Index) 24.13 kg/m2 Tia Arredondo MD [facility] 05-17-2017 10:53-0400 Body Temperature 97.9 [degF] Tia Arredondo MD [facility] 05-17-2017 10:53-0400 BP Diastolic 65 mm[Hg] Tia Arredondo MD [facility] 05-17-2017 10:53-0400 BP Systolic 102 mm[Hg] Tia Arrdeondo MD [facility] 05-17-2017 10:53-0400 Pulse (Heart Rate) 92 /min Tia Arredondo MD [facility] 05-17-2017 10:53-0400 Respiratory Rate 16 /min Tia Arredondo MD [facility] 05-17-2017 10:53-0400 Weight 74.12 kg Tia Arredondo MD [facility] 04-18-2017 05:59-0400 BMI (Body Mass Index) 23.21 kg/m2 Tia Arredondo MD [facility] 04-18-2017 05:59-0400 Body Temperature 97.2 [degF] Tia Arredondo MD [facility] 04-18-2017 05:59-0400 BP Diastolic 72 mm[Hg] Tia Arredondo MD [facility] 04-18-2017 05:59-0400 BP Systolic 115 mm[Hg] Tia Arredondo MD [facility] 04-18-2017 05:59-0400 Pulse (Heart Rate) 98 /min Tia Arredondo MD [facility] 04-18-2017 05:59-0400 Respiratory Rate 16 /min Tia Arredondo MD [facility] 04-18-2017 05:59-0400 Weight 71.31 kg Tia Arredondo MD [facility] 03-22-2017 07:51-0400 BMI (Body Mass Index) 22.47 kg/m2 Tia Arredondo MD [facility] 03-22-2017 07:51-0400 Body Temperature 96.5 [degF] Tia Arredondo MD [facility] 03-22-2017 07:51-0400 Body Temperature 96.49 [degF] Tia Arredondo MD [facility] 03-22-2017 07:51-0400 BP Diastolic 78 mm[Hg] Tia Arredondo MD [facility] 03-22-2017 07:51-0400 BP Systolic 134 mm[Hg] Tia Arredondo MD [facility] 03-22-2017 07:51-0400 Height 175.26 cm Tia Arredondo MD [facility] 03-22-2017 07:51-0400 Pulse (Heart Rate) 113 /min Tia Arredondo MD [facility] 03-22-2017 07:51-0400 Respiratory Rate 16 /min Tia Arredondo MD [facility] 03-22-2017 07:51-0400 Weight 69.04 kg Tia Arredondo MD [facility] NEGATED: Highlighted [id number] 08:58-0400 BMI (Body Mass Index) 22.28 kg/m2 Shayla Watkins AT [facility] Work Phone: NEGATED: Highlighted [id number] 08:58-0400 Body weight 66.23 kg Shayla Watkins AT [facility] Work Phone: NEGATED: Highlighted [id number] 08:58-0400 Body weight 66 kg Shayla Watkins AT [facility] Work Phone: NEGATED: Highlighted [id number] 08:58-0400 Height 172.72 cm Shaylajosefa Watkins AT [facility] Work Phone: NEGATED: Highlighted [id number] 08:58-0400 Height 173 cm Shaylajosefa Watkins AT [facility] Work Phone: Encounters Encounter Date Encounter Type Care Provider Facility Start: 05-04-2025 [facility]: [facility] Start: 02-04-2025 End: 02-04-2025 ambulatory Sal Lindquist Facility:[facility] Start: 12-25-2024 End: 12-25-2024 ambulatory Leonora Skdianne Facility:[facility] Start: 11-06-2024 ambulatory Leonora Concepcionryleejada Facilit y:[facility] Start: 10-23-2024 End: 10-23-2024 ambulatory Debbie Simons Facility:[facility] Start: 09-17-2024 End: 09-17-2024 ambulatory Leonora Skdianne [facility] Start: 08-06-2024 End: 08-06-2024 ambulatory Sal Lindquist Facility:[facility] Start: 08-12-2023 End: 08-12-[address] Debbie Simons Work Phone: [facility] Work Phone: Start: 08-12-2023 End: 08-12-[address] Debbie Simons Work Phone: [facility] Work Phone: Start: 08-07-2023 End: 08-07-[address] Debbie Simons Work Phone: [facility] Work Phone: Start: 08-06-2023 End: 08-06-[address] Debbie Simons Work Phone: [facility] Work Phone: Start: 04-24-2023 End: 04-24-[address] Debbie Simons Work Phone: [facility] Work Phone: Start: 04-18-2023 End: 04-18-[address] Debbie Simons Work Phone: [facility] Work Phone: Start: 04-18-2023 End: 04-18-[address] Debbie Simons Work Phone: [facility] Work Phone: Start: 06-15-2022 Non-patient / Non-visit Dr. Jose Simons Work Phone: [facility] Start: 06-15-2022 End: 06-15-2022 Admission to same day surgery center Dr. Debbie Simons Work Phone: [facility] Start: 06-15-2022 End: 06-15-[address] Debbie Simons Work Phone: [facility] Work Phone: Start: 06-14-2022 End: 06-14-[address] Debbie Simons Work Phone: [facility] Work Phone: Start: 06-14-2022 End: 06-14-[address] Debbie Simons Work Phone: [facility] Start: 06-08-2022 Non-patient / Non-visit Dr. Jose Simons Work Phone: [facility] Start: 06-07-2022 Non-patient / Non-visit Dr. Jose Simons Work Phone: [facility] Start: 06-06-2022 Non-patient / Non-visit Dr. Jose Simons Work Phone: [facility] Start: 06-06-2022 End: 06-08-2022 Evaluation and management of inpatient Dr. Debbie Simons Work Phone: [facility] [place] Start: 06-06-2022 End: 06-06-[address] Debbie Simons Work Phone: [facility] Start: 05-30-2022 End: 05-30-[address] Debbie Simons Work Phone: [facility] Work Phone: Start: 05-30-2022 End: 05-30-[address] Debbie Simons Work Phone: [facility] Start: 05-30-2022 End: 05-30-[address] Debbie Simons Work Phone: [facility] Start: 05-21-2022 End: 05-21-[address] Debbie Simons Work Phone: [facility] Start: 05-18-2022 End: 05-18-[address] Debbie Simons Work Phone: [facility] Start: 05-16-2022 Non-patient / Non-visit Dr. Jose Simons Work Phone: [facility] Start: 05-14-2022 Non-patient / Non-visit Dr. Jose Simons Work Phone: [facility] Start: 05-14-2022 End: 05-14-[address] Debbie Simons Work Phone: [facility] Work Phone: Start: 05-14-2022 End: 05-14-[address] Debbie Simons Work Phone: [facility] Out[facility] Start: 05-14-2022 End: 05-14-[address] Debbie Simons Work Phone: [facility] Work Phone: Start: 05-14-2022 End: 05-14-[address] Debbie Simons Work Phone: [facility] Start: 05-14-2022 End: 05-14-[address] Debbie Simons Work Phone: [facility] Start: 05-10-2022 End: 05-10-[address] Debbie Simons Work Phone: [facility] Work Phone: Start: 05-10-2022 End: 05-10-[address] Debbie Simons Work Phone: [facility] Start: 05-02-2022 End: 05-02-[address] Debbie Simons Work Phone: [facility] Start: 04-24-2022 End: 04-24-[address] Debbie Simons Work Phone: [facility] Start: 04-13-2022 End: 04-13-[address] Debbie Simons Work Phone: [facility] Work Phone: Start: 04-13-2022 End: 04-13-[address] Debbie Simons Work Phone: [facility] Start: 03-30-2022 End: 03-30-[address] Debbie Simons Work Phone: [facility] Start: 03-15-2022 End: 03-15-[address] Debbie Simons Work Phone: [facility] Work Phone: Start: 03-15-2022 End: 03-15-[address] Debbie Simons Work Phone: [facility] Start: 02-28-2022 End: 02-28-[address] Debbie Simons Work Phone: [facility] Start: 02-02-2022 End: 02-02-[address] Debbie Simons Work Phone: [facility] Start: 01-16-2022 Non-patient / Non-visit Dr. Jose Simons Work Phone: [facility] Start: 01-16-2022 End: 01-16-[address] Debbie Simons Work Phone: [facility] Start: 01-12-2022 End: 01-12-[address] Debbie Simons Work Phone: [facility] Start: 01-09-2022 End: 01-09-[address] Debbie Simons Work Phone: [facility] Start: 01-05-2022 Non-patient / Non-visit Dr. Jose Simons Work Phone: [facility] Start: 01-03-2022 End: 01-03-[address] Debbie Simons Work Phone: [facility] Start: 12-08-2021 End: 12-08-[address] Debbie Simons Work Phone: [facility] Start: 11-23-2021 End: 11-23-[address] Debbie Simons Work Phone: [facility] Start: 11-15-2021 End: 11-15-[address] Debbie Simons Work Phone: [facility] Start: 11-14-2021 End: 11-14-2021 Emergency department patient visit Dr. Debbie Simons Work Phone: [facility] Start: 11-13-2021 End: 11-13-[address] Debbie Simons Work Phone: [facility]Ultrasound, [facility] Start: 10-30-2021 End: 10-30-[address] Debbie Simons Work Phone: [facility]Labor[facility] Start: 10-26-2021 End: 10-26-[address] Debbie Simons Work Phone: [facility]Labor[facility], Specimen Start: 10-26-2021 End: 10-26-[address] Debbie Simons Work Phone: [facility] Start: 10-20-2021 End: 10-20-[address] Debbie Simons Work Phone: [facility]Radiology, [facility] Start: 10-16-2021 End: 10-16-[address] Debbie Simons Work Phone: [facility] Start: 10-09-2021 Non-patient / Non-visit Dr. Jose Simons Work Phone: [facility] Start: 09-09-2021 End: 09-09-[address] Debbie Simons Work Phone: [facility] Start: 08-11-2021 End: 08-11-[address] Debbie Simons Work Phone: [facility]Labor[facility], Specimen Start: 08-11-2021 End: 08-11-[address] Debbie Simons Work Phone: [facility] Start: 07-01-2021 End: 07-01-[address] Debbie Simons Work Phone: [facility] Start: 08-29-2020 End: 08-29-2020 Patient encounter procedure SELF REFERRING [facility] Start: 08-29-2020 End: 08-29-2020 Office outpatient new 20 minutes Peri Rasheed Work Phone: [facility] Comment on above: Back pain with radic ulopathy (Primary Dx); History of lumbar surgery; DDD (degenerative disc disease), lumbar Start: 02-09-2020 End: 02-16-2020 Patient encounter procedure Eddie Bejarano DO Work Phone: [facility] Work Phone: Start: 08-01-2009 End: 08-01-2009 Patient encounter procedure Edwin San Work Phone: [facility] Start: 08-01-2009 Results Only Edwin cummings Work Phone: [facility] Procedures Date Procedure Procedure Detail Performing Clinician Start: 08-07-[address] Debbie Simons Work Phone: Start: 04-18-[address] Ellen Simons Work Phone: Start: 06-15-[address] Debbie Simons Work Phone: Start: 06-14-2022 Plain chest X-ray Dr. Ellen Simons Work Phone: Start: 06-14-[address] Ellen Simons Work Phone: Start: 05-30-2022 Ultrasound scan for growth Dr. Debbie Simons Work Phone: Start: 05-14-2022 Ultrasonography for biophysical profile without non-stress testing Dr. Debbie Simons Work Phone: Start: 04-13-2022 Transvaginal obstetr ic ultrasonography Dr. Debbie Simons Work Phone: Start: 04-13-2022 Ultrasound scan for growth Dr. Debbie Simons Work Phone: Start: 03-15-2022 Ultrasonography for antepartum monitoring of fetus Dr. Debbie Simons Work Phone: Start: 01-09-[address] Debbie Simons Work Phone: Start: 11-14-2021 Ultrasound scan - obstetric Dr. Debbie Simons Work Phone: Start: 11-13-20[address] ic ultrasonography Dr. Debbie Simons Work Phone: Start: 10-26-[address] Falguni Simons Work Phone: Start: 02-09-2020 End: 02-16-2020 Blood pressure screening not performed - reason not given Eddie Bejarano DO Work Phone: Start: 02-09-2020 End: 02-16-2020 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 of current medications Eddie Bejarano DO Work Phone: Start: 02-09-2020 End: 02-16-2020 Pain assessment documented as positive - follow-up documented Eddie Bejarano DO Work Phone: Start: 02-09-2020 End: 02-10-2020 Radex spine lumbosacral minimum 4 views Eddie Bejarano DO Work Phone: Start: 02-09-2020 End: 02-16-2020 Tobacco non-user Eddie Trevizo Bejarano DO Work Phone: Start: 06-14-2017 End: 06-14-2017 Routine OB Visit (Global) Tia orosco MD Work Phone: Start: 06-14-2017 End: 06-14-2017 Routine OB Visit (Global) Tia orosco MD Work Phone: Start: 05-17-2017 End: 05-17-2017 Routine OB Visit (Global) Tia orosco MD Work Phone: Start: 05-17-2017 End: 05-17-2017 Routine OB Visit (Global) Tia orosco MD Work Phone: Start: 04-19-2017 End: 04-19-2017 Routine OB Visit (Global) Tia orosco MD Work Phone: Start: 04-19-2017 End: 04-19-2017 Routine OB Visit (Global) Tia orosco MD Work Phone: Start: 04-12-2017 End: 04-12-2017 Urnls dip stick/tablet rgnt non-auto w/o micrscp Tia Arredondo MD Work Phone: Start: 04-12-2017 End: 04-12-2017 Urinalysis Tia Trevizo Start: 04-12-2017 End: 04-12-2017 Urinalysis nonauto w/o [...] End: 03-22-2017 Routine OB Visit (Global) Tia orosco MD Work Phone: Start: 03-22-2017 End: 04-15-2017 Rubella virus Ab [Units/volume] in Serum Tia Arredondo MD Work Phone: Start: 03-22-2017 End: 03-22-2017 Urinalysis Tia Trevizo Start: 03-22-2017 End: 04-15-2017 *CBC with Differential Tia guzman MD Work Phone: Start: 03-22-2017 End: 04-15-2017 *HEBSAG - Hep B Surface Antigen 6510 Tia Arredondo MD Work Phone: Start: 03-22-2017 End: 04-15-2017 *HIV antibody Tia Arredondo MD Work Phone: Start: 03-22-2017 End: 04-15-2017 Reagin antibody presence Tia esparza MD Work Phone: Start: 03-22-2017 End: 03-22-2017 Routine OB Visit (Global) Tia orosco MD Work Phone: Start: 03-22-2017 End: 04-15-2017 Rubella virus Ab [Units/volume] in Serum Tia Arredondo MD Work Phone: Start: 08-01-2009 CONVERTED SURGICAL PATHOLOGY Edwin San Work Phone: [facility] Streptococcu s Culture Dr. Debbie Simons Work Phone: SARS-CoV-2 & FLU Ant igen (Rapid) Dr. Debbie Simons Work Phone: Urine culture Dr. Debbie paige Work Phone: NEGATED: Highlighted rowStart: 02-09-2020 End: 02-09-2020 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 of current medications Shaylajosefa Watkins AT Plan of Treatment Date Care Activity Detail Author Start: 01-05-2029 Tetanus vaccination Tetanus: Every 10yrs [facility] Start: 06-15-2022 Notification of physician [facility] Work Phone: Start: 06-15-2022 Ambulation without limitation [facility] Work Phone: Start: 06-15-2022 Medical regimen orders management [facility] Work Phone: Start: 06-15-2022 Medication education [facility] Work Phone: Start: 06-15-2022 Taking patient vital signs [facility] Work Phone: Start: 06-15-2022 Vital signs measurements [facility] Work Phone: Start: 06-15-2022 [facility] Work Phone: Start: 06-15-2022 Dilation and curettage Dilation and Curettage (Not Applicable) [facility] Work Phone: Start: 06-15-2022 [facility] Work Phone: Start: 06-15-2022 Patient discharge [facility] Work Phone: Start: 06-14-2022 End: 06-14-2022 Blood culture [facility] Work Phone: Start: 06-08-2022 Patient discharge [facility] Work Phone: Start: 06-07-2022 Administration of medication [facility] Work Phone: Start: 06-07-2022 Application of ice collar, cap or bag [facility] Work Phone: Start: 06-07-2022 Catheterization of vein [facility] Work Phone: Start: 06-07-2022 Introduction of urinary catheter [facility] Work Phone: Start: 06-07-2022 Measuring intake and output [facility] Work Phone: Start: 06-07-2022 Notification of physician [facility] Work Phone: Start: 06-07-2022 Procedure discontinued [facility] Work Phone: Start: 06-07-2022 Provision of activity privileges [facility] Work Phone: Start: 06-07-2022 Vital signs measurements [facility] Work Phone: Start: 06-07-2022 [facility] Work Phone: Start: 06-06-2022 Admission procedure [facility] Work Phone: Start: 05-14-2022 Nonstress test [facility] Work Phone: Start: 05-14-2022 Obstetric monitoring [facility] Work Phone: Start: 05-14-2022 Vital signs measurements [facility] Work Phone: Start: 05-14-2022 [facility] Work Phone: Start: 05-14-2022 Biophysical profile panel US [facility] Work Phone: Start: 05-14-2022 Ultrasonography for biophysical profile without non-stress testing Biophysical Prof W/O Non Stres [facility] Work Phone: Start: 05-14-2022 Ultrasound scan for growth [facility] Work Phone: Start: 05-14-2022 Patient discharge [facility] Work Phone: Start: 05-10-2022 Procedure [facility] Work Phone: Start: 01-03-2022 Patient referral [facility] Work Phone: Start: 10-20-2021 Iv infusion hydration each additional hour HYDRATE IV INFUSION ADD-ON [facility] Work Phone: Start: 10-16-2021 Iv infusion hydration each additional hour HYDRATE IV INFUSION ADD-ON [facility] Work Phone: Start: 10-16-2021 Ther proph/dx njx iv push single/1st sbst/drug THER/PROPH/DIAG INJ IV PUSH [facility] Work Phone: Start: 03-15-2020 Influenza vaccination INFLUENZA (#1) [facility] Start: 03-15-2020 Influenza vaccination given Sequential Influenza Vaccine (#1) [facility] Start: 08-27-2017 PAP TESTING PAP TESTING [facility] Start: 07-11-2017 End: 07-11-2017 Appointment Appointment [facility] Start: 06-14-2017 End: 06-14-2017 Appointment Appointment [facility] Start: 05-17-2017 End: 05-17-2017 Appointment Appointment [facility] Start: 04-19-2017 End: 04-19-2017 Appointment Appointment [facility] Start: 04-18-2017 End: 04-18-2017 Appointment [facility] Start: 04-12-2017 End: 04-12-2017 *CUUID - Urine ALIREZA Culture - Identificatn *CUUID - Urine ALIREZA Culture - Identificatn [facility] Start: 04-12-2017 End: 04-12-2017 Urine culture, bacteria *CUUR - Culture, Urine ([place] Count) [facility] Start: 04-12-2017 End: 04-12-2017 *CUUID - Urine ALIREZA Culture - Identificatn *CUUID - Urine ALIREZA Culture - Identificatn [facility] Start: 04-12-2017 End: 04-12-2017 Urine culture, bacteria *CUUR - Culture, Urine ([place] Count) [facility] Start: 03-22-2017 End: 04-09-2017 *CBC with Differential *CBC with Differential [facility] Start: 03-22-2017 End: 03-22-2017 *GC/Chlamydia *GC/Chlamydia [facility] Start: 03-22-2017 End: 04-10-2017 *HEBSAG - Hep B Surface Antigen 6510 *HEBSAG - Hep B Surface Antigen 6510 [facility] Start: 03-22-2017 End: 04-10-2017 *HIV antibody *HIV antibody [facility] Start: 03-22-2017 End: 03-22-2017 *TS Type and Screen *TS Type and Screen [facility] Start: 03-22-2017 End: 04-12-2017 Reagin antibody presence *[facility] Start: 03-22-2017 End: 04-10-2017 Rubella virus Ab [Units/volume] in Serum *Rubella Screen [facility] Start: 03-22-2017 End: 03-22-2017 Urine culture, bacteria *CUUR - Culture, Urine ([place] Count) [facility] Start: 03-22-2017 End: 03-22-2017 Us preg uterus after 1st trimest 1/ gestation US OB, >14 weeks [facility] Start: 03-22-2017 End: 03-22-2017 Appointment Appointment [facility] Start: 03-22-2017 End: 04-09-2017 *CBC with Differential *CBC with Differential [facility] Start: 03-22-2017 End: 03-22-2017 *GC/Chlamydia *GC/Chlamydia [facility] Start: 03-22-2017 End: 04-10-2017 *HEBSAG - Hep B Surface Antigen 6510 *HEBSAG - Hep B Surface Antigen 6510 [facility] Start: 03-22-2017 End: 04-10-2017 *HIV antibody *HIV antibody [facility] Start: 03-22-2017 End: 03-22-2017 *TS Type and Screen *TS Type and Screen [facility] Start: 03-22-2017 End: 03-22-2017 Ob us >/= 14 wks, sngl fetus US OB, >14 weeks [facility] Start: 03-22-2017 End: 04-12-2017 Reagin antibody presence *[facility] Start: 03-22-2017 End: 04-10-2017 Rubella virus Ab [Units/volume] in Serum *Rubella Screen [facility] Start: 03-22-2017 End: 03-22-2017 Urine culture, bacteria *CUUR - Culture, Urine ([place] Count) [facility] Start: 01-19-2016 Urine microalbumin profile DTAP,TDAP,TD (7 - Td) [facility] Start: 2010 Hepatitis C antibody, confirmatory test Hepatitis C Screening [facility] Start: 2010 HEPATITIS C SCREENING HEPATITIS C SCREENING [facility] Start: 2010 HIV SCREENING HIV SCREENING [facility] Start: 12-30-2007 HIV screening HIV Screening [facility] Start: 2004 Adolescent depression screening assessment Depression Screening (PHQ9) [facility] Start: 12-30-1995 History and physical examination, annual for health maintenance Wellness Visit [facility] Start: 1992 Screening for malignant neoplasm of cervix Pap Smear [facility] Bacteria identified in Blood by Culture Blood Culture [facility] Work Phone: Blood culture [facility] Work Phone: Patient Education [facility] Work Phone: Patient referral [facility] Work Phone: Procedure [facility] Work Phone: Ultrasound scan for growth [facility] Work Phone: Immunizations Immunization Date Immunization Notes Care Provider Rebecca haines 03-30-2022 tetanus toxoid, redu eirca diphtheria toxoid, and acellular pertussis vaccine, adsorbed Dr. Debbie Simons Work Phone: [facility] 06-05-2021 influenza, injectabl e, quadrivalent, preservative free Dr. Debbie Simons Work Phone: [facility] 06-05-2021 influenza, seasonal, injectable Dr. Debbie Simons Work Phone: [facility] Work Phone: 04-12-2020 influenza, injectabl e, quadrivalent, preservative free Dr. Debbie Simons Work Phone: [facility] 04-12-2020 influenza, seasonal, injectable Dr. Debbie Simons Work Phone: [facility] Work Phone: 01-05-2019 tetanus toxoid, redu erica diphtheria toxoid, and acellular pertussis vaccine, adsorbed Dr. Debbie Simons Work Phone: [facility] 01-05-2019 diphtheria, tetanus toxoids and acellular pertussis vaccine, unspecified formulation Dr. Debbie Simons Work Phone: [facility] Work Phone: 06-03-2018 influenza, injectabl e, quadrivalent, preservative free Dr. Debbie Simons Work Phone: [facility] 06-03-2018 influenza, seasonal, injectable Dr. Debbie Simons Work Phone: [facility] Work Phone: 08-08-2017 diphtheria, tetanus toxoids and acellular pertussis vaccine, unspecified formulation Dr. Debbie Simons Work Phone: [facility] Work Phone: 08-08-2017 tetanus toxoid, redu erica diphtheria toxoid, and acellular pertussis vaccine, adsorbed Dr. Debbie Simons Work Phone: [facility] 04-22-2017 influenza, injectabl e, quadrivalent, preservative free Dr. Debbie Simons Work Phone: [facility] 04-22-2017 influenza, seasonal, injectable Dr. Debbie Simons Work Phone: [facility] Work Phone: 04-19-2016 influenza, injectabl e, quadrivalent, preservative free Dr. Debbie Simons Work Phone: [facility] 04-19-2016 influenza, seasonal, injectable Dr. Debbie Simons Work Phone: [facility] Work Phone: 05-30-2015 influenza, injectabl e, quadrivalent, preservative free Dr. Debbie Simons Work Phone: [facility] 05-30-2015 influenza, seasonal, injectable Dr. Debbie Simons Work Phone: [facility] Work Phone: 04-12-2014 hepatitis B vaccine, pediatric or pediatric/adolescent dosage Dr. Debbie Simons Work Phone: [facility] 03-18-2014 influenza, injectabl e, quadrivalent, preservative free Dr. Debbie Simons Work Phone: [facility] 03-18-2014 influenza, seasonal, injectable Dr. Debbie Simons Work Phone: [facility] Work Phone: 01-28-2014 hepatitis B vaccine, pediatric or pediatric/adolescent dosage Dr. Debbie Simons Work Phone: [facility] 12-31-2006 Meningococcal, MCV4, unspecified conjugate formulation(groups A, C, Y and W-135) [facility] 01-18-2006 tetanus toxoid, redu erica diphtheria toxoid, and acellular pertussis vaccine, adsorbed [facility] 12-22-2004 measles, mumps and rubella virus vaccine [facility] 08-03-2003 hepatitis B vaccine, pediatric or pediatric/adolescent dosage [facility] 11-17-1997 diphtheria, tetanus toxoids and acellular pertussis vaccine [facility] 11-17-1997 hepatitis B vaccine, pediatric or pediatric/adolescent dosage [facility] 11-17-1997 trivalent poliovirus vaccine, live, oral [facility] 07-15-1997 Chicken Pox (disease) [facility] 01-22-1995 diphtheria, tetanus toxoids and pertussis vaccine [facility] 01-22-1995 haemophilus influenz ae type b vaccine, HbOC conjugate [facility] 03-29-1994 measles, mumps and rubella virus vaccine [facility] 03-29-1994 trivalent poliovirus vaccine, live, oral [facility] 08-03-1993 diphtheria, tetanus toxoids and pertussis vaccine [facility] 08-03-1993 haemophilus influenz ae type b vaccine, HbOC conjugate [facility] 06-01-1993 diphtheria, tetanus toxoids and pertussis vaccine [facility] 06-01-1993 haemophilus influenz ae type b vaccine, HbOC conjugate [facility] 06-01-1993 trivalent poliovirus vaccine, live, oral [facility] 03-30-1993 diphtheria, tetanus toxoids and pertussis vaccine [facility] 03-30-1993 haemophilus influenz ae type b vaccine, HbOC conjugate [facility] 03-30-1993 hepatitis B vaccine, pediatric or pediatric/adolescent dosage [facility] 03-30-1993 trivalent poliovirus vaccine, live, oral [facility] 1992 hepatitis B vaccine, pediatric or pediatric/adolescent dosage [facility] Payers Date Payer Category Payer Private Health Insurance [id number] 2024 Self-pay [id number] 2019 Private Health Insurance [id number] 2019 Private Health Insurance AETNA A ETNA CHOICE POS/POSII/PREMIER CARE/PREMIER CARE PLUS [id number] 2019-Present [id number] 2005 Private Health Insurance [employer] [place] [place] [id number] 2005-2011 O [id number] 1992 Unknown [id number] Unknown [id number] Unknown [id number] Unknown [id number] Unknown [id number] Unknown [id number] Unknown [id number] Unknown [id number] Social History Date Type Detail Facility Start: 08-29-2020 End: 08-06-2023 Assertion Unknown if ever smoked [facility] Work Phone: Sex Assigned At Not on file [facility] Exposure to SARS-CoV-2 (event) Not sure [facility] Start: 11-26-2006 Tobacco smoking status NHIS Never smoker [facility] Start: 11-26-2006 Alcohol intake Not Asked [facility] Start: 03-21-2019 None [facility] Start: 04-12-2020 Non-smoker [facility] Start: 1990 Sex Assigned At Female W [facility] NEGATED: Highlighted rowStart: 02-09-2020 End: 02-09-2020 Employment detail Employment detail [facility] Work Phone: Goals Date Patient Goal Desired Activity /State Functional Status Date Assessment Result Facility 06-15-2022 Functional status [facility] Work Phone: Mental Status Date Assessment Result Facility 06-15-2022 Cognitive function Voice/Name [facility] Work Phone: 06-14-2022 Cognitive function Level Of Cons ciousness Awake;Alert;Appropriate;Follow s Commands [facility] Work Phone: 10-20-2021 Cognitive function Voice/Name [facility] Work Phone: 10-16-2021 Cognitive function Voice/Name [facility] Work Phone: Clinical Notes 08-11-2021 Note Date & Type Note Facility 08-11-2021 Note [facility] Work Phone: Pap Smear Specimen Adequacy August 12, 2021 12:59am Comment Satisfactory for evaluation. Endocervical and/or squamous metaplasticcells (endocervical component) are present. Comment on above: Satisfactory for amina luation. Endocervical and/or squamous metaplasticcells (endocervical component) are present. 08-11-2021 Note [facility] Work Phone: Pap Smear Specimen Adequacy August 12, 2021 12:59am Comment Satisfactory for evaluation. Endocervical and/or squamous metaplasticcells (endocervical component) are present. Comment on above: Satisfactory for amina luation. Endocervical and/or squamous metaplasticcells (endocervical component) are present. 08-11-2021 Note [facility] Work Phone: Pap Smear Specimen Adequacy August 12, 2021 12:59am Comment Satisfactory for evaluation. Endocervical and/or squamous metaplasticcells (endocervical component) are present. Comment on above: Satisfactory for amina luation. Endocervical and/or squamous metaplasticcells (endocervical component) are present. 08-11-2021 Note [facility] Work Phone: Pap Smear Specimen Adequacy August 12, 2021 12:59am Comment Satisfactory for evaluation. Endocervical and/or squamous metaplasticcells (endocervical component) are present. Comment on above: Satisfactory for amina luation. Endocervical and/or squamous metaplasticcells (endocervical component) are present. 08-11-2021 Note [facility] Work Phone: Pap Smear Specimen Adequacy August 12, 2021 12:59am Comment Satisfactory for evaluation. Endocervical and/or squamous metaplasticcells (endocervical component) are present. Comment on above: Satisfactory for amina luation. Endocervical and/or squamous metaplasticcells (endocervical component) are present. Evaluation note No assessment information availa ble [facility] Work Phone: Evaluation note Diagnosis Onset Date Anxiety acute acute Supervision of normal acute [facility] Work Phone: Evaluation note* Diagnosis Onset Date Resolution Status Anxiety acute acute Supervision of normal acute Anxiety acute acute Supervision of normal acute Threatened miscarriage acute Vaginal bleeding acute [facility] Work Phone: Evaluation note* Diagnosis Onset Date Resolution Status Anxiety acute acute Supervision of normal acute Anxiety acute acute Supervision of normal acute Anxiety acute acute Supervision of normal acute Anxiety acute acute Supervision of normal acute Anxiety acute acute Supervision of normal acute [facility] Work Phone: Evaluation note* Diagnosis Onset Date Resolution Status Anxiety acute acute Supervision of normal acute Anxiety acute acute Supervision of normal acute Anxiety acute acute Supervision of normal acute Anxiety acute acute Supervision of normal acute Anxiety acute acute Supervision of normal acute Palpitations acute Tachycardia acute [facility] Work Phone: Evaluation note* Diagnosis Onset Date Resolution Status Anxiety acute acute Supervision of normal acute Anxiety acute acute Supervision of normal acute Anxiety acute acute Supervision of normal acute Anxiety acute acute Supervision of normal acute Palpitations acute Tachycardia acute Anxiety acute Low lying placenta nos or wi thout hemorrhage, second trimester acute Palpitations acute Placental abnormality in second trimester acute acute Supervision of normal acute Tachycardia acute Anxiety acute Low lying placenta nos or wi thout hemorrhage, second trimester acute Placental abnormality in second trimester acute acute Supervision of normal acute [facility] Work Phone: Evaluation note* Diagnosis Onset Date Resolution Status Anxiety acute acute Supervision of normal acute Anxiety acute acute Supervision of normal acute Anxiety acute acute Supervision of normal acute Palpitations acute Tachycardia acute Anxiety acute Low lying placenta nos or wi thout hemorrhage, second trimester acute Palpitations acute Placental abnormality in second trimester acute acute Supervision of normal acute Tachycardia acute Anxiety acute Low lying placenta nos or wi thout hemorrhage, second trimester acute Placental abnormality in second trimester acute acute Supervision of normal acute Anxiety acute Low lying placenta nos or wi thout hemorrhage, second trimester acute Palpitations acute Placental abnormality in second trimester acute acute Supervision of normal acute Tachycardia acute [facility] Work Phone: Evaluation note* Diagnosis Onset Date Resolution Status Anxiety acute acute Supervision of normal acute Palpitations acute Tachycardia acute Anxiety acute Low lying placenta nos or wi thout hemorrhage, second trimester acute Palpitations acute Placental abnormality in second trimester acute acute Supervision of normal acute Tachycardia acute Anxiety acute Low lying placenta nos or wi thout hemorrhage, second trimester acute Placental abnormality in second trimester acute acute Supervision of normal acute Anxiety acute Low lying placenta nos or wi thout hemorrhage, second trimester acute Palpitations acute Placental abnormality in second trimester acute acute Supervision of normal acute Tachycardia acute Anxiety acute Low lying placenta nos or wi thout hemorrhage, second trimester acute Palpitations acute Placental abnormality in second trimester acute acute Supervision of normal acute Tachycardia acute Anxiety acute Low lying placenta nos or wi thout hemorrhage, second trimester acute Palpitations acute Placental abnormality in second trimester acute acute Supervision of normal acute Tachycardia acute [facility] Work Phone: Evaluation note* Diagnosis Onset Date Resolution Status Anxiety acute Low lying placenta nos or wi thout hemorrhage, second trimester acute Palpitations acute Placental abnormality in second trimester acute acute Supervision of normal acute Tachycardia acute Anxiety acute Low lying placenta nos or wi thout hemorrhage, second trimester acute Placental abnormality in second trimester acute acute Supervision of normal acute Anxiety acute Low lying placenta nos or wi thout hemorrhage, second trimester acute Palpitations acute Placental abnormality in second trimester acute acute Supervision of normal acute Tachycardia acute Anxiety acute Low lying placenta nos or wi thout hemorrhage, second trimester acute Palpitations acute Placental abnormality in second trimester acute acute Supervision of normal acute Tachycardia acute Anxiety acute Low lying placenta nos or wi thout hemorrhage, second trimester acute Palpitations acute Placental abnormality in second trimester acute acute Supervision of normal acute Tachycardia acute Anxiety acute Low lying placenta nos or wi thout hemorrhage, second trimester acute Palpitations acute Placental abnormality in second trimester acute acute Supervision of normal acute Tachycardia acute Anxiety acute Low lying placenta nos or wi thout hemorrhage, second trimester acute Palpitations acute Placental abnormality in second trimester acute acute PUPP (pruritic urticarial pa pules and plaques of ) acute Supervision of normal acute Tachycardia acute acute Pruritus of acute PUPP (pruritic urticarial pa pules and plaques of ) acute Supervision of normal acute Anxiety acute Low lying placenta nos or wi thout hemorrhage, second trimester acute Palpitations acute Placental abnormality in second trimester acute acute Pruritus of acute PUPP (pruritic urticarial pa pules and plaques of ) acute Supervision of normal acute Tachycardia acute Abnormal test acut e [facility] Work Phone: Evaluation note* Diagnosis Onset Date Resolution Status Anxiety acute Low lying placenta nos or wi thout hemorrhage, second trimester acute Palpitations acute Placental abnormality in second trimester acute acute Supervision of normal acute Tachycardia acute Anxiety acute Low lying placenta nos or wi thout hemorrhage, second trimester acute Placental abnormality in second trimester acute acute Supervision of normal acute Anxiety acute Low lying placenta nos or wi thout hemorrhage, second trimester acute Palpitations acute Placental abnormality in second trimester acute acute Supervision of normal acute Tachycardia acute Anxiety acute Low lying placenta nos or wi thout hemorrhage, second trimester acute Palpitations acute Placental abnormality in second trimester acute acute Supervision of normal acute Tachycardia acute Anxiety acute Low lying placenta nos or wi thout hemorrhage, second trimester acute Palpitations acute Placental abnormality in second trimester acute acute Supervision of normal acute Tachycardia acute Anxiety acute Low lying placenta nos or wi thout hemorrhage, second trimester acute Palpitations acute Placental abnormality in second trimester acute acute Supervision of normal acute Tachycardia acute Anxiety acute Low lying placenta nos or wi thout hemorrhage, second trimester acute Palpitations acute Placental abnormality in second trimester acute acute PUPP (pruritic urticarial pa pules and plaques of ) acute Supervision of normal acute Tachycardia acute acute Pruritus of acute PUPP (pruritic urticarial pa pules and plaques of ) acute Supervision of normal acute Anxiety acute Low lying placenta nos or wi thout hemorrhage, second trimester acute Palpitations acute Placental abnormality in second trimester acute acute Pruritus of acute PUPP (pruritic urticarial pa pules and plaques of ) acute Supervision of normal acute Tachycardia acute Abnormal test acut e Anxiety acute acute Pruritus of acute PUPP (pruritic urticarial pa pules and plaques of ) acute Supervision of normal acute [facility] Work Phone: Evaluation note* Diagnosis Onset Date Resolution Status Anxiety acute Low lying placenta nos or wi thout hemorrhage, second trimester acute Palpitations acute Placental abnormality in second trimester acute acute Supervision of normal acute Tachycardia acute Anxiety acute Low lying placenta nos or wi thout hemorrhage, second trimester acute Placental abnormality in second trimester acute acute Supervision of normal acute Anxiety acute Low lying placenta nos or wi thout hemorrhage, second trimester acute Palpitations acute Placental abnormality in second trimester acute acute Supervision of normal acute Tachycardia acute Anxiety acute Low lying placenta nos or wi thout hemorrhage, second trimester acute Palpitations acute Placental abnormality in second trimester acute acute Supervision of normal acute Tachycardia acute Anxiety acute Low lying placenta nos or wi thout hemorrhage, second trimester acute Palpitations acute Placental abnormality in second trimester acute acute Supervision of normal acute Tachycardia acute Anxiety acute Low lying placenta nos or wi thout hemorrhage, second trimester acute Palpitations acute Placental abnormality in second trimester acute acute Supervision of normal acute Tachycardia acute Anxiety acute Low lying placenta nos or wi thout hemorrhage, second trimester acute Palpitations acute Placental abnormality in second trimester acute acute PUPP (pruritic urticarial pa pules and plaques of ) acute Supervision of normal acute Tachycardia acute acute Pruritus of acute PUPP (pruritic urticarial pa pules and plaques of ) acute Supervision of normal acute Anxiety acute Low lying placenta nos or wi thout hemorrhage, second trimester acute Palpitations acute Placental abnormality in second trimester acute acute Pruritus of acute PUPP (pruritic urticarial pa pules and plaques of ) acute Supervision of normal acute Tachycardia acute Abnormal test acut e Anxiety acute acute Pruritus of acute PUPP (pruritic urticarial pa pules and plaques of ) acute Supervision of normal acute Abnormal test acut e Anxiety acute Low lying placenta nos or wi thout hemorrhage, second trimester acute Palpitations acute Placental abnormality in second trimester acute acute Pruritus of acute PUPP (pruritic urticarial pa pules and plaques of ) acute Supervision of normal acute Tachycardia acute [facility] Work Phone: Evaluation note* Diagnosis Onset Date Resolution Status Anxiety acute Low lying placenta nos or wi thout hemorrhage, second trimester acute Placental abnormality in second trimester acute acute Supervision of normal acute Anxiety acute Low lying placenta nos or wi thout hemorrhage, second trimester acute Palpitations acute Placental abnormality in second trimester acute acute Supervision of normal acute Tachycardia acute Anxiety acute Low lying placenta nos or wi thout hemorrhage, second trimester acute Palpitations acute Placental abnormality in second trimester acute acute Supervision of normal acute Tachycardia acute Anxiety acute Low lying placenta nos or wi thout hemorrhage, second trimester acute Palpitations acute Placental abnormality in second trimester acute acute Supervision of normal acute Tachycardia acute Anxiety acute Low lying placenta nos or wi thout hemorrhage, second trimester acute Palpitations acute Placental abnormality in second trimester acute acute Supervision of normal acute Tachycardia acute Anxiety acute Low lying placenta nos or wi thout hemorrhage, second trimester acute Palpitations acute Placental abnormality in second trimester acute acute PUPP (pruritic urticarial pa pules and plaques of ) acute Supervision of normal acute Tachycardia acute acute Pruritus of acute PUPP (pruritic urticarial pa pules and plaques of ) acute Supervision of normal acute Anxiety acute Low lying placenta nos or wi thout hemorrhage, second trimester acute Palpitations acute Placental abnormality in second trimester acute acute Pruritus of acute PUPP (pruritic urticarial pa pules and plaques of ) acute Supervision of normal acute Tachycardia acute Abnormal test acut e Anxiety acute acute Pruritus of acute PUPP (pruritic urticarial pa pules and plaques of ) acute Supervision of normal acute Abnormal test acut e Anxiety acute Low lying placenta nos or wi thout hemorrhage, second trimester acute Palpitations acute Placental abnormality in second trimester acute acute Pruritus of acute PUPP (pruritic urticarial pa pules and plaques of ) acute Supervision of normal acute Tachycardia acute Abnormal test acut e Anxiety acute Low lying placenta nos or wi thout hemorrhage, second trimester acute Palpitations acute Placental abnormality in second trimester acute acute Pruritus of acute PUPP (pruritic urticarial pa pules and plaques of ) acute Supervision of normal acute Tachycardia acute Abnormal test acut e Anxiety acute Low lying placenta nos or wi thout hemorrhage, second trimester acute Palpitations acute Placental abnormality in second trimester acute acute Pruritus of acute PUPP (pruritic urticarial pa pules and plaques of ) acute Supervision of normal acute Tachycardia acute [facility] Work Phone: Evaluation note* Diagnosis Onset Date Resolution Status Anxiety acute acute Supervision of normal acute Low lying placenta nos or wi thout hemorrhage, second trimester resolved Placental abnormality in second trimester resolved Anxiety acute Palpitations acute acute Supervision of normal acute Low lying placenta nos or wi thout hemorrhage, second trimester resolved Placental abnormality in second trimester resolved Tachycardia resolved Anxiety acute Palpitations acute acute Supervision of normal acute Low lying placenta nos or wi thout hemorrhage, second trimester resolved Placental abnormality in second trimester resolved Tachycardia resolved Anxiety acute Palpitations acute acute Supervision of normal acute Low lying placenta nos or wi thout hemorrhage, second trimester resolved Placental abnormality in second trimester resolved Tachycardia resolved Anxiety acute Palpitations acute acute Supervision of normal acute Low lying placenta nos or wi thout hemorrhage, second trimester resolved Placental abnormality in second trimester resolved Tachycardia resolved Anxiety acute Palpitations acute acute PUPP (pruritic urticarial pa pules and plaques of ) acute Supervision of normal acute Low lying placenta nos or wi thout hemorrhage, second trimester resolved Placental abnormality in second trimester resolved Tachycardia resolved acute Pruritus of acute PUPP (pruritic urticarial pa pules and plaques of ) acute Supervision of normal acute Anxiety acute Palpitations acute acute Pruritus of acute PUPP (pruritic urticarial pa pules and plaques of ) acute Supervision of normal acute Low lying placenta nos or wi thout hemorrhage, second trimester resolved Placental abnormality in second trimester resolved Tachycardia resolved Anxiety acute acute Pruritus of acute PUPP (pruritic urticarial pa pules and plaques of ) acute Supervision of normal acute Abnormal test reso lved Anxiety acute Palpitations acute acute Pruritus of acute PUPP (pruritic urticarial pa pules and plaques of ) acute Supervision of normal acute Abnormal test reso lved Low lying placenta nos or wi thout hemorrhage, second trimester resolved Placental abnormality in second trimester resolved Tachycardia resolved Anxiety acute Palpitations acute acute Pruritus of acute PUPP (pruritic urticarial pa pules and plaques of ) acute Supervision of normal acute Abnormal test reso lved Low lying placenta nos or wi thout hemorrhage, second trimester resolved Placental abnormality in second trimester resolved Tachycardia resolved Anxiety acute Palpitations acute acute Pruritus of acute PUPP (pruritic urticarial pa pules and plaques of ) acute Supervision of normal acute Abnormal test reso lved Low lying placenta nos or wi thout hemorrhage, second trimester resolved Placental abnormality in second trimester resolved Tachycardia resolved Anxiety acute Palpitations acute acute Pruritus of acute PUPP (pruritic urticarial pa pules and plaques of ) acute Small for dates affecting management of mother acute Supervision of normal acute Abnormal test reso lved Placental abnormality in second trimester resolved Tachycardia resolved Anxiety acute Encounter for induction of labor acute acute Retained placenta acute Small for dates affecting management of mother acute Status post vaginal delivery acute Supervision of normal acute Small for dates fetus resolv ed [facility] Work Phone: Evaluation note* Diagnosis Onset Date Resolution Status Anxiety acute acute Supervision of normal acute Low lying placenta nos or wi thout hemorrhage, second trimester resolved Placental abnormality in second trimester resolved Anxiety acute Palpitations acute acute Supervision of normal acute Low lying placenta nos or wi thout hemorrhage, second trimester resolved Placental abnormality in second trimester resolved Tachycardia resolved Anxiety acute Palpitations acute acute Supervision of normal acute Low lying placenta nos or wi thout hemorrhage, second trimester resolved Placental abnormality in second trimester resolved Tachycardia resolved Anxiety acute Palpitations acute acute Supervision of normal acute Low lying placenta nos or wi thout hemorrhage, second trimester resolved Placental abnormality in second trimester resolved Tachycardia resolved Anxiety acute Palpitations acute acute Supervision of normal acute Low lying placenta nos or wi thout hemorrhage, second trimester resolved Placental abnormality in second trimester resolved Tachycardia resolved Anxiety acute Palpitations acute acute PUPP (pruritic urticarial pa pules and plaques of ) acute Supervision of normal acute Low lying placenta nos or wi thout hemorrhage, second trimester resolved Placental abnormality in second trimester resolved Tachycardia resolved acute Pruritus of acute PUPP (pruritic urticarial pa pules and plaques of ) acute Supervision of normal acute Anxiety acute Palpitations acute acute Pruritus of acute PUPP (pruritic urticarial pa pules and plaques of ) acute Supervision of normal acute Low lying placenta nos or wi thout hemorrhage, second trimester resolved Placental abnormality in second trimester resolved Tachycardia resolved Anxiety acute acute Pruritus of acute PUPP (pruritic urticarial pa pules and plaques of ) acute Supervision of normal acute Abnormal test reso lved Anxiety acute Palpitations acute acute Pruritus of acute PUPP (pruritic urticarial pa pules and plaques of ) acute Supervision of normal acute Abnormal test reso lved Low lying placenta nos or wi thout hemorrhage, second trimester resolved Placental abnormality in second trimester resolved Tachycardia resolved Anxiety acute Palpitations acute acute Pruritus of acute PUPP (pruritic urticarial pa pules and plaques of ) acute Supervision of normal acute Abnormal test reso lved Low lying placenta nos or wi thout hemorrhage, second trimester resolved Placental abnormality in second trimester resolved Tachycardia resolved Anxiety acute Palpitations acute acute Pruritus of acute PUPP (pruritic urticarial pa pules and plaques of ) acute Supervision of normal acute Abnormal test reso lved Low lying placenta nos or wi thout hemorrhage, second trimester resolved Placental abnormality in second trimester resolved Tachycardia resolved Anxiety acute Palpitations acute acute Pruritus of acute PUPP (pruritic urticarial pa pules and plaques of ) acute Small for dates affecting management of mother acute Supervision of normal acute Abnormal test reso lved Placental abnormality in second trimester resolved Tachycardia resolved Anxiety acute Encounter for induction of labor acute acute Retained placenta acute Small for dates affecting management of mother acute Status post vaginal delivery acute Supervision of normal acute Small for dates fetus resolv ed Anemia acute Fever acute hemorrhage acute Retained products of conception acute [facility] Work Phone: Evaluation note* Diagnosis Onset Date Resolution Status Anxiety acute Low lying placenta nos or wi thout hemorrhage, second trimester resolved Placental abnormality in second trimester resolved resolved Supervision of normal resolved Anxiety acute Low lying placenta nos or wi thout hemorrhage, second trimester resolved Palpitations resolved Placental abnormality in second trimester resolved resolved Supervision of normal resolved Tachycardia resolved Anxiety acute Low lying placenta nos or wi thout hemorrhage, second trimester resolved Palpitations resolved Placental abnormality in second trimester resolved resolved Supervision of normal resolved Tachycardia resolved Anxiety acute Low lying placenta nos or wi thout hemorrhage, second trimester resolved Palpitations resolved Placental abnormality in second trimester resolved resolved Supervision of normal resolved Tachycardia resolved Anxiety acute Low lying placenta nos or wi thout hemorrhage, second trimester resolved Palpitations resolved Placental abnormality in second trimester resolved resolved Supervision of normal resolved Tachycardia resolved Anxiety acute Low lying placenta nos or wi thout hemorrhage, second trimester resolved Palpitations resolved Placental abnormality in second trimester resolved resolved PUPP (pruritic urticarial pa pules and plaques of ) resolved Supervision of normal resolved Tachycardia resolved resolved Pruritus of resolv ed PUPP (pruritic urticarial pa pules and plaques of ) resolved Supervision of normal resolved Anxiety acute Low lying placenta nos or wi thout hemorrhage, second trimester resolved Palpitations resolved Placental abnormality in second trimester resolved resolved Pruritus of resolv ed PUPP (pruritic urticarial pa pules and plaques of ) resolved Supervision of normal resolved Tachycardia resolved Anxiety acute Abnormal test reso lved resolved Pruritus of resolv ed PUPP (pruritic urticarial pa pules and plaques of ) resolved Supervision of normal resolved Anxiety acute Abnormal test reso lved Low lying placenta nos or wi thout hemorrhage, second trimester resolved Palpitations resolved Placental abnormality in second trimester resolved resolved Pruritus of resolv ed PUPP (pruritic urticarial pa pules and plaques of ) resolved Supervision of normal resolved Tachycardia resolved Anxiety acute Abnormal test reso lved Low lying placenta nos or wi thout hemorrhage, second trimester resolved Palpitations resolved Placental abnormality in second trimester resolved resolved Pruritus of resolv ed PUPP (pruritic urticarial pa pules and plaques of ) resolved Supervision of normal resolved Tachycardia resolved Anxiety acute Abnormal test reso lved Low lying placenta nos or wi thout hemorrhage, second trimester resolved Palpitations resolved Placental abnormality in second trimester resolved resolved Pruritus of resolv ed PUPP (pruritic urticarial pa pules and plaques of ) resolved Supervision of normal resolved Tachycardia resolved Anxiety acute Abnormal test reso lved Palpitations resolved Placental abnormality in second trimester resolved resolved Pruritus of resolv ed PUPP (pruritic urticarial pa pules and plaques of ) resolved Small for dates affecting management of mother resolved Supervision of normal resolved Tachycardia resolved Anxiety acute Status post vaginal delivery acute Encounter for induction of labor resolved resolved Retained placenta resolved Small for dates affecting management of mother resolved Small for dates fetus resolv ed Supervision of normal resolved Anemia acute endometritis acut e hemorrhage acute Retained products of conception acute Fever resolved [facility] Work Phone: Evaluation note* Diagnosis Onset Date Resolution Status Menorrhagia with regular cycle acute Postcoital bleeding acute [facility] Work Phone: Evaluation note* Diagnosis Onset Date Resolution Status Menorrhagia with regular cycle acute Postcoital bleeding acute Breast lump acute [facility] Work Phone: Chief Complaint Chief Complaint Description Start Date lower back pain Preliminary chief co mplaint data, not yet signed by the author as of Instructions Instruction Description Start Date Completed Advance Directives No Advanced Directives Records FoundDocuments on File Type Date Recorded 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 Advance Directives and Living Will Advance Directive Response Recorded Date/ Time Living Will No March 29, 2019 4:30am Power of Gaming Associate No March 4:30am Advance Directive Response Recorded Date/ Time Living Will No November 14, 2021 5: 33pm Power of Gaming Associate No November 14, 2021 5:33pm Advance Directive Response Recorded Date/ Time Living Will No April 13, 2022 9:50am Power of Gaming Associate No March 9:50am Advance Directive Response Recorded Date/ Time Living Will No April 13, 2022 8:50am Power of Gaming Associate No March 8:50am Advance Directive Response Recorded Date/ Time Living Will No June 06 11:26am Power of Gaming Associate No June 06, 2022 11:26am Advance Directive Response Recorded Date/ Time Living Will No June 14 9:33pm Power of Gaming Associate No June 14, 2022 9:33pm Advance Directive Response Recorded Date/ Time Living Will No June 14 10:33pm Power of Gaming Associate No June 14, 2022 10:33pm Assessments Diagnosis Back pain with radiculopathy- Primary History of lumbar surgery DDD (degenerative disc disease), lumbar Degeneration of lumbar or lumbosacral intervertebral disc Review of System There may be information available, but it has not been provided by the sender. Family History No Family History Records Found Relationship Condition Age at Onset Recorded Date/T yelena father Hypertension Unknown Relationship Condition Age at Onset Recorded Date/T yelena father Hypertension Unknown Hyperlipidemia Unknown grandfather Malignant neoplasm Unknown History of Present Illness There may be information available, but it has not been provided by the sender. * Peri Rasheed MD - 08/29/2020 12:56 PM EST See Dictation. 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 HYDRATION DEHYDRATION NOB LMP 08/29/21 EORDER Reason for Visit Anxiety Supervision of normal Chief 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 HYDRATION DEHYDRATION NOB LMP 08/29/21 EORDER BLEEDING ALMOST 12 WEEKS Reason for Visit Anxiety Supervision of normal Chief 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 HYDRATION DEHYDRATION NOB LMP 08/29/21 EORDER BLEEDING ALMOST 12 WEEKS OB bleeding Reason for Visit Anxiety Supervision of normal Anxiety Supervision of normal Threatened miscarriage Vaginal bleeding Chief Complaint Amb 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 HYDRATION DEHYDRATION NOB LMP 08/29/21 EORDER BLEEDING ALMOST 12 WEEKS OB bleeding 12 WK OB 15 WK OB 19 WK OB Amb 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 ANATOMY SCAN Reason for Visit Anxiety Supervision of normal Anxiety Supervision of normal Anxiety Supervision of normal Anxiety Supervision of normal Anxiety Supervision of normal Chief Complaint Amb 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 HYDRATION DEHYDRATION NOB LMP 08/29/21 EORDER BLEEDING ALMOST 12 WEEKS OB bleeding 12 WK OB 15 WK OB 19 WK OB Amb 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 ANATOMY SCAN TACHYCARDIA EORDERS ARRHYTHMIA Reason for Visit Anxiety Supervision of normal Anxiety Supervision of normal Anxiety Supervision of normal Anxiety Supervision of normal Anxiety Supervision of normal Palpitations Tachycardia Chief Complaint BLEEDING ALMOST 12 WEEKS OB bleeding 12 WK OB 15 WK OB 19 WK OB Amb 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 ANATOMY SCAN TACHYCARDIA EORDERS ARRHYTHMIA 22WK OB EORDERS 26wk ob Reason for Visit Anxiety Supervision of normal Anxiety Supervision of normal Anxiety Supervision of normal Anxiety Supervision of normal Palpitations Tachycardia Anxiety Low lying placenta nos or without hemorrhage, second trimester Palpitations Placental abnormality in second trimester Supervision of normal Tachycardia Anxiety Low lying placenta nos or without hemorrhage, second trimester Placental abnormality in second trimester Supervision of normal Chief Complaint 12 WK OB 15 WK OB 19 WK OB Amb 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 ANATOMY SCAN TACHYCARDIA EORDERS ARRHYTHMIA 22WK OB EORDERS 26wk ob LOW LYING PLACENTA est ob 28w Reason for Visit Anxiety Supervision of normal Anxiety Supervision of normal Anxiety Supervision of normal Palpitations Tachycardia Anxiety Low lying placenta nos or without hemorrhage, second trimester Palpitations Placental abnormality in second trimester Supervision of normal Tachycardia Anxiety Low lying placenta nos or without hemorrhage, second trimester Placental abnormality in second trimester Supervision of normal Anxiety Low lying placenta nos or without hemorrhage, second trimester Palpitations Placental abnormality in second trimester Supervision of normal Tachycardia Chief Complaint 19 WK OB Amb 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 ANATOMY SCAN TACHYCARDIA EORDERS ARRHYTHMIA 22WK OB EORDERS 26wk ob LOW LYING PLACENTA est ob 28w est ob 30w GROWTH est ob 32w Reason for Visit Anxiety Supervision of normal Palpitations Tachycardia Anxiety Low lying placenta nos or without hemorrhage, second trimester Palpitations Placental abnormality in second trimester Supervision of normal Tachycardia Anxiety Low lying placenta nos or without hemorrhage, second trimester Placental abnormality in second trimester Supervision of normal Anxiety Low lying placenta nos or without hemorrhage, second trimester Palpitations Placental abnormality in second trimester Supervision of normal Tachycardia Anxiety Low lying placenta nos or without hemorrhage, second trimester Palpitations Placental abnormality in second trimester Supervision of normal Tachycardia Anxiety Low lying placenta nos or without hemorrhage, second trimester Palpitations Placental abnormality in second trimester Supervision of normal Tachycardia Chief Complaint ARRHYTHMIA 22WK OB EORDERS 26wk ob LOW LYING PLACENTA est ob 28w est ob 30w GROWTH est ob 32w 34wk ob rash/itching 36wk ob E ORDERS 37wk ob LABS EORDERS/COLLESTASIS RULE OUT LABOR RULE OUT LABOR Reason for Visit Anxiety Low lying placenta nos or without hemorrhage, second trimester Palpitations Placental abnormality in second trimester Supervision of normal Tachycardia Anxiety Low lying placenta nos or without hemorrhage, second trimester Placental abnormality in second trimester Supervision of normal Anxiety Low lying placenta nos or without hemorrhage, second trimester Palpitations Placental abnormality in second trimester Supervision of normal Tachycardia Anxiety Low lying placenta nos or without hemorrhage, second trimester Palpitations Placental abnormality in second trimester Supervision of normal Tachycardia Anxiety Low lying placenta nos or without hemorrhage, second trimester Palpitations Placental abnormality in second trimester Supervision of normal Tachycardia Anxiety Low lying placenta nos or without hemorrhage, second trimester Palpitations Placental abnormality in second trimester Supervision of normal Tachycardia Anxiety Low lying placenta nos or without hemorrhage, second trimester Palpitations Placental abnormality in second trimester PUPP (pruritic urticarial papules and plaques of ) Supervision of normal Tachycardia Pruritus of PUPP (pruritic urticarial papules and plaques of ) Supervision of normal Anxiety Low lying placenta nos or without hemorrhage, second trimester Palpitations Placental abnormality in second trimester Pruritus of PUPP (pruritic urticarial papules and plaques of ) Supervision of normal Tachycardia Abnormal test Chief Complaint 22WK OB EORDERS 26wk ob LOW LYING PLACENTA est ob 28w est ob 30w GROWTH est ob 32w 34wk ob rash/itching 36wk ob E ORDERS 37wk ob LABS EORDERS/COLLESTASIS RULE OUT LABOR RULE OUT LABOR RULE OUT LABOR Reason for Visit Anxiety Low lying placenta nos or without hemorrhage, second trimester Palpitations Placental abnormality in second trimester Supervision of normal Tachycardia Anxiety Low lying placenta nos or without hemorrhage, second trimester Placental abnormality in second trimester Supervision of normal Anxiety Low lying placenta nos or without hemorrhage, second trimester Palpitations Placental abnormality in second trimester Supervision of normal Tachycardia Anxiety Low lying placenta nos or without hemorrhage, second trimester Palpitations Placental abnormality in second trimester Supervision of normal Tachycardia Anxiety Low lying placenta nos or without hemorrhage, second trimester Palpitations Placental abnormality in second trimester Supervision of normal Tachycardia Anxiety Low lying placenta nos or without hemorrhage, second trimester Palpitations Placental abnormality in second trimester Supervision of normal Tachycardia Anxiety Low lying placenta nos or without hemorrhage, second trimester Palpitations Placental abnormality in second trimester PUPP (pruritic urticarial papules and plaques of ) Supervision of normal Tachycardia Pruritus of PUPP (pruritic urticarial papules and plaques of ) Supervision of normal Anxiety Low lying placenta nos or without hemorrhage, second trimester Palpitations Placental abnormality in second trimester Pruritus of PUPP (pruritic urticarial papules and plaques of ) Supervision of normal Tachycardia Abnormal test Anxiety Pruritus of PUPP (pruritic urticarial papules and plaques of ) Supervision of normal Chief Complaint 22WK OB EORDERS 26wk ob LOW LYING PLACENTA est ob 28w est ob 30w GROWTH est ob 32w 34wk ob rash/itching 36wk ob E ORDERS 37wk ob LABS EORDERS/COLLESTASIS RULE OUT LABOR RULE OUT LABOR RULE OUT LABOR DFM NST Reason for Visit Anxiety Low lying placenta nos or without hemorrhage, second trimester Palpitations Placental abnormality in second trimester Supervision of normal Tachycardia Anxiety Low lying placenta nos or without hemorrhage, second trimester Placental abnormality in second trimester Supervision of normal Anxiety Low lying placenta nos or without hemorrhage, second trimester Palpitations Placental abnormality in second trimester Supervision of normal Tachycardia Anxiety Low lying placenta nos or without hemorrhage, second trimester Palpitations Placental abnormality in second trimester Supervision of normal Tachycardia Anxiety Low lying placenta nos or without hemorrhage, second trimester Palpitations Placental abnormality in second trimester Supervision of normal Tachycardia Anxiety Low lying placenta nos or without hemorrhage, second trimester Palpitations Placental abnormality in second trimester Supervision of normal Tachycardia Anxiety Low lying placenta nos or without hemorrhage, second trimester Palpitations Placental abnormality in second trimester PUPP (pruritic urticarial papules and plaques of ) Supervision of normal Tachycardia Pruritus of PUPP (pruritic urticarial papules and plaques of ) Supervision of normal Anxiety Low lying placenta nos or without hemorrhage, second trimester Palpitations Placental abnormality in second trimester Pruritus of PUPP (pruritic urticarial papules and plaques of ) Supervision of normal Tachycardia Abnormal test Anxiety Pruritus of PUPP (pruritic urticarial papules and plaques of ) Supervision of normal Abnormal test Anxiety Low lying placenta nos or without hemorrhage, second trimester Palpitations Placental abnormality in second trimester Pruritus of PUPP (pruritic urticarial papules and plaques of ) Supervision of normal Tachycardia Chief Complaint EORDERS 26wk ob LOW LYING PLACENTA est ob 28w est ob 30w GROWTH est ob 32w 34wk ob rash/itching 36wk ob E ORDERS 37wk ob LABS EORDERS/COLLESTASIS RULE OUT LABOR RULE OUT LABOR RULE OUT LABOR DFM NST 38wk ob 39wk ob GROWTH Reason for Visit Anxiety Low lying placenta nos or without hemorrhage, second trimester Placental abnormality in second trimester Supervision of normal Anxiety Low lying placenta nos or without hemorrhage, second trimester Palpitations Placental abnormality in second trimester Supervision of normal Tachycardia Anxiety Low lying placenta nos or without hemorrhage, second trimester Palpitations Placental abnormality in second trimester Supervision of normal Tachycardia Anxiety Low lying placenta nos or without hemorrhage, second trimester Palpitations Placental abnormality in second trimester Supervision of normal Tachycardia Anxiety Low lying placenta nos or without hemorrhage, second trimester Palpitations Placental abnormality in second trimester Supervision of normal Tachycardia Anxiety Low lying placenta nos or without hemorrhage, second trimester Palpitations Placental abnormality in second trimester PUPP (pruritic urticarial papules and plaques of ) Supervision of normal Tachycardia Pruritus of PUPP (pruritic urticarial papules and plaques of ) Supervision of normal Anxiety Low lying placenta nos or without hemorrhage, second trimester Palpitations Placental abnormality in second trimester Pruritus of PUPP (pruritic urticarial papules and plaques of ) Supervision of normal Tachycardia Abnormal test Anxiety Pruritus of PUPP (pruritic urticarial papules and plaques of ) Supervision of normal Abnormal test Anxiety Low lying placenta nos or without hemorrhage, second trimester Palpitations Placental abnormality in second trimester Pruritus of PUPP (pruritic urticarial papules and plaques of ) Supervision of normal Tachycardia Abnormal test Anxiety Low lying placenta nos or without hemorrhage, second trimester Palpitations Placental abnormality in second trimester Pruritus of PUPP (pruritic urticarial papules and plaques of ) Supervision of normal Tachycardia Abnormal test Anxiety Low lying placenta nos or without hemorrhage, second trimester Palpitations Placental abnormality in second trimester Pruritus of PUPP (pruritic urticarial papules and plaques of ) Supervision of normal Tachycardia Chief Complaint EORDERS 26wk ob LOW LYING PLACENTA est ob 28w est ob 30w GROWTH est ob 32w 34wk ob rash/itching 36wk ob E ORDERS 37wk ob LABS EORDERS/COLLESTASIS RULE OUT LABOR RULE OUT LABOR RULE OUT LABOR DFM NST 38wk ob 39wk ob GROWTH 40wk ob VAGINAL DELIVERY INDUCTION OF LABOR VAGINAL DELIVERY VAGINAL DELIVERY Reason for Visit Anxiety Supervision of normal Low lying placenta nos or without hemorrhage, second trimester Placental abnormality in second trimester Anxiety Palpitations Supervision of normal Low lying placenta nos or without hemorrhage, second trimester Placental abnormality in second trimester Tachycardia Anxiety Palpitations Supervision of normal Low lying placenta nos or without hemorrhage, second trimester Placental abnormality in second trimester Tachycardia Anxiety Palpitations Supervision of normal Low lying placenta nos or without hemorrhage, second trimester Placental abnormality in second trimester Tachycardia Anxiety Palpitations Supervision of normal Low lying placenta nos or without hemorrhage, second trimester Placental abnormality in second trimester Tachycardia Anxiety Palpitations PUPP (pruritic urticarial papules and plaques of ) Supervision of normal Low lying placenta nos or without hemorrhage, second trimester Placental abnormality in second trimester Tachycardia Pruritus of PUPP (pruritic urticarial papules and plaques of ) Supervision of normal Anxiety Palpitations Pruritus of PUPP (pruritic urticarial papules and plaques of ) Supervision of normal Low lying placenta nos or without hemorrhage, second trimester Placental abnormality in second trimester Tachycardia Anxiety Pruritus of PUPP (pruritic urticarial papules and plaques of ) Supervision of normal Abnormal test Anxiety Palpitations Pruritus of PUPP (pruritic urticarial papules and plaques of ) Supervision of normal Abnormal test Low lying placenta nos or without hemorrhage, second trimester Placental abnormality in second trimester Tachycardia Anxiety Palpitations Pruritus of PUPP (pruritic urticarial papules and plaques of ) Supervision of normal Abnormal test Low lying placenta nos or without hemorrhage, second trimester Placental abnormality in second trimester Tachycardia Anxiety Palpitations Pruritus of PUPP (pruritic urticarial papules and plaques of ) Supervision of normal Abnormal test Low lying placenta nos or without hemorrhage, second trimester Placental abnormality in second trimester Tachycardia Anxiety Palpitations Pruritus of PUPP (pruritic urticarial papules and plaques of ) Small for dates affecting management of mother Supervision of normal Abnormal test Placental abnormality in second trimester Tachycardia Anxiety Encounter for induction of labor Retained placenta Small for dates affecting management of mother Status post vaginal delivery Supervision of normal Small for dates fetus Chief Complaint EORDERS 26wk ob LOW LYING PLACENTA est ob 28w est ob 30w GROWTH est ob 32w 34wk ob rash/itching 36wk ob E ORDERS 37wk ob LABS EORDERS/COLLESTASIS RULE OUT LABOR RULE OUT LABOR RULE OUT LABOR DFM NST 38wk ob 39wk ob GROWTH 40wk ob VAGINAL DELIVERY INDUCTION OF LABOR VAGINAL DELIVERY VAGINAL DELIVERY abn labs, bleeding, cramping Reason for Visit Anxiety Supervision of normal Low lying placenta nos or without hemorrhage, second trimester Placental abnormality in second trimester Anxiety Palpitations Supervision of normal Low lying placenta nos or without hemorrhage, second trimester Placental abnormality in second trimester Tachycardia Anxiety Palpitations Supervision of normal Low lying placenta nos or without hemorrhage, second trimester Placental abnormality in second trimester Tachycardia Anxiety Palpitations Supervision of normal Low lying placenta nos or without hemorrhage, second trimester Placental abnormality in second trimester Tachycardia Anxiety Palpitations Supervision of normal Low lying placenta nos or without hemorrhage, second trimester Placental abnormality in second trimester Tachycardia Anxiety Palpitations PUPP (pruritic urticarial papules and plaques of ) Supervision of normal Low lying placenta nos or without hemorrhage, second trimester Placental abnormality in second trimester Tachycardia Pruritus of PUPP (pruritic urticarial papules and plaques of ) Supervision of normal Anxiety Palpitations Pruritus of PUPP (pruritic urticarial papules and plaques of ) Supervision of normal Low lying placenta nos or without hemorrhage, second trimester Placental abnormality in second trimester Tachycardia Anxiety Pruritus of PUPP (pruritic urticarial papules and plaques of ) Supervision of normal Abnormal test Anxiety Palpitations Pruritus of PUPP (pruritic urticarial papules and plaques of ) Supervision of normal Abnormal test Low lying placenta nos or without hemorrhage, second trimester Placental abnormality in second trimester Tachycardia Anxiety Palpitations Pruritus of PUPP (pruritic urticarial papules and plaques of ) Supervision of normal Abnormal test Low lying placenta nos or without hemorrhage, second trimester Placental abnormality in second trimester Tachycardia Anxiety Palpitations Pruritus of PUPP (pruritic urticarial papules and plaques of ) Supervision of normal Abnormal test Low lying placenta nos or without hemorrhage, second trimester Placental abnormality in second trimester Tachycardia Anxiety Palpitations Pruritus of PUPP (pruritic urticarial papules and plaques of ) Small for dates affecting management of mother Supervision of normal Abnormal test Placental abnormality in second trimester Tachycardia Anxiety Encounter for induction of labor Retained placenta Small for dates affecting management of mother Status post vaginal delivery Supervision of normal Small for dates fetus Anemia Fever hemorrhage Retained products of conception Chief Complaint EORDERS 26wk ob LOW LYING PLACENTA est ob 28w est ob 30w GROWTH est ob 32w 34wk ob rash/itching 36wk ob E ORDERS 37wk ob LABS EORDERS/COLLESTASIS RULE OUT LABOR RULE OUT LABOR RULE OUT LABOR DFM NST 38wk ob 39wk ob GROWTH 40wk ob VAGINAL DELIVERY INDUCTION OF LABOR VAGINAL DELIVERY VAGINAL DELIVERY abn labs, bleeding, cramping abn labs, bleeding, cramping Reason for Visit Anxiety Low lying placenta nos or without hemorrhage, second trimester Placental abnormality in second trimester Supervision of normal Anxiety Low lying placenta nos or without hemorrhage, second trimester Palpitations Placental abnormality in second trimester Supervision of normal Tachycardia Anxiety Low lying placenta nos or without hemorrhage, second trimester Palpitations Placental abnormality in second trimester Supervision of normal Tachycardia Anxiety Low lying placenta nos or without hemorrhage, second trimester Palpitations Placental abnormality in second trimester Supervision of normal Tachycardia Anxiety Low lying placenta nos or without hemorrhage, second trimester Palpitations Placental abnormality in second trimester Supervision of normal Tachycardia Anxiety Low lying placenta nos or without hemorrhage, second trimester Palpitations Placental abnormality in second trimester PUPP (pruritic urticarial papules and plaques of ) Supervision of normal Tachycardia Pruritus of PUPP (pruritic urticarial papules and plaques of ) Supervision of normal Anxiety Low lying placenta nos or without hemorrhage, second trimester Palpitations Placental abnormality in second trimester Pruritus of PUPP (pruritic urticarial papules and plaques of ) Supervision of normal Tachycardia Anxiety Abnormal test Pruritus of PUPP (pruritic urticarial papules and plaques of ) Supervision of normal Anxiety Abnormal test Low lying placenta nos or without hemorrhage, second trimester Palpitations Placental abnormality in second trimester Pruritus of PUPP (pruritic urticarial papules and plaques of ) Supervision of normal Tachycardia Anxiety Abnormal test Low lying placenta nos or without hemorrhage, second trimester Palpitations Placental abnormality in second trimester Pruritus of PUPP (pruritic urticarial papules and plaques of ) Supervision of normal Tachycardia Anxiety Abnormal test Low lying placenta nos or without hemorrhage, second trimester Palpitations Placental abnormality in second trimester Pruritus of PUPP (pruritic urticarial papules and plaques of ) Supervision of normal Tachycardia Anxiety Abnormal test Palpitations Placental abnormality in second trimester Pruritus of PUPP (pruritic urticarial papules and plaques of ) Small for dates affecting management of mother Supervision of normal Tachycardia Anxiety Status post vaginal delivery Encounter for induction of labor Retained placenta Small for dates affecting management of mother Small for dates fetus Supervision of normal Anemia endometritis hemorrhage Retained products of conception Fever Chief Complaint MENORRHAGIA Menorrhagia Reason for Visit Menorrhagia with reg ular cycle Postcoital bleeding Chief Complaint MENORRHAGIA Menorrhagia rt side breast lump RIGHT SIDE BREAST PAIN Reason for Visit Menorrhagia with reg ular cycle Postcoital bleeding Breast lump Additional Source Comments Reason for Visit (unrecogniz ed section and content) Reason For Visit Description New/Est - 1st visit with physician 02/08 Preliminary reason f or visit data, not yet signed by the author as of lower back pain Reason Comments Back Pain Status Reason Specialty Diagnoses / Procedures Referred By Contact Referred To Contact Closed Neurosurgery Diagnoses Low back pain, unspecified back pain laterality, unspecified chronicity, unspecified whether sciatica present Referring, MD Justin [address] [place] [address] Peri Rasheed MD [id number] [facility] [address] [place] [address] INFORMATION SOURCE (unrecogn ized section and content) DATE CREATED AUTHOR 08/30/2020 [facility] DATE CREATED AUTHOR AUTHOR'S MI ATJENNIFER 05/02/2025 [facility] Source Comments (unrecognize d section and content) In the event this informatio n is protected by the Federal Confidentiality of Alcohol and Drug Abuse Patient Records regulations: The Federal rules restrict any use of the information to criminally investigate or prosecute any alcohol or drug abuse patient.[facility] Goals (unrecognized section and content) Goals may be documented in a n alternate sectionGoals may be documented in an alternate sectionGoals may be documented in an alternate sectionGoals may be documented in an alternate sectionGoals may be documented in an alternate sectionGoals may be documented in an alternate sectionGoals may be documented in an alternate sectionGoals may be documented in an alternate sectionGoals may be documented in an alternate sectionGoals may be documented in an alternate sectionGoals may be documented in an alternate sectionGoals may be documented in an alternate sectionGoals may be documented in an alternate sectionGoals may be documented in an alternate sectionGoals may be documented in an alternate sectionGoals may be documented in an alternate sectionGoals may be documented in an alternate section Care Teams (unrecognized sec tion and content) Team Status: Active Member Role Status Dates No Primary Care Physician Family Provider Active Dr. Debbie Simons MD Primary Care Provider Active Team Status: Inactive Member Role Status Dates Dr. 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 Debbie Simons MD Primary Care Provider Active Dr. Tia Arredondo MD Attending Provider, Referr ing Provider Active Team Status: Inactive Member Role Status Dates Dr. Debbie Simons MD Primary Care Provider, Referrin g Provider Active Katja Gregorio CNM Attending Provider Active Team Status: Inactive Member Role Status Dates Dr. Debbie Simons MD Primary Care Provider Active Katja Gregorio CNM Attending Provider, Referring Pro vider Active Team Status: Inactive Member Role Status Dates Dr. Debbie Simons MD Primary Care Prov ider, Attending Provider, Referring Provider Active FOR RECORDS PERTAINING TO PATIENTS WHO ARE [...] BE BASED ON THE PRIMARY CLINICAL RECORDS. [facility] [employer] [facility]. provides no warranty or guarantee of the accuracy or completeness of information in this document.
[2025-06-21 12:42] LABS: AST(SGOT) 32 U/L (<=31); Alanine Aminotransfer ALT/SGPT 22 U/L (<=34); Albumin, Serum 4.4 g/dL (3.5-5.0); Alkaline Phosphatase 69 U/L (35-104); Amylase 57 U/L (28-100); Anion Gap 11 (5-15); BUN 10 mg/dL (4-19); BUN/Creat Ratio 14.5 RATIO (10-20); Calcium,Total 9.3 mg/dL (7.6-11.0); Carbon Dioxide 24.6 mmol/L (21.0-32.0); Chloride 104 mmol/L (98-108); Globulin 2.9 g/dL (2.2-4.2); Glucose 90 mg/dL (70-99); Lipase 29 U/L (13-75); Potassium 4.0 mmol/L (3.3-5.1)
== END | disposition home or self-care (01) ==
LOC: BFHLAB 10:54
PROVIDERS: PCP Family Medicine; Visit Provider Family Medicine
DX: R10.11 Right upper quadrant pain (principal)
CPT/HCPCS: 36415; 80053; 82150; 83690; 85025

== ENCOUNTER → 2025-06-21 | Outpatient (CLI) | payer OTHER, SELFPAY ==
--- NOTE | 2025-06-21 12:02 | US_ITS ---
PROCEDURE: ABDOMEN LIMITED 06/21/2025 REASON FOR EXAM: RIGHT UPPER QUADRANT PAIN TECHNIQUE: Procedure Code: USABDL Modality: US Procedure: ABDOMEN LIMITED COMPARISON: None FINDINGS: GALLBLADDER: No gallstones. no gallbladder wall thickening or pericholecystic fluid. Negative Mota sign. COMMON BILE DUCT: Measures 3 mm. No intrahepatic biliary dilatation. LIVER: Normal size. Normal echotexture. No definite hepatic mass. RIGHT KIDNEY: Normal in size and echogenicity. No mass. No urinary stones. No hydronephrosis. Pancreas: Within normal limits. US/Abdomen Limited IMPRESSION: No acute cholecystitis. Reading Location: [id number]
== END | disposition home or self-care (01) ==
LOC: US 12:02
PROVIDERS: PCP Family Medicine; Referring Provider Nurse Practitioner Family; Visit Provider Nurse Practitioner Family
DX: R10.11 Right upper quadrant pain (principal)
CPT/HCPCS: 76705

== ENCOUNTER → 2025-07-12 | Outpatient (CLI) | payer OTHER, SELFPAY ==
[2025-07-12 16:22] LABS: CRP < 3.00 mg/L (0.0-3.0)
[2025-07-14 11:08] LABS: Anti-Chromatin <0.2 AI (0.0-0.9); Anti-Jo <0.2 AI (0.0-0.9); Anti-dsDNA Ab 4 IU/mL (0-9); SJOGREN'S Anti-SS-A test 0.2 AI (0.0-0.9); SJOGREN'S Anti-SS-B test < 0.2 AI (0.0-0.9)
== END | disposition home or self-care (01) ==
LOC: LAB 14:40
PROVIDERS: PCP Family Medicine; Referring Provider Internal Medicine Gastroenterology; Visit Provider Internal Medicine Gastroenterology
DX: R10.9 Unspecified abdominal pain (principal)
CPT/HCPCS: 82784; 83516; 84165; 85652; 86036; 86037; 86140; 86200; 86225; 86235; 86255; 86334; 86431; 86664; 86665; 86671